=== PATIENT | male | born 1955 | race Caucasian/White ===

== ENCOUNTER → 2017-07-19 13:22 | Outpatient (CLI) | payer OTHER, SELFPAY ==
--- NOTE | 2017-07-19 13:26 | RAD_ITS ---
STUDY: X-RAY - RIGHT SHOULDER REASON FOR EXAM: Male, 61 years old. Right shoulder pain, no known injury. TECHNIQUE: 4 view(s) of the shoulder. COMPARISON: None. FINDINGS: There is mild degenerative arthrosis of the glenohumeral articulation. There is degenerative arthrosis of the acromioclavicular joint without inferior osseous spur formation. Normal acromion. Normal humeral head and visualized proximal humerus. The soft tissue structures are unremarkable. Normal visualized pulmonary apex. RAD/Shoulder min 2 Views IMPRESSION: Mild degenerative changes. Electronically Signed: Eliane Pettit MD at 11:26 EST , Service support ,
== END ==
PROVIDERS: Family Provider Family Medicine; PCP Family Medicine; Visit Provider Anesthesiology Pain Medicine
DX: M25.511 Pain in right shoulder (principal); M79.601 Pain in right arm
CPT/HCPCS: 73030

== ENCOUNTER → 2017-08-08 15:28 | Outpatient (CLI) | payer OTHER, SELFPAY ==
--- NOTE | 2017-08-08 15:30 | RAD_ITS ---
STUDY: X-RAY - LEFT KNEE REASON FOR EXAM: Male, 61 years old. Left knee for several months. Pain while going up and down stairs. TECHNIQUE: 4 view(s) of the knee. COMPARISON: None. FINDINGS: Normal visualized distal femur. Normal visualized proximal tibia and fibula. Normal proximal tibiofibular articulation. There is no acute fracture, dislocation or destructive osseous pathology. Normal medial femorotibial compartment. Normal lateral femorotibial compartment. There is moderate degenerative arthrosis of the patellofemoral articulation. There is no demonstrated joint effusion. The soft tissue structures are unremarkable. RAD/Knee 4 or More Views IMPRESSION: Arthrosis of the patellofemoral joint. Electronically Signed: Delfino De Leon DO at 16:08 EDT Tel [phone], Service support ,
== END ==
PROVIDERS: Family Provider Family Medicine; PCP Family Medicine; Visit Provider Anesthesiology Pain Medicine
DX: M25.562 Pain in left knee (principal)
CPT/HCPCS: 73564

== ENCOUNTER → 2018-01-03 13:58 | Outpatient (CLI) | payer OTHER, SELFPAY ==
--- NOTE | 2018-01-03 14:06 | MRI_ITS ---
STUDY: MRI BRAIN WITH AND WITHOUT CONTRAST REASON FOR EXAM: Male, 62 years old. Blurred vision in the left eye for one week TECHNIQUE: Standardized multiplanar fat and water weighted pulse sequences were obtained. 12 ml of Gadavist contrast material was administered intravenously for the contrast portion of the examination. High resolution imaging of the orbits was performed COMPARISON: None. FINDINGS: No evidence for shift of midline structures, mass effect or compression of ventricles noted. No acute intra-articular extra-axial hemorrhage is seen. Multiple scattered foci T2/FLAIR hyperintensity noted in the periventricular and subcortical white matter which are nonspecific in imaging appearance however differential considerations include chronic small vessel disease, inflammatory or demyelinating process. No associated enhancement or restricted diffusion seen. No discrete mass in the posterior fossa. The ventricular system appears unremarkable. Basal cisterns are patent. Pituitary stalk and optic chiasm are within normal limits. No evidence for cerebellar tonsillar herniation. Subtle cortical-based small hyperintense signal in the left medial occipital lobe noted on diffusion-weighted imaging may relate with a small cortical-based subacute infarct or T2 shine through High resolution imaging of the orbits demonstrates subtle edema in the intraorbital segment of the left optic nerve. Optic neuritis is a diagnostic consideration. No retrobulbar edema is noted. Extraocular muscles appear symmetric. Superior ophthalmic veins are patent. Exam is significantly motion degraded. The globes are intact. Mild mucosal thickening of the ethmoid air cells. IMPRESSION: Subtle abnormal edema in the intraorbital segment of the left optic nerve suggestive of optic neuritis. Other differential considerations include simply include inflammatory processes. Multiple scattered foci T2/FLAIR hyperintensity noted in the periventricular and subcortical white matter which are nonspecific in imaging appearance however differential considerations include chronic small vessel disease, inflammatory or demyelinating process. No associated enhancement or restricted diffusion seen Subtle cortical-based small hyperintense signal in the left medial occipital lobe noted on diffusion-weighted imaging may relate with a small cortical-based subacute infarct or T2 shine through Electronically Signed: Eric Tamayo, at 15:30 EDT Tel , Service support , MRI/Brain W/WO Contrast
== END ==
PROVIDERS: Family Provider Family Medicine; PCP Family Medicine; Visit Provider Ophthalmology
DX: H46.9 Unspecified optic neuritis (principal); Z82.69 Family history of other diseases of the musculoskeletal system and connective tissue
CPT/HCPCS: 70553; A9585

== ENCOUNTER 2018-03-03 11:11 | Emergency (ER) | payer OTHER, SELFPAY ==
[2018-03-03] VITALS (16 sets, daily range): BP systolic 80–114; BP diastolic 26–69; PULSE 105–113; RESP 18–37; TEMP 36.9–37.2; O2SAT 97–100; BMI 40.1
--- NOTE | 2018-03-03 11:21 | EKG12_ITS ---
Test Reason : Blood Pressure : / mmHG Vent. Rate : 110 BPM Atrial Rate : 110 BPM P-R Int : 176 ms QRS Dur : 148 ms QT Int : 388 ms P-R-T Axes : 000 096 -17 degrees QTc Int : 525 ms Sinus tachycardia Rightward axis Non-specific intra-ventricular conduction block Inferior infarct , age undetermined Abnormal ECG Confirmed by MITUL KAMARA, SYLVESTER ([id number]), food editor RAFFY ROGERS ([id number]) on 03/10/2018 3:47:11 PM Referred By: NEWTON Confirmed By:SYLVESTER BAUMAN MD
[2018-03-03 11:25] LABS: Bedside Glucose > 500 mg/dL (70-110)
[2018-03-03] MEDS: 0.9% Normal Saline 1,000 ML IV.SOLN. 3000 ML IV (11:30)
--- NOTE | 2018-03-03 11:46 | ED.RN ---
PT IS MOVING HEAD AND OPENED EYES. PT SAID HI. PT REMAIN LETHARGIC.
[2018-03-03 11:51] LABS: Mucous, Urine 0 SEEN /hpf (<or=2+); Red Blood Cells-Urine 0 SEEN /hpf (0-5); White Blood Cells 0 SEEN /hpf (0-5)
[2018-03-03 11:52] LABS: International Normalized Ratio 1.4
[2018-03-03 11:53] LABS: Partial Thromboplast Time 31.5 Seconds (24.1-36.2)
[2018-03-03 11:53] LABS: Color, Urine Yellow (Yellow); Glucose, Dipstick 1000 mg/dl (Normal); Ketone-Dipstick 50 mg/dl (Negative); Leukocyte Esterase-Dipstick Negative /ul (Negative); Nitrite-Dipstick Negative (Negative); Occult Blood-Urine Negative /ul (Negative); Protein-Dipstick Negative (Negative); Specific Gravity, Urine 1.025 (1.002-1.030); Urine Bilirubin Dipstick Negative (Negative); Urine Clarity Sl. Cloudy (Clear); Urine Urobilinogen Normal (Normal)
[2018-03-03 11:56] LABS: Allen Test POS; Base Excess -25 mmol/L (-2 to +2); Bicarbonate 4.9 mmol/L (22-26); Blood Gas Specimen Type ART; O2 Delivery Device Nasal Can; PO2 144 mmHG (75-100); SITE L Radial; SO2 98 % (95-99); Time Given 1140; Total Carbon Dioxide 5 mmol/L; pCO2 16.9 mmHg (35-45); pH 7.07 (7.35-7.45)
[2018-03-03 12:00] LABS: Squamous Epithelial Cells - UA 0-5 SEEN /hpf (0-5)
[2018-03-03] MEDS: 0.9% Normal Saline 1,000 ML 999 ML IV ×2 (12:00)
[2018-03-03 12:01] LABS: Bacteria 0 SEEN /hpf (None Seen)
--- NOTE | 2018-03-03 12:02 | ED.RN ---
LAB RESULTED POTASSIUM 6.8, CO2 6, GLUCOSE 1224. PHYSICIAN NOTIFIED
[2018-03-03 12:03] LABS: ALB/GLOB Ratio 1.1 RATIO (0.9-2.4); AST(SGOT) 20 U/L (15-37); Absolute Lymphocyte Count 3.81 X10^3/ul (0.83-4.51); Absolute Neutrophil Count 24.8 X10^3/uL (2.0-7.7); Alanine Aminotransfer ALT/SGPT 26 U/L (16-61); Albumin, Serum 3.6 g/dL (3.2-5.0); Alkaline Phosphatase 100 U/L (45-117); Anion Gap 33 (5-15); BUN 69 mg/dL (7-18); BUN/Creat Ratio 16.1 RATIO (10-20); Basophil# 0.03 X10^3/uL; Basophil% 0.1 % (0-1); Calcium,Total 8.7 mg/dL (8.5-10.1); Chloride 87 mmol/L (98-107); Creatinine, Serum 4.28 mg/dL (0.70-1.30); Differential Indicated SCAN CRITERIA MET; EST Glomerular Filtration Rate 15 mL/min (>60); Est Glom Filt Rate - Afr Amer 18 mL/min (>60); Estimated Creatinine Clearance 16.73 ml/min; Globulin 3.4 g/dL (2.2-4.2); Glucose 1224 mg/dL (74-106); Hematocrit 41.3 % (40-54); Hemoglobin 12.1 g/dl (13.0-16.5); Lymphocyte # 3.81 X10^3/ul (4.0); Lymphocyte % 12.7 % (19-41); Mean Corp Hgb Conc 29.3 g/gl (32-36); Mean Corpuscular Hgb 28.1 pg (27.0-32.0); Mean Platelet Vol. 11.7 fl (6.2-12.0); Monocyte# 1.16 X10^3/uL; Monocyte% 3.9 % (0-10); Neutrophil # 24.84 X10^3/uL (2.7-7.7); Neutrophil % 82.8 % (47-70); POSITIVE COUNT NO; POSITIVE DIFFERENTIAL YES; POSITIVE MORPHOLOGY YES; Platelet Count 399 K/mm3 (150-450); Potassium 6.8 mmol/L (3.5-5.1); RBC Distribution Width CV 15.8 % (11.6-14.6); RBC Distribution Width SD 55.3 fl (35.1-43.9); Sodium Level 126 mmol/L (136-145)
--- NOTE | 2018-03-03 12:10 | ED.RN ---
Critical value called from lab of WBC 30, Dr. Mckeon and RN aware.
[2018-03-03] MEDS: Ketamine HCl 500 MG/5 ML Vial 120 MG IV (12:11)
[2018-03-03] MEDS: Rocuronium Bromide 50 MG/5 ML Vial 120 MG IV (12:14)
--- NOTE | 2018-03-03 12:24 | ED.RN ---
400 CC COFFEE GROUND EMESIS RETURN FROM OG.
[2018-03-03] MEDS: 0.9% Normal Saline 1,000 ML 250 ML IV ×2 (12:30→12:34)
--- NOTE | 2018-03-03 12:30 | RAD_ITS ---
STUDY: X-RAY CHEST REASON FOR EXAM: Male, 62 years old. Endotracheal tube placement. Orogastric tube placement. TECHNIQUE: Single AP portable view of the chest. COMPARISON: July 31, 2015. FINDINGS: There is now an endotracheal tube with its tip 3 cm above the alber. There is an OG tube with its tip below the left hemidiaphragm. The lungs are hypoexpanded. There is no focal mass or infiltrate. There is no demonstrated pleural abnormality. Normal size heart. Normal mediastinum and bennett. Normal visualized pulmonary arteries. There is atherosclerotic calcification of the aortic arch with tortuosity. The thoracic spine is obscured by the mediastinum. Normal visualized ribs, clavicles, and shoulders. There is no demonstrated abnormality of the visualized soft tissue structures of the upper abdomen. RAD/Chest 1 View (Portable) IMPRESSION: 1. Endotracheal tube and OG tube as described. 2. No acute cardiopulmonary disease. Electronically Signed: Delfino De Leon DO at 13:55 EDT Tel [phone], Service support ,
[2018-03-03] MEDS: Glucagon 1 MG/ML Syringe IV (13:03)
--- NOTE | 2018-03-03 13:08 | ED.DCSUM_ITS ---
- ER Visit Summary Date of Service: 03/03/18 Chief Complaint: Unresponsiveness History of Present Illness: The patient is a 62 M who arrived via EMS unresponsive. Apparently friend found the patient unresponsive and his insulin pump was detached. Physical Examination: Patient appears acutely ill, his GCS is 9 Very dry mucous membranes, no obvious facial deformity No C-spine tenderness supple neck. Regular rhythm, tachycardic without any obvious murmurs White tachypneic but no obvious wheezing Abdomen soft. Skin does not show any obvious rashes or lesions, no trauma. GCS is 3, 2, 4+ 9. Emergency Department Course and Treatment: Patient was moved to the resuscitation room. 3 concurrent IVs were obtained, a 20-gauge. 3 L of IV fluids were given bolus, 2 more liters were given bolus. Patient appeared ill and he was Quite tachypneic, he decompensated and had decreased mental status, his blood pressure also decreased, bicarbonate IV was given. At this time the decision was made to intubate, I was worried that the patient ran out of ATP. Ketamine and rocuronium were used, 7.5 ET tube was placed. Patient has a pH of 7.07 with a bicarb of 5, this is uncompensated since the CO2 is 16. His white count is 30,000 although I do not see an obvious source of infection. Potassium is 6.8 and sodium is 126. Insulin drip was started. Lactic acid was 6. After intubation and NG tube was placed at this time 500-600 mL's of bright red blood were obtained, after making inquiries I am told that I do not have capabilities for endoscopy, therefore the patient will need to be transferred to a tertiary care center. At this time all the workup as well as intubating and medications were given with implied consent due to the emergent nature of the patient's condition. Empiric antibiotics were given, Protonix and glucagon were given, insulin drip started. Patient remains quite critical but his blood pressure has stabilized. Regardless I discussed with family and friends that patient is quite critical and there is a chance that he may not survive. I do believe the patient has been stabilized to the best of our ability my worry is that he be does not get transferred he will continue to bleed and , I do not have any physician who can do endoscopy at this institution. Disposition: Transfer in critical condition Impression: DKA Hyperkalemia Hyponatremia Lactic acidosis Upper GI bleed Endotracheal intubation by emergency physician Critical care time 45 minutes This note was generated with [employer] dictation software. It may contain incorrect words, spelling, and punctuation that were not noted in review of the chart prior to signing ED Disposition - Plan for ED Patient: Chief Complaint: Hyperglycemia Referrals: Lucas Yap MD [Primary Care Provider] -
--- NOTE | 2018-03-03 13:13 | PCA ---
WAITING FOR [facility] ICU TO CALL BACK FOR TRANSFER
[2018-03-03 13:15] LABS: Allen Test POS; Base Excess -25 mmol/L (-2 to +2); Bicarbonate 7.4 mmol/L (22-26); Blood Gas Specimen Type ART; FI02 50; Mode A-C; O2 Delivery Device Vent; PEEP 5; PO2 146 mmHG (75-100); RR 18; SITE L Radial; SO2 97 % (95-99); Time Given 1305; Total Carbon Dioxide 8 mmol/L; Vt 500; pCO2 34.4 mmHg (35-45); pH 6.94 (7.35-7.45)
[2018-03-03] MEDS: Sodium Bicarbonate 8.4% 50 ML Syringe 50 MEQ IV ×4 (13:23→14:25)
[2018-03-03 14:10] LABS: Allen Test POS; Base Excess -23 mmol/L (-2 to +2); Bicarbonate 8.9 mmol/L (22-26); Blood Gas Specimen Type ART; FI02 50; Mode A-C; O2 Delivery Device Vent; PEEP 5; PO2 139 mmHG (75-100); RR 22; SITE L Radial; SO2 97 % (95-99); Time Given 1358; Total Carbon Dioxide 10 mmol/L; Vt 500; pCO2 37.9 mmHg (35-45); pH 6.98 (7.35-7.45)
--- NOTE | 2018-03-03 14:34 | ED.RN ---
trauma line placed by IN RT LEG.
--- NOTE | 2018-03-03 14:42 | ED.RN ---
MED FLIGHT AT BEDSIDE.
--- NOTE | 2018-03-03 15:00 | ED.RN ---
report called jaxon eng.
--- NOTE | 2018-03-03 15:07 | ED.RN ---
500 cc brown emesis upon transfer
--- NOTE | 2018-03-03 15:18 | ED.RN ---
2ND UNIT OF TRAUMA BLOOD WITH MED FLIGHT
[2018-03-03 15:38] LABS: Reflex Lactate? Y
--- NOTE | 2018-03-03 23:05 | ED.RN ---
unable to finalized account at this time. Nurse has account locked. pt discharged [id number] to [facility]
[2018-03-05 09:11] LABS: Pathologist Review Reviewed
== END 2018-03-03 15:10 | disposition short-term general hospital (02) ==
PROVIDERS: Emergency Provider Emergency Medicine; Family Provider Family Medicine; PCP Family Medicine
DX: E11.10 Type 2 diabetes mellitus with ketoacidosis without coma (principal); E87.5 Hyperkalemia; E87.1 Hypo-osmolality and hyponatremia; E87.2 Acidosis; K92.2 Gastrointestinal hemorrhage, unspecified
CPT/HCPCS: 31500; 36430; 36600; 51702; 71045; 80053; 81001; 82009; 82803; 82962; 83605; 85025; 85610; 85730; 86850; 86900; 86920; 86922; 87040; 87086; 93005; 94002; 96365; 96366; 96367; 96375; 99251; 99285; J7030; J7040; J7050; P9016; A4216; G0463; J1610

== ENCOUNTER → 2019-01-20 13:59 | Outpatient (CLI) | payer OTHER, SELFPAY ==
[2018-12-08 10:41] VITALS: BMI 45.6
--- NOTE | 2019-01-20 14:01 | ECHOCS_ITS ---
Reason For Study: DYSPNEA Procedure This was a 2D Doppler, Color Flow transthoracic echocardiogram. The study was technically difficult. Contrast injection was performed. Exam performed in department. Left Ventricle Normal LV size. Left ventricular systolic function is normal. The estimated ejection fraction is 55 %. No evidence for diastolic dysfunction. No regional wall motion abnormalities noted. Right Ventricle Normal RV size. Normal systolic function. Atria Normal left atrium. Normal right atrium. No doppler evidence for ASD. Mitral Valve There is no mitral annular calcification. Normal mitral valve. Trivial mitral valve insufficiency. Tricuspid Valve Normal tricuspid valve. Mild tricuspid valve insufficiency. Unable to estimate RV systolic pressure/pulmonary artery pressure due to technically difficult study. Aortic Valve Trisinus/trileaflet aortic valve. Normal aortic valve. Pulmonic Valve The pulmonic valve is not well visualized. Great Vessels Normal sized aortic root. Pericardium/Pleural No pericardial effusion. Medication 22 gauge I.V. with prn adaptor inserted into right arm. Diluted definity 3.5ml given slow IV push to enhance endocardial definition. MMode/2D Measurements & Calculations LVIDd: 4.4 cm IVSd: 1.1 cm Ao root diam: 3.5 cm LVIDs: 3.0 cm LVPWd: 1.1 cm RVDd: 5.3 cm FS: 30.8 % LAV(MOD-bp): 47.1 ml LVAd ap4: 46.1 cm2 SV(MOD-sp4): 105.7 ml LAV(MOD-bp) Indexed: 19.5 ml/m2 EDV(MOD-sp4): 178.2 ml LAV(MOD-sp2): 52.5 ml EDV(sp4-el): 187.5 ml LAV(MOD-sp4): 38.1 ml LVAs ap4: 25.7 cm2 ESV(MOD-sp4): 72.5 ml ESV(sp4-el): 75.6 ml EF(MOD-sp4): 59.3 % EF(sp4-el): 59.7 % SV(sp4-el): 111.9 ml LA A4 area: 14.5 cm2 LA dimension(2D): 3.9 cm RA A4 area: 14.0 cm2 Time Measurements MV dec time: 0.18 sec Doppler Measurements & Calculations MV E max shmuel: 86.7 cm/sec Lat Peak E' Shmuel: 11.6 cm/sec Med Peak E' Shmuel: 8.0 cm/sec MV A max shmuel: 96.7 cm/sec E/E' lat: 7.5 E/E' med: 10.8 MV E/A: 0.90 Ao V2 max: 125.4 cm/sec LV V1 max: 112.7 cm/sec Ao max P.3 mmHg LV V1 max P.1 mmHg Interpretation Summary The study was technically difficult. Contrast injection was performed. Left ventricular systolic function is normal. The estimated ejection fraction is 55 %. Trivial mitral valve insufficiency. Mild tricuspid valve insufficiency. Unable to estimate RV systolic pressure/pulmonary artery pressure due to technically difficult study. No evidence for diastolic dysfunction. Ordering Physician: Milton Stoddard Referring Physician: JAIME ROCA Performed By: Dinorah Hartmann, NOE, RVT
== END ==
PROVIDERS: Family Provider Family Medicine; PCP Family Medicine; Referring Provider Internal Medicine Cardiovascular Disease; Visit Provider Internal Medicine Cardiovascular Disease
DX: E78.5 Hyperlipidemia, unspecified (principal); I10 Essential (primary) hypertension; I21.4 Non-ST elevation (NSTEMI) myocardial infarction
CPT/HCPCS: 93306; Q9957; C8929

== ENCOUNTER → 2019-01-30 13:30 | Outpatient (CLI) | payer OTHER, SELFPAY ==
[2018-12-08 10:41] VITALS: BMI 45.6
[2019-01-30 14:21] LABS: Anion Gap 3 (5-15); BUN 29 mg/dL (7-18); BUN/Creat Ratio 24.8 RATIO (10-20); Calcium,Total 8.6 mg/dL (8.5-10.1); Chloride 106 mmol/L (98-107); Creatinine, Serum 1.17 mg/dL (0.70-1.30); EST Glomerular Filtration Rate 67 mL/min (>60); Est Glom Filt Rate - Afr Amer 81 mL/min (>60); Glucose 99 mg/dL (74-106); Potassium 4.6 mmol/L (3.5-5.1); Sodium Level 139 mmol/L (136-145)
== END ==
PROVIDERS: Family Provider Family Medicine; PCP Family Medicine; Referring Provider Internal Medicine Cardiovascular Disease; Visit Provider Internal Medicine Cardiovascular Disease
DX: I10 Essential (primary) hypertension (principal); I21.4 Non-ST elevation (NSTEMI) myocardial infarction
CPT/HCPCS: 36415; 80048

== ENCOUNTER 2019-02-23 20:06 | Observation (INO) | payer OTHER, SELFPAY ==
[2018-12-08 10:41] VITALS: BMI 45.6
[2019-02-23] VITALS (8 sets, daily range): BP systolic 104–145; BP diastolic 57–79; PULSE 89–112; RESP 15–20; TEMP 36.8–37.1; O2SAT 95–97; BMI 45.6; BMI 45.0
--- NOTE | 2019-02-23 20:27 | ED.VISSUMM ---
- ER Visit Summary Date of Service: 02/23/19 Chief Complaint: Nausea, vomiting, and hyperglycemia History of Present Illness: The patient is a 63 M who presents with nausea and vomiting that began today. Patient states his insulin pump became unhooked. Patient states his blood sugar then became elevated. Patient states he had nausea and vomiting with this. Patient denies any diarrhea. Patient denies any chest pain or shortness of breath. Patient admits to subjective fevers but did not take his temperature. Patient denies any chills. Patient denies any shortness of breath. Physical Examination: Vital signs are stable except for mild tachycardia of 112. Patient is afebrile. Patient is in no acute distress. Oral mucosa is pink and moist. Neck is supple. Trachea is midline. There is no JVD noted. Heart was regular rate and rhythm. Lungs are clear and equal bilaterally. Abdomen is soft. Bowel sounds are normal. There is no tenderness. There is no guarding noted. Skin is warm dry. Cranial nerves II through XII are intact. There are no focal motor or sensory deficits noted. Test Results: CBC shows mild leukocytosis of 14.6. Glucose was elevated at 556. There are moderate ketones. Creatinine was slightly elevated at 1.67. Sodium was 133. Urinalysis does not show any evidence of urinary tract infection. Ketones were 150. Glucose was 1000. Emergency Department Course and Treatment: Patient was given IV fluids. Patient's insulin pump was disconnected. Patient was started on insulin IV drip. Patient is feeling better on reevaluation. Case was discussed with the hospitalist. He will admit the patient to his service. Patient and family understood and were agreeable with the plan. All questions were answered. Disposition: Admit to hospital Impression: 1. Diabetic ketoacidosis This note was generated with [employer] dictation software. It may contain incorrect words, spelling, and punctuation that were not noted in review of the chart prior to signing ED Disposition - Plan for ED Patient: Disposition: Acute Care Hospital [facility] Diagnosis: Diabetic ketoacidosis Referrals: Lucas Yap MD [Primary Care Provider] -
[2019-02-23] MEDS: 0.9% Normal Saline 1,000 ML 1000 ML IV (20:50)
[2019-02-23 21:02] LABS: Absolute Lymphocyte Count 0.48 X10^3/uL (0.83-4.51); Absolute Neutrophil Count 12.8 X10^3/uL (2.0-7.7); Basophil# 0.02 X10^3/uL; Basophil% 0.1 % (0-1); Eosinophil# 0.01 X10^3/uL; Eosinophils% 0.1 % (0-5); Hematocrit 40.2 % (40-54); Hemoglobin 13.2 g/dL (13.0-16.5); Lymphocyte # 0.48 X10^3/ul (4.0); Lymphocyte % 3.3 % (19-41); Mean Corp Hgb Conc 32.8 g/dL (32-36); Mean Corpuscular Hgb 28.8 pg (27.0-32.0); Mean Corpuscular Volume 87.8 fL (80-94); Mean Platelet Vol. 9.9 fl (6.2-12.0); Monocyte# 1.19 X10^3/uL; Monocyte% 8.2 % (0-10); NRBC Flagged by Analyzer 0 % (0-5); Neutrophil # 12.79 X10^3/uL (2.7-7.7); Neutrophil % 87.8 % (47-70); POSITIVE DIFFERENTIAL YES; Platelet Count 238 K/mm3 (150-450); RBC Distribution Width CV 13.2 % (11.6-14.6); RBC Distribution Width SD 42.6 fl (35.1-43.9); Red Blood Count 4.58 M/mm3 (4.6-6.2); White Blood Count 14.6 K/mm3 (4.4-11.0)
[2019-02-23 21:06] LABS: Differential Indicated SCAN CRITERIA MET
[2019-02-23 21:12] LABS: Bacteria 0 SEEN /hpf (None Seen); Mucous, Urine 0 SEEN /hpf (<or=2+); Red Blood Cells-Urine 0 SEEN /hpf (0-5); Squamous Epithelial Cells - UA 0 SEEN /hpf (0-5); White Blood Cells 0 SEEN /hpf (0-5)
[2019-02-23 21:19] LABS: Color, Urine Yellow (Yellow); Glucose, Dipstick 1000 mg/dl (Normal); Leukocyte Esterase-Dipstick Negative /ul (Negative); Nitrite-Dipstick Negative (Negative); Occult Blood-Urine Negative /ul (Negative); Protein-Dipstick Negative (Negative); Specific Gravity, Urine 1.015 (1.002-1.030); Urine Bilirubin Dipstick Negative (Negative); Urine Clarity Clear (Clear); Urine Urobilinogen Normal (Normal)
[2019-02-23 21:22] LABS: Ketone-Dipstick 150 mg/dl (Negative)
--- NOTE | 2019-02-23 21:22 | ED.RN ---
lab called with critical lab results. urine ketones 150. dr. petty made aware. no new orders at this time
[2019-02-23 21:31] LABS: Anion Gap 11 (5-15); BUN 31 mg/dL (7-18); BUN/Creat Ratio 18.6 RATIO (10-20); Calcium,Total 8.9 mg/dL (8.5-10.1); Chloride 100 mmol/L (98-107); Creatinine, Serum 1.67 mg/dL (0.70-1.30); Differential Comment SCANNED; EST Glomerular Filtration Rate 44 mL/min (>60); Est Glom Filt Rate - Afr Amer 54 mL/min (>60); Glucose 556 mg/dL (74-106); Sodium Level 133 mmol/L (136-145)
--- NOTE | 2019-02-23 21:34 | ED.RN ---
lab called with critical lab results. glucose 556. Dr. petty made aware. no new orders at this time
--- NOTE | 2019-02-23 21:57 | PCM.HP.STD ---
Problem List (1) Diabetic ketoacidosis Status: Acute (2) Multiple sclerosis Status: Chronic (3) Essential hypertension Status: Chronic (4) Obesity Status: Chronic Qualifiers: Obesity type: due to excess calories Body mass index: BMI 45.0-49.9 Comment: Enc to resume healthier lunch each day and monitor intake. (5) GERD (gastroesophageal reflux disease) Status: Chronic (6) HLD (hyperlipidemia) Status: Chronic Qualifiers: Hyperlipidemia type: unspecified Qualified Code(s): E78.5 - Hyperlipidemia, unspecified History of Present Illness Date of Admission: 02/23/19 Chief Complaint: nausea and vomiting The patient is a 63 year old M with a significant history of hypertension; multiple sclerosis; GERD; morbid obesity; type 1 diabetes with previous history of DKA x2 and who has an insulin pump; and who presented to emergency department with progressively worsening nausea and vomiting. His symptoms started after eating cheeseburgers and fries at [employer]. He ate with two people but these people did not have his symptoms. He is at risk to other people who did not have his symptoms. His previous symptoms is polyuria. He realized that his insulin pump has disconnected. And his blood glucose at that time was 440. He reconnected his insulin pump back back on. At the emergency department his blood glucose was found to be severely elevated and was found to have ketones. Patient was started on insulin drip and IV fluids. Past Medical History Past Medical History (Chronic Problems): Chronic Problems (Last Reviewed 02/23/19 @ 23:11 by Hieu Pierre MD) Multiple sclerosis (Chronic) Essential hypertension (Chronic) Obesity (Chronic) Enc to resume healthier lunch each day and monitor intake. GERD (gastroesophageal reflux disease) (Chronic) HLD (hyperlipidemia) (Chronic) Diabetes type 1, controlled (Chronic) Dx : 1993 Last exacerbation : DKA : 2016 Hypoglycemic episode : 2015 Needs additional basal at 5pm. Was kept low in past due to low Bg although this pattern no longer exiists. He used to pack his lunch but has been eating out t lunch which is creating post meal high Bg. He agrees to begin packing lunch again. Medical History: Medical History (Last Reviewed 02/23/19 @ 23:11 by Hieu Pierre MD) Multiple sclerosis (Chronic) G35 Essential hypertension (Chronic) I10 Obesity (Chronic) E66.9 Enc to resume healthier lunch each day and monitor intake. GERD (gastroesophageal reflux disease) (Chronic) K21.9 DVT (deep venous thrombosis) (Inactive) I82.409 NSTEMI (non-ST elevated myocardial infarction) (Inactive) I21.4 HLD (hyperlipidemia) (Chronic) E78.5 Diabetes type 1, controlled (Chronic) E10.9 Dx : 1993 Last exacerbation : DKA : 2016 Hypoglycemic episode : 2015 Needs additional basal at 5pm. Was kept low in past due to low Bg although this pattern no longer exiists. He used to pack his lunch but has been eating out t lunch which is creating post meal high Bg. He agrees to begin packing lunch again. Arthritis M19.90 Cataracts, bilateral H26.9 History of MRSA infection of lungs Z86.14 Hypoglycemia E16.2 Renal failure N19 Sepsis A41.9 Allergies adhesive tape Adverse Reaction (Verified 02/23/19 20:11) Rash Sulfa (Sulfonamide Antibiotics) Adverse Reaction (Verified 02/23/19 20:11) Other Home Medications: Ambulatory Orders Medication Instructions Recorded Cholecalciferol (VIT D3) [Vitamin 1,000 unit PO DAILY 09/28/15 D] Rosuvastatin Calcium [Crestor] 5 mg PO QHS 09/28/15 aspirin 81 mg chewable tablet 81 mg PO QDAY 07/04/17 metoprolol succinate ER 50 mg 50 mg PO QDAY tab 07/04/17 tablet,extended release 24 hr omeprazole 40 mg capsule,delayed 40 mg PO QDAY cap 07/04/17 release pediatric multivit no.17-ferrous 15 mg PO QDAY tab 07/26/17 fumarate 15 mg iron chewable tablet selenium sulfide 1 % shampoo 1 applic TOPICAL QDAY 07/26/17 insulin lispro (U-100) 100 unit/mL See Rx Instructions SC QDAY #90 ml 12/03/17 subcutaneous solution bupropion HCl XL 150 mg 24 hr 150 mg PO DAILY tab 12/08/18 tablet, extended release gabapentin 100 mg capsule 200 mg PO TID cap 12/08/18 potassium chloride ER 10 mEq 10 meq PO BID tab 12/08/18 tablet,extended release(part/cryst) ramipril 10 mg capsule 10 mg PO DAILY cap 12/08/18 triamcinolone acetonide 0.1 % 1 applic TOPICAL DAILY PRN g 12/08/18 topical cream furosemide 40 mg tablet 60 mg PO DAILY #225 tab 02/13/19 Dimethyl Fumarate [Tecfidera] 240 mg PO BID 02/23/19 Surgical History: Surgical History (Last Reviewed 02/23/19 @ 23:11 by Hieu Pierre MD) Hx of tonsillectomy Z98.890, Z90.89 insulin pump implant and removal Surgical History: tonsillectomy, - - Internal insulin pump implant 2006-removed. Lives: Alone Smoking Status: Former smoker Alcohol: Occasional - *Family History Maternal History Items: Cancer, Dementia - Alzheimer type Paternal History Items: Diabetes, Heart Disease, - - Multiple sclerosis Review of Systems Constitutional: Denies: Chills, Fever, Weight Change HEENT: Denies: Head Aches, Sinus Congestion, Sinus Drainage Cardiovascular: Denies: Chest Pain, Palpitations Respiratory: Denies: Cough, Shortness of breath at rest, Sputum production Gastrointestinal: Reports: Abdominal Pain - Now resolved, Nausea, Vomiting Genitourinary: Denies: Dysuria Musculoskeletal: Denies: Joint Pain, Joint Tenderness Skin: Denies: Rash, Wounds Neurological: Denies: Numbness, Tingling, Focal weakness Psychiatric: Denies: Anxiety, Depression, Homicidal Ideations, Suicidal Ideations Hematologic/ Lymphatic: Denies: Easy Bruising, Easy Bleeding VTE Information - Inpt Only VTE Present on Admission: No VTE Mechan Device Prophylaxis: None VTE Pharm Prophylaxis ordered?: Yes Patient Problems: Active and Suspected Problems (Last Reviewed 02/23/19 @ 23:11 by Hieu Pierre MD) Diabetic ketoacidosis (Acute) - Physical Exam General: Alert, Oriented x3, Cooperative HEENT: Atraumatic, PERRLA, EOMI, Normocephalic Neck: Supple, No JVD, Negative Carotid Bruits Lungs: Clear to auscultation, Normal air movement, No rhonchi, No wheeze, No rales Cardiovascular: Regular rate, No murmurs Abdomen: Bowel Sounds Present, Soft, Non Tender Extremities: No edema, Capillary Refill Less than 3 Seconds Skin: No rashes, No breakdown Musculoskeletal: No Tenderness to Palpation of Joints or Extremities Neurological: Cranial nerves II-XII grossly intact Psych/Mental Status: Normal Affect, Appropriate Vital Signs Temp Pulse Resp BP Pulse Ox 98.7 F 112 H 18 145/77 H 97 09/30/19 20:08 02/23/19 20:08 02/23/19 20:08 02/23/19 20:08 02/23/19 20:08 Oxygen Delivery Method Room Air Weight: 136.078 kg Body Mass Index (BMI) 45.6 Finger Stick Blood Glucose 500 Intake and Output for Last 24 Hours 02/21/19 02/22/19 02/23/19 23:59 23:59 23:59 Intake Total 1000 / 1000 Balance 1000 / 1000 Laboratory Tests Past 24 Hrs 02/23/19 02/23/19 02/23/19 20:45 20:45 20:45 WBC 14.6 H RBC 4.58 L Hgb 13.2 Hct 40.2 MCV 87.8 MCH 28.8 MCHC 32.8 RDW Std Deviation 42.6 RDW Coeff of Neo 13.2 Plt Count 238 MPV 9.9 Immature Gran % (Auto) 0.500 Neut % (Auto) 87.8 H Lymph % (Auto) 3.3 L [place] % (Auto) 8.2 Eos % (Auto) 0.1 Baso % (Auto) 0.1 Absolute Neuts (auto) 12.8 H Absolute Lymphs (auto) 0.48 L Nucleated RBC % 0 Differential Comment SCANNED Sodium 133 L Potassium 5.0 Chloride 100 Carbon Dioxide 22.0 Anion Gap 11 BUN 31 H Creatinine 1.67 H Estim Creat Clear Calc 43.80 Est GFR (MDRD) Af Amer 54 L Est GFR (MDRD) Non-Af 44 L BUN/Creatinine Ratio 18.6 Glucose 556 H* Calcium 8.9 Urine Color Urine Clarity Urine pH Ur Specific [place] Urine Protein Urine Glucose (UA) Urine Ketones Urine Occult Blood Urine Nitrite Urine Bilirubin Urine Urobilinogen Ur Leukocyte Esterase Urine RBC Urine WBC Ur Squamous Epith Cells Urine Bacteria Urine Mucus Acetone Level MODERATE H 02/23/19 21:05 WBC RBC Hgb Hct MCV MCH MCHC RDW Std Deviation RDW Coeff of Neo Plt Count MPV Immature Gran % (Auto) Neut % (Auto) Lymph % (Auto) [place] % (Auto) Eos % (Auto) Baso % (Auto) Absolute Neuts (auto) Absolute Lymphs (auto) Nucleated RBC % Differential Comment Sodium Potassium Chloride Carbon Dioxide Anion Gap BUN Creatinine Estim Creat Clear Calc Est GFR (MDRD) Af Amer Est GFR (MDRD) Non-Af BUN/Creatinine Ratio Glucose Calcium Urine Color Yellow Urine Clarity Clear Urine pH 5.0 Ur Specific [place] 1.015 Urine Protein Negative Urine Glucose (UA) 1000 H Urine Ketones 150 H Urine Occult Blood Negative Urine Nitrite Negative Urine Bilirubin Negative Urine Urobilinogen Normal Ur Leukocyte Esterase Negative Urine RBC 0 SEEN Urine WBC 0 SEEN Ur Squamous Epith Cells 0 SEEN Urine Bacteria 0 SEEN Urine Mucus 0 SEEN Acetone Level Assessment/Plan All Active Problems (Last Reviewed 02/23/19 @ 23:11 by Hieu Pierre MD) Diabetic ketoacidosis (Acute) The patient is a 63 year old M with a significant history of hypertension; multiple sclerosis; GERD; morbid obesity; type 1 diabetes with previous history of DKA x2 and who has an insulin pump; and who presented to emergency department with progressively worsening nausea and vomiting and found to have severely elevated blood glucose and serum ketones consistent with DKA or HHS. DKA Different diagnoses include HHS. Patient with a normal anion gap of 11. Bicarbonate is mildly reduced at 22. Patient with serum glucose of 556 and moderate acetone level on presentation. The patient reports that his insulin pump had disconnected and this could explain his DKA/HHS. We will get a stat serum osmolality to see whether this can help differentiate. Sodium 133; Corrected sodium 140 Insulin drip started from emergency department; continue Completed IV bolus of normal saline and normal saline infusion Because of potassium of 5.0 we will start patient on normal saline with potassium. Hold home Lasix. Because patient is on home Lasix will be careful with IV fluids. Hold home insulin pump BMP every 4 hours to calculate anion gap. N.p.o. for now. Few ice chips if patient request Admitted to ICU A1C ordered Zofran [employer] [place] consult. Hypertension On presentation his blood pressure was not within goal. CHANO inhibitor and metoprolol continued Morbid obesity BMI of 45.6 Counseled. History of MD Aspirin and Crestor continued Depression and anxiety Bupropion continued Multiple sclerosis On Dimethyl Fumarate DVT prophylaxis Subcutaneous Lovenox
[2019-02-23 22:26] LABS: Bedside Glucose > 500 mg/dL (70-110)
[2019-02-23] MEDS: Acetaminophen 500 MG Tablet 1000 MG PO (22:29)
[2019-02-23 23:40] LABS: Anion Gap 6 (5-15); BUN 32 mg/dL (7-18); BUN/Creat Ratio 18.9 RATIO (10-20); Calcium,Total 8.7 mg/dL (8.5-10.1); Chloride 103 mmol/L (98-107); Creatinine, Serum 1.69 mg/dL (0.70-1.30); EST Glomerular Filtration Rate 44 mL/min (>60); Est Glom Filt Rate - Afr Amer 53 mL/min (>60); Estimated Creatinine Clearance 43.28 ml/min; Glucose 476 mg/dL (74-106); Hemoglobin A1c 7.7 % (4.2-6.3); Potassium 4.6 mmol/L (3.5-5.1); Sodium Level 134 mmol/L (136-145)
[2019-02-23 23:46] LABS: Bedside Glucose 475 mg/dL (70-110)
[2019-02-23] MEDS: Potassium Chloride 40 MEQ in 0.9% Normal Saline 1,000 ML 150 MEQ IV (23:56)
[2019-02-23] MEDS: Metoprolol(XL)Succ 50 MG Tablet PO (23:56)
[2019-02-23] MEDS: Gabapentin 100 MG Capsule 200 MG PO (23:57)
[2019-02-24] VITALS (13 sets, daily range): BP systolic 115–135; BP diastolic 57–78; PULSE 65–92; RESP 12–18; TEMP 36.8; O2SAT 93–97
[2019-02-24 00:16] LABS: Bedside Glucose 448 mg/dL (70-110)
[2019-02-24 00:54] LABS: Osmolality, Serum 313 mOsm/KG (280-301)
[2019-02-24] MEDS: Potassium Chloride 40 MEQ in 0.45% Normal Saline 1,000 ML 100 MEQ IV (01:06)
[2019-02-24 01:21] LABS: Bedside Glucose 412 mg/dL (70-110)
[2019-02-24 02:20] LABS: Bedside Glucose 401 mg/dL (70-110)
[2019-02-24 04:31] LABS: Bedside Glucose 311 mg/dL (70-110)
[2019-02-24 04:42] LABS: Absolute Lymphocyte Count 0.86 X10^3/uL (0.83-4.51); Absolute Neutrophil Count 10.6 X10^3/uL (2.0-7.7); Basophil# 0.03 X10^3/uL; Basophil% 0.2 % (0-1); Eosinophil# 0.01 X10^3/uL; Eosinophils% 0.1 % (0-5); Hematocrit 38.1 % (40-54); Hemoglobin 12.7 g/dL (13.0-16.5); Lymphocyte # 0.86 X10^3/ul (4.0); Lymphocyte % 6.7 % (19-41); Mean Corp Hgb Conc 33.3 g/dL (32-36); Mean Corpuscular Hgb 29.1 pg (27.0-32.0); Mean Corpuscular Volume 87.4 fL (80-94); Mean Platelet Vol. 9.7 fl (6.2-12.0); Monocyte# 1.28 X10^3/uL; NRBC Flagged by Analyzer 0 % (0-5); Neutrophil # 10.63 X10^3/uL (2.7-7.7); Neutrophil % 82.6 % (47-70); Platelet Count 248 K/mm3 (150-450); RBC Distribution Width CV 13.3 % (11.6-14.6); RBC Distribution Width SD 42.8 fl (35.1-43.9); Red Blood Count 4.36 M/mm3 (4.6-6.2); White Blood Count 12.9 K/mm3 (4.4-11.0)
[2019-02-24 04:49] LABS: Anion Gap 5 (5-15); BUN 30 mg/dL (7-18); BUN/Creat Ratio 21.6 RATIO (10-20); Calcium,Total 8.8 mg/dL (8.5-10.1); Chloride 107 mmol/L (98-107); Creatinine, Serum 1.39 mg/dL (0.70-1.30); EST Glomerular Filtration Rate 55 mL/min (>60); Est Glom Filt Rate - Afr Amer 66 mL/min (>60); Estimated Creatinine Clearance 52.63 ml/min; Glucose 321 mg/dL (74-106); Potassium 4.5 mmol/L (3.5-5.1); Sodium Level 139 mmol/L (136-145)
[2019-02-24 05:31] LABS: Bedside Glucose 276 mg/dL (70-110)
[2019-02-24 06:16] LABS: Bedside Glucose 240 mg/dL (70-110)
[2019-02-24 07:11] LABS: Bedside Glucose 220 mg/dL (70-110)
[2019-02-24] MEDS: Gabapentin 100 MG Capsule 200 MG PO (07:14)
--- NOTE | 2019-02-24 07:32 | CON.PCM_ITS ---
Problem List (1) ERIC (acute kidney injury) Status: Acute (2) Hyperosmolar non-ketotic state in patient with type 2 diabetes mellitus Status: Acute (3) Multiple sclerosis Status: Chronic (4) Essential hypertension Status: Chronic (5) Obesity Status: Chronic Qualifiers: Obesity type: due to excess calories Body mass index: BMI 45.0-49.9 Comment: Enc to resume healthier lunch each day and monitor intake. (6) GERD (gastroesophageal reflux disease) Status: Chronic (7) HLD (hyperlipidemia) Status: Chronic Qualifiers: Hyperlipidemia type: unspecified Qualified Code(s): E78.5 - Hyperlipidemia, unspecified Reason for Consult Date of Consultation: 02/24/19 Reason for Consultation: Hyperglycemia History of Present Illness: The patient is a 63 year old M, with past medical history listed below, who presented [facility] on 02/23/2019 secondary to nausea and vomiting. Patient does have a history of insulin-dependent diabetes mellitus and had realized that his pump had become unhooked. Patient denied any diarrhea, but did have significant nausea and vomiting. Patient denies any chest pain or shortness of breath. Patient had reported some subjective fevers, but denied chills. On presentation to the ER, patient was tachycardic at 112 bpm. Laboratory work- up showed a glucose of 556 with mild leukocytosis of 14.6 and moderate ketones. Creatinine was elevated, along with ketones. Patient was placed on IV fluids and an insulin drip and transferred to the intensive care unit for further monitoring. Overnight, patient did well. Blood sugars have resolved spontaneously. Patient does not have new tubing for his insulin pump. Patient denies any difficulties with the insulin pump in the past. Patient states he does have Lantus and Humalog at home, but has been using the pump relatively exclusively. Patient feels that he is back to his baseline at this time. Patient is not reporting any nausea or vomiting. Patient is interested in eating. Patient has not required any supplemental oxygen during hospitalization. No aspiration events were reported. Patient is denying any dysuria. Review of systems otherwise negative from a constitutional, HEENT, respiratory, cardiovascular, GI, genitourinary, musculoskeletal, skin, neurologic, psychiatric and hematologic system unless stated above. Past Medical History Past Medical History (Chronic Problems): Chronic Problems (Last Reviewed 02/23/19 @ 23:11 by Hieu Pierre MD) Multiple sclerosis (Chronic) Essential hypertension (Chronic) Obesity (Chronic) Enc to resume healthier lunch each day and monitor intake. GERD (gastroesophageal reflux disease) (Chronic) HLD (hyperlipidemia) (Chronic) Diabetes type 1, controlled (Chronic) Dx : 1993 Last exacerbation : DKA : 2016 Hypoglycemic episode : 2015 Needs additional basal at 5pm. Was kept low in past due to low Bg although this pattern no longer exiists. He used to pack his lunch but has been eating out t lunch which is creating post meal high Bg. He agrees to begin packing lunch again. Medical History: Medical History (Last Reviewed 02/23/19 @ 23:11 by Hieu Pierre MD) Multiple sclerosis (Chronic) G35 Essential hypertension (Chronic) I10 Obesity (Chronic) E66.9 Enc to resume healthier lunch each day and monitor intake. GERD (gastroesophageal reflux disease) (Chronic) K21.9 DVT (deep venous thrombosis) (Inactive) I82.409 NSTEMI (non-ST elevated myocardial infarction) (Inactive) I21.4 HLD (hyperlipidemia) (Chronic) E78.5 Diabetes type 1, controlled (Chronic) E10.9 Dx : 1993 Last exacerbation : DKA : 2016 Hypoglycemic episode : 2015 Needs additional basal at 5pm. Was kept low in past due to low Bg although this pattern no longer exiists. He used to pack his lunch but has been eating out t lunch which is creating post meal high Bg. He agrees to begin packing lunch again. Arthritis M19.90 Cataracts, bilateral H26.9 History of MRSA infection of lungs Z86.14 Hypoglycemia E16.2 Renal failure N19 Sepsis A41.9 Allergies adhesive tape Adverse Reaction (Verified 02/23/19 20:11) Rash Sulfa (Sulfonamide Antibiotics) Adverse Reaction (Verified 02/23/19 20:11) Other Home Medications: Ambulatory Orders Medication Instructions Recorded Cholecalciferol (VIT D3) [Vitamin 1,000 unit PO DAILY 09/28/15 D] Rosuvastatin Calcium [Crestor] 5 mg PO QHS 09/28/15 aspirin 81 mg chewable tablet 81 mg PO QDAY 07/04/17 metoprolol succinate ER 50 mg 50 mg PO QDAY tab 07/04/17 tablet,extended release 24 hr omeprazole 40 mg capsule,delayed 40 mg PO QDAY cap 07/04/17 release pediatric multivit no.17-ferrous 15 mg PO QDAY tab 07/26/17 fumarate 15 mg iron chewable tablet selenium sulfide 1 % shampoo 1 applic TOPICAL QDAY 07/26/17 insulin lispro (U-100) 100 unit/mL See Rx Instructions SC QDAY #90 ml 12/03/17 subcutaneous solution bupropion HCl XL 150 mg 24 hr 150 mg PO DAILY tab 12/08/18 tablet, extended release gabapentin 100 mg capsule 200 mg PO TID cap 12/08/18 potassium chloride ER 10 mEq 10 meq PO BID tab 12/08/18 tablet,extended release(part/cryst) ramipril 10 mg capsule 10 mg PO DAILY cap 12/08/18 triamcinolone acetonide 0.1 % 1 applic TOPICAL DAILY PRN g 12/08/18 topical cream furosemide 40 mg tablet 60 mg PO DAILY #225 tab 02/13/19 Dimethyl Fumarate [Tecfidera] 240 mg PO BID 02/23/19 Surgical History: Surgical History (Last Reviewed 02/23/19 @ 23:11 by Hieu Pierre MD) Hx of tonsillectomy Z98.890, Z90.89 insulin pump implant and removal Surgical History: tonsillectomy, - - Internal insulin pump implant 2005-removed. Lives: Alone Smoking Status: Former smoker Alcohol: Occasional - *Family History Maternal History Items: Cancer, Dementia - Alzheimer type Paternal History Items: Diabetes, Heart Disease, - - Multiple sclerosis Review of Systems Comment: See HPI Patient Problems: Active and Suspected Problems (Last Reviewed 02/23/19 @ 23:11 by Hieu Pierre MD) ERIC (acute kidney injury) (Acute) Hyperosmolar non-ketotic state in patient with type 2 diabetes mellitus (Acute) Hyperosmolality due to uncontrolled type 1 diabetes mellitus (Acute) - Physical Exam General: Alert, Oriented x3, Cooperative, No apparent distress, Well developed, Well nourished, - - Morbidly obese. Speaking in full sentences. HEENT: Atraumatic, PERRLA, EOMI, Normocephalic, - - No scleral icterus or injection noted Oral: Moist Mucosa, No Gingival or Mucosal Lesions/ Ulcerations Neck: Supple, No JVD, No Nodes, Trachea Midline Lungs: Clear to auscultation, Normal air movement, No rhonchi, No wheeze, No rales, - - Symmetric expansion. No dullness to percussion. Cardiovascular: Regular rate, Regular Rhythm, Normal S1, Normal S2, No murmurs, No rub noted, No Gallop Abdomen: Bowel Sounds Present, Soft, Non Tender, Non-Distended, Obese Extremities: No clubbing, No cyanosis, Edema - 1+ lower extremities Skin: No rashes, No breakdown Musculoskeletal: No Tenderness to Palpation of Joints or Extremities Lymphatic: No Cervical, Supraclavicular, or Inguinal Adenopathy Neurological: Cranial nerves II-XII grossly intact, Neuro grossly intact, Motor Exam 5/5 strength throughout Psych/Mental Status: Alert and oriented to time, place, person, mood and affect Vital Signs Temp Pulse Resp BP Pulse Ox 36.8 C 66 14 115/71 94 02/24/19 04:00 02/24/19 06:00 02/24/19 06:00 02/24/19 06:00 02/24/19 06:00 Oxygen Delivery Method Room Air Weight: 135.3 kg Body Mass Index (BMI) 45.0 Finger Stick Blood Glucose 240 Intake and Output for Last 24 Hours 02/22/19 02/23/19 02/24/19 23:59 23:59 23:59 Intake Total 1005.1 / 1011.9 818.27 / 818.27 Output Total 250 / 250 Balance 1005.1 / 1011.9 568.27 / 568.27 Laboratory Tests Past 24 Hrs 02/23/19 02/23/19 02/23/19 20:45 20:45 20:45 WBC 14.6 H RBC 4.58 L Hgb 13.2 Hct 40.2 MCV 87.8 MCH 28.8 MCHC 32.8 RDW Std Deviation 42.6 RDW Coeff of Neo 13.2 Plt Count 238 MPV 9.9 Immature Gran % (Auto) 0.500 Neut % (Auto) 87.8 H Lymph % (Auto) 3.3 L [place] % (Auto) 8.2 Eos % (Auto) 0.1 Baso % (Auto) 0.1 Absolute Neuts (auto) 12.8 H Absolute Lymphs (auto) 0.48 L Nucleated RBC % 0 Differential Comment SCANNED Sodium 133 L Potassium 5.0 Chloride 100 Carbon Dioxide 22.0 Anion Gap 11 BUN 31 H Creatinine 1.67 H Estim Creat Clear Calc 43.80 Est GFR (MDRD) Af Amer 54 L Est GFR (MDRD) Non-Af 44 L BUN/Creatinine Ratio 18.6 Glucose 556 H* Hemoglobin A1c Serum Osmolality Calcium 8.9 Urine Color Urine Clarity Urine pH Ur Specific [place] Urine Protein Urine Glucose (UA) Urine Ketones Urine Occult Blood Urine Nitrite Urine Bilirubin Urine Urobilinogen Ur Leukocyte Esterase Urine RBC Urine WBC Ur Squamous Epith Cells Urine Bacteria Urine Mucus Acetone Level MODERATE H 02/23/19 02/23/19 02/23/19 20:45 21:05 23:19 WBC RBC Hgb Hct MCV MCH MCHC RDW Std Deviation RDW Coeff of Neo Plt Count MPV Immature Gran % (Auto) Neut % (Auto) Lymph % (Auto) [place] % (Auto) Eos % (Auto) Baso % (Auto) Absolute Neuts (auto) Absolute Lymphs (auto) Nucleated RBC % Differential Comment Sodium Potassium Chloride Carbon Dioxide Anion Gap BUN Creatinine Estim Creat Clear Calc Est GFR (MDRD) Af Amer Est GFR (MDRD) Non-Af BUN/Creatinine Ratio Glucose Hemoglobin A1c 7.7 H Serum Osmolality 313 H Calcium Urine Color Yellow Urine Clarity Clear Urine pH 5.0 Ur Specific [place] 1.015 Urine Protein Negative Urine Glucose (UA) 1000 H Urine Ketones 150 H Urine Occult Blood Negative Urine Nitrite Negative Urine Bilirubin Negative Urine Urobilinogen Normal Ur Leukocyte Esterase Negative Urine RBC 0 SEEN Urine WBC 0 SEEN Ur Squamous Epith Cells 0 SEEN Urine Bacteria 0 SEEN Urine Mucus 0 SEEN Acetone Level 02/23/19 02/24/19 02/24/19 23:19 04:25 04:25 WBC 12.9 H RBC 4.36 L Hgb 12.7 L Hct 38.1 L MCV 87.4 MCH 29.1 MCHC 33.3 RDW Std Deviation 42.8 RDW Coeff of Neo 13.3 Plt Count 248 MPV 9.7 Immature Gran % (Auto) 0.400 Neut % (Auto) 82.6 H Lymph % (Auto) 6.7 L [place] % (Auto) 10.0 Eos % (Auto) 0.1 Baso % (Auto) 0.2 Absolute Neuts (auto) 10.6 H Absolute Lymphs (auto) 0.86 Nucleated RBC % 0 Differential Comment Sodium 134 L 139 Potassium 4.6 4.5 Chloride 103 107 Carbon Dioxide 25.0 27.0 Anion Gap 6 5 BUN 32 H 30 H Creatinine 1.69 H 1.39 H Estim Creat Clear Calc 43.28 52.63 Est GFR (MDRD) Af Amer 53 L 66 Est GFR (MDRD) Non-Af 44 L 55 L BUN/Creatinine Ratio 18.9 21.6 H Glucose 476 H* 321 H Hemoglobin A1c Serum Osmolality Calcium 8.7 8.8 Urine Color Urine Clarity Urine pH Ur Specific [place] Urine Protein Urine Glucose (UA) Urine Ketones Urine Occult Blood Urine Nitrite Urine Bilirubin Urine Urobilinogen Ur Leukocyte Esterase Urine RBC Urine WBC Ur Squamous Epith Cells Urine Bacteria Urine Mucus Acetone Level POC Glucose 02/24/19 02/24/19 02/24/19 07:04 06:12 05:27 POC Glucose 220 H 240 H 276 H 02/24/19 02/24/19 02/24/19 04:22 02:15 01:17 POC Glucose 311 H 401 H 412 H 02/24/19 02/23/19 02/23/19 00:07 23:00 22:11 POC Glucose 448 H 475 H* > 500 H* Assessment/Plan Active and Suspected Problems (Last Reviewed 02/23/19 @ 23:11 by Hieu Pierre MD) ERIC (acute kidney injury) (Acute) Hyperosmolar non-ketotic state in patient with type 2 diabetes mellitus (Acute) Hyperosmolality due to uncontrolled type 1 diabetes mellitus (Acute) RECOMMENDATIONS: 1. Okay to discontinue insulin drip 2. Initiate p.o. diet with sliding scale insulin 3. Obtain new pump supplies and reinitiate insulin pump 4. Probable discharge later today if pump functioning appropriate or dosed with Lantus therapy 5. Outpatient endocrine follow-up IMPRESSIONS: 1. HHS secondary to insulin pump dysfunction Patient appears to be responding well to insulin drip. Patient should receive new supplies for insulin pump and reinitiate. If blood sugars continue to rise, patient may need to be bridged with Lantus until pump can be evaluated by endocrine. Patient is on Lasix at home and this has been held leading to improved volume status. If patient is able to tolerate meal with pump in place, can likely be discharged. If pump proves to be nonfunctional, Lantus may be an appropriate alternative in the short-term until this can be evaluated. 2. Acute kidney injury Clinical suspicion for prerenal etiology secondary to #1. Patient has responded well to fluid resuscitation. Okay to reinitiate baseline medications from my perspective including diuretic therapy and CHANO inhibitor. 3. Morbid obesity/history of [place]/depression/anxiety/multiple sclerosis Complicates care, management, recovery and prognosis. Okay to continue baseline medications from my perspective. Did academic counselor patient on the role of weight loss and the overall disease plan of care. Patient voiced understanding. Code Visit Inpatient E&M: 33658 Init Hosp L2
[2019-02-24 08:06] LABS: Bedside Glucose 234 mg/dL (70-110)
[2019-02-24 09:31] LABS: Bedside Glucose 211 mg/dL (70-110)
[2019-02-24] MEDS: Insulin Lispro 100 UNIT/ML INSULN.PEN SC (09:51)
[2019-02-24] MEDS: Aspirin 81 MG TAB.CHEW PO (09:53)
[2019-02-24] MEDS: buPROPion (XL) 150 MG TABLET.XL PO (09:53)
[2019-02-24] MEDS: Pantoprazole Sodium 40 MG Tablet PO (09:53)
--- NOTE | 2019-02-24 09:53 | PCM.DC ---
- Discharge Diagnoses Current Active Problems: Current Active and Chronic Problems (Last Reviewed 02/23/19 @ 23:11 by Hieu Pierre MD) ERIC (acute kidney injury) (Acute) Hyperosmolar non-ketotic state in patient with type 2 diabetes mellitus (Acute) Hyperosmolality due to uncontrolled type 1 diabetes mellitus (Acute) Reason(s) for Visit for Discharge Instructions: Nausea, vomiting, elevated blood glucose You will use the following diet at home:: Calorie/Carbohydrate Controlled (specify 1200, 1400, etc), Cardiac Your food should be the consistency of: Regular Your liquids should be the consistency of: Regular/Thin Discharge Activity: Return to Normal Activity Weight Bearing Status: Weight bearing as tolerated Additional Instructions: Continue to use your insulin pump as prescribed. Your ramipril was held in the hospital. Continuie to take your BP daily. You need repeat blood work to check on your kidney function prior to resuming your ramipril. Follow-up with your primary care doctor within 1-2 weeks. 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 Allergies/Adverse Reactions: Allergies adhesive tape Adverse Reaction (Verified 02/23/19 20:11) Rash Sulfa (Sulfonamide Antibiotics) Adverse Reaction (Verified 02/23/19 20:11) Other Medications to take at Discharge Cholecalciferol (VIT D3) [Vitamin D3] 1,000 unit PO DAILY 09/28/15 Rosuvastatin Calcium [Crestor] 5 mg PO QHS 09/28/15 aspirin 81 mg chewable tablet 81 mg PO QDAY 07/04/17 metoprolol succinate ER 50 mg tablet,extended release 24 hr 50 mg PO QDAY tab 07/04/17 omeprazole 40 mg capsule,delayed release 40 mg PO QDAY cap 07/04/17 pediatric multivit no.17-ferrous fumarate 15 mg iron chewable tablet 15 mg PO QDAY tab 07/26/17 selenium sulfide 1 % shampoo 1 applic TOPICAL QDAY 07/26/17 insulin lispro (U-100) 100 unit/mL subcutaneous solution See Rx Instructions SC QDAY #90 ml 12/03/17 bupropion HCl XL 150 mg 24 hr tablet, extended release 150 mg PO DAILY tab 12/08/18 gabapentin 100 mg capsule 200 mg PO TID cap 12/08/18 potassium chloride ER 10 mEq tablet,extended release(part/cryst) 10 meq PO BID tab 12/08/18 triamcinolone acetonide 0.1 % topical cream 1 applic TOPICAL DAILY PRN g 12/08/18 furosemide 40 mg tablet 60 mg PO DAILY #225 tab 02/13/19 Dimethyl Fumarate [Tecfidera] 240 mg PO BID 02/23/19 Acetaminophen [Tylenol Tablet] 650 mg PO Q6H PRN PRN tab 02/24/19 Primary Care Physician: Lucas Yap MD [Primary Care Provider] - Please follow up with your Primary Care Physician in: within 1-2 weeks Test Results: Test results from this visit will be discussed in further detail at your follow-up appointment, if applicable. Proposed Discharge Date: 02/24/19
[2019-02-24] MEDS: Multivitamins,Ther W-Minerals Tablet 1 TABLET PO (09:54)
[2019-02-24 10:55] LABS: Bedside Glucose 240 mg/dL (70-110)
--- NOTE | 2019-02-24 11:00 | CASEMGMT ---
RN CM Assessment Introduced role of RN CM to patient.? Patient is alert, oriented and able?to participate in RN CM Assessment. ?Care providers, pharmacy, and demographics verified. Presentation: N/V, Insulin Pump became unhooked Admit Dx: Dka, HHS Re-Admit: No Barriers/Issues: None PCP: Yfn Yap Specialists: [place] in [place]- Dr Sierra Preferred Pharmacy: [facility] for Maintenance Meds. Insurance: MMO Rx Benefit: Yes? ?LNOK: Sister Ermelinda Bautista, Sister Codi Ramos LW/HPOA: None, [facility] has the information and declines information/services this admission. Aware can come as an Outpatient if chooses to complete at a later times. Living Arrangements: Lives alone in a SS home, 2 steps to enter? ADL?s: Ambulates with a cane most of the time, Independent with ADLs Transportation: Drives, denies any transportation issues. DME: Insulin Pump- supplies from a [facility] [employer] that he is part of and receives supplies free from [employer] but not sure of name, [facility] Glucometer is automatic with the Pump. CPAP- [facility]- states that he now gets supplies for CPAP at [facility]. Shower Chair. HHC: Past, does not recall agency. SNF: [facility] past at [facility] but denies any other SNF Goal: Home, does not have any needs. [facility] has 3 month insulin pump supplies at home in a box and thinks he just did not hook it back up right after taking a shower. Denies any issues, concerns or questions with DC planning at this time. Plan is for Lantus/Humalog upon DC until his Insulin Pump is fixed, [facility] has those medications at home, Aware to discuss and clarify with nurse upon Discharge with [facility] on how/what medication to take and if needing to stop what meds upon pump working. Aware CM remains available for any emerging needs. DC PLAN: Home with no anticipated needs identified at this time. JAAY Epstein
--- NOTE | 2019-02-24 11:13 | DS.PCM_ITS ---
Discharge Date and Diagnosis - Problem List Patient Problems: Active and Suspected Problems (Last Reviewed 02/23/19 @ 23:11 by Hieu Pierre MD) ERIC (acute kidney injury) (Acute) Hyperosmolar non-ketotic state in patient with type 2 diabetes mellitus (Acute) Hyperosmolality due to uncontrolled type 1 diabetes mellitus (Acute) Date of Admission: 02/23/19 Date of Discharge: 02/24/19 - Primary Discharge Diagnosis Active and Suspected Problems (Last Reviewed 02/23/19 @ 23:11 by Hieu Pierre MD) ERIC (acute kidney injury) (Acute) Hyperosmolality due to uncontrolled type 1 diabetes mellitus (Acute) Leucocytosis - Secondary Discharge Diagnosis Chronic Problems (Last Reviewed 02/23/19 @ 23:11 by Hieu Pierre MD) Multiple sclerosis (Chronic) Essential hypertension (Chronic) Obesity (Chronic) Enc to resume healthier lunch each day and monitor intake. GERD (gastroesophageal reflux disease) (Chronic) HLD (hyperlipidemia) (Chronic) Diabetes type 1, controlled (Chronic) Dx : 1993 Last exacerbation : DKA : 2016 Hypoglycemic episode : 2015 Needs additional basal at 5pm. Was kept low in past due to low Bg although this pattern no longer exiists. He used to pack his lunch but has been eating out t lunch which is creating post meal high Bg. He agrees to begin packing lunch again. Hospital Course and Treatment None Operations: None Procedures: None Summary of Care Provided: The patient is a 63 year old M with past medical history of hypertension, type I DM, multiple sclerosis, GERD, morbid obesity who presented to the emergency department with progressive nausea and vomiting. He had described that his symptoms started after eating cheeseburgers and fries at [facility]. He then realised that his insulin pump was disconnected. He attempted to put it back on and then realized that his wire was malfunctioned. His blood sugar was elevated, more than 475. He had ketones in his urine, anion gap was 6. Patient was admitted to the ICU on insulin drip as HHS. His blood sugars improved in the next morning and he was off the drip. He was started on Lantus until his new wire for his insulin pump will be brought from home. His blood sugars were stable at the time of discharge. He was encouraged to follow-up with his carroting machine offbearer within a week. He also was found to have leukocytosis without evidence of infection. Patient Problems: Active and Suspected Problems (Last Reviewed 02/23/19 @ 23:11 by Hieu Pierre MD) ERIC (acute kidney injury) (Acute) Hyperosmolar non-ketotic state in patient with type 2 diabetes mellitus (Acute) Hyperosmolality due to uncontrolled type 1 diabetes mellitus (Acute) Subjective: The day of discharge, patient was seen and examined. He denied any new complaint. He was able to tolerate his breakfast. - Physical Exam General: Alert, Oriented x3, Cooperative, No apparent distress HEENT: Atraumatic, PERRLA, EOMI, Normocephalic Oral: Moist Mucosa Neck: Supple Lungs: Clear to auscultation, Normal air movement Cardiovascular: Regular rate, Regular Rhythm, Normal S1, Normal S2, No murmurs Abdomen: Bowel Sounds Present, Soft, Non Tender, Non-Distended, No Hepato- splenomegaly Extremities: No edema Skin: No rashes Musculoskeletal: No Tenderness to Palpation of Joints or Extremities Lymphatic: No Cervical, Supraclavicular, or Inguinal Adenopathy Neurological: Cranial nerves II-XII grossly intact, Neuro grossly intact Psych/Mental Status: Normal Affect, Appropriate Vital Signs Temp Pulse Resp BP Pulse Ox 98.3 F 68 17 135/69 H 97 02/24/19 08:00 02/24/19 09:00 02/24/19 09:00 02/24/19 09:00 02/24/19 09:00 Oxygen Delivery Method Room Air Weight: 135.3 kg Body Mass Index (BMI) 45.0 Finger Stick Blood Glucose 211 Intake and Output for Last 24 Hours 02/22/19 02/23/19 02/24/19 23:59 23:59 23:59 Intake Total 1005.1 / 1011.9 830.06 / 830.06 Output Total 250 / 250 Balance 1005.1 / 1011.9 580.06 / 580.06 Laboratory Tests Past 24 Hrs 02/23/19 02/23/19 02/23/19 20:45 20:45 20:45 WBC 14.6 H RBC 4.58 L Hgb 13.2 Hct 40.2 MCV 87.8 MCH 28.8 MCHC 32.8 RDW Std Deviation 42.6 RDW Coeff of Neo 13.2 Plt Count 238 MPV 9.9 Immature Gran % (Auto) 0.500 Neut % (Auto) 87.8 H Lymph % (Auto) 3.3 L [place] % (Auto) 8.2 Eos % (Auto) 0.1 Baso % (Auto) 0.1 Absolute Neuts (auto) 12.8 H Absolute Lymphs (auto) 0.48 L Nucleated RBC % 0 Differential Comment SCANNED Sodium 133 L Potassium 5.0 Chloride 100 Carbon Dioxide 22.0 Anion Gap 11 BUN 31 H Creatinine 1.67 H Estim Creat Clear Calc 43.80 Est GFR (MDRD) Af Amer 54 L Est GFR (MDRD) Non-Af 44 L BUN/Creatinine Ratio 18.6 Glucose 556 H* Hemoglobin A1c Serum Osmolality Calcium 8.9 Urine Color Urine Clarity Urine pH Ur Specific Edison Urine Protein Urine Glucose (UA) Urine Ketones Urine Occult Blood Urine Nitrite Urine Bilirubin Urine Urobilinogen Ur Leukocyte Esterase Urine RBC Urine WBC Ur Squamous Epith Cells Urine Bacteria Urine Mucus Acetone Level MODERATE H 02/23/19 02/23/19 02/23/19 20:45 21:05 23:19 WBC RBC Hgb Hct MCV MCH MCHC RDW Std Deviation RDW Coeff of Neo Plt Count MPV Immature Gran % (Auto) Neut % (Auto) Lymph % (Auto) Paulding % (Auto) Eos % (Auto) Baso % (Auto) Absolute Neuts (auto) Absolute Lymphs (auto) Nucleated RBC % Differential Comment Sodium Potassium Chloride Carbon Dioxide Anion Gap BUN Creatinine Estim Creat Clear Calc Est GFR (MDRD) Af Amer Est GFR (MDRD) Non-Af BUN/Creatinine Ratio Glucose Hemoglobin A1c 7.7 H Serum Osmolality 313 H Calcium Urine Color Yellow Urine Clarity Clear Urine pH 5.0 Ur Specific Edison 1.015 Urine Protein Negative Urine Glucose (UA) 1000 H Urine Ketones 150 H Urine Occult Blood Negative Urine Nitrite Negative Urine Bilirubin Negative Urine Urobilinogen Normal Ur Leukocyte Esterase Negative Urine RBC 0 SEEN Urine WBC 0 SEEN Ur Squamous Epith Cells 0 SEEN Urine Bacteria 0 SEEN Urine Mucus 0 SEEN Acetone Level 02/23/19 02/24/19 02/24/19 23:19 04:25 04:25 WBC 12.9 H RBC 4.36 L Hgb 12.7 L Hct 38.1 L MCV 87.4 MCH 29.1 MCHC 33.3 RDW Std Deviation 42.8 RDW Coeff of Neo 13.3 Plt Count 248 MPV 9.7 Immature Gran % (Auto) 0.400 Neut % (Auto) 82.6 H Lymph % (Auto) 6.7 L Paul[place] % (Auto) 10.0 Eos % (Auto) 0.1 Baso % (Auto) 0.2 Absolute Neuts (auto) 10.6 H Absolute Lymphs (auto) 0.86 Nucleated RBC % 0 Differential Comment Sodium 134 L 139 Potassium 4.6 4.5 Chloride 103 107 Carbon Dioxide 25.0 27.0 Anion Gap 6 5 BUN 32 H 30 H Creatinine 1.69 H 1.39 H Estim Creat Clear Calc 43.28 52.63 Est GFR (MDRD) Af Amer 53 L 66 Est GFR (MDRD) Non-Af 44 L 55 L BUN/Creatinine Ratio 18.9 21.6 H Glucose 476 H* 321 H Hemoglobin A1c Serum Osmolality Calcium 8.7 8.8 Urine Color Urine Clarity Urine pH Ur Specific Edison Urine Protein Urine Glucose (UA) Urine Ketones Urine Occult Blood Urine Nitrite Urine Bilirubin Urine Urobilinogen Ur Leukocyte Esterase Urine RBC Urine WBC Ur Squamous Epith Cells Urine Bacteria Urine Mucus Acetone Level POC Glucose 02/24/19 02/24/19 02/24/19 10:51 09:24 07:59 POC Glucose 240 H 211 H 234 H 02/24/19 02/24/19 02/24/19 07:04 06:12 05:27 POC Glucose 220 H 240 H 276 H 02/24/19 02/24/19 02/24/19 04:22 02:15 01:17 POC Glucose 311 H 401 H 412 H 02/24/19 02/23/19 02/23/19 00:07 23:00 22:11 POC Glucose 448 H 475 H* > 500 H* Discharge Diet: Low fat/ Low Cholesterol, 2000 mg Sodium Diet, Carb Control Diet Discharge Activity: Return to Normal Activity Weight Bearing Status: Weight bearing as tolerated Home Medications: Medications to take at Discharge Cholecalciferol (VIT D3) [Vitamin D3] 1,000 unit PO DAILY 09/28/15 Rosuvastatin Calcium [Crestor] 5 mg PO QHS 09/28/15 aspirin 81 mg chewable tablet 81 mg PO QDAY 07/04/17 metoprolol succinate ER 50 mg tablet,extended release 24 hr 50 mg PO QDAY tab 07/04/17 omeprazole 40 mg capsule,delayed release 40 mg PO QDAY cap 07/04/17 pediatric multivit no.17-ferrous fumarate 15 mg iron chewable tablet 15 mg PO QDAY tab 07/26/17 selenium sulfide 1 % shampoo 1 applic TOPICAL QDAY 07/26/17 insulin lispro (U-100) 100 unit/mL subcutaneous solution See Rx Instructions SC QDAY #90 ml 12/03/17 bupropion HCl XL 150 mg 24 hr tablet, extended release 150 mg PO DAILY tab 12/08/18 gabapentin 100 mg capsule 200 mg PO TID cap 12/08/18 potassium chloride ER 10 mEq tablet,extended release(part/cryst) 10 meq PO BID tab 12/08/18 triamcinolone acetonide 0.1 % topical cream 1 applic TOPICAL DAILY PRN g 12/08/18 furosemide 40 mg tablet 60 mg PO DAILY #225 tab 02/13/19 Dimethyl Fumarate [Tecfidera] 240 mg PO BID 02/23/19 Acetaminophen [Tylenol Tablet] 650 mg PO Q6H PRN PRN tab 02/24/19 Primary Care Physician: Lucas Yap MD [Primary Care Provider] - Please follow up with your Primary Care Physician in: within 1-2 weeks Disposition: Home Minutes spent on discharge:: 40 Patient Condition:: Stable Medical Necessity - Tobacco Use Smoking Status: Former smoker Tobacco Use: Non-smoker Meaningful Use Info Meaningful Use Diagnoses (Choose all that apply): None applicable Code Visit OBSV E&M: 39466 Observation care discharge
== END 2019-02-24 12:04 | disposition home or self-care (01) ==
LOC: ED 22:10 → ICU 23:13
PROVIDERS: Admitting Provider Hospitalist; Emergency Provider Emergency Medicine; Family Provider Family Medicine; PCP Family Medicine; Referring Provider Hospitalist; Visit Provider Internal Medicine
DX: E87.0 Hyperosmolality and hypernatremia (principal); N17.9 Acute kidney failure, unspecified; E10.10 Type 1 diabetes mellitus with ketoacidosis without coma; G35 Multiple sclerosis; I10 Essential (primary) hypertension; K21.9 Gastro-esophageal reflux disease without esophagitis; E78.5 Hyperlipidemia, unspecified; E66.01 Morbid (severe) obesity due to excess calories; T85.614A Breakdown (mechanical) of insulin pump, initial encounter; I25.2 Old myocardial infarction; M19.90 Unspecified osteoarthritis, unspecified site; F41.9 Anxiety disorder, unspecified; F32.9 Major depressive disorder, single episode, unspecified; Z79.899 Other long term (current) drug therapy; Z79.82 Long term (current) use of aspirin; Z79.4 Long term (current) use of insulin; Z68.42 Body mass index [BMI] 45.0-49.9, adult; Z71.3 Dietary counseling and surveillance; Z86.14 Personal history of Methicillin resistant Staphylococcus aureus infection; Z87.891 Personal history of nicotine dependence
CPT/HCPCS: 80048; 81001; 82009; 82962; 83036; 83930; 85025; 96361; 96365; 96366; 97802; 99218; 99285; J7030; A4216; G0378

== ENCOUNTER 2019-07-22 18:16 | Observation (INO) | payer OTHER, SELFPAY ==
[2019-02-23 22:52] VITALS: BMI 45.0
[2019-07-22] VITALS (9 sets, daily range): BP systolic 128–144; BP diastolic 55–65; PULSE 93–107; RESP 12–20; TEMP 35.5–36.9; O2SAT 94–98; BMI 44.6; BMI 44.3
--- NOTE | 2019-07-22 18:51 | EKG12_ITS ---
Test Reason : SOB Blood Pressure : / mmHG Vent. Rate : 103 BPM Atrial Rate : 103 BPM P-R Int : 206 ms QRS Dur : 100 ms QT Int : 364 ms P-R-T Axes : 063 081 045 degrees QTc Int : 476 ms Sinus tachycardia Possible Left atrial enlargement Borderline ECG Confirmed by RICHIE KAMARA, SATHYA ([id number]), web content editor PRATIK CASTLE ([id number]) on 07/27/2019 8:48:15 AM Referred By: FAIZAN Confirmed By:KEATON QUIROZ MD
--- NOTE | 2019-07-22 18:51 | RAD_ITS ---
STUDY: X-RAY CHEST REASON FOR EXAM: Male, 63 years old. COUGH TECHNIQUE: AP portable COMPARISON: March 03, 2018 FINDINGS: Linear subsegmental atelectasis at the left base.. There is no demonstrated pleural abnormality. Normal size heart. Normal mediastinum and bennett. Normal visualized pulmonary arteries. Normal visualized aortic arch and descending thoracic aorta. Normal visualized thoracic spine. Normal visualized ribs, clavicles, and shoulders. There is no demonstrated abnormality of the visualized soft tissue structures of the upper abdomen. RAD/Chest 1 View (Portable) IMPRESSION: Linear subsegmental atelectasis at the left base. No focal infiltration Electronically Signed: Franki Giron MD at 19:23 EST , Service support ,
[2019-07-22] MEDS: 0.9% Normal Saline 1,000 ML 999 ML IV ×2 (20:28→22:40)
[2019-07-22 20:38] LABS: AST(SGOT) 22 U/L (15-37); Alanine Aminotransfer ALT/SGPT 35 U/L (16-61); Albumin, Serum 3.6 g/dL (3.2-5.0); Alkaline Phosphatase 68 U/L (45-117); Anion Gap 19 (5-15); BUN 40 mg/dL (7-18); BUN/Creat Ratio 19.3 RATIO (10-20); Calcium,Total 8.9 mg/dL (8.5-10.1); Chloride 98 mmol/L (98-107); Creatinine, Serum 2.07 mg/dL (0.70-1.30); EST Glomerular Filtration Rate 35 mL/min (>60); Est Glom Filt Rate - Afr Amer 42 mL/min (>60); Estimated Creatinine Clearance 35.34 ml/min; Globulin 3.7 g/dL (2.2-4.2); Glucose 548 mg/dL (74-106); Potassium 4.4 mmol/L (3.5-5.1); Protein, Total 7.3 g/dL (6.4-8.2); Sodium Level 133 mmol/L (136-145)
--- NOTE | 2019-07-22 21:52 | ED.VISSUMM ---
- ER Visit Summary Date of Service: 07/22/19 Chief Complaint: Nausea, vomiting, cough, hyperglycemia History of Present Illness: The patient is a 63 M who presents with the above symptoms. Symptoms started yesterday. He has vomited all night. He is also had diarrhea. He also admits to a slight cough. No chest pain. He also has had a headache. His blood glucose is 522 at home. He is a type I diabetic and has an insulin pump. He did get a flu shot this year. Denies any syncope, dizziness or lightheadedness. Physical Examination: Vital signs reviewed. HEENT exam unremarkable. Heart is tachycardic and regular rhythm without murmurs. Lungs are clear to auscultation. Abdomen is soft and nontender. Extremities reveal no edema. Skin exam normal. Neurologic exam normal. Test Results: White blood cell count 12.5, sodium 133, BUN 40, creatinine 2.07. Glucose 548. Anion gap 19. Moderate ketones and blood. Troponin normal. UA shows moderate atelectasis Emergency Department Course and Treatment: The patient does appear to have moderate DKA with some ketones and elevated creatinine. He was given IV fluids and started on insulin drip. He was admitted to the hospitalist. Treatment Plan: [] Disposition: Admit Impression: DKA, ERIC, vomiting This note was generated with [employer] dictation software. It may contain incorrect words, spelling, and punctuation that were not noted in review of the chart prior to signing ED Disposition - Plan for ED Patient: Referrals: Lucas Yap MD [Primary Care Provider] -
[2019-07-22 21:56] LABS: Bedside Glucose 440 mg/dL (70-110)
[2019-07-22 22:07] LABS: Absolute Lymphocyte Count 0.38 X10^3/uL (0.83-4.51); Absolute Neutrophil Count 10.3 X10^3/uL (2.0-7.7); Basophil# 0.01 X10^3/uL; Basophil% 0.1 % (0-1); Hematocrit 41.4 % (40-54); Hemoglobin 13.4 g/dL (13.0-16.5); Lymphocyte # 0.38 X10^3/ul (4.0); Lymphocyte % 3.4 % (19-41); Mean Corp Hgb Conc 32.4 g/dL (32-36); Mean Corpuscular Hgb 28.1 pg (27.0-32.0); Mean Corpuscular Volume 86.8 fL (80-94); Mean Platelet Vol. 9.8 fl (6.2-12.0); Monocyte# 0.61 X10^3/uL; Monocyte% 5.4 % (0-10); NRBC Flagged by Analyzer 0 % (0-5); Neutrophil # 10.28 X10^3/uL (2.7-7.7); Neutrophil % 90.7 % (47-70); POSITIVE DIFFERENTIAL YES; Platelet Count 231 K/mm3 (150-450); RBC Distribution Width CV 13.2 % (11.6-14.6); RBC Distribution Width SD 41.6 fl (35.1-43.9); Red Blood Count 4.77 M/mm3 (4.6-6.2); White Blood Count 11.3 K/mm3 (4.4-11.0)
[2019-07-22 22:09] LABS: Differential Indicated SCAN CRITERIA MET
--- NOTE | 2019-07-22 22:09 | HP.PCM_ITS ---
History of Present Illness Date of Admission: 07/22/19 Chief Complaint: nausea, vomiting, elevated blood sugar The patient is a 63 year old M with a past medical history as outlined which includes type 1 diabetes mellitus with previous history of DKA requiring intubation at [facility] in 2015 and 2018. He was admitted to the ED on 07/22/2019 with a complaint of nausea, vomiting and elevated blood sugar. Patient states he started having flulike symptoms 1 day prior to admission and had associated nausea and vomiting. He could not keep anything down and was also unable to eat. He has an insulin pump but states he did not use it because he was not eating and drinking. He denied any fever but admitted to chills. He denied any palpitations or dizziness or chest pain or diarrhea. Review of systems otherwise negative. He checked his blood sugar on day of admission and it was elevated in the 500s so he decided to come into the ED. In the ED, vitals were significant for temperature of 96 Fahrenheit with blood pressure of 142/58 and pulse rate of 98. Respiratory rate was 16. Chemistry showed sodium of 133 and creatinine of 2.07. Potassium was 4.4 and glucose was 548. Anion gap was 19 with bicarb of 16. Initial troponin was negative. CBC showed white cell count of 11.3 but was otherwise unremarkable. EKG showed sinus tachycardia but showed no acute ST changes. He has been admitted to be managed for DKA in a known type I diabetic. [] Past Medical History Past Medical History (Chronic Problems): Chronic Problems (Last Reviewed 02/23/19 @ 23:[address] Hieu Pierre MD) Multiple sclerosis (Chronic) Essential hypertension (Chronic) Obesity (Chronic) Enc to resume healthier lunch each day and monitor intake. GERD (gastroesophageal reflux disease) (Chronic) HLD (hyperlipidemia) (Chronic) Diabetes type 1, controlled (Chronic) Dx : 1993 Last exacerbation : DKA : 2016 Hypoglycemic episode : 2015 Needs additional basal at 5pm. Was kept low in past due to low Bg although this pattern no longer exiists. He used to pack his lunch but has been eating out t lunch which is creating post meal high Bg. He agrees to begin packing lunch again. Medical History: Medical History (Last Reviewed 02/23/19 @ 23:[address] Hieu Pierre MD) Multiple sclerosis (Chronic) G35 Essential hypertension (Chronic) I10 Obesity (Chronic) E66.9 Enc to resume healthier lunch each day and monitor intake. GERD (gastroesophageal reflux disease) (Chronic) K21.9 DVT (deep venous thrombosis) (Inactive) I82.409 NSTEMI (non-ST elevated myocardial infarction) (Inactive) I21.4 HLD (hyperlipidemia) (Chronic) E78.5 Diabetes type 1, controlled (Chronic) E10.9 Dx : 1994 Last exacerbation : DKA : 2016 Hypoglycemic episode : 2015 Needs additional basal at 5pm. Was kept low in past due to low Bg although this pattern no longer exiists. He used to pack his lunch but has been eating out t lunch which is creating post meal high Bg. He agrees to begin packing lunch again. Arthritis M19.90 Cataracts, bilateral H26.9 History of MRSA infection of lungs Z86.14 Hypoglycemia E16.2 Renal failure N19 Sepsis A41.9 Allergies adhesive tape Adverse Reaction (Verified 07/22/19 18:22) Rash Sulfa (Sulfonamide Antibiotics) Adverse Reaction (Verified 07/22/19 18:22) Other Home Medications: Ambulatory Orders Medication Instructions Recorded Cholecalciferol (VIT D3) [Vitamin 1,000 unit PO DAILY 09/28/15 D3] Rosuvastatin Calcium [Crestor] 5 mg PO QHS 09/28/15 aspirin 81 mg chewable tablet 81 mg PO QDAY 07/04/17 metoprolol succinate 50 mg 50 mg PO QDAY tab 07/04/17 tablet,extended release 24 hr omeprazole 40 mg capsule,delayed 40 mg PO QDAY cap 07/04/17 release pedi multivit 17-iron fumarate 15 15 mg PO QDAY tab 07/26/17 mg iron chewable tablet selenium sulfide 1 % shampoo 1 applic TOPICAL QDAY 07/26/17 insulin lispro 100 unit/mL See Rx Instructions SC QDAY #90 ml 12/03/17 subcutaneous solution bupropion HCl 150 mg 24 hr tablet, 150 mg PO DAILY tab 12/08/18 extended release gabapentin 100 mg capsule 200 mg PO TID cap 12/08/18 potassium chloride 10 mEq 10 meq PO BID tab 12/08/18 tablet,extended release(part/cryst) triamcinolone acetonide 0.1 % 1 applic TOPICAL DAILY PRN g 12/08/18 topical cream furosemide 40 mg tablet 60 mg PO DAILY #225 tab 02/13/19 Dimethyl Fumarate [Tecfidera] 240 mg PO BID 02/23/19 Acetaminophen [Tylenol Tablet] 650 mg PO Q6H PRN PRN tab 02/24/19 Ramipril 10 mg PO DAILY 07/22/19 Sertraline HCl 50 mg PO DAILY 07/22/19 Tamsulosin HCl 1 tab PO DAILY 07/22/19 Surgical History: Surgical History (Last Reviewed 02/23/19 @ 23:[address] Hieu Pierre MD) Hx of tonsillectomy Z98.890, Z90.89 insulin pump implant and removal Surgical History: tonsillectomy, - - Internal insulin pump implant 2006-removed. Lives: Alone Smoking Status: Never smoker Alcohol: Occasional Drugs: None - *Family History Maternal History Items: Cancer, Dementia - Alzheimer type Paternal History Items: Diabetes, Heart Disease, - - Multiple sclerosis Review of Systems Constitutional: Reports: Anorexia, Chills, Malaise, Weakness, Fatigue. Denies: Fever, Weight Change Eyes: Denies: Blurred vision HEENT: Denies: Head Aches, Sinus Congestion, Sinus Drainage Cardiovascular: Denies: Chest Pain, Chest Tightness, Edema, Heaviness, Light Headedness, Orthopnea, Palpitations, Paroxysmal Noc. Dyspnea Respiratory: Denies: Cough, Shortness of Breath, Shortness of breath at rest, Shortness of breath upon exertion, Sputum production Gastrointestinal: Reports: Nausea, Vomiting. Denies: Abdominal Pain, Diarrhea Genitourinary: Denies: Dysuria Musculoskeletal: Denies: Joint Pain, Joint Tenderness Skin: Denies: Rash, Wounds Neurological: Denies: Numbness, Tingling, Focal weakness Psychiatric: Denies: Anxiety, Depression, Homicidal Ideations, Suicidal Ideations Hematologic/ Lymphatic: Denies: Easy Bruising, Easy Bleeding VTE Information - Inpt Only VTE Present on Admission: No VTE Pharm Prophylaxis ordered?: Yes - Physical Exam Vitals/I&O's: Vital Signs Temp Pulse Resp BP Pulse Ox 96 F L 98 16 142/58 H 96 07/22/19 22:07 07/22/19 22:07 07/22/19 22:07 07/22/19 22:07 07/22/19 21:35 Oxygen Delivery Method Room Air Weight: 293 lb 3.437 oz Body Mass Index (BMI) 44.6 Finger Stick Blood Glucose 440 Intake and Output for Last 24 Hours 07/20/19 07/21/19 07/22/19 23:59 23:59 23:59 Intake Total 1000 / 1000 Balance 1000 / 1000 General: Alert, Oriented x3, Cooperative, No apparent distress HEENT: Atraumatic, PERRLA, EOMI, Normocephalic Oral: Dry Mucosa Neck: Supple, No JVD, Negative Carotid Bruits Lungs: Clear to auscultation, Normal air movement, No rhonchi, No wheeze, No rales Cardiovascular: Regular rate, Regular Rhythm, Normal S1, Normal S2, No murmurs Abdomen: Bowel Sounds Present, Soft, Non Tender, Non-Distended, No Hepato- splenomegaly, Obese Extremities: No clubbing, No cyanosis, No edema, Capillary Refill Less than 3 Seconds Skin: No rashes, No breakdown Musculoskeletal: No Tenderness to Palpation of Joints or Extremities Lymphatic: No Cervical, Supraclavicular, or Inguinal Adenopathy Neurological: Cranial nerves II-XII grossly intact, Neuro grossly intact, Motor Exam 5/5 strength throughout Psych/Mental Status: Normal Affect, Appropriate, Alert and oriented to time, place, person, mood and affect Microbiology Past 72 Hours 07/22/19 20:15 Mucosa - Nasopharyngeal Influenza Types A,B Direct FA (M[facility]ELO) - Final Laboratory Results 07/22/19 19:55: WBC Cancelled, Corrected WBC Cancelled, RBC Cancelled, Hgb Cancelled, Hct Cancelled, MCV Cancelled, MCH Cancelled, MCHC Cancelled, RDW Std Deviation Cancelled, RDW Coeff of Neo Cancelled, Plt Count Cancelled, MPV Cancelled, Immature Gran % (Auto) Cancelled, Neut % (Auto) Cancelled, Lymph % (Auto) Cancelled, [place] % (Auto) Cancelled, Eos % (Auto) Cancelled, Baso % (Auto) Cancelled, Absolute Neuts (auto) Cancelled, Absolute Lymphs (auto) Cancelled, Total Counted Cancelled, Neutrophils % (Manual) Cancelled, Band Neutrophils % Cancelled, Lymphocytes % (Manual) Cancelled, Monocytes % (Manual) Cancelled, Eosinophils % (Manual) Cancelled, Basophils % (Manual) Cancelled, Metamyelocytes % Cancelled, Myelocytes % Cancelled, Promyelocytes % Cancelled, Blast Cells % Cancelled, Plasma Cell % (Manual) Cancelled, Other Cells % Cancelled, Nucleated RBC % Cancelled, Nucleated RBCs/100 WBC Cancelled, Differential Comment Cancelled, Diff Path Review Cancelled, Hypersegmented Neuts Cancelled, Atypical Lymphocytes Cancelled, Reactive Lymphocytes Cancelled, Smudge Cells Cancelled, Toxic Granulation Cancelled, Toxic Vacuolation Cancelled, Dohle Bodies Cancelled, Danita Rods Cancelled, Platelet Estimate Cancelled, Plt Morphology Comment Cancelled, RBC Morphology Cancelled, Polychromasia Cancelled, Hypochromasia Cancelled, Poikilocytosis Cancelled, Basophilic Stippling Cancelled, Anisocytosis Cancelled, Microcytosis Cancelled, Macrocytosis Cancelled, Spherocytes Cancelled, Sickle Cells Cancelled, Target Cells Cancelled, Tear Drop Cells Cancelled, Ovalocytes Cancelled, Stomatocytes Cancelled, Locke-[place] Bodies Cancelled, Brendon Cells Cancelled, Bite Cells Cancelled, Crenated Cell Cancelled, Acanthocytes (Spur) Cancelled, Rouleaux Cancelled, Schistocytes Cancelled 07/22/19 19:55: Sodium 133 L, Potassium 4.4, Chloride 98, Carbon Dioxide 16.0 L, Anion Gap 19 H, BUN 40 H, Creatinine 2.07 H, Estim Creat Clear Calc 35.34, Est GFR (MDRD) Af Amer 42 L, Est GFR (MDRD) Non-Af 35 L, BUN/Creatinine Ratio 19.3, Glucose 548 H*, Calcium 8.9, Total Bilirubin 0.80, AST 22, ALT 35, Alkaline Phosphatase 68, Troponin I < 0.015, Total Protein 7.3, Albumin 3.6, Globulin 3.7, Albumin/Globulin Ratio 1.0 07/22/19 19:55: Acetone Level MODERATE H 07/22/19 21:46: POC Glucose 440 H 07/22/19 21:55: WBC Pending, RBC Pending, Hgb Pending, Hct Pending, MCV Pending, MCH Pending, MCHC Pending, RDW Std Deviation Pending, RDW Coeff of Neo Pending, Plt Count Pending, Neut % (Auto) Pending, Absolute Neuts (auto) Pending Diagnostic Data Chest X-Ray 07/22/19 18:51 IMPRESSION: Linear subsegmental atelectasis at the left base. No focal infiltration Electronically Signed: Franki Giron MD at 19:23 EST , Service support , Current Medications Insulin Human Lispro 100 unit/ (Sodium Chloride) 100 mls @ 13.3 mls/hr IV .Q7 H32M MONICA; Protocol Last Admin: 07/22/19 21:46 Dose: 0.1 units/kg/hr, 13.3 mls/hr Documented by: Dextrose (Dextrose 10%-Water) 250 mls @ 999 mls/hr IV .Q16M PRN; Protocol PRN Reason: HYPOGLYCEMIA Assessment/Plan All Active Problems (Last Reviewed 02/23/19 @ 23:[address] Hieu Pierre MD) ERIC (acute kidney injury) (Acute) Hyperosmolar non-ketotic state in patient with type 2 diabetes mellitus (Acute) Hyperosmolality due to uncontrolled type 1 diabetes mellitus (Acute) Diabetic ketoacidosis (Acute) 63 y/o admitted with a complaint of nausea, vomiting and elevated blood sugars 1. DKA in a known type 1 diabetic * likely precipitated by nausea adn vomiting, and patient not using his insulin, as he was unable to eat * blood glucose on admission was 548, with bicarb of 16, and anion gap of 19 * admit to ICU * cycle troponins * Hydrate with IVF NS with 20meq of KCL at 150cc/hr * insulin drip at 0.1units/kg/hr * titrate insulin drip per sugar, until anion gap closes, and switch to D5 NS when blood sugar drops to <250 * consult critical care * check urinalysis also * keep NPO for now * 2. Eric on CKD * Cr is 2.07, baseline is ~ 1.39 * hydrate with IVF and trend Cr. Likely due to nausea and vomiting * check urine electrolytes * 3. History of DVT: not on anticoagulant 4. Benign essential hypertension: On metoprolol. Will hold ramipril on account of ERIC on CKD. Also on furosemide. 5. GERD: On omeprazole 6. Hyperlipidemia: On rosuvastatin 7. CAD: On aspirin and metoprolol as well as statin. 8. Depression: On bupropion and sertraline DVT prophylaxis: Lovenox renally dose CODE STATUS: Full code * Patient counseled extensively about different types of CODE STATUS including full code, DNR CCA and DNR CCA. Patient elects to be full code. Total [id number] time 16 minutes. 6. Code Visit Inpatient E&M: 64343 Init Hosp L3 Procedures: 46290 Advncd Care Plan 30 Min
[2019-07-22 22:36] LABS: Differential Comment SCANNED; Platelet Estimate ADEQUATE (ADEQ); Red Cell Morphology NORM C+C NORMAL (NORM C&C)
[2019-07-22 23:10] LABS: Bedside Glucose 380 mg/dL (70-110)
[2019-07-22 23:34] LABS: Anion Gap 12 (5-15); BUN 39 mg/dL (7-18); BUN/Creat Ratio 19.1 RATIO (10-20); Calcium,Total 8.5 mg/dL (8.5-10.1); Chloride 104 mmol/L (98-107); Creatinine, Serum 2.04 mg/dL (0.70-1.30); EST Glomerular Filtration Rate 35 mL/min (>60); Est Glom Filt Rate - Afr Amer 43 mL/min (>60); Estimated Creatinine Clearance 35.86 ml/min; Glucose 383 mg/dL (74-106); Sodium Level 137 mmol/L (136-145)
[2019-07-22 23:35] LABS: Bedside Glucose 312 mg/dL (70-110)
[2019-07-22] MEDS: 0.9% Normal Saline 1,000 ML 500 ML IV (23:46)
[2019-07-22 23:49] LABS: Hemoglobin A1c 7.9 % (4.2-6.3)
[2019-07-23] VITALS (21 sets, daily range): BP systolic 108–151; BP diastolic 42–73; PULSE 72–100; RESP 13–22; TEMP 36.6–37.1; O2SAT 90–98
[2019-07-23 00:35] LABS: Bedside Glucose 276 mg/dL (70-110)
[2019-07-23 01:36] LABS: Bedside Glucose 232 mg/dL (70-110)
[2019-07-23] MEDS: Dext 5%-0.45% NS 1,000 ML 150 ML IV (01:48)
[2019-07-23 02:20] LABS: Anion Gap 6 (5-15); BUN 39 mg/dL (7-18); BUN/Creat Ratio 24.1 RATIO (10-20); Calcium,Total 8.1 mg/dL (8.5-10.1); Chloride 109 mmol/L (98-107); Creatinine, Serum 1.62 mg/dL (0.70-1.30); EST Glomerular Filtration Rate 46 mL/min (>60); Est Glom Filt Rate - Afr Amer 56 mL/min (>60); Estimated Creatinine Clearance 45.15 ml/min; Glucose 230 mg/dL (74-106); Potassium 3.9 mmol/L (3.5-5.1); Sodium Level 139 mmol/L (136-145)
[2019-07-23 03:45] LABS: Bedside Glucose 200 mg/dL (70-110)
[2019-07-23 05:41] LABS: Bedside Glucose 171 mg/dL (70-110)
[2019-07-23 05:44] LABS: Absolute Lymphocyte Count 0.75 X10^3/uL (0.83-4.51); Absolute Neutrophil Count 8.6 X10^3/uL (2.0-7.7); Basophil# 0.01 X10^3/uL; Basophil% 0.1 % (0-1); Hematocrit 36.7 % (40-54); Hemoglobin 12.1 g/dL (13.0-16.5); Lymphocyte # 0.75 X10^3/ul (4.0); Mean Corpuscular Hgb 28.2 pg (27.0-32.0); Mean Corpuscular Volume 85.5 fL (80-94); Mean Platelet Vol. 9.6 fl (6.2-12.0); Monocyte% 12.2 % (0-10); NRBC Flagged by Analyzer 0 % (0-5); Neutrophil # 8.57 X10^3/uL (2.7-7.7); Neutrophil % 80.2 % (47-70); Platelet Count 229 K/mm3 (150-450); RBC Distribution Width CV 13.2 % (11.6-14.6); RBC Distribution Width SD 41.1 fl (35.1-43.9); Red Blood Count 4.29 M/mm3 (4.6-6.2); White Blood Count 10.7 K/mm3 (4.4-11.0)
[2019-07-23 05:59] LABS: Anion Gap 6 (5-15); BUN 37 mg/dL (7-18); BUN/Creat Ratio 24.3 RATIO (10-20); Calcium,Total 7.9 mg/dL (8.5-10.1); Chloride 108 mmol/L (98-107); Creatinine, Serum 1.52 mg/dL (0.70-1.30); EST Glomerular Filtration Rate 49 mL/min (>60); Est Glom Filt Rate - Afr Amer 60 mL/min (>60); Estimated Creatinine Clearance 48.13 ml/min; Glucose 186 mg/dL (74-106); Sodium Level 139 mmol/L (136-145)
--- NOTE | 2019-07-23 07:55 | PN_ITS ---
Reason for Visit: Blood pressure is stable. No fever or chills. Patient stated he had flulike symptoms for few days, felt feverish and had cough predominantly dry cough. Patient also had few times vomiting about 2 days ago on Saturday. Vitals/I&O's: Vital Signs Temp Pulse Resp BP Pulse Ox 97.9 F 79 14 122/57 H 94 07/23/19 06:00 07/23/19 07:00 07/23/19 07:00 07/23/19 07:00 07/23/19 07:00 Oxygen Delivery Method Room Air Weight: 294 lb 8.601 oz Body Mass Index (BMI) 44.3 Finger Stick Blood Glucose 171 Intake and Output for Last 24 Hours 07/21/19 07/22/19 07/23/19 23:59 23:59 23:59 Intake Total / 1934.80 / Balance / General: Alert, Oriented x3, Cooperative HEENT: Atraumatic, PERRLA, EOMI, Normocephalic Oral: Moist Mucosa, No Gingival or Mucosal Lesions/ Ulcerations, - - No inflammation or enlarged lymph follicle seen on oropharyngeal exam Neck: Supple, No JVD, Negative Carotid Bruits Lungs: Clear to auscultation, No rhonchi, No wheeze, No rales, Diminished Cardiovascular: Regular rate, Regular Rhythm, Normal S1, Normal S2, No murmurs Abdomen: Bowel Sounds Present, Soft, Non Tender, Non-Distended Extremities: Capillary Refill Less than 3 Seconds, Edema Skin: No rashes, No breakdown Musculoskeletal: No Tenderness to Palpation of Joints or Extremities, Arthritic Changes Neurological: Cranial nerves II-XII grossly intact, Neuro grossly intact Psych/Mental Status: Normal Affect, Appropriate Microbiology Past 72 Hours 07/22/19 20:15 Mucosa - Nasopharyngeal Influenza Types A,B Direct FA (MARCELO) - Final Laboratory Results 07/22/19 19:55: WBC Cancelled, Corrected WBC Cancelled, RBC Cancelled, Hgb Cancelled, Hct Cancelled, MCV Cancelled, MCH Cancelled, MCHC Cancelled, RDW Std Deviation Cancelled, RDW Coeff of Neo Cancelled, Plt Count Cancelled, MPV Cancelled, Immature Gran % (Auto) Cancelled, Neut % (Auto) Cancelled, Lymph % (Auto) Cancelled, [place] % (Auto) Cancelled, Eos % (Auto) Cancelled, Baso % (Auto) Cancelled, Absolute Neuts (auto) Cancelled, Absolute Lymphs (auto) Cancelled, Total Counted Cancelled, Neutrophils % (Manual) Cancelled, Band Neutrophils % Cancelled, Lymphocytes % (Manual) Cancelled, Monocytes % (Manual) Cancelled, Eosinophils % (Manual) Cancelled, Basophils % (Manual) Cancelled, Metamyelocytes % Cancelled, Myelocytes % Cancelled, Promyelocytes % Cancelled, Blast Cells % Cancelled, Plasma Cell % (Manual) Cancelled, Other Cells % Cancelled, Nucleated RBC % Cancelled, Nucleated RBCs/100 WBC Cancelled, Differential Comment Cancelled, Diff Path Review Cancelled, Hypersegmented Neuts Cancelled, Atypical Lymphocytes Cancelled, Reactive Lymphocytes Cancelled, Smudge Cells Cancelled, Toxic Granulation Cancelled, Toxic Vacuolation Cancelled, Dohle Bodies Cancelled, Danita Rods Cancelled, Platelet Estimate Cancelled, Plt Morphology Comment Cancelled, RBC Morphology Cancelled, Polychromasia Cancelled, Hypochromasia Cancelled, Poikilocytosis Cancelled, Basophilic Stippling Cancelled, Anisocytosis Cancelled, Microcytosis Cancelled, Macrocytosis Cancelled, Spherocytes Cancelled, Sickle Cells Cancelled, Target Cells Cancelled, Tear Drop Cells Cancelled, Ovalocytes Cancelled, Stomatocytes Cancelled, Locke-[place] Bodies Cancelled, [place] Cells Cancelled, Bite Cells Cancelled, Crenated Cell Cancelled, Acanthocytes (Spur) Cancelled, Rouleaux Cancelled, Schistocytes Cancelled 07/22/19 19:55: Sodium 133 L, Potassium 4.4, Chloride 98, Carbon Dioxide 16.0 L, Anion Gap 19 H, BUN 40 H, Creatinine 2.07 H, Estim Creat Clear Calc 35.34, Est GFR (MDRD) Af Amer 42 L, Est GFR (MDRD) Non-Af 35 L, BUN/Creatinine Ratio 19.3, Glucose 548 H*, Calcium 8.9, Total Bilirubin 0.80, AST 22, ALT 35, Alkaline Phosphatase 68, Troponin I < 0.015, Total Protein 7.3, Albumin 3.6, Globulin 3.7, Albumin/Globulin Ratio 1.0 02/26/20 19:55: Acetone Level MODERATE H 07/22/19 21:46: POC Glucose 440 H 07/22/19 21:55: WBC 11.3 H, RBC 4.77, Hgb 13.4, Hct 41.4, MCV 86.8, MCH 28.1, MCHC 32.4, RDW Std Deviation 41.6, RDW Coeff of Neo 13.2, Plt Count 231, MPV 9.8, Immature Gran % (Auto) 0.400, Neut % (Auto) 90.7 H, Lymph % (Auto) 3.4 L, [place] % (Auto) 5.4, Eos % (Auto) 0.0, Baso % (Auto) 0.1, Absolute Neuts (auto) 10.3 H, Absolute Lymphs (auto) 0.38 L, Nucleated RBC % 0, Differential Comment SCANNED, Platelet Estimate ADEQUATE, RBC Morphology NORM C+C 07/22/19 22:38: POC Glucose 380 H 07/22/19 23:07: Hemoglobin A1c 7.9 H 07/22/19 23:07: Sodium 137, Potassium 4.0, Chloride 104, Carbon Dioxide 21.0, Anion Gap 12, BUN 39 H, Creatinine 2.04 H, Estim Creat Clear Calc 35.86, Est GFR (MDRD) Af Amer 43 L, Est GFR (MDRD) Non-Af 35 L, BUN/Creatinine Ratio 19.1, Glucose 383 H, Calcium 8.5, Troponin I < 0.015 07/22/19 23:30: POC Glucose 312 H 07/23/19 00:32: POC Glucose 276 H 07/23/19 01:29: POC Glucose 232 H 07/23/19 01:50: Troponin I < 0.015 07/23/19 01:50: Sodium 139, Potassium 3.9, Chloride 109 H, Carbon Dioxide 24.0, Anion Gap 6, BUN 39 H, Creatinine 1.62 H, Estim Creat Clear Calc 45.15, Est GFR (MDRD) Af Amer 56 L, Est GFR (MDRD) Non-Af 46 L, BUN/Creatinine Ratio 24.1 H, Glucose 230 H, Calcium 8.1 L 07/23/19 03:30: POC Glucose 200 H 07/23/19 05:32: WBC 10.7, RBC 4.29 L, Hgb 12.1 L, Hct 36.7 L, MCV 85.5, MCH 28.2, MCHC 33.0, RDW Std Deviation 41.1, RDW Coeff of Neo 13.2, Plt Count 229, MPV 9.6, Immature Gran % (Auto) 0.500, Neut % (Auto) 80.2 H, Lymph % (Auto) 7.0 L, [place] % (Auto) 12.2 H, Eos % (Auto) 0.0, Baso % (Auto) 0.1, Absolute Neuts (auto) 8.6 H, Absolute Lymphs (auto) 0.75 L, Nucleated RBC % 0 07/23/19 05:32: Sodium 139, Potassium 4.0, Chloride 108 H, Carbon Dioxide 25.0, Anion Gap 6, BUN 37 H, Creatinine 1.52 H, Estim Creat Clear Calc 48.13, Est GFR (MDRD) Af Amer 60, Est GFR (MDRD) Non-Af 49 L, BUN/Creatinine Ratio 24.3 H, Glucose 186 H, Calcium 7.9 L 07/23/19 05:34: POC Glucose 171 H Current Medications Acetaminophen (Tylenol) 650 mg PO Q6H PRN PRN PRN Reason: Pain Score 1-10/Temp > 100.7 F Enoxaparin Sodium (Lovenox) 30 mg SC DAILY MONICA Glucagon () 1 mg IM .X1 PRN PRN Reason: Hypoglycemia Sodium Chloride () 250 mls @ 15 mls/hr IV .[id number] PRN PRN Reason: Saline Flush Sodium Chloride () 250 mls @ 15 mls/hr IV .[id number] PRN PRN Reason: Additional IVPB Infusion Dextrose (Dextrose 10%-Water) 250 mls @ 999 mls/hr IV .Q16M PRN; Protocol PRN Reason: HYPOGLYCEMIA Dextrose (Dextrose 10%-Water) 250 mls @ 999 mls/hr IV .Q16M PRN; Protocol PRN Reason: HYPOGLYCEMIA Nitroglycerin (Nitrostat) 0.4 mg SUBLINGUAL Q5M PRN PRN Reason: CARDIAC/CHEST PAIN Sodium Chloride () 10 - 40 ml IV UD PRN PRN Reason: SALINE FLUSH STROKE Vital Signs/Narrative: Vital Signs Temp Pulse Resp BP Pulse Ox 07/23/19 07:00 79 14 122/57 H 94 07/23/19 06:00 97.9 F 72 13 132/55 H 90 07/23/19 05:00 81 17 112/42 L 94 07/23/19 04:00 78 14 117/53 L 97 Medical Necessity - Tobacco Use Smoking Status: Former smoker Tobacco Use: Cigarettes Assessment/Plan All Active Problems (Last Reviewed 02/23/19 @ 23:[address] Hieu Pierre MD) ERIC (acute kidney injury) (Acute) Hyperosmolar non-ketotic state in patient with type 2 diabetes mellitus (Acute) Hyperosmolality due to uncontrolled type 1 diabetes mellitus (Acute) Diabetic ketoacidosis (Acute) 63 y/o admitted with a complaint of nausea, vomiting and elevated blood sugars 1. DKA in a known type 1 diabetic mellitus mostly secondary to nausea, vomiting and flulike symptoms: Patient has insulin pump. Anion gap closed x2. Bicarb 25, anion gap 6. Insulin drip discontinued. Patient has a started his insulin pump. * Serial troponins are negative. Continue IV fluid baseline normal saline with 20 M EQ KCl at 50 mils per hour. 2. Flulike symptoms: Rapid flu test is negative. Will do respiratory panel. 3. ERIC on CKD stage III: Baseline creatinine is around 1.39. Patient admitted with creatinine 2.07. Most recent BUN/creatinine 37/1.52. Continue IV fluid. UA and urine electrolytes are pending. 3. History of DVT: not on anticoagulant 4. Benign essential hypertension: On metoprolol. Will hold ramipril on account of ERIC on CKD. Also on furosemide. 5. GERD: On omeprazole 6. Hyperlipidemia: On rosuvastatin 7. CAD: On aspirin and metoprolol as well as statin. 8. Depression: On bupropion and sertraline DVT prophylaxis: Lovenox renally dose Active Medications Acetaminophen (Tylenol) 650 mg PO Q6H PRN PRN PRN Reason: Pain Score 1-10/Temp > 100.7 F Enoxaparin Sodium (Lovenox) 30 mg SC DAILY MONICA Glucagon () 1 mg IM .X1 PRN PRN Reason: Hypoglycemia Sodium Chloride () 250 mls @ 15 mls/hr IV .[id number] PRN PRN Reason: Saline Flush Sodium Chloride () 250 mls @ 15 mls/hr IV .[id number] PRN PRN Reason: Additional IVPB Infusion Dextrose (Dextrose 10%-Water) 250 mls @ 999 mls/hr IV .Q16M PRN; Protocol PRN Reason: HYPOGLYCEMIA Dextrose (Dextrose 10%-Water) 250 mls @ 999 mls/hr IV .Q16M PRN; Protocol PRN Reason: HYPOGLYCEMIA Nitroglycerin (Nitrostat) 0.4 mg SUBLINGUAL Q5M PRN PRN Reason: CARDIAC/CHEST PAIN Sodium Chloride () 10 - 40 ml IV UD PRN PRN Reason: SALINE FLUSH Microbiology Past 72 Hours 07/22/19 20:15 Mucosa - Nasopharyngeal Influenza Types A,B Direct FA ([facility]) - Final Code Visit Inpatient E&M: 87910 [facility] Hosp L3
--- NOTE | 2019-07-23 08:00 | NURSING ---
Insulin pump basal rate for patient, Rolando Ramos 1955, verified with this RN. [id number] 1.9 units/hr [id number] 1.6 units/hr [id number] 1.7 units/hr
[2019-07-23 08:36] LABS: Bedside Glucose 226 mg/dL (70-110)
[2019-07-23] MEDS: Enoxaparin 30 MG/0.3 ML Syringe SC (09:28)
--- NOTE | 2019-07-23 10:30 | NURSING ---
Pt insulin pump infusing. Accuchecks correlating appropriately with patient's pump. Pt's pump bolused with 12.1 units over 2 hours per patient.
--- NOTE | 2019-07-23 11:34 | CASEMGMT ---
RN CM Assessment Note Presentation: DKA, Type 1 Diabetic with insulin pump, Hx of MS Intro role of CM and purpose of RN CM assessment to patient in room. Pt is awake, alert and able to participate. Demographics, PCP and Pharmacy verified. Pt states he is independent, lives alone but no care needs. Pt states he has cane he uses, no other DME use. Pt states no concerns, needs he can think of for dc planning at this time. PCP: Dr. Yap Specialists: Endocrinology, [place] Dr. [facility] Preferred [facility]acy: [facility] Insurance: MMO Prescription Benefit: yes LNOK : Sister Ermelinda Bautista and Codi Ramos Living Arrangements: Lives in one story home with 2 steps into home. Transportation: drives DME: Insulin Pump- glucose monitoring through pump device. Rollator (does not use), cane which he does use. HHC/SNF: none currently. Patient DC goals: Home DC PLAN: anticipate home on dc. RN CM advised to contact cm for any concerns/needs that may arise. Elly OLIVEIRA RN ACM
[2019-07-23 12:10] LABS: Bedside Glucose 214 mg/dL (70-110)
--- NOTE | 2019-07-23 12:24 | CASEMGMT ---
Social Work SW met with pt to discuss advance directives. Pt states he does not have either a living will or health care power of divorce attorney but has thought about it as he is asked anytime he comes to a health care setting. SW explained both the health care POA and Living Will to pt and why it is beneficial to think about this and complete documents. Pt stating he would like to complete but not at this time as he needs to think about this. SW left pt with Advance Directive Rack Card. Pt appreciative of visit and information. LOUIE Brito
[2019-07-23 17:00] LABS: Bedside Glucose 214 mg/dL (70-110)
[2019-07-23] MEDS: Insulin Bolus Pump SC ×2 (18:11→22:21)
[2019-07-23 18:37] LABS: Bacteria 0 SEEN /hpf (None Seen); Mucous, Urine 0 SEEN /hpf (<or=2+); Red Blood Cells-Urine 0 SEEN /hpf (0-5); Squamous Epithelial Cells - UA 0 SEEN /hpf (0-5); White Blood Cells 0 SEEN /hpf (0-5)
[2019-07-23 18:45] LABS: Protein, Urine (Random) 30.8 mg/dL (<11.9)
[2019-07-23 18:46] LABS: Urine Chloride 22 mmol/L (Not Establ.); Urine Sodium 17 mmol/L (Not Establ.)
[2019-07-23 18:58] LABS: Color, Urine Yellow (Yellow); Glucose, Dipstick 50 mg/dl (Normal); Ketone-Dipstick 50 mg/dl (Negative); Leukocyte Esterase-Dipstick Negative /ul (Negative); Nitrite-Dipstick Negative (Negative); Occult Blood-Urine Negative /ul (Negative); Protein-Dipstick Negative (Negative); Specific Gravity, Urine 1.015 (1.002-1.030); Urine Bilirubin Dipstick Negative (Negative); Urine Clarity Sl. Cloudy (Clear); Urine Urobilinogen Normal (Normal); Urine pH 6.5 (5.0 - 8.0)
[2019-07-23] MEDS: 0.9% Saline Lock 10 ML Syringe IV (22:00)
[2019-07-23 22:41] LABS: Bedside Glucose 209 mg/dL (70-110)
[2019-07-24 01:39] VITALS: PULSE 81; RESP 13; O2SAT 97
[2019-07-24 02:05] VITALS: BP 126/60; PULSE 84; RESP 16; TEMP 36.4; O2SAT 94
[2019-07-24 03:45] VITALS: PULSE 78; RESP 14; O2SAT 96
[2019-07-24 06:31] LABS: Absolute Lymphocyte Count 0.83 X10^3/uL (0.83-4.51); Absolute Neutrophil Count 5.2 X10^3/uL (2.0-7.7); Basophil# 0.02 X10^3/uL; Basophil% 0.3 % (0-1); Eosinophil# 0.16 X10^3/uL; Eosinophils% 2.2 % (0-5); Hematocrit 36.2 % (40-54); Hemoglobin 11.7 g/dL (13.0-16.5); Lymphocyte # 0.83 X10^3/ul (4.0); Lymphocyte % 11.5 % (19-41); Mean Corp Hgb Conc 32.3 g/dL (32-36); Mean Corpuscular Hgb 27.9 pg (27.0-32.0); Mean Corpuscular Volume 86.4 fL (80-94); Mean Platelet Vol. 9.3 fl (6.2-12.0); Monocyte# 0.95 X10^3/uL; Monocyte% 13.2 % (0-10); NRBC Flagged by Analyzer 0 % (0-5); Neutrophil # 5.24 X10^3/uL (2.7-7.7); Neutrophil % 72.5 % (47-70); Platelet Count 221 K/mm3 (150-450); RBC Distribution Width CV 13.8 % (11.6-14.6); RBC Distribution Width SD 42.9 fl (35.1-43.9); Red Blood Count 4.19 M/mm3 (4.6-6.2); White Blood Count 7.2 K/mm3 (4.4-11.0)
[2019-07-24 06:42] VITALS: BP 138/66; PULSE 72; RESP 20; TEMP 36.5; O2SAT 96
[2019-07-24 06:50] LABS: Anion Gap 1 (5-15); BUN 21 mg/dL (7-18); BUN/Creat Ratio 19.6 RATIO (10-20); Calcium,Total 8.3 mg/dL (8.5-10.1); Chloride 113 mmol/L (98-107); Creatinine, Serum 1.07 mg/dL (0.70-1.30); EST Glomerular Filtration Rate 74 mL/min (>60); Est Glom Filt Rate - Afr Amer 90 mL/min (>60); Estimated Creatinine Clearance 68.36 ml/min; Glucose 191 mg/dL (74-106); Magnesium 2.2 mg/dL (1.6-2.6); Potassium 4.1 mmol/L (3.5-5.1); Sodium Level 141 mmol/L (136-145)
[2019-07-24 06:56] LABS: Bedside Glucose 183 mg/dL (70-110)
[2019-07-24 07:36] VITALS: O2SAT 95
--- NOTE | 2019-07-24 10:26 | PCM.DC ---
You will use the following diet at home:: Calorie/Carbohydrate Controlled (specify 1200, 1400, etc), Cardiac Your food should be the consistency of: Regular Discharge Activity: May Not Drive Call your doctor if you observe: Fever of 101 or Higher, Coldness, Increased Pain, Change in Color, Inability to urinate, Inability to have a bowel movement, Shortness of breath, Dizziness, Fainting spells, Swelling in the ankles, Chest pain, Increased palpitations (irregular heartbeat) Additional Instructions: Hold ramipril for 1 day and Lasix for 2 days. 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 editor in 1 to 2 weeks Allergies/Adverse Reactions: Allergies adhesive tape Adverse Reaction (Verified 07/22/19 18:22) Rash Sulfa (Sulfonamide Antibiotics) Adverse Reaction (Verified 07/22/19 18:22) Other Medications to take at Discharge Cholecalciferol (VIT D3) [Vitamin D3] 1,000 unit PO DAILY 09/28/15 Rosuvastatin Calcium [Crestor] 5 mg PO QHS 09/28/15 aspirin 81 mg chewable tablet 81 mg PO QDAY 07/04/17 metoprolol succinate 50 mg tablet,extended release 24 hr 50 mg PO QDAY tab 07/04/17 omeprazole 40 mg capsule,delayed release 40 mg PO QDAY cap 07/04/17 pedi multivit 17-iron fumarate 15 mg iron chewable tablet 15 mg PO QDAY tab 07/26/17 selenium sulfide 1 % shampoo 1 applic TOPICAL QDAY 07/26/17 insulin lispro 100 unit/mL subcutaneous solution See Rx Instructions SC QDAY #90 ml 12/03/17 bupropion HCl 150 mg 24 hr tablet, extended release 150 mg PO DAILY tab 12/08/18 gabapentin 100 mg capsule 200 mg PO TID cap 12/08/18 potassium chloride 10 mEq tablet,extended release(part/cryst) 10 meq PO BID tab 12/08/18 triamcinolone acetonide 0.1 % topical cream 1 applic TOPICAL DAILY PRN g 12/08/18 Dimethyl Fumarate [Tecfidera] 240 mg PO BID 02/23/19 Acetaminophen [Tylenol Tablet] 650 mg PO Q6H PRN PRN tab 02/24/19 Sertraline HCl 50 mg PO DAILY 07/22/19 Tamsulosin HCl 1 tab PO DAILY 07/22/19 Furosemide 40 mg PO DAILY #225 tab 07/24/19 Ramipril 10 mg PO DAILY #0 07/24/19 Primary Care Physician: Lucas Yap MD [Primary Care Provider] - Please follow up with your Primary Care Physician in: in 1-2 week Test Results: Test results from this visit will be discussed in further detail at your follow-up appointment, if applicable.
--- NOTE | 2019-07-24 10:28 | DS.PCM_ITS ---
Discharge Date and Diagnosis Date of Admission: 07/22/19 Date of Discharge: 07/24/19 - Secondary Discharge Diagnosis Chronic Problems (Last Reviewed 02/23/19 @ 23:[address] Hieu Pierre MD) Multiple sclerosis (Chronic) Essential hypertension (Chronic) Obesity (Chronic) Enc to resume healthier lunch each day and monitor intake. GERD (gastroesophageal reflux disease) (Chronic) HLD (hyperlipidemia) (Chronic) Diabetes type 1, controlled (Chronic) Dx : 1993 Last exacerbation : DKA : 2016 Hypoglycemic episode : 2015 Needs additional basal at 5pm. Was kept low in past due to low Bg although this pattern no longer exiists. He used to pack his lunch but has been eating out t lunch which is creating post meal high Bg. He agrees to begin packing lunch again. Hospital Course and Treatment Operations: None Summary of Care Provided: [] 63 y/o admitted history of type 1 diabetes mellitus was admitted with nausea, vomiting elevated blood sugar, and elevated anion gap consistent with DKA. 1. DKA in a known type 1 diabetic mellitus mostly secondary to nausea, vomiting and flulike symptoms: Patient has insulin pump. Anion gap closed x2. Bicarb 25, anion gap 6. Insulin drip discontinued. Patient has a started his insulin pump. * Serial troponins are negative. Was managed with IV fluid baseline normal saline with 20 M EQ KCl at 50 mils per hour. * Patient has insulin pump. Blood glucose are controlled. 2. Flulike symptoms: Rapid flu test is negative. Respiratory panel negative. 3. ERIC on CKD stage III: Baseline creatinine is around 1.39. Patient admitted with creatinine 2.07. Most recent BUN/creatinine 37/1.52. ERIC resolved. Last BUN/creatinine 21/1.07. Random total protein 30.8, sodium 17, creatinine 164. Overall urine lites suggestive of ERIC prerenal etiology. Patient has mild diabetic nephropathy CKD stage III due to proteinuria. 3. History of DVT: not on anticoagulant 4. Benign essential hypertension: On metoprolol. Home medications resumed 5. GERD: On omeprazole 6. Hyperlipidemia: On rosuvastatin 7. CAD: On aspirin and metoprolol as well as statin. 8. Depression: On bupropion and sertraline DVT prophylaxis: Lovenox renally dose Discharge medication reconciliation done. Discharge follow-up instructions completed. Discharge process discussed with the patient and all questions were answered to patient's satisfaction. Total time spent, exact 35 minutes on discharge meds reconciliation, examination, coordination of care with nurses and ancillary staff, review of imaging and blood test and discussion with the patient on follow-up instructions Subjective: Seen and examined. Glucose is controlled. Patient does not have a specific symptoms or signs of dehydration. No abdominal pain/discomfort or nausea or vomiting. Objective: General: Alert, Oriented x3, Cooperative HEENT: Atraumatic, PERRLA, EOMI, Normocephalic Oral: Moist Mucosa, No Gingival or Mucosal Lesions/ Ulcerations, No inflammation or enlarged lymph follicle seen on oropharyngeal exam Neck: Supple, No JVD, Negative Carotid Bruits Lungs: Clear to auscultation, No rhonchi, No wheeze, No rales, air entry bilateral equal. Cardiovascular: Regular rate, Regular Rhythm, Normal S1, Normal S2, No murmurs Abdomen: Bowel Sounds Present, Soft, Non Tender, Non-Distended Extremities: Capillary Refill Less than 3 Seconds, Edema Skin: No rashes, No breakdown Musculoskeletal: No Tenderness to Palpation of Joints or Extremities, Arthritic Changes Neurological: Cranial nerves II-XII grossly intact, Neuro grossly intact Psych/Mental Status: Normal Affect, Appropriate - Physical Exam Vitals/I&O's: Vital Signs Temp Pulse Resp BP Pulse Ox 97.7 F L 72 20 H 138/66 H 95 07/24/19 06:42 07/24/19 06:42 07/24/19 06:42 07/24/19 06:42 07/24/19 07:36 Oxygen Delivery Method Room Air Weight: 299 lb 9.731 oz Body Mass Index (BMI) 44.3 Finger Stick Blood Glucose 171 Intake and Output for Last 24 Hours 07/22/19 07/23/19 07/24/19 23:59 23:59 23:59 Intake Total 3085.80 / 3085.80 1085.83 / 1085.83 Balance 3085.80 / 3085.80 1085.83 / 1085.83 Microbiology Past 72 Hours 07/23/19 09:25 Mucosa - Nasopharyngeal Respiratory Panel (PCR) - Final 07/22/19 20:15 Mucosa - Nasopharyngeal Influenza Types A,B Direct FA (MARCELO) - Final Laboratory Results 07/23/19 12:03: POC Glucose 214 H 07/23/19 16:57: POC Glucose 214 H 07/23/19 18:15: Urine Creatinine 164.00 07/23/19 18:15: U Random Total Protein 30.8 H 07/23/19 18:15: Urine Color Yellow, Urine Clarity Sl. Cloudy, Urine pH 6.5, Ur Specific [place] 1.015, Urine Protein Negative, Urine Glucose (UA) 50 H, Urine Ketones 50 H, Urine Occult Blood Negative, Urine Nitrite Negative, Urine Bilirubin Negative, Urine Urobilinogen Normal, Ur Leukocyte Esterase Negative, Urine RBC 0 SEEN, Urine WBC 0 SEEN, Ur Squamous Epith Cells 0 SEEN, Urine Bacteria 0 SEEN, Urine Mucus 0 SEEN 07/23/19 18:15: Ur Random Sodium 17, Urine Potassium 26.0, Urine Chloride 22 07/23/19 22:19: POC Glucose 209 H 07/24/19 06:15: WBC 7.2, RBC 4.19 L, Hgb 11.7 L, Hct 36.2 L, MCV 86.4, MCH 27.9, MCHC 32.3, RDW Std Deviation 42.9, RDW Coeff of Neo 13.8, Plt Count 221, MPV 9.3, Immature Gran % (Auto) 0.300, Neut % (Auto) 72.5 H, Lymph % (Auto) 11.5 L, [place] % (Auto) 13.2 H, Eos % (Auto) 2.2, Baso % (Auto) 0.3, Absolute Neuts (auto) 5.2, Absolute Lymphs (auto) 0.83, Nucleated RBC % 0 07/24/19 06:15: Sodium 141, Potassium 4.1, Chloride 113 H, Carbon Dioxide 27.0, Anion Gap 1 L, BUN 21 H, Creatinine 1.07, Estim Creat Clear Calc 68.36, Est GFR (MDRD) Af Amer 90, Est GFR (MDRD) Non-Af 74, BUN/Creatinine Ratio 19.6, Glucose 191 H, Calcium 8.3 L, Magnesium 2.2 07/24/19 06:39: POC Glucose 183 H Current Medications Acetaminophen (Tylenol) 650 mg PO Q6H PRN PRN PRN Reason: Pain Score 1-10/Temp > 100.7 F Enoxaparin Sodium (Lovenox) 30 mg SC DAILY [facility] Last Admin: 07/23/19 09:28 Dose: 30 mg Documented by: Glucagon () 1 mg IM .X1 PRN PRN Reason: Hypoglycemia Sodium Chloride () 250 mls @ 15 mls/hr IV .[id number] PRN PRN Reason: Saline Flush Sodium Chloride () 250 mls @ 15 mls/hr IV .[id number] PRN PRN Reason: Additional IVPB Infusion Dextrose (Dextrose 10%-Water) 250 mls @ 999 mls/hr IV .Q16M PRN; Protocol PRN Reason: HYPOGLYCEMIA Dextrose (Dextrose 10%-Water) 250 mls @ 999 mls/hr IV .Q16M PRN; Protocol PRN Reason: HYPOGLYCEMIA Potassium Chloride/Sodium Chloride () 1,000 mls @ 50 mls/hr IV .Q20H [facility] Last Admin: 07/24/19 03:07 Dose: 50 mls/hr Documented by: Insulin Aspart (Pump, Bolus) 0 unit SC 0800,1200,1700,2200 [facility] Last Admin: 07/23/19 22:21 Dose: 1.9 unit Documented by: Insulin Aspart (Pump, Basal) 0 unit SC UD [facility] Last Admin: 07/23/19 19:03 Dose: Not Given Documented by: Nitroglycerin (Nitrostat) 0.4 mg SUBLINGUAL Q5M PRN PRN Reason: CARDIAC/CHEST PAIN Sodium Chloride () 10 - 40 ml IV UD PRN PRN Reason: SALINE FLUSH Last Admin: 07/23/19 22:00 Dose: 10 ml Documented by: Discharge Activity: May Not Drive Call your doctor if you observe: Fever of 101 or Higher, Coldness, Increased Pain, Change in Color, Inability to urinate, Inability to have a bowel movement, Shortness of breath, Dizziness, Fainting spells, Swelling in the ankles, Chest pain, Increased palpitations (irregular heartbeat) Home Medications: Medications to take at Discharge Cholecalciferol (VIT D3) [Vitamin D3] 1,000 unit PO DAILY 09/28/15 Rosuvastatin Calcium [Crestor] 5 mg PO QHS 09/28/15 aspirin 81 mg chewable tablet 81 mg PO QDAY 07/04/17 metoprolol succinate 50 mg tablet,extended release 24 hr 50 mg PO QDAY tab 07/04/17 omeprazole 40 mg capsule,delayed release 40 mg PO QDAY cap 07/04/17 pedi multivit 17-iron fumarate 15 mg iron chewable tablet 15 mg PO QDAY tab 07/26/17 selenium sulfide 1 % shampoo 1 applic TOPICAL QDAY 07/26/17 insulin lispro 100 unit/mL subcutaneous solution See Rx Instructions SC QDAY #90 ml 12/03/17 bupropion HCl 150 mg 24 hr tablet, extended release 150 mg PO DAILY tab 12/08/18 gabapentin 100 mg capsule 200 mg PO TID cap 12/08/18 potassium chloride 10 mEq tablet,extended release(part/cryst) 10 meq PO BID tab 12/08/18 triamcinolone acetonide 0.1 % topical cream 1 applic TOPICAL DAILY PRN g 12/08/18 Dimethyl Fumarate [Tecfidera] 240 mg PO BID 02/23/19 Acetaminophen [Tylenol Tablet] 650 mg PO Q6H PRN PRN tab 02/24/19 Sertraline HCl 50 mg PO DAILY 07/22/19 Tamsulosin HCl 1 tab PO DAILY 07/22/19 Furosemide 40 mg PO DAILY #225 tab 07/24/19 Ramipril 10 mg PO DAILY #0 07/24/19 Primary Care Physician: Lucas Yap MD [Primary Care Provider] - Please follow up with your Primary Care Physician in: in 1-2 week Medical Necessity - Tobacco Use Smoking Status: Former smoker Tobacco Use: Cigarettes Meaningful Use Info Meaningful Use Diagnoses (Choose all that apply): None applicable Code Visit Inpatient E&M: 33074 [facility]
[2019-07-24] MEDS: Insulin Bolus Pump SC (10:46)
[2019-07-24 12:26] VITALS: BP 145/71; PULSE 72; RESP 16; TEMP 36.5; O2SAT 97
--- NOTE | 2019-07-27 16:26 | CASEMGMT ---
Case Management DC F/u Call: DC Date: 07/24/2019 DC Diagnosis: 1. DKA in a known type 1 diabetic mellitus mostly secondary to nausea, vomiting and flulike symptoms: Patient has insulin pump. Anion gap closed x2. Bicarb 25, anion gap 6. Insulin drip discontinued. Patient has a started his insulin pump. Serial troponins are negative. Was managed with IV fluid baseline normal saline with 20 M EQ KCl at 50 mils per hour. Patient has insulin pump. Blood glucose are controlled. 2. Flulike symptoms: Rapid flu test is negative. Respiratory panel negative. 3. ERIC on CKD stage III: Baseline creatinine is around 1.39. Patient admitted with creatinine 2.07. Most recent BUN/creatinine 37/1.52. ERIC resolved. Last BUN/creatinine 21/1.07. Random total protein 30.8, sodium 17, creatinine 164. Overall urine lites suggestive of ERIC prerenal etiology. Patient has mild diabetic nephropathy CKD stage III due to proteinuria. 3. History of DVT: not on anticoagulant 4. Benign essential hypertension: On metoprolol. Home medications resumed 5. GERD: On omeprazole 6. Hyperlipidemia: On rosuvastatin 7. CAD: On aspirin and metoprolol as well as statin. 8. Depression: On bupropion and sertraline DC Disposition: Home Lace/Strata: 02/26 Called patient listed cell phone on demographics, patient answered and this insurance underwriter sales introduced self and role. Patient states still tired and in sloth mode but doing okay and was able to get out and do some grocery shopping today. Denies any questions/concerns with medications, ACI, or f/u. States that he is back to taking all his medications now. No care improvement suggestions for [facility]. Thanked him for choosing care at [facility] and ended conversation. Gina Gay, RNCM
== END 2019-07-24 13:03 | disposition home or self-care (01) | DRG 638 ==
LOC: ED 20:00 → ICU 07-23 02:48 → MS3 12-21 07:02
PROVIDERS: Admitting Provider Student in an Organized Health Care Education/Training Program; Emergency Provider Emergency Medicine; PCP Family Medicine; Visit Provider Internal Medicine
DX: E10.10 Type 1 diabetes mellitus with ketoacidosis without coma (principal); N17.9 Acute kidney failure, unspecified; Z68.41 Body mass index [BMI] 40.0-44.9, adult; G35 Multiple sclerosis; E66.9 Obesity, unspecified; J98.11 Atelectasis; N18.3 Chronic kidney disease, stage 3 (moderate); I12.9 Hypertensive chronic kidney disease with stage 1 through stage 4 chronic kidney disease, or unspecified chronic kidney disease; E10.22 Type 1 diabetes mellitus with diabetic chronic kidney disease; K21.9 Gastro-esophageal reflux disease without esophagitis; E78.5 Hyperlipidemia, unspecified; F32.9 Major depressive disorder, single episode, unspecified; I25.10 Atherosclerotic heart disease of native coronary artery without angina pectoris; Z79.899 Other long term (current) drug therapy; Z86.718 Personal history of other venous thrombosis and embolism; Z66 Do not resuscitate; Z86.14 Personal history of Methicillin resistant Staphylococcus aureus infection; Z96.41 Presence of insulin pump (external) (internal); Z79.4 Long term (current) use of insulin; Z82.0 Family history of epilepsy and other diseases of the nervous system; Z83.3 Family history of diabetes mellitus; Z87.891 Personal history of nicotine dependence
CPT/HCPCS: 36415; 71045; 80048; 80053; 81001; 82009; 82436; 82570; 82962; 83036; 83735; 84133; 84156; 84300; 84484; 85025; 87086; 87633; 87804; 93005; 94660; 94760; 97802; 99218; 99284; J7030; A4216; G0378; J7799

== ENCOUNTER 2020-04-11 14:14 | Emergency (ER) | payer OTHER, SELFPAY ==
[2020-02-17 09:41] VITALS: BMI 47.6
[2020-04-11 14:14] VITALS: BP 165/88; PULSE 71; RESP 18; TEMP 36.3; O2SAT 98; BMI 47.9
--- NOTE | 2020-04-11 14:50 | RAD_ITS ---
STUDY: X-RAY - LEFT WRIST REASON FOR EXAM: Male, 64 years old. Fall yesterday, pain to wrists. TECHNIQUE: 3 view(s) of the wrist were obtained. COMPARISON: None. FINDINGS: Normal visualized distal radius and ulna. Normal radiocarpal articulation. Normal distal radioulnar articulation. Normal carpal bones. Normal carpal articulations. Normal carpometacarpal articulation of the thumb. Normal second through fifth carpometacarpal articulations. Normal visualized metacarpal bones. The soft tissue structures are unremarkable. RAD/Wrist min 3 Views IMPRESSION: Normal x-ray examination of the wrist. Electronically Signed: Yunior Feng MD at 16:11 EST Tel , Service support ,
--- NOTE | 2020-04-11 15:10 | RAD_ITS ---
STUDY: X-RAY - RIGHT HAND REASON FOR EXAM: Male, 64 years old. FALL. RIGHT HAND PAIN. TECHNIQUE: 3 view(s) of the hand. COMPARISON: None. FINDINGS: Normal radiocarpal articulation. Normal distal radioulnar joint. Normal visualized carpal bones. Normal carpal articulations Normal carpometacarpal articulation of the thumb. Normal second through fifth carpometacarpal joints. Normal metacarpi. Normal metacarpophalangeal joint of the thumb. Normal interphalangeal joint of the thumb. Normal proximal and distal phalanges of the thumb. Normal metacarpophalangeal joints of the second through fifth fingers. Normal proximal interphalangeal joints of the second through fifth fingers. Minor degenerative changes of the DIP joints Normal phalanges of the second through fifth fingers. The soft tissue structures are unremarkable. RAD/Hand Min 3 Views IMPRESSION: Mild degenerative change. No acute fracture or subluxation Electronically Signed: Franki Giron MD at 16:20 EST , Service support ,
--- NOTE | 2020-04-11 15:10 | RAD_ITS ---
STUDY: X-RAY - RIGHT WRIST REASON FOR EXAM: Male, 64 years old. Fall yesterday, pain to wrists. TECHNIQUE: 3 view(s) of the wrist were obtained. COMPARISON: None. FINDINGS: Normal visualized distal radius and ulna. Normal radiocarpal articulation. Normal distal radioulnar articulation. Normal carpal bones. Normal carpal articulations. Normal carpometacarpal articulation of the thumb. Normal second through fifth carpometacarpal articulations. Normal visualized metacarpal bones. The soft tissue structures are unremarkable. RAD/Wrist min 3 Views IMPRESSION: Normal x-ray examination of the wrist. Electronically Signed: Yunior Feng MD at 16:10 EST Tel , Service support ,
--- NOTE | 2020-04-11 15:10 | RAD_ITS ---
STUDY: X-RAY - LEFT HAND REASON FOR EXAM: Male, 64 years old. FALL. LEFT HAND PAIN. TECHNIQUE: 3 view(s) of the hand. COMPARISON: None. FINDINGS: Normal radiocarpal articulation. Normal distal radioulnar joint. Normal visualized carpal bones. Normal carpal articulations Mild arthrosis of the carpometacarpal articulation of the thumb. Normal second through fifth carpometacarpal joints. Normal metacarpi. Normal metacarpophalangeal joint of the thumb. Normal interphalangeal joint of the thumb. Normal proximal and distal phalanges of the thumb. Normal metacarpophalangeal joints of the second through fifth fingers. Normal proximal joints of the second through fifth fingers. Mild degenerative changes of the DIP joints of the second and third digit Normal phalanges of the second through fifth fingers. The soft tissue structures are unremarkable. RAD/Hand Min 3 Views IMPRESSION: Mild degenerative change. No acute fracture or dislocation Electronically Signed: Franki Giron MD at 16:20 EST , Service support ,
[2020-04-11] MEDS: Acetaminophen 500 MG Tablet 1000 MG PO (15:56)
--- NOTE | 2020-04-11 16:25 | ED.VISSUMM ---
- ER Visit Summary Date of Service: 04/11/20 Chief Complaint: Fall History of Present Illness: The patient is a [address] Brendon mireles. He reports that yesterday he slipped in the rain and fell landing on his hands. He denies any blow to the head or loss of consciousness. Is not on anticoagulants. He denies any neck, back, shoulder, or hip pain. He reports that he has bilateral hand pain is 7-10 severity. His tetanus is up-to-date. He is right-hand dominant. Physical Examination: Vitals: Stable. Afebrile. Neck: No vertebral tenderness. Full ROM without difficulty. Cleared by NEXUS criteria. Back: No vertebral tenderness. General: A&O x 3. NAD. Cardiovascular exam: Regular rate and rhythm, no murmur, rub or gallop. Respiratory exam: Chest nontender. No crepitus. Clear to auscultation bilaterally. No wheezes or stridor. Abdominal exam: Soft, nontender, nondistended, normal bowel sounds. No pain in RUQ or LUQ specifically. No peritoneal signs. Extremity: No tenderness palpation over his wrist. He has mild tenderness palpation over the palms of his hands bilaterally. There are abrasions present here. There is minimal soft tissue swelling. There is an abrasion over the left patella. He has no pain with range of motion. No pain with axial load. Test Results: Clinical Impression(s) from Imaging Studies Wrist X-Ray 04/11/20 14:50 IMPRESSION: Normal x-ray examination of the wrist. Electronically Signed: Yunior Feng MD at 16:11 EST Tel , Service support , Hand X-Ray 04/11/20 15:10 IMPRESSION: Mild degenerative change. No acute fracture or dislocation Electronically Signed: Franki Giron MD at 16:20 EST , Service support , Hand X-Ray 04/11/20 15:10 IMPRESSION: Mild degenerative change. No acute fracture or subluxation Electronically Signed: Franki Giron MD at 16:20 EST , Service support , Wrist X-Ray 04/11/20 15:10 IMPRESSION: Normal x-ray examination of the wrist. Electronically Signed: Yunior Feng MD at 16:10 EST Tel , Service support , Emergency Department Course and Treatment: Patient was treated with Tylenol. He is resting comfortably. Treatment Plan: Patient be discharged with symptomatic care. Instructed to follow-up his primary care physician 1 week if not improving. Return to the emergency department for any worsening symptoms. Disposition: To home in improved and stable condition. Impression: 1. Fall. 2. Abrasion left knee. 3. Abrasion to palms bilaterally. This note was generated with Get[employer]ar dictation software. It may contain incorrect words, spelling, and punctuation that were not noted in review of the chart prior to signing ED Disposition - Plan for ED Patient: Disposition: Home or Assisted Living Instructions: ED HAND CONTUSION Referrals: Lucas Yap MD [Primary Care Provider] - 1 Week if not improving
== END 2020-04-11 16:51 | disposition home or self-care (01) ==
PROVIDERS: Emergency Provider Emergency Medicine; PCP Family Medicine
DX: S80.212A Abrasion, left knee, initial encounter (principal); W01.0XXA Fall on same level from slipping, tripping and stumbling without subsequent striking against object, initial encounter; M79.641 Pain in right hand; M79.642 Pain in left hand; E11.9 Type 2 diabetes mellitus without complications
CPT/HCPCS: 73110; 73130; 99282

== ENCOUNTER → 2020-08-22 10:02 | Outpatient (CLI) | payer OTHER, SELFPAY ==
--- NOTE | 2020-08-22 13:18 | NEURO ---
NCS and/or EMG Patient Report Ordering Doctor: Mateo Esparza DATE OF SERVICE: 08/22/20 Indication: Bilateral hand numbness that developed after a fall in March 2020. Hand are painful and stiff. Occasional localized neck pain without radiation. History of diabetes (last HgbA1c was 9.0%). Evaluate for entrapment neuropathy. Findings: Nerve conduction studies were performed in the right and left upper extremities. The right median motor study recording the abductor pollicis brevis showed a normal amplitude, borderline distal latency and slowed conduction velocity. The right ulnar motor study recording the abductor digiti minimi showed a normal amplitude, normal distal latency and normal conduction velocity. No conduction block or focal slowing was present across the elbow. The right median sensory response recording digit two showed a slightly reduced amplitude, prolonged latency and slowed conduction velocity. The right ulnar sensory response recording digit five showed a reduced amplitude, prolonged latency and slowed conduction velocity. The right radial sensory response recording over the extensor snuff box showed a borderline amplitude, normal latency and normal conduction velocity. The left median motor study recording the abductor pollicis brevis showed a normal amplitude, prolonged distal latency and slowed conduction velocity. The left ulnar motor study recording the abductor digiti minimi showed a normal amplitude, normal distal latency and normal conduction velocity. No conduction block or focal slowing was present across the elbow. The left median sensory response recording digit two showed a borderline amplitude, prolonged latency and slowed conduction velocity. The left ulnar sensory response recording digit five showed a reduced amplitude, prolonged latency and slowed conduction velocity. The left radial sensory response recording over the extensor snuff box showed a slightly reduced amplitude, normal latency and slowed conduction velocity. Right median-ulnar lumbrical / interosseous motor latencies showed a normal median latency compared to the ulnar. Left median-ulnar lumbrical / interosseous motor latencies showed a normal median latency compared to the ulnar. Needle EMG of the right upper extremity and cervical paraspinal muscles was performed. No denervation was seen in any muscle. Motor units in the abductor pollicis brevis and first dorsal interosseous were large amplitude, long duration and polyphasic with slightly reduced recruitment. The other examined muscles in the right upper extremity were unremarkable. Limited needle EMG of the left upper extremity muscles was performed. No denervation was seen in any muscle. Motor units in the abductor pollicis brevis and first dorsal interosseous were large amplitude, long duration and polyphasic with normal recruitment. Impression: This is an abnormal and complex study. There is electrophysiologic evidence of median neuropathy across the wrist on both sides. There is no active denervation of the thenar muscles. These findings are compatible with the clinical diagnosis of carpal tunnel syndrome. In addition, there is electrophysiologic evidence of non-localizing ulnar neuropathies in both upper extremities. There is no active denervation to suggest ongoing motor axon loss. A neuromuscular ultrasound could be considered to aide in the localization and provide additional information regarding the etiology of this finding. Finally, the diffusely low amplitude sensory responses and generalized slowing is suggestive of an underlying peripheral polyneuropathy. This was not fully investigated as it was not the indication of the study. Clinical correlation is recommended. Yfn Schultz D.O.
== END ==
PROVIDERS: PCP Family Medicine; Referring Provider Physician Assistant; Visit Provider Physician Assistant
DX: R20.2 Paresthesia of skin (principal)
CPT/HCPCS: 95885; 95886; 95913

== ENCOUNTER 2020-10-17 19:19 | Inpatient (IN) | payer MEDICARE, SELFPAY ==
[2020-10-17] VITALS (7 sets, daily range): BP systolic 114–154; BP diastolic 49–70; PULSE 105–115; RESP 17–31; TEMP 36.6–37.3; O2SAT 93–97; BMI 48.2; BMI 48.5
--- NOTE | 2020-10-17 19:26 | EKG12_ITS ---
Test Reason : HYPERGLYCEMIA Blood Pressure : / mmHG Vent. Rate : 111 BPM Atrial Rate : 111 BPM P-R Int : 206 ms QRS Dur : 090 ms QT Int : 316 ms P-R-T Axes : 049 086 018 degrees QTc Int : 429 ms Sinus tachycardia Nonspecific ST abnormality Abnormal ECG Confirmed by DIPTI KAMARA, CARLOS ([id number]), assistant editor PRATIK CASTLE ([id number]) on 10/19/2020 9:47:15 AM Referred By: Confirmed By:CARLOS RESENDEZ MD
--- NOTE | 2020-10-17 19:28 | EX.ED.DYSGE1 ---
HPI History of Present Illness Chief Complaint: Hyperglycemia Informant: patient Onset/Context/Timing Onset: Hours Context: Gradual Onset Timing: Continuous Current Severity: Severe Maximum Severity: Severe Worsened by: None Relieved by: Nothing Associated Symptoms Associated Symptoms: Slow mentation, frequency, polyuria, polydipsia and bilateral blurred visio Narrative Narrative: Patient is a 64-year-old man with type 1 diabetes who presents because his glucometer read high. Patient states a high reading is equivalent to a blood sugar greater than 600. He denies fever, chills night sweats. He denies headache. He does report by ocular blurred vision. Eyes double vision. No drainage ears decreased hearing. He denies rhinorrhea, congestion or sore throat. He denies cough or shortness of breath. He denies chest pain. He does report nausea without vomiting diarrhea. He does report frequency. He denies dysuria or hematuria. He denies paresthesia, anesthesia mothers. Denies problems with balance or walking. Prior similar symptoms: Yes Recent Illness/Hospitalization: No PFSH PFSH Medical History (Updated 10/17/20 @ 20:[address] Rip Randolph MD) Arthritis Cataracts, bilateral CPAP (continuous positive airway pressure) dependence Depression Diabetes type 1, controlled DVT (deep venous thrombosis) Essential hypertension GERD (gastroesophageal reflux disease) History of MRSA infection of lungs HLD (hyperlipidemia) Hypoglycemia Multiple sclerosis Myocardial infarct NSTEMI (non-ST elevated myocardial infarction) Obesity Renal failure Rheumatoid arthritis Sepsis Home Medications cholecalciferol (vitamin D3) 1,000 unit PO DAILY 09/28/15 [History Last Taken Unknown] rosuvastatin 5 mg PO QHS 09/28/15 [History Last Taken Unknown] aspirin 81 mg chewable tablet 81 mg PO QDAY 07/04/17 [History Last Taken Unknown] metoprolol succinate 50 mg tablet,extended release 24 hr 50 mg PO QDAY tab 07/04/17 [History Last Taken Unknown] omeprazole 40 mg capsule,delayed release 40 mg PO QDAY cap 07/04/17 [History Last Taken Unknown] pediatric multivit no.17-ferrous fumarate 15 mg iron chewable tablet 15 mg PO QDAY tab 07/26/17 [History Last Taken Unknown] insulin lispro 100 unit/mL subcutaneous solution See Rx Instructions SC QDAY #90 ml 12/03/17 [Rx Last Taken Unknown] bupropion HCl 150 mg 24 hr tablet, extended release 150 mg PO DAILY tab 12/08/18 [History Last Taken Unknown] gabapentin 100 mg capsule 200 mg PO TID cap 12/08/18 [History Last Taken Unknown] potassium chloride 10 mEq tablet,extended release(part/cryst) 10 meq PO BID tab 12/08/18 [History Last Taken Unknown] dimethyl fumarate 240 mg PO BID 02/23/19 [History Last Taken Unknown] acetaminophen 650 mg PO Q6H PRN PRN tab 02/24/19 [Rx Last Taken Unknown] tamsulosin 1 tab PO DAILY 07/22/19 [History Last Taken Unknown] ramipril 10 mg PO DAILY #0 07/24/19 [Rx Last Taken Unknown] furosemide 40 mg tablet 40 mg PO DAILY #180 tab 02/24/20 [Rx Last Taken Unknown] duloxetine [Cymbalta] 60 mg PO DAILY 10/17/20 [History Last Taken Unknown] Allergy/AdvReac Type Severity Reaction Status Date / Time adhesive tape AdvReac Rash Verified 10/17/20 19:26 Sulfa (Sulfonamide AdvReac Other Verified 10/17/20 19:26 Antibiotics) Surgical History Hx of tonsillectomy insulin pump implant and removal Social History Smoking Status: Former smoker second hand exposure: No alcohol intake: current alcohol intake frequency: a few times a month substance use type: does not use ROS ROS ED Constitutional Constitutional ED: Denies chills, fever(s), subjective or sweats Eyes Eyes: Reports blurry vision; Denies change in vision or diplopia ENT ENT ED: Denies ear pain, rhinorrhea or sore throat Cardiovascular Cardiovascular: Denies chest pain, orthopnea, palpitations, paroxysmal nocturnal dyspnea or racing heartbeat Respiratory/Chest Respiratory/Chest: Reports dyspnea; Denies cough, dyspnea on exertion, orthopnea, paroxysmal nocturnal dyspnea or sputum Gastrointestinal Gastrointestinal: Reports nausea; Denies abdominal pain, diarrhea, melena or vomiting Genitourinary Genitourinary ED: Denies dysuria, hematuria or urinary frequency Musculoskeletal Musculoskeletal: Denies arthralgias, myalgias or neck pain Integumentary Denies rash Neurologic Neurologic: Reports weakness; Denies headache(s) or paresthesias Endocrine Endocrinology: Reports polydipsia and polyuria EXAM Physical Exam Const Vital Signs: 10/17/20 19:19 10/17/20 20:19 Temperature 99.2 F H Temperature Source Oral Pulse Rate 112 H 107 H Respiratory Rate 22 H 20 H Blood Pressure 154/60 H 145/61 H Blood Pressure Mean 91 89 Pulse Ox 95 96 Oxygen Delivery Method Room Air Room Air Positive well nourished, well developed and obese General Appearance ED: well developed Nutritional Appearance: obese HEENT Reports TM's clear and dry mucous membranes HEENT Narrative: There is no asymmetry of the face. Nares patent. Posterior pharynx unremarkable. Tympanic Membrane ED: Yes TM's clear Mouth ED: Yes dry mucous membranes Mouth: dry mucous membranes Eyes PERRL and EOMs intact bilaterally General Eye ED: Negative for pale conjunctiva or scleral icterus Neck no lymphadenopathy, supple and no JVD Chest Wall inspection of chest normal Resp normal respiratory effort and clear to auscultation bilaterally Cardio regular rhythm, S1 normal heart sound, S2 normal heart sound and no murmurs Rate: tachycardic GI normal to inspection, nondistended, normoactive bowel sounds Back/Spine no CVA tenderness Thoracic Spine / Upper Back: Negative for paraspinal muscle tenderness Lumbar Spine / Lower Back: Negative for lumbar spinal tenderness Extremity normal to inspection General Extremety ED: Negative for edema or tenderness General Extremity: Negative for edema Neuro oriented x3, CN's II-XII intact bilaterally and no sensory deficits noted Sensorium / Orientation: Negative for alert Motor Exam: strength 5/5 throughout Psych mental status grossly normal Skin no rashes or lesions noted MDM MDM MDM Narrative Medical decision making narrative: Patient appears tachypneic and blood sugars greater than 600 concern he is in DKA. He has evidence of metabolic encephalopathy. He is awake but not alert. His psychomotor skills are slow. He is oriented. He has no focal findings. DKA order set was initiated. He received 2 L of normal saline. EKG was obtained to assess for ischemia and evidence of hyperkalemia. Troponin was obtained to rule out atypical presentation for GA. Patient does have a remote history of GA, 2016 at outside facility. Lab Data Attestation: I reviewed the patient's lab results. Lab results narrative: White count is elevated. There is no bandemia. Basic follow-up is remarkable for a glucose 647 with a normal CO2 and anion gap. BUN and creatinine are elevated at 47 and 2.27. There are ketones in the serum. With change in mental status and hyperglycemia suspect patient has hyperosmolar nonketotic. Plan is insulin drip at 0.05 units/kg/h. White count is probably due to stress response. Labs: Laboratory Results - last 24 hr 10/17/20 10/17/20 10/17/20 19:24 19:30 19:30 WBC 17.0 H RBC 4.37 L Hgb 12.6 L Hct 38.7 L MCV 88.6 MCH 28.8 MCHC 32.6 RDW Std Deviation 45.4 H RDW Coeff of Neo 14.0 Plt Count 273 MPV 10.1 Immature Gran % (Auto) 0.500 Neut % (Auto) 84.8 H Lymph % (Auto) 3.9 L [place] % (Auto) 10.7 H Eos % (Auto) 0.0 Baso % (Auto) 0.1 Absolute Neuts (auto) 14.4 H Absolute Lymphs (auto) 0.66 L Nucleated RBC % 0 Differential Comment Diff Path Review May foll Platelet Estimate ADEQUATE RBC Morphology NORM C+C Sodium Cancelled Potassium Cancelled Chloride Cancelled Carbon Dioxide Cancelled Anion Gap Cancelled BUN Cancelled Creatinine Cancelled Estim Creat Clear Calc Cancelled Est GFR (MDRD) Af Amer Cancelled Est GFR (MDRD) Non-Af Cancelled BUN/Creatinine Ratio Cancelled Glucose Cancelled Calcium Cancelled Troponin I Cancelled Acetone Level POC Glucose > 500 H* 10/17/20 10/17/20 10/17/20 19:30 20:10 20:19 WBC RBC Hgb Hct MCV MCH MCHC RDW Std Deviation RDW Coeff of Neo Plt Count MPV Immature Gran % (Auto) Neut % (Auto) Lymph % (Auto) [place] % (Auto) Eos % (Auto) Baso % (Auto) Absolute Neuts (auto) Absolute Lymphs (auto) Nucleated RBC % Differential Comment Diff Path Review Platelet Estimate RBC Morphology Sodium 134 L Potassium 4.7 Chloride 100 Carbon Dioxide 23.0 Anion Gap 11 BUN 47 H Creatinine 2.27 H Estim Creat Clear Calc 31.81 Est GFR (MDRD) Af Amer 38 L Est GFR (MDRD) Non-Af 31 L BUN/Creatinine Ratio 20.7 H Glucose 647 H* Calcium 9.0 Troponin I 0.048 H Acetone Level SMALL H POC Glucose > 500 H* ABG Data ABG results: ABG 10/17/20 19:43 Specimen Type SHANNEN VBG pH 7.37 VBG pO2 39 VBG HCO3 21 L VBG Total CO2 22 L VBG O2 Sat (Calc) 72 H VBG Base Excess -5 L POC Mix VBG pCO2 Pt Tmp 36.2 L O2 Delivery Device Room Air EKG Initial EKG: Attestation: I personally reviewed and interpreted this EKG as follows: Interpretation: Sinus Tachycardia (Sinus tachycardia with ventricular rate of 111. VT interval is 206 ms. QRS duration 90 ms. QT duration 316 ms. [place] is normal. 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, Discussing w/Consultants and Arranging Admission or Transfer Discharge Plan Triage Chief Complaint: Hyperglycemia ED Provider: Rip Randolph Dx/Rx/DC Orders Clinical Impression: Hyperosmolality due to uncontrolled type 1 diabetes mellitus Prescriptions: No Action metoprolol succinate 50 mg tablet extended release 24 hr 50 mg PO QDAY RF: 0 aspirin 81 mg tablet,chewable 81 mg PO QDAY RF: 0 pediatric multivit no.17-ferrous fumarate 15 mg iron chewable tablet 15 mg iron tablet,chewable 15 mg PO QDAY RF: 0 gabapentin 100 mg capsule 200 mg PO TID RF: 0 rosuvastatin 5 MG tablet 5 mg PO QHS RF: 0 cholecalciferol (vitamin D3) 1,000 UNIT tablet 1,000 unit PO DAILY RF: 0 omeprazole 40 MG capsule 40 mg PO QDAY RF: 0 bupropion HCl 150 mg tablet extended release 24 hr 150 mg PO DAILY RF: 0 potassium chloride 10 mEq tablet,ER particles/crystals 10 meq PO BID RF: 0 dimethyl fumarate 240 MG capsule,delayed release(DR/EC) 240 mg PO BID RF: 0 acetaminophen 325 MG tablet 650 mg PO Q6H PRN PRN (Reason: Mild Pain (1-3)/Temp > 100.7 F) RF: 0 tamsulosin 0.4 mg capsule 1 tab PO DAILY RF: 0 ramipril 10 MG capsule 10 mg PO DAILY Qty: 0 RF: 0 duloxetine [Cymbalta] 60 mg Capsule,Delayed Release(Dr/Ec) 60 mg PO DAILY RF: 0 insulin lispro [Humalog U-100 Insulin] 100 unit/mL solution See Rx Instructions SC QDAY Qty: 90 RF: 4 furosemide 40 mg tablet 40 mg PO DAILY Qty: 180 RF: 4 Primary Care Provider: Lucas Yap Referrals: Lucas Yap MD [Primary Care Provider] - Disposition Disposition: Acute Care Hospital [facility]
[2020-10-17 19:31] LABS: Bedside Glucose > 500 mg/dL (70-110)
[2020-10-17 19:38] LABS: Absolute Lymphocyte Count 0.66 X10^3/uL (0.83-4.51); Absolute Neutrophil Count 14.4 X10^3/uL (2.0-7.7); Basophil# 0.02 X10^3/uL; Basophil% 0.1 % (0-1); Hematocrit 38.7 % (40-54); Hemoglobin 12.6 g/dL (13.0-16.5); Lymphocyte # 0.66 X10^3/ul (0.83-4.51); Lymphocyte % 3.9 % (19-41); Mean Corp Hgb Conc 32.6 g/dL (32-36); Mean Corpuscular Hgb 28.8 pg (27.0-32.0); Mean Corpuscular Volume 88.6 fL (80-94); Mean Platelet Vol. 10.1 fl (6.2-12.0); Monocyte# 1.81 X10^3/uL; Monocyte% 10.7 % (0-10); NRBC Flagged by Analyzer 0 % (0-5); Neutrophil # 14.39 X10^3/uL (2.7-7.7); Neutrophil % 84.8 % (47-70); POSITIVE DIFFERENTIAL YES; Platelet Count 273 K/mm3 (150-450); RBC Distribution Width SD 45.4 fl (35.1-43.9); Red Blood Count 4.37 M/mm3 (4.6-6.2)
[2020-10-17] MEDS: 0.9% Normal Saline 1,000 ML 999 ML IV ×2 (19:45→20:24)
[2020-10-17 19:51] LABS: Blood Gas Specimen Type VEN; O2 Delivery Device Room Air; VBG BASE EXCESS -5 mmol/L (-1.0-3.5); VBG Bicarbonate 21 mmol/L (22-26); VBG PO2 39 mmHg (25-40); VBG SO2 72 % (50-70); VBG TCO2 22 mmol/L (23-33); VBG pCO2 36.2 mmHg (41-51); VBG pH 7.37 (7.32-7.42)
[2020-10-17 20:01] LABS: Differential Indicated SCAN CRITERIA MET
[2020-10-17 20:24] LABS: Platelet Estimate ADEQUATE (ADEQ); Red Cell Morphology NORM C+C NORMAL (NORM C&C)
[2020-10-17 20:26] LABS: Bedside Glucose > 500 mg/dL (70-110)
[2020-10-17 20:39] LABS: Anion Gap 11 (5-15); BUN 47 mg/dL (7-18); BUN/Creat Ratio 20.7 RATIO (10-20); Chloride 100 mmol/L (98-107); Creatinine, Serum 2.27 mg/dL (0.70-1.30); EST Glomerular Filtration Rate 31 mL/min (>60); Est Glom Filt Rate - Afr Amer 38 mL/min (>60); Estimated Creatinine Clearance 31.81 ml/min; Glucose 647 mg/dL (74-106); Potassium 4.7 mmol/L (3.5-5.1); Sodium Level 134 mmol/L (136-145)
[2020-10-17 21:19] LABS: Bacteria 0 SEEN /hpf (None Seen); Mucous, Urine 0 SEEN /hpf (<or=2+); Red Blood Cells-Urine 0 SEEN /hpf (0-5); Squamous Epithelial Cells - UA 0 SEEN /hpf (0-5); White Blood Cells 0 SEEN /hpf (0-5)
--- NOTE | 2020-10-17 21:20 | HP.PCM_ITS ---
HPI - General HPI Narrative BYRON SHANNON, is a 64 M who presents today with reports of his glucometer reading high which he states means it is over 600. Patient denies he is having any symptoms however patient later states that he has not been feeling well for the past 2 days because his blood sugar has been high and he has not been taking his medications. Patient states he has just been generally lethargic and fatigued. Patient is awake and oriented however appears drowsy. [facility] Medical History (Updated 10/17/20 @ 21:27 by Roxann Singer NP-C) Arthritis Cataracts, bilateral CPAP (continuous positive airway pressure) dependence Depression Diabetes type 1, controlled DVT (deep venous thrombosis) Essential hypertension GERD (gastroesophageal reflux disease) History of MRSA infection of lungs HLD (hyperlipidemia) Hypoglycemia Multiple sclerosis Myocardial infarct NSTEMI (non-ST elevated myocardial infarction) Obesity Renal failure Rheumatoid arthritis Sepsis Home Medications cholecalciferol (vitamin D3) 1,000 unit PO DAILY 09/28/15 [History Last Taken Unknown] rosuvastatin 5 mg PO QHS 09/28/15 [History Last Taken Unknown] aspirin 81 mg chewable tablet 81 mg PO QDAY 07/04/17 [History Last Taken Unknown] metoprolol succinate 50 mg tablet,extended release 24 hr 50 mg PO QDAY tab 07/04/17 [History Last Taken Unknown] omeprazole 40 mg capsule,delayed release 40 mg PO QDAY cap 07/04/17 [History Last Taken Unknown] pediatric multivit no.17-ferrous fumarate 15 mg iron chewable tablet 15 mg PO QDAY tab 07/26/17 [History Last Taken Unknown] insulin lispro 100 unit/mL subcutaneous solution See Rx Instructions SC QDAY #90 ml 12/03/17 [Rx Last Taken Unknown] bupropion HCl 150 mg 24 hr tablet, extended release 150 mg PO DAILY tab 12/08/18 [History Last Taken Unknown] gabapentin 100 mg capsule 200 mg PO TID cap 12/08/18 [History Last Taken Unknown] potassium chloride 10 mEq tablet,extended release(part/cryst) 10 meq PO BID tab 12/08/18 [History Last Taken Unknown] dimethyl fumarate 240 mg PO BID 02/23/19 [History Last Taken Unknown] acetaminophen 650 mg PO Q6H PRN PRN tab 02/24/19 [Rx Last Taken Unknown] tamsulosin 1 tab PO DAILY 07/22/19 [History Last Taken Unknown] ramipril 10 mg PO DAILY #0 07/24/19 [Rx Last Taken Unknown] furosemide 40 mg tablet 40 mg PO DAILY #180 tab 02/24/20 [Rx Last Taken Unknown] duloxetine [Cymbalta] 60 mg PO DAILY 10/17/20 [History Last Taken Unknown] Allergy/AdvReac Type Severity Reaction Status Date / Time adhesive tape AdvReac Rash Verified 10/17/20 19:26 Sulfa (Sulfonamide AdvReac Other Verified 10/17/20 19:26 Antibiotics) Surgical History Hx of tonsillectomy insulin pump implant and removal Social History Smoking Status: Former smoker second hand exposure: No alcohol intake: current alcohol intake frequency: a few times a month substance use type: does not use ROS Constitutional Constitutional: Reports fatigue and lethargy; Denies anorexia or chills Cardiovascular Cardiovascular: Denies chest pain, edema or palpitations Respiratory/Chest Respiratory/Chest: Denies cough, shortness of breath at rest or shortness of breath with exertion Gastrointestinal Gastrointestinal: Denies abdominal pain, constipation, diarrhea, nausea or vomiting Genitourinary Genitourinary: Denies dysuria Musculoskeletal Musculoskeletal: Denies back pain, extremity pain or joint pain Integumentary Integumentary: Denies dry skin Neurologic Neurologic: Denies abnormal gait, abnormal speech, confusion or dizziness Psychiatric Psychiatric: Denies anxiety or depression Endocrine Endocrinology: Denies change in body appearance Hematologic/Lymphatic Hematologic/Lymphatic: Denies easy bleeding or easy bruising Vital Signs Vital Signs Vital Signs: 10/17/20 19:19 10/17/20 20:19 Temperature 99.2 F H Temperature Source Oral Pulse Rate 112 H 107 H Respiratory Rate 22 H 20 H Blood Pressure 154/60 H 145/61 H Blood Pressure Mean 91 89 Pulse Ox 95 96 Oxygen Delivery Method Room Air Room Air Weight Weight: 317 lb 0.395 oz Body Mass Index (BMI) 48.2 Physical Exam Const oriented x3 General Appearance: cooperative Orientation / Consciousness: lethargic HEENT normocephalic and head/scalp atraumatic Eyes PERRL Neck supple, no JVD and thyroid normal General: trachea midline Lymph Lymphatic: no lymphadenopathy noted Resp normal respiratory effort, normal air movement and clear to auscultation bilaterally Cardio regular rate, regular rhythm, S1 normal heart sound and S2 normal heart sound GI normal to inspection, nondistended, normoactive bowel sounds and soft to palpation Extremity normal capillary refill and no clubbing, cyanosis or edema Skin General Skin Exam: no breakdown and turgor normal Lesions: no lesions Rashes: no rashes Neuro CN's II-XII intact bilaterally Psych thought process normal, cooperative and affect normal Appearance: appropriate Lab / Micro Data Result Diagrams: 10/17/20 19:30 10/17/20 20:10 Labs: Laboratory Results - last 24 hr 10/17/20 10/17/20 10/17/20 19:24 19:30 19:30 WBC 17.0 H RBC 4.37 L Hgb 12.6 L Hct 38.7 L MCV 88.6 MCH 28.8 MCHC 32.6 RDW Std Deviation 45.4 H RDW Coeff of Neo 14.0 Plt Count 273 MPV 10.1 Immature Gran % (Auto) 0.500 Neut % (Auto) 84.8 H Lymph % (Auto) 3.9 L [place] % (Auto) 10.7 H Eos % (Auto) 0.0 Baso % (Auto) 0.1 Absolute Neuts (auto) 14.4 H Absolute Lymphs (auto) 0.66 L Nucleated RBC % 0 Differential Comment Diff Path Review May foll Platelet Estimate ADEQUATE RBC Morphology NORM C+C Sodium Cancelled Potassium Cancelled Chloride Cancelled Carbon Dioxide Cancelled Anion Gap Cancelled BUN Cancelled Creatinine Cancelled Estim Creat Clear Calc Cancelled Est GFR (MDRD) Af Amer Cancelled Est GFR (MDRD) Non-Af Cancelled BUN/Creatinine Ratio Cancelled Glucose Cancelled Calcium Cancelled Troponin I Cancelled Acetone Level POC Glucose > 500 H* 10/17/20 10/17/20 10/17/20 19:30 20:10 20:19 WBC RBC Hgb Hct MCV MCH MCHC RDW Std Deviation RDW Coeff of Neo Plt Count MPV Immature Gran % (Auto) Neut % (Auto) Lymph % (Auto) [place] % (Auto) Eos % (Auto) Baso % (Auto) Absolute Neuts (auto) Absolute Lymphs (auto) Nucleated RBC % Differential Comment Diff Path Review Platelet Estimate RBC Morphology Sodium 134 L Potassium 4.7 Chloride 100 Carbon Dioxide 23.0 Anion Gap 11 BUN 47 H Creatinine 2.27 H Estim Creat Clear Calc 31.81 Est GFR (MDRD) Af Amer 38 L Est GFR (MDRD) Non-Af 31 L BUN/Creatinine Ratio 20.7 H Glucose 647 H* Calcium 9.0 Troponin I 0.048 H Acetone Level SMALL H POC Glucose > 500 H* ABG Data ABG results: ABG 10/17/20 19:43 Specimen Type SHANNEN VBG pH 7.37 VBG pO2 39 VBG HCO3 21 L VBG Total CO2 22 L VBG O2 Sat (Calc) 72 H VBG Base Excess -5 L POC Mix VBG pCO2 Pt Tmp 36.2 L O2 Delivery Device Room Air Assessment & Plan Assessment/Plan (1) Diabetic ketoacidosis: QUALIFIERS: Diabetes mellitus type: type 1 Diabetes mellitus complication detail: without coma Qualified Code(s): E10.10 - Type 1 diabetes mellitus with ketoacidosis without coma (2) ERIC (acute kidney injury): PLAN: 1. Diabetic ketoacidosis -Admit to ICU for insulin drip -Hold insulin pump dosing at this time -Every 6 hour insulin totals -Consult dietitian for diabetic teaching -CBC, CMP, hemoglobin A1c in a.m. -Every 4 hours BMPs however due to patient having a normal anion gap and carbon dioxide level will check acetone level at midnight -Electrolyte protocol ordered 2. Acute kidney injury superimposed on chronic kidney disease stage IIIa -Will hold Lasix, ramipril at this time -Patient received 2 L IV fluids in ER will continue IV fluid resuscitation per DKA protocol which should help improve BUN and creatinine -CMP daily to trend kidney function 3. Hypertension -Continue metoprolol -As needed hydralazine ordered while ramipril and Lasix being held -Vital signs per protocol, trend BP 4. Hyperlipidemia -Continue rosuvastatin 5. Multiple sclerosis -We will continue dimethyl fumarate 5. Morbid obesity, BMI 45.0-49.9 -Encourage lifestyle modifications -Dietitian consulted DVT Prophylaxis-not indicated, patient observation status This patient was seen by Roxann Singer NP-C under the supervision of Dr. Ortega.
[2020-10-17 21:26] LABS: Bedside Glucose > 500 mg/dL (70-110)
[2020-10-17 21:37] LABS: Color, Urine Yellow (Yellow); Glucose, Dipstick 1000 mg/dl (Normal); Ketone-Dipstick 50 mg/dl (Negative); Leukocyte Esterase-Dipstick Negative /ul (Negative); Nitrite-Dipstick Negative (Negative); Occult Blood-Urine Negative /ul (Negative); Protein-Dipstick Negative (Negative); Urine Bilirubin Dipstick Negative (Negative); Urine Clarity Clear (Clear); Urine Urobilinogen Normal (Normal)
[2020-10-17 22:16] LABS: Bedside Glucose > 500 mg/dL (70-110)
[2020-10-17 22:27] LABS: Anion Gap 11 (5-15); BUN 44 mg/dL (7-18); BUN/Creat Ratio 21.5 RATIO (10-20); Calcium,Total 8.6 mg/dL (8.5-10.1); Chloride 105 mmol/L (98-107); Creatinine, Serum 2.05 mg/dL (0.70-1.30); EST Glomerular Filtration Rate 35 mL/min (>60); Est Glom Filt Rate - Afr Amer 42 mL/min (>60); Estimated Creatinine Clearance 35.22 ml/min; Glucose 535 mg/dL (74-106); Potassium 4.5 mmol/L (3.5-5.1); Sodium Level 136 mmol/L (136-145)
[2020-10-17 23:11] LABS: Bedside Glucose 426 mg/dL (70-110)
[2020-10-17] MEDS: 0.9% Normal Saline 1,000 ML 250 ML IV (23:57)
[2020-10-18] VITALS (22 sets, daily range): BP systolic 106–138; BP diastolic 49–88; PULSE 85–117; RESP 14–20; TEMP 36.6–37.4; O2SAT 92–100
[2020-10-18 00:26] LABS: Anion Gap 8 (5-15); BUN 43 mg/dL (7-18); BUN/Creat Ratio 21.9 RATIO (10-20); Calcium,Total 8.5 mg/dL (8.5-10.1); Chloride 107 mmol/L (98-107); Creatinine, Serum 1.96 mg/dL (0.70-1.30); EST Glomerular Filtration Rate 37 mL/min (>60); Est Glom Filt Rate - Afr Amer 44 mL/min (>60); Estimated Creatinine Clearance 36.84 ml/min; Glucose 405 mg/dL (74-106); Potassium 4.1 mmol/L (3.5-5.1); Sodium Level 139 mmol/L (136-145)
[2020-10-18] MEDS: Gabapentin 100 MG Capsule 200 MG PO ×3 (00:31→16:17)
[2020-10-18] MEDS: Potassium Chloride Oral Tablet 10 MEQ PO ×2 (00:31→11:44)
[2020-10-18 01:11] LABS: Bedside Glucose 347 mg/dL (70-110)
[2020-10-18 01:11] LABS: Bedside Glucose 363 mg/dL (70-110)
--- NOTE | 2020-10-18 01:50 | CPS ---
Patient's home CPAP of 9 setup at bedside. PAP cleaning machine setup and attached to CPAP. [employer]PAT[employer]ACT[employer] will monitor patient overnight.
[2020-10-18 03:01] LABS: Bedside Glucose 358 mg/dL (70-110)
[2020-10-18 05:16] LABS: Bedside Glucose 328 mg/dL (70-110)
[2020-10-18 05:16] LABS: Bedside Glucose 296 mg/dL (70-110)
[2020-10-18 05:24] LABS: Absolute Lymphocyte Count 1.17 X10^3/uL (0.83-4.51); Absolute Neutrophil Count 11.8 X10^3/uL (2.0-7.7); Basophil# 0.03 X10^3/uL; Basophil% 0.2 % (0-1); Eosinophil# 0.01 X10^3/uL; Eosinophils% 0.1 % (0-5); Hematocrit 34.6 % (40-54); Hemoglobin 11.4 g/dL (13.0-16.5); Lymphocyte # 1.17 X10^3/ul (0.83-4.51); Lymphocyte % 7.9 % (19-41); Mean Corp Hgb Conc 32.9 g/dL (32-36); Mean Corpuscular Hgb 29.3 pg (27.0-32.0); Mean Corpuscular Volume 88.9 fL (80-94); Mean Platelet Vol. 9.6 fl (6.2-12.0); Monocyte# 1.75 X10^3/uL; Monocyte% 11.8 % (0-10); NRBC Flagged by Analyzer 0 % (0-5); Neutrophil # 11.82 X10^3/uL (2.7-7.7); Neutrophil % 79.6 % (47-70); POSITIVE DIFFERENTIAL YES; Platelet Count 233 K/mm3 (150-450); RBC Distribution Width CV 14.3 % (11.6-14.6); RBC Distribution Width SD 46.4 fl (35.1-43.9); Red Blood Count 3.89 M/mm3 (4.6-6.2); White Blood Count 14.8 K/mm3 (4.4-11.0)
[2020-10-18 05:26] LABS: Differential Indicated SCAN CRITERIA MET
[2020-10-18 05:36] LABS: ALB/GLOB Ratio 1.2 RATIO (0.9-2.4); AST(SGOT) 31 U/L (15-37); Alanine Aminotransfer ALT/SGPT 31 U/L (16-61); Albumin, Serum 3.3 g/dL (3.2-5.0); Alkaline Phosphatase 52 U/L (45-117); Anion Gap 4 (5-15); BUN 38 mg/dL (7-18); BUN/Creat Ratio 23.8 RATIO (10-20); Calcium,Total 8.1 mg/dL (8.5-10.1); Chloride 108 mmol/L (98-107); EST Glomerular Filtration Rate 46 mL/min (>60); Est Glom Filt Rate - Afr Amer 56 mL/min (>60); Estimated Creatinine Clearance 45.13 ml/min; Globulin 2.8 g/dL (2.2-4.2); Glucose 279 mg/dL (74-106); Potassium 4.2 mmol/L (3.5-5.1); Protein, Total 6.1 g/dL (6.4-8.2); Sodium Level 140 mmol/L (136-145)
[2020-10-18 06:20] LABS: Differential Comment SCANNED
[2020-10-18 06:46] LABS: Bedside Glucose 249 mg/dL (70-110)
[2020-10-18 06:46] LABS: Bedside Glucose 261 mg/dL (70-110)
[2020-10-18 07:10] LABS: Bedside Glucose 220 mg/dL (70-110)
[2020-10-18 08:15] LABS: Hemoglobin A1c 7.9 % (3.8-5.6)
[2020-10-18 08:46] LABS: Bedside Glucose 212 mg/dL (70-110)
[2020-10-18] MEDS: Tamsulosin HCl 0.4 MG Capsule PO (09:50)
[2020-10-18] MEDS: Multivitamins,Ther W-Minerals Tablet 1 TABLET PO (09:51)
[2020-10-18] MEDS: DULoxetine Hcl 60 MG Capsule PO (09:51)
[2020-10-18] MEDS: Cholecalciferol (VIT D3) 25 MCG TABLET (1,000 UNITS) PO (09:51)
[2020-10-18] MEDS: Metoprolol(XL)Succ 50 MG Tablet PO (09:52)
[2020-10-18] MEDS: Pantoprazole Sodium 40 MG Tablet PO (09:52)
[2020-10-18] MEDS: Aspirin 81 MG TAB.CHEW PO (09:52)
[2020-10-18] MEDS: buPROPion (XL) 150 MG TABLET.XL PO (09:52)
[2020-10-18 10:56] LABS: Bedside Glucose 275 mg/dL (70-110)
--- NOTE | 2020-10-18 11:23 | CASEMGMT ---
FRANCO SEGOVIA Assessment: Face to Face with pt for initial transition planning/care coordination assessment. RN JULIETTE introduced self and role at [facility], pt voices understanding and consents to assessment. Pt is O x4, drowsy and answers all questions appropriately at this time. Care providers, pharmacy, and demographics verified/updated. Admitting Dx: DKA PCP: [place] Specialists: Luna Fuentes from [facility] manages diabetes; [place], cardio; Neuro from [facility], pt could not remember his name. Preferred Pharmacy: [facility] Insurance: [facility] Prescription Benefit: yes LW/HPOA: Pt denies having LW/DPOA. LNOK: Ermelinda Bautista, sister; Codi Ramos, sister Living Arrangements: Pt lives alone in a single story house with 2 steps to enter. Pt reports he is I in ADL's and denies concerns at home. Transportation: Pt drives self and denies concerns with transportation. DME/HHC/SNF: Pt has a cane, rollator, shower chair and CPAP machine at home. Pt uses [employer]. Pt states he had HHC a long time ago and is unsure of who it was. Denies any SNF stays. Pt states his sisters called in and were denied any information on him. He requested CM to notify that he consents for medical information to be given to them. Notified pt nurse Dalila. Pt states he has a glucometer at home and he checks his blood sugar 6x/day, before every meal and throughout the day. Pt states he does not keep a written log but endocrinology can download his readings. Pt states he has supplies for his machine. He states he has insulin supply as well. He states he does not know when the last time he saw endocrinology was or when his next appt is. He did look through his phone to try and figure it out. He is aware of the importance of this follow up. Pt states no concerns with going home at time of dc. Pt states no further concerns/needs. CM to follow. Advised pt to ask CM if any further question/concerns/needs arise, voices understanding. Pt Goal: Home Plan: Home with family support.
[2020-10-18] MEDS: Ondansetron 4 MG/2 ML Vial IV (11:40)
[2020-10-18] MEDS: 0.9% Saline Lock 10 ML Syringe IV (11:41)
[2020-10-18 12:34] LABS: Pathologist Review Reviewed
[2020-10-18 12:44] LABS: Pathologist Review Reviewed
[2020-10-18 13:10] LABS: Bedside Glucose 420 mg/dL (70-110)
[2020-10-18 16:10] LABS: Bedside Glucose 387 mg/dL (70-110)
[2020-10-18] MEDS: Insulin Lispro 100 UNIT/ML INSULN.PEN 12 UNIT SC (16:18)
--- NOTE | 2020-10-18 16:31 | DS.PCM_ITS ---
Providers Date of Admission: 10/17/20 Primary Care Physician: Dr. Lucas Yap MD Reason For Visit: DKA Diagnosis Discharge Diagnosis (1) ERIC (acute kidney injury): Status: Acute Code(s): N17.9 - Acute kidney failure, unspecified (2) Hyperosmolality due to uncontrolled type 1 diabetes mellitus: Status: Acute Code(s): E10.69 - Type 1 diabetes mellitus with other specified complication; E10.65 - Type 1 diabetes mellitus with hyperglycemia Medications at Discharge Home Medications cholecalciferol (vitamin D3) 1,000 unit PO DAILY 09/28/15 rosuvastatin 5 mg PO QHS 09/28/15 aspirin 81 mg chewable tablet 81 mg PO QDAY 07/04/17 metoprolol succinate 50 mg tablet,extended release 24 hr 50 mg PO QDAY tab 07/04/17 omeprazole 40 mg capsule,delayed release 40 mg PO QDAY cap 07/04/17 pediatric multivit no.17-ferrous fumarate 15 mg iron chewable tablet 15 mg PO QDAY tab 07/26/17 insulin lispro 100 unit/mL subcutaneous solution See Rx Instructions SC QDAY #90 ml 12/03/17 bupropion HCl 150 mg 24 hr tablet, extended release 150 mg PO DAILY tab 12/08/18 gabapentin 100 mg capsule 200 mg PO TID cap 12/08/18 potassium chloride 10 mEq tablet,extended release(part/cryst) 10 meq PO BID tab 12/08/18 dimethyl fumarate 240 mg PO BID 02/23/19 acetaminophen 650 mg PO Q6H PRN PRN tab 02/24/19 tamsulosin 1 tab PO DAILY 07/22/19 ramipril 10 mg PO DAILY #0 07/24/19 furosemide 40 mg tablet 40 mg PO DAILY #180 tab 02/24/20 duloxetine [Cymbalta] 60 mg PO DAILY 10/17/20 insulin glargine [Lantus Solostar U-100 Insulin] 40 unit SUBCUT DAILY #15 ml 10/18/20 insulin lispro [Humalog U-100 Insulin] 5 unit SUBCUT TID #3 ml 10/18/20 Hospital Course Operations None Procedures None Summary of Care Provided Minutes Spent on Discharge: 45 Hospital Course: Mr. Ramos is a 64-year-old white male who presented to the emergency department at [facility] on 10/17/2020 with a chief complaint of hyperglycemia. He reported that his blood glucose monitor was reading greater than 600. He is a known type I diabetic and does have history of DKA. On admission he had a white count of 17,000. A VBG was done and showed a pH of 7.37. He had elevated BUN at 43 and a serum creatinine of 1.96. His glucose level on his BMP was 405. There are no serum ketones present. He was admitted with [facility] and placed on an insulin drip and transferred to the ICU. We transitioned him off his insulin drip back to his insulin pump and put him on a regular diet. Upon checking his blood sugar after he had been on his pump for approximately 2 hours his blood sugar was reading in the 400s. The pump was removed at that time and he was given 40 units of Lantus. I suspect his pump is malfunctioning and that is why he is having issues with hyperglycemia although he was contributing to poor diet. He reports his last hemoglobin A1c was around 9. Per discussion with the patient in the morning he does have Lantus at home and previous Lantus dosing was 40 units in the morning and he would carb count for Humalog. He has Humalog available as well. He indicates he has 3 total Lantus pens and 6 vials of Humalog at home at this time. He reports that they all are current and not medications. He has test strips, needles, and syringes. I attempted to call his payroll benefits clerk in [place] but was unable to get in contact with anybody other than the bilingual secretary. Given the patient has subcutaneous insulin available at home and had no further acute inpatient hospital needs we decided to discharge him and continue 40 units of insulin in the morning and he was going to continue carb counting with meals. I will await a phone call from his primary payroll benefits clerk office and discuss this further so they are aware of his current issues and can follow-up with him as an outpatient. He was tolerating a p.o. diet well without any issues. His serum c reatinine had improved significantly and was trending towards normal. He is to follow-up with his primary payroll benefits clerk as soon as possible and his primary care physician in the week. Discharge diagnoses Hyperglycemia secondary to uncontrolled DM-1 -DKA was not present on admission [id number] ERIC hypertension hyperlipidemia WINSTON GERD morbid obesity depression anxiety BPH Physical Exam Const alert, oriented x3 and no apparent distress Constitutional Narrative: Upper middle-aged morbidly obese white male lying in bed with BiPAP on awakens easily and removes BiPAP independently, appears comfortable, nontoxic General Appearance: cooperative and comfortable Orientation / Consciousness: awake HEENT normocephalic, head/scalp atraumatic and moist oral mucous membranes HEENT Narrative: Mallampati 3-4, no thrush Eyes PERRL, EOMs intact bilaterally and conjunctivae normal Neck no lymphadenopathy, supple, no JVD and no carotid bruits Resp normal respiratory effort, no retractions, no use of accessory muscles and clear to auscultation bilaterally Cardio regular rate, regular rhythm, S1 normal heart sound, S2 normal heart sound, no murmurs, no rub, no gallops, no clicks and no JVD GI normal to inspection, nondistended, normoactive bowel sounds, soft to palpation, non-tender and non-distended Extremity normal to inspection and no clubbing, cyanosis or edema Skin no rashes or lesions noted, skin turgor normal and no jaundice Neuro oriented x3, CN's II-XII intact bilaterally and moves all extremities Sensorium / Orientation: awake, alert, oriented to person, oriented to place and oriented to time Speech: speech normal Psych Psych Narrative: Flat affect ABG / Lab / Microbiology Data Result Diagrams: 10/18/20 04:30 10/18/20 04:30 Laboratory: Laboratory Results - last 24 hr 10/17/20 10/17/20 10/17/20 19:24 19:30 19:30 WBC 17.0 H RBC 4.37 L Hgb 12.6 L Hct 38.7 L MCV 88.6 MCH 28.8 MCHC 32.6 RDW Std Deviation 45.4 H RDW Coeff of Neo 14.0 Plt Count 273 MPV 10.1 Immature Gran % (Auto) 0.500 Neut % (Auto) 84.8 H Lymph % (Auto) 3.9 L Mclean % (Auto) 10.7 H Eos % (Auto) 0.0 Baso % (Auto) 0.1 Absolute Neuts (auto) 14.4 H Absolute Lymphs (auto) 0.66 L Nucleated RBC % 0 Differential Comment Diff Path Review Reviewed Platelet Estimate ADEQUATE RBC Morphology NORM C+C Sodium Cancelled Potassium Cancelled Chloride Cancelled Carbon Dioxide Cancelled Anion Gap Cancelled BUN Cancelled Creatinine Cancelled Estim Creat Clear Calc Cancelled Est GFR (MDRD) Af Amer Cancelled Est GFR (MDRD) Non-Af Cancelled BUN/Creatinine Ratio Cancelled Glucose Cancelled Hemoglobin A1c Calcium Cancelled Total Bilirubin AST ALT Alkaline Phosphatase Troponin I Cancelled Total Protein Albumin Globulin Albumin/Globulin Ratio Urine Color Urine Clarity Urine pH Ur Specific [place] Urine Protein Urine Glucose (UA) Urine Ketones Urine Occult Blood Urine Nitrite Urine Bilirubin Urine Urobilinogen Ur Leukocyte Esterase Urine RBC Urine WBC Ur Squamous Epith Cells Urine Bacteria Urine Mucus Acetone Level POC Glucose > 500 H* 10/17/20 10/17/20 10/17/20 19:30 20:10 20:19 WBC RBC Hgb Hct MCV MCH MCHC RDW Std Deviation RDW Coeff of Neo Plt Count MPV Immature Gran % (Auto) Neut % (Auto) Lymph % (Auto) Mclean % (Auto) Eos % (Auto) Baso % (Auto) Absolute Neuts (auto) Absolute Lymphs (auto) Nucleated RBC % Differential Comment Diff Path Review Platelet Estimate RBC Morphology Sodium 134 L Potassium 4.7 Chloride 100 Carbon Dioxide 23.0 Anion Gap 11 BUN 47 H Creatinine 2.27 H Estim Creat Clear Calc 31.81 Est GFR (MDRD) Af Amer 38 L Est GFR (MDRD) Non-Af 31 L BUN/Creatinine Ratio 20.7 H Glucose 647 H* Hemoglobin A1c Calcium 9.0 Total Bilirubin AST ALT Alkaline Phosphatase Troponin I 0.048 H Total Protein Albumin Globulin Albumin/Globulin Ratio Urine Color Urine Clarity Urine pH Ur Specific [place] Urine Protein Urine Glucose (UA) Urine Ketones Urine Occult Blood Urine Nitrite Urine Bilirubin Urine Urobilinogen Ur Leukocyte Esterase Urine RBC Urine WBC Ur Squamous Epith Cells Urine Bacteria Urine Mucus Acetone Level SMALL H POC Glucose > 500 H* 10/17/20 10/17/20 10/17/20 21:15 21:18 21:55 WBC RBC Hgb Hct MCV MCH MCHC RDW Std Deviation RDW Coeff of Neo Plt Count MPV Immature Gran % (Auto) Neut % (Auto) Lymph % (Auto) Mclean % (Auto) Eos % (Auto) Baso % (Auto) Absolute Neuts (auto) Absolute Lymphs (auto) Nucleated RBC % Differential Comment Diff Path Review Platelet Estimate RBC Morphology Sodium 136 Potassium 4.5 Chloride 105 Carbon Dioxide 20.0 L Anion Gap 11 BUN 44 H Creatinine 2.05 H Estim Creat Clear Calc 35.22 Est GFR (MDRD) Af Amer 42 L Est GFR (MDRD) Non-Af 35 L BUN/Creatinine Ratio 21.5 H Glucose 535 H* Hemoglobin A1c Calcium 8.6 Total Bilirubin AST ALT Alkaline Phosphatase Troponin I Total Protein Albumin Globulin Albumin/Globulin Ratio Urine Color Yellow Urine Clarity Clear Urine pH 6.0 Ur Specific [place] 1.010 Urine Protein Negative Urine Glucose (UA) 1000 H Urine Ketones 50 H Urine Occult Blood Negative Urine Nitrite Negative Urine Bilirubin Negative Urine Urobilinogen Normal Ur Leukocyte Esterase Negative Urine RBC 0 SEEN Urine WBC 0 SEEN Ur Squamous Epith Cells 0 SEEN Urine Bacteria 0 SEEN Urine Mucus 0 SEEN Acetone Level POC Glucose > 500 H* 10/17/20 10/17/20 10/17/20 22:12 23:07 23:50 WBC RBC Hgb Hct MCV MCH MCHC RDW Std Deviation RDW Coeff of Neo Plt Count MPV Immature Gran % (Auto) Neut % (Auto) Lymph % (Auto) Mclean % (Auto) Eos % (Auto) Baso % (Auto) Absolute Neuts (auto) Absolute Lymphs (auto) Nucleated RBC % Differential Comment Diff Path Review Platelet Estimate RBC Morphology Sodium 139 Potassium 4.1 Chloride 107 Carbon Dioxide 24.0 Anion Gap 8 BUN 43 H Creatinine 1.96 H Estim Creat Clear Calc 36.84 Est GFR (MDRD) Af Amer 44 L Est GFR (MDRD) Non-Af 37 L BUN/Creatinine Ratio 21.9 H Glucose 405 H Hemoglobin A1c Calcium 8.5 Total Bilirubin AST ALT Alkaline Phosphatase Troponin I Total Protein Albumin Globulin Albumin/Globulin Ratio Urine Color Urine Clarity Urine pH Ur Specific [place] Urine Protein Urine Glucose (UA) Urine Ketones Urine Occult Blood Urine Nitrite Urine Bilirubin Urine Urobilinogen Ur Leukocyte Esterase Urine RBC Urine WBC Ur Squamous Epith Cells Urine Bacteria Urine Mucus Acetone Level POC Glucose > 500 H* 426 H 10/18/20 10/18/20 10/18/20 00:00 00:20 01:02 WBC RBC Hgb Hct MCV MCH MCHC RDW Std Deviation RDW Coeff of Neo Plt Count MPV Immature Gran % (Auto) Neut % (Auto) Lymph % (Auto) Mclean % (Auto) Eos % (Auto) Baso % (Auto) Absolute Neuts (auto) Absolute Lymphs (auto) Nucleated RBC % Differential Comment Diff Path Review Platelet Estimate RBC Morphology Sodium Potassium Chloride Carbon Dioxide Anion Gap BUN Creatinine Estim Creat Clear Calc Est GFR (MDRD) Af Amer Est GFR (MDRD) Non-Af BUN/Creatinine Ratio Glucose Hemoglobin A1c Calcium Total Bilirubin AST ALT Alkaline Phosphatase Troponin I Total Protein Albumin Globulin Albumin/Globulin Ratio Urine Color Urine Clarity Urine pH Ur Specific [place] Urine Protein Urine Glucose (UA) Urine Ketones Urine Occult Blood Urine Nitrite Urine Bilirubin Urine Urobilinogen Ur Leukocyte Esterase Urine RBC Urine WBC Ur Squamous Epith Cells Urine Bacteria Urine Mucus Acetone Level NEGATIVE POC Glucose 363 H 347 H 10/18/20 10/18/20 10/18/20 02:05 03:02 04:02 WBC RBC Hgb Hct MCV MCH MCHC RDW Std Deviation RDW Coeff of Neo Plt Count MPV Immature Gran % (Auto) Neut % (Auto) Lymph % (Auto) Mclean % (Auto) Eos % (Auto) Baso % (Auto) Absolute Neuts (auto) Absolute Lymphs (auto) Nucleated RBC % Differential Comment Diff Path Review Platelet Estimate RBC Morphology Sodium Potassium Chloride Carbon Dioxide Anion Gap BUN Creatinine Estim Creat Clear Calc Est GFR (MDRD) Af Amer Est GFR (MDRD) Non-Af BUN/Creatinine Ratio Glucose Hemoglobin A1c Calcium Total Bilirubin AST ALT Alkaline Phosphatase Troponin I Total Protein Albumin Globulin Albumin/Globulin Ratio Urine Color Urine Clarity Urine pH Ur Specific [place] Urine Protein Urine Glucose (UA) Urine Ketones Urine Occult Blood Urine Nitrite Urine Bilirubin Urine Urobilinogen Ur Leukocyte Esterase Urine RBC Urine WBC Ur Squamous Epith Cells Urine Bacteria Urine Mucus Acetone Level POC Glucose 358 H 328 H 296 H 10/18/20 10/18/20 10/18/20 04:30 04:30 04:30 WBC 14.8 H RBC 3.89 L Hgb 11.4 L Hct 34.6 L MCV 88.9 MCH 29.3 MCHC 32.9 RDW Std Deviation 46.4 H RDW Coeff of Neo 14.3 Plt Count 233 MPV 9.6 Immature Gran % (Auto) 0.400 Neut % (Auto) 79.6 H Lymph % (Auto) 7.9 L Mclean % (Auto) 11.8 H Eos % (Auto) 0.1 Baso % (Auto) 0.2 Absolute Neuts (auto) 11.8 H Absolute Lymphs (auto) 1.17 Nucleated RBC % 0 Differential Comment SCANNED Diff Path Review Reviewed Platelet Estimate RBC Morphology Sodium 140 Potassium 4.2 Chloride 108 H Carbon Dioxide 28.0 Anion Gap 4 L BUN 38 H Creatinine 1.60 H Estim Creat Clear Calc 45.13 Est GFR (MDRD) Af Amer 56 L Est GFR (MDRD) Non-Af 46 L BUN/Creatinine Ratio 23.8 H Glucose 279 H Hemoglobin A1c 7.9 H Calcium 8.1 L Total Bilirubin 0.60 AST 31 ALT 31 Alkaline Phosphatase 52 Troponin I Total Protein 6.1 L Albumin 3.3 Globulin 2.8 Albumin/Globulin Ratio 1.2 Urine Color Urine Clarity Urine pH Ur Specific [place] Urine Protein Urine Glucose (UA) Urine Ketones Urine Occult Blood Urine Nitrite Urine Bilirubin Urine Urobilinogen Ur Leukocyte Esterase Urine RBC Urine WBC Ur Squamous Epith Cells Urine Bacteria Urine Mucus Acetone Level POC Glucose 10/18/20 10/18/20 10/18/20 05:12 06:03 07:06 WBC RBC Hgb Hct MCV MCH MCHC RDW Std Deviation RDW Coeff of Neo Plt Count MPV Immature Gran % (Auto) Neut % (Auto) Lymph % (Auto) Mclean % (Auto) Eos % (Auto) Baso % (Auto) Absolute Neuts (auto) Absolute Lymphs (auto) Nucleated RBC % Differential Comment Diff Path Review Platelet Estimate RBC Morphology Sodium Potassium Chloride Carbon Dioxide Anion Gap BUN Creatinine Estim Creat Clear Calc Est GFR (MDRD) Af Amer Est GFR (MDRD) Non-Af BUN/Creatinine Ratio Glucose Hemoglobin A1c Calcium Total Bilirubin AST ALT Alkaline Phosphatase Troponin I Total Protein Albumin Globulin Albumin/Globulin Ratio Urine Color Urine Clarity Urine pH Ur Specific [place] Urine Protein Urine Glucose (UA) Urine Ketones Urine Occult Blood Urine Nitrite Urine Bilirubin Urine Urobilinogen Ur Leukocyte Esterase Urine RBC Urine WBC Ur Squamous Epith Cells Urine Bacteria Urine Mucus Acetone Level POC Glucose 261 H 249 H 220 H 10/18/20 10/18/20 10/18/20 08:43 10:53 13:07 WBC RBC Hgb Hct MCV MCH MCHC RDW Std Deviation RDW Coeff of Neo Plt Count MPV Immature Gran % (Auto) Neut % (Auto) Lymph % (Auto) Mclean % (Auto) Eos % (Auto) Baso % (Auto) Absolute Neuts (auto) Absolute Lymphs (auto) Nucleated RBC % Differential Comment Diff Path Review Platelet Estimate RBC Morphology Sodium Potassium Chloride Carbon Dioxide Anion Gap BUN Creatinine Estim Creat Clear Calc Est GFR (MDRD) Af Amer Est GFR (MDRD) Non-Af BUN/Creatinine Ratio Glucose Hemoglobin A1c Calcium Total Bilirubin AST ALT Alkaline Phosphatase Troponin I Total Protein Albumin Globulin Albumin/Globulin Ratio Urine Color Urine Clarity Urine pH Ur Specific [place] Urine Protein Urine Glucose (UA) Urine Ketones Urine Occult Blood Urine Nitrite Urine Bilirubin Urine Urobilinogen Ur Leukocyte Esterase Urine RBC Urine WBC Ur Squamous Epith Cells Urine Bacteria Urine Mucus Acetone Level POC Glucose 212 H 275 H 420 H 10/18/20 16:07 WBC RBC Hgb Hct MCV MCH MCHC RDW Std Deviation RDW Coeff of Neo Plt Count MPV Immature Gran % (Auto) Neut % (Auto) Lymph % (Auto) Mclean % (Auto) Eos % (Auto) Baso % (Auto) Absolute Neuts (auto) Absolute Lymphs (auto) Nucleated RBC % Differential Comment Diff Path Review Platelet Estimate RBC Morphology Sodium Potassium Chloride Carbon Dioxide Anion Gap BUN Creatinine Estim Creat Clear Calc Est GFR (MDRD) Af Amer Est GFR (MDRD) Non-Af BUN/Creatinine Ratio Glucose Hemoglobin A1c Calcium Total Bilirubin AST ALT Alkaline Phosphatase Troponin I Total Protein Albumin Globulin Albumin/Globulin Ratio Urine Color Urine Clarity Urine pH Ur Specific [place] Urine Protein Urine Glucose (UA) Urine Ketones Urine Occult Blood Urine Nitrite Urine Bilirubin Urine Urobilinogen Ur Leukocyte Esterase Urine RBC Urine WBC Ur Squamous Epith Cells Urine Bacteria Urine Mucus Acetone Level POC Glucose 387 H ABG: ABG 10/17/20 19:43 Specimen Type SHANNEN VBG pH 7.37 VBG pO2 39 VBG HCO3 21 L VBG Total CO2 22 L VBG O2 Sat (Calc) 72 H VBG Base Excess -5 L POC Mix VBG pCO2 Pt Tmp 36.2 L O2 Delivery Device Room Air D/C Instructions Discharge Diet: Low fat / Low cholesterol and 1800 Calorie Control Diet Discharge Activity: Return to Normal Activity Meaningful Use Info Meaningful Use Diagnoses (Choose all that apply): None applicable Discharge Plan Admission Admit Date/Time: 10/17/20 21:20 Primary Reason for Your Visit: Hyperglycemia Attending Provider: Anamika Membreno Primary Care Provider: Lucas Yap Instructions Additional Instructions / Restrictions: Hold Lasix until 10/22/2020 Discharge Orders/Prescriptions Prescriptions: New Lantus Solostar U-100 Insulin 100 unit/mL (3 mL) insulin pen 40 unit subcut DAILY Qty: 15 RF: 0 Humalog U-100 Insulin 100 unit/mL cartridge 5 unit subcut TID Qty: 3 RF: 0 Continued metoprolol succinate 50 mg tablet extended release 24 hr 50 mg PO QDAY RF: 0 aspirin 81 mg tablet,chewable 81 mg PO QDAY RF: 0 pediatric multivit no.17-ferrous fumarate 15 mg iron chewable tablet 15 mg iron tablet,chewable 15 mg PO QDAY RF: 0 gabapentin 100 mg capsule 200 mg PO TID RF: 0 rosuvastatin 5 MG tablet 5 mg PO QHS RF: 0 cholecalciferol (vitamin D3) 1,000 UNIT tablet 1,000 unit PO DAILY RF: 0 omeprazole 40 MG capsule 40 mg PO QDAY RF: 0 bupropion HCl 150 mg tablet extended release 24 hr 150 mg PO DAILY RF: 0 potassium chloride 10 mEq tablet,ER particles/crystals 10 meq PO BID RF: 0 dimethyl fumarate 240 MG capsule,delayed release(DR/EC) 240 mg PO BID RF: 0 acetaminophen 325 MG tablet 650 mg PO Q6H PRN PRN (Reason: Mild Pain (1-3)/Temp > 100.7 F) RF: 0 tamsulosin 0.4 mg capsule 1 tab PO DAILY RF: 0 ramipril 10 MG capsule 10 mg PO DAILY Qty: 0 RF: 0 duloxetine [Cymbalta] 60 mg Capsule,Delayed Release(Dr/Ec) 60 mg PO DAILY RF: 0 Held insulin lispro [Humalog U-100 Insulin] 100 unit/mL solution See Rx Instructions SC QDAY Qty: 90 RF: 4 Hold Instructions: Resume on 10/18/20. Restart upon direction of endocrinology furosemide 40 mg tablet 40 mg PO DAILY Qty: 180 RF: 4 Hold Instructions: Resume on 10/22/20. Referrals / Follow Up: Lucas Yap MD [Primary Care Provider] - (In 1 week) Kong Dominguez MD [NON-STAFF] - (1 to 2 weeks) Disposition Disposition (needs filled in before D/C Order can be placed): Home, self care Visit Charges Inpatient E&M: 77825 Disch Hosp
--- NOTE | 2020-10-18 18:53 | NURSING ---
discharged with instructions & belongings per wheelchair in care of sister
== END 2020-10-18 18:45 | disposition home or self-care (01) | DRG 638 ==
LOC: ED 20:59 → ICU 22:02
PROVIDERS: Nurse Practitioner Family; Admitting Provider Family Medicine; Emergency Provider Emergency Medicine; PCP Family Medicine; Visit Provider Internal Medicine
DX: E10.10 Type 1 diabetes mellitus with ketoacidosis without coma (principal); N17.9 Acute kidney failure, unspecified; Z68.42 Body mass index [BMI] 45.0-49.9, adult; E78.5 Hyperlipidemia, unspecified; G35 Multiple sclerosis; E66.01 Morbid (severe) obesity due to excess calories; I12.9 Hypertensive chronic kidney disease with stage 1 through stage 4 chronic kidney disease, or unspecified chronic kidney disease; E10.22 Type 1 diabetes mellitus with diabetic chronic kidney disease; N18.31 Chronic kidney disease, stage 3a; M06.9 Rheumatoid arthritis, unspecified; Z79.4 Long term (current) use of insulin; Z87.891 Personal history of nicotine dependence; I25.2 Old myocardial infarction; G47.33 Obstructive sleep apnea (adult) (pediatric); K21.9 Gastro-esophageal reflux disease without esophagitis; F32.9 Major depressive disorder, single episode, unspecified; F41.9 Anxiety disorder, unspecified; N40.0 Benign prostatic hyperplasia without lower urinary tract symptoms
CPT/HCPCS: 80048; 80053; 81001; 82009; 82803; 82962; 83036; 84484; 85025; 93005; 97802; 99285; J7030; A4216; J2405

== ENCOUNTER 2021-02-09 18:14 | Emergency (ER) | payer MEDICARE, BC, SELFPAY ==
[2021-02-09 18:16] VITALS: BP 128/90; PULSE 96; RESP 18; TEMP 39; O2SAT 89; O2SAT 92; BMI 48.2
[2021-02-09 18:35] LABS: Bedside Glucose 146 mg/dL (70-110)
[2021-02-09 18:45] LABS: Absolute Lymphocyte Count 0.29 X10^3/uL (0.83-4.51); Absolute Neutrophil Count 6.5 X10^3/uL (2.0-7.7); Basophil# 0.03 X10^3/uL; Basophil% 0.4 % (0-1); Eosinophil# 0.03 X10^3/uL; Eosinophils% 0.4 % (0-5); Hematocrit 42.5 % (40-54); Hemoglobin 13.8 g/dL (13.0-16.5); Lymphocyte # 0.29 X10^3/ul (0.83-4.51); Lymphocyte % 3.7 % (19-41); Mean Corp Hgb Conc 32.5 g/dL (32-36); Mean Corpuscular Hgb 29.7 pg (27.0-32.0); Mean Corpuscular Volume 91.4 fL (80-94); Mean Platelet Vol. 9.7 fl (6.2-12.0); Monocyte# 1.06 X10^3/uL; Monocyte% 13.4 % (0-10); NRBC Flagged by Analyzer 0 % (0-5); Neutrophil # 6.51 X10^3/uL (2.7-7.7); Neutrophil % 81.8 % (47-70); POSITIVE DIFFERENTIAL YES; Platelet Count 209 K/mm3 (150-450); RBC Distribution Width CV 13.7 % (11.6-14.6); RBC Distribution Width SD 46.3 fl (35.1-43.9); Red Blood Count 4.65 M/mm3 (4.6-6.2); White Blood Count 7.9 K/mm3 (4.4-11.0)
[2021-02-09 18:54] LABS: Differential Indicated SCAN CRITERIA MET
[2021-02-09 18:58] LABS: Anion Gap 5 (5-15); BUN 20 mg/dL (7-18); BUN/Creat Ratio 14.7 RATIO (10-20); Calcium,Total 9.4 mg/dL (8.5-10.1); Chloride 99 mmol/L (98-107); Creatinine, Serum 1.36 mg/dL (0.70-1.30); EST Glomerular Filtration Rate 56 mL/min (>60); Est Glom Filt Rate - Afr Amer 68 mL/min (>60); Estimated Creatinine Clearance 52.39 ml/min; Glucose 161 mg/dL (74-106); Potassium 4.8 mmol/L (3.5-5.1); Sodium Level 135 mmol/L (136-145)
[2021-02-09 21:03] VITALS: PULSE 106; O2SAT 97
[2021-02-09 21:14] VITALS: BP 137/67; PULSE 101; RESP 26; O2SAT 95
--- NOTE | 2021-02-09 21:37 | RAD_ITS ---
HISTORY: weakness EXAMINATION/TECHNIQUE: XR Chest 1 View: COMPARISON: 07/22/2019 FINDINGS: LINES/DEVICES: None. LUNGS: No airspace consolidation. Unremarkable interstitium. No effusion. No pneumothorax. MEDIASTINUM: No cardiomegaly. MUSCULOSKELETAL: No acute osseous finding. RAD/Chest 1 View (Portable) IMPRESSION: No evidence of acute cardiopulmonary process. at 2248 Reported and signed by: Chirag Cardoso MD Electronically Signed: Chirag Cardoso MD at 22:47 EDT Tel , Service support ,
[2021-02-09 22:00] VITALS: BP 145/58; PULSE 105; RESP 26; O2SAT 91
--- NOTE | 2021-02-09 22:20 | CT_ITS ---
We are attempting to reach an attending provider to discuss findings. An addendum with communication details will be sent when the communication is complete. HISTORY: SOB, hypoxia, hx of dvt TECHNIQUE: Helically acquired images were obtained of the chest following 100mL Isovue-370 IV contrast as per pulmonary angiogram protocol with 3D reconstructions. A radiation dose optimization technique was used for this scan. COMPARISON: Chest radiograph on same day FINDINGS: # of images incl. paperwork: [id number] THYROID IMAGED PORTION: Unremarkable. PULMONARY ARTERIES: Suboptimal pulmonary arterial enhancement with noise artifact degrads exam. There is a central filling defect within segmental medial right upper lobe, axial image 133 and subsegmental posterior medial right lower lobe, reference series 601 image 199 and axial image 61. No gross arterial enlargement. AORTA/AORTIC ARCH: Mild atherosclerosis. No ectasia. No dissection. HEART/PERICARDIUM: No cardiomegaly. No significant pericardial fluid. Normal RV and LV ratio. ADENOPATHY: No suspicious mediastinal or hilar adenopathy by size criteria. LUNG PARENCHYMA: No consolidation. Medial right lower lobe 8 mm nodule with eccentric partial calcification. Mild apical scarring. PLEURAL EFFUSION: None. PNEUMOTHORAX: None. UPPER ABDOMEN IMAGED PORTION: Unremarkable. MUSCULOSKELETAL: No acute osseous finding. CT/CTA Chest W/WO Contrast IMPRESSION: 1. Suboptimal exam with findings concerning for acute segmental and subsegmental right upper and lower lobe pulmonary emboli. Overall small clot burden without evidence of right heart strain.. 2. Right lower lobe 8 mm nodule with eccentric calcification. Finding likely represents calcified granuloma however given eccentric nature of the calcifications would recommend 6 month follow-up CT if not stable on prior exams. Individualized dose optimization techniques were used for this CT. at 0151 Reported and signed by: Chirag Cardoso MD Electronically Signed: Chirag Cardoso MD at 1:50 EDT Tel , Service support ,
[2021-02-09 22:43] LABS: Troponin-I HS 8 pg/mL (3.0-78.0)
--- NOTE | 2021-02-09 22:49 | EDS_ITS ---
HPI <Dr. Leila Parra DO - Last Filed: 02/10/21 00:07> History of Present Illness Chief Complaint: Fatigue Informant: patient and EMS Narrative Narrative: Patient is a 65-year-old male presenting with feeling exhausted. Patient states his blood sugar was low today. EMS report shows that his glucose was 52. Patient does have insulin pump and had turned it off. He had a carpal tunnel surgery on his right wrist on Saturday, 2 days ago. This was done at [facility]. Patient notes his last A1c was 7.9. He feels that his brain just been slow today. He denies any chest pain, shortness of breath, abdominal pain or other GI symptoms. He has had some frequency of urination. He states he has had similar episodes like this but cannot recall what happened and what caused him. He does have a history of DVT. [place] any swelling of his legs. He denies any shortness of breath but was placed on oxygen while in the ER. [facility] <Dr. Leila Parra DO - Last Filed: 02/10/21 00:07> [facility] Medical History Anxiety Arthritis Cataracts, bilateral CPAP (continuous positive airway pressure) dependence Depression Diabetes type 1, controlled DVT (deep venous thrombosis) Essential hypertension GERD (gastroesophageal reflux disease) GI bleed History of MRSA infection of lungs HLD (hyperlipidemia) Hypoglycemia Multiple sclerosis Myocardial infarct NSTEMI (non-ST elevated myocardial infarction) Obesity Renal failure Rheumatoid arthritis Sepsis Home Medications cholecalciferol (vitamin D3) 1,000 unit PO DAILY 09/28/15 [History Last Taken Unknown] rosuvastatin 5 mg PO QHS 09/28/15 [History Last Taken Unknown] aspirin 81 mg chewable tablet 81 mg PO QDAY 07/04/17 [History Last Taken Unknown] metoprolol succinate 50 mg tablet,extended release 24 hr 50 mg PO QDAY tab 07/04/17 [History Last Taken Unknown] omeprazole 40 mg capsule,delayed release 40 mg PO QDAY cap 07/04/17 [History Last Taken Unknown] pediatric multivit no.17-ferrous fumarate 15 mg iron chewable tablet 15 mg PO QDAY tab 07/26/17 [History Last Taken Unknown] insulin lispro 100 unit/mL subcutaneous solution See Rx Instructions SC QDAY #90 ml 12/03/17 [Rx Last Taken Unknown] gabapentin 100 mg capsule 200 mg PO TID cap 12/08/18 [History Last Taken Unknown] potassium chloride 10 mEq tablet,extended release(part/cryst) 10 meq PO BID tab 12/08/18 [History Last Taken Unknown] acetaminophen 650 mg PO Q6H PRN PRN tab 02/24/19 [Rx Last Taken Unknown] tamsulosin 1 tab PO DAILY 07/22/19 [History Last Taken Unknown] ramipril 10 mg PO DAILY #0 07/24/19 [Rx Last Taken Unknown] furosemide 40 mg tablet 40 mg PO DAILY #180 tab 02/24/20 [Rx Last Taken Unknown] duloxetine [Cymbalta] 60 mg PO DAILY 10/17/20 [History Last Taken Unknown] insulin glargine [Lantus Solostar U-100 Insulin] 40 unit SUBCUT DAILY #15 ml 10/18/20 [Rx Last Taken Unknown] insulin lispro [Humalog U-100 Insulin] 5 unit SUBCUT TID #3 ml 10/18/20 [Rx Last Taken Unknown] diroximel fumarate 231 mg capsule,delayed release 231 mg PO BID 02/06/21 [History Last Taken Unknown] Allergy/AdvReac Type Severity Reaction Status Date / Time adhesive tape AdvReac Rash Verified 02/09/21 18:16 Sulfa (Sulfonamide AdvReac Other Verified 02/09/21 18:16 Antibiotics) Surgical History Hx of tonsillectomy insulin pump implant and removal Social History Smoking Status: Former smoker second hand exposure: No alcohol intake: current alcohol intake frequency: a few times a month substance use type: does not use ROS <Dr. Leila Parra DO - Last Filed: 02/10/21 00:07> ROS ED Constitutional Constitutional ED: Reports other Details: Fatigue ; Denies chills or fever(s) ENT ENT ED: Denies ear pain or rhinorrhea Cardiovascular Cardiovascular: Denies chest pain Respiratory/Chest Respiratory/Chest: Denies cough, dyspnea or dyspnea on exertion Gastrointestinal Gastrointestinal: Denies abdominal pain, diarrhea, nausea or vomiting Genitourinary Genitourinary ED: Reports urinary frequency; Denies dysuria Musculoskeletal Musculoskeletal: Reports other Details: Splint on right wrist from recent surgery ; Denies arthralgias or myalgias Integumentary Denies rash Neurologic Neurologic: Reports weakness; Denies headache(s) Psychiatric Psychiatric: Denies anxiety or depression Endocrine Endocrinology: Reports polyuria and other Details: Low blood sugar earlier today EXAM <Dr. Leila Parra, DO - Last Filed: 02/10/21 00:07> Physical Exam Const Vital Signs: 02/09/21 18:16 02/09/21 21:03 02/09/21 21:13 Temperature 102.2 F H Temperature Source Oral Pulse Rate 96 106 H Respiratory Rate 18 Respiratory Effort Short of Breath Blood Pressure 128/90 H Blood Pressure Mean 102 Pulse Ox 92 97 Oxygen Delivery Method Nasal Cannula Oxygen Flow Rate (L/min) 3 02/09/21 21:14 02/09/21 22:00 02/09/21 23:53 Temperature Temperature Source Pulse Rate 101 H 105 H 101 H Respiratory Rate 26 H 26 H 24 H Respiratory Effort Blood Pressure 137/67 H 145/58 H 139/73 H Blood Pressure Mean 90 87 95 Pulse Ox 95 91 98 Oxygen Delivery Method Nasal Cannula Room Air Room Air Oxygen Flow Rate (L/min) 2 02/10/21 01:11 Temperature Temperature Source Pulse Rate 99 Respiratory Rate 22 H Respiratory Effort Blood Pressure 152/63 H Blood Pressure Mean 92 Pulse Ox 96 Oxygen Delivery Method Room Air Oxygen Flow Rate (L/min) Positive well nourished, well developed and obese General Appearance ED: well developed Nutritional Appearance: obese HEENT Reports TM's clear and moist mucous membranes Negative for trauma Tympanic Membrane ED: Yes TM's clear Eyes PERRL and EOMs intact bilaterally Neck no lymphadenopathy, supple and no JVD Chest Wall inspection of chest normal Resp normal respiratory effort and clear to auscultation bilaterally Cardio regular rate, regular rhythm and no murmurs GI normal to inspection, nondistended, normoactive bowel sounds and non-tender Palpation: soft Extremity normal to inspection Extremity Narrative: Right upper extremity is in a wrist splint from surgery earlier this week Neuro oriented x3 Neuro Narrative: No focal deficits appreciated Sensorium / Orientation: alert Motor Exam: general weakness Psych mental status grossly normal Psych Narrative: Slightly slow to respond but does respond appropriately Skin no rashes or lesions noted <Dr. Dada Manuel MD - Last Filed: 02/10/21 02:00> Physical Exam Const Vital Signs: 02/09/21 18:16 02/09/21 21:03 02/09/21 21:13 Temperature 102.2 F H Temperature Source Oral Pulse Rate 96 106 H Respiratory Rate 18 Respiratory Effort Short of Breath Blood Pressure 128/90 H Blood Pressure Mean 102 Pulse Ox 92 97 Oxygen Delivery Method Nasal Cannula Oxygen Flow Rate (L/min) 3 02/09/21 21:14 02/09/21 22:00 02/09/21 23:53 Temperature Temperature Source Pulse Rate 101 H 105 H 101 H Respiratory Rate 26 H 26 H 24 H Respiratory Effort Blood Pressure 137/67 H 145/58 H 139/73 H Blood Pressure Mean 90 87 95 Pulse Ox 95 91 98 Oxygen Delivery Method Nasal Cannula Room Air Room Air Oxygen Flow Rate (L/min) 2 02/10/21 01:11 Temperature Temperature Source Pulse Rate 99 Respiratory Rate 22 H Respiratory Effort Blood Pressure 152/63 H Blood Pressure Mean 92 Pulse Ox 96 Oxygen Delivery Method Room Air Oxygen Flow Rate (L/min) MDM <Dr. Leila Parra DO - Last Filed: 02/10/21 00:07> [facility] Narrative Medical decision making narrative: Patient evaluated for an episode of hypoglycemia and generalized weakness today. He did have surgery 2 days ago. He has a very complex medical history including diabetes mellitus on insulin pump. His insulin pump is currently disconnected. His blood sugar is normal in the ER/not hypoglycemic. He has a normal anion gap. No obvious source of infection. Patient's vital signs do show fever however it resolved without any intervention and again there is no obvious source. He does have a history of DVT had a recent surgery so I did order a CTA to make sure he did not develop a PE. Patient's creatinine is mildly elevated 1.36 but this appears to be his baseline. Urinalysis is remarkable for ketonuria. Patient is given a liter of IV fluids. Patient was placed on oxygen however he was not hypoxic in the ER. He does have a history of sleep apnea but he does not go below 91% in the ER. He is ambulated without any further hypoxia. He was taken off of his oxygen and on my repeat evaluation is 96% on room air. He is not complaining of any shortness of breath. Patient signed out to oncoming provider pending result of CTA and recheck of his blood glucose. If all this is normal patient is comfortable discharge home. Lab Data Attestation: I reviewed the patient's lab results. Labs: Laboratory Results - last 24 hr 02/09/21 02/09/21 02/09/21 18:25 18:35 18:35 WBC 7.9 RBC 4.65 Hgb 13.8 Hct 42.5 MCV 91.4 MCH 29.7 MCHC 32.5 RDW Std Deviation 46.3 H RDW Coeff of Neo 13.7 Plt Count 209 MPV 9.7 Immature Gran % (Auto) 0.300 Neut % (Auto) 81.8 H Lymph % (Auto) 3.7 L [place] % (Auto) 13.4 H Eos % (Auto) 0.4 Baso % (Auto) 0.4 Absolute Neuts (auto) 6.5 Absolute Lymphs (auto) 0.29 L Nucleated RBC % 0 Differential Comment SCDANNED Sodium 135 L Potassium 4.8 Chloride 99 Carbon Dioxide 31.0 Anion Gap 5 BUN 20 H Creatinine 1.36 H Estim Creat Clear Calc 52.39 Est GFR (MDRD) Af Amer 68 Est GFR (MDRD) Non-Af 56 L BUN/Creatinine Ratio 14.7 Glucose 161 H Calcium 9.4 Troponin I High Sens Urine Color Urine Clarity Urine pH Ur Specific Riley Urine Protein Urine Glucose (UA) Urine Ketones Urine Occult Blood Urine Nitrite Urine Bilirubin Urine Urobilinogen Ur Leukocyte Esterase Urine RBC Urine WBC Ur Squamous Epith Cells Urine Bacteria Urine Mucus POC Glucose 146 H 02/09/21 02/09/21 02/10/21 18:35 23:02 00:14 WBC RBC Hgb Hct MCV MCH MCHC RDW Std Deviation RDW Coeff of Neo Plt Count MPV Immature Gran % (Auto) Neut % (Auto) Lymph % (Auto) [place] % (Auto) Eos % (Auto) Baso % (Auto) Absolute Neuts (auto) Absolute Lymphs (auto) Nucleated RBC % Differential Comment Sodium Potassium Chloride Carbon Dioxide Anion Gap BUN Creatinine Estim Creat Clear Calc Est GFR (MDRD) Af Amer Est GFR (MDRD) Non-Af BUN/Creatinine Ratio Glucose Calcium Troponin I High Sens 8 Urine Color Yellow Urine Clarity Clear Urine pH 5.0 Ur Specific Riley 1.020 Urine Protein 15 H Urine Glucose (UA) 1000 H Urine Ketones 150 A* Urine Occult Blood 10 H Urine Nitrite Negative Urine Bilirubin Negative Urine Urobilinogen Normal Ur Leukocyte Esterase Negative Urine RBC 0 SEEN Urine WBC 0 SEEN Ur Squamous Epith Cells 0 SEEN Urine Bacteria 0 SEEN Urine Mucus 0 SEEN POC Glucose 316 H Radiography Chest X-Ray - ED: 1 View, Read by ED Physician, Read by Radiologist, Normal and No Acute Disease Diagnostic Testing: Radiology Impression Chest X-Ray 02/09/21 21:37 IMPRESSION: No evidence of acute cardiopulmonary process. at 2248 Reported and signed by: Chirag Cardoos MD Electronically Signed: Chirag Cardoso MD at 22:47 EDT Tel , Service support , Chest CTA 02/09/21 22:20 IMPRESSION: 1. Suboptimal exam with findings concerning for acute segmental and subsegmental right upper and lower lobe pulmonary emboli. Overall small clot burden without evidence of right heart strain.. 2. Right lower lobe 8 mm nodule with eccentric calcification. Finding likely represents calcified granuloma however given eccentric nature of the calcifications would recommend 6 month follow-up CT if not stable on prior exams. Individualized dose optimization techniques were used for this CT. at 0151 Reported and signed by: Chirag Cardoso MD Electronically Signed: Chirag Cardoso MD at 1:50 EDT Tel , Service support , <Dr. Dada Manuel MD - Last Filed: 02/10/21 02:00> [facility] Narrative Medical decision making narrative: Patient turned over to me to check the CTA of the chest results. Radiologist called me said it was a suboptimal study due to the timing of that contrast but he is concerned for both right upper and right lower lobe pulmonary emboli. I discussed all this with the patient at 1:50 AM. He has had DVT in his right arm in the past. At one time he was on a blood thinner he thinks it was Eliquis. He did have recent surgery. He will be restarted on Eliquis and follow-up with his primary care physician. He knows to return if he is feeling worse, hits his head or has any abnormal bleeding. Lab Data Labs: Laboratory Results - last 24 hr 02/09/21 02/09/21 02/09/21 18:25 18:35 18:35 WBC 7.9 RBC 4.65 Hgb 13.8 Hct 42.5 MCV 91.4 MCH 29.7 MCHC 32.5 RDW Std Deviation 46.3 H RDW Coeff of Neo 13.7 Plt Count 209 MPV 9.7 Immature Gran % (Auto) 0.300 Neut % (Auto) 81.8 H Lymph % (Auto) 3.7 L [place] % (Auto) 13.4 H Eos % (Auto) 0.4 Baso % (Auto) 0.4 Absolute Neuts (auto) 6.5 Absolute Lymphs (auto) 0.29 L Nucleated RBC % 0 Differential Comment SCDANNED Sodium 135 L Potassium 4.8 Chloride 99 Carbon Dioxide 31.0 Anion Gap 5 BUN 20 H Creatinine 1.36 H Estim Creat Clear Calc 52.39 Est GFR (MDRD) Af Amer 68 Est GFR (MDRD) Non-Af 56 L BUN/Creatinine Ratio 14.7 Glucose 161 H Calcium 9.4 Troponin I High Sens Urine Color Urine Clarity Urine pH Ur Specific Riley Urine Protein Urine Glucose (UA) Urine Ketones Urine Occult Blood Urine Nitrite Urine Bilirubin Urine Urobilinogen Ur Leukocyte Esterase Urine RBC Urine WBC Ur Squamous Epith Cells Urine Bacteria Urine Mucus POC Glucose 146 H 02/09/21 02/09/21 02/10/21 18:35 23:02 00:14 WBC RBC Hgb Hct MCV MCH MCHC RDW Std Deviation RDW Coeff of Neo Plt Count MPV Immature Gran % (Auto) Neut % (Auto) Lymph % (Auto) [place] % (Auto) Eos % (Auto) Baso % (Auto) Absolute Neuts (auto) Absolute Lymphs (auto) Nucleated RBC % Differential Comment Sodium Potassium Chloride Carbon Dioxide Anion Gap BUN Creatinine Estim Creat Clear Calc Est GFR (MDRD) Af Amer Est GFR (MDRD) Non-Af BUN/Creatinine Ratio Glucose Calcium Troponin I High Sens 8 Urine Color Yellow Urine Clarity Clear Urine pH 5.0 Ur Specific Riley 1.020 Urine Protein 15 H Urine Glucose (UA) 1000 H Urine Ketones 150 A* Urine Occult Blood 10 H Urine Nitrite Negative Urine Bilirubin Negative Urine Urobilinogen Normal Ur Leukocyte Esterase Negative Urine RBC 0 SEEN Urine WBC 0 SEEN Ur Squamous Epith Cells 0 SEEN Urine Bacteria 0 SEEN Urine Mucus 0 SEEN POC Glucose 316 H Radiography Diagnostic Testing: Radiology Impression Chest X-Ray 02/09/21 21:37 IMPRESSION: No evidence of acute cardiopulmonary process. at 2248 Reported and signed by: Chirag Cardoso MD Electronically Signed: Chirag Cardoso MD at 22:47 EDT Tel , Service support , Chest CTA 02/09/21 22:20 IMPRESSION: 1. Suboptimal exam with findings concerning for acute segmental and subsegmental right upper and lower lobe pulmonary emboli. Overall small clot burden without evidence of right heart strain.. 2. Right lower lobe 8 mm nodule with eccentric calcification. Finding likely represents calcified granuloma however given eccentric nature of the calcifications would recommend 6 month follow-up CT if not stable on prior exams. Individualized dose optimization techniques were used for this CT. at 0151 Reported and signed by: Chirag Cardoso MD Electronically Signed: Chirag Cardoso MD at 1:50 EDT Tel , Service support , Discharge Plan Triage Chief Complaint: Fatigue ED Provider: Leila Parra Dx/Rx/DC Orders Clinical Impression: Generalized weakness, Hypoglycemia associated with diabetes, Ketonuria, Pulmonary emboli Instructions: Hypoglycemia (Low Blood Sugar), ED Weakness (Uncertain Cause) Prescriptions: No Action metoprolol succinate 50 mg tablet extended release 24 hr 50 mg PO QDAY RF: 0 aspirin 81 mg tablet,chewable 81 mg PO QDAY RF: 0 pediatric multivit no.17-ferrous fumarate 15 mg iron chewable tablet 15 mg iron tablet,chewable 15 mg PO QDAY RF: 0 gabapentin 100 mg capsule 200 mg PO TID RF: 0 Vumerity 231 mg capsule,delayed release(DR/EC) 231 mg PO BID RF: 0 rosuvastatin 5 MG tablet 5 mg PO QHS RF: 0 cholecalciferol (vitamin D3) 1,000 UNIT tablet 1,000 unit PO DAILY RF: 0 omeprazole 40 MG capsule 40 mg PO QDAY RF: 0 potassium chloride 10 mEq tablet,ER particles/crystals 10 meq PO BID RF: 0 acetaminophen 325 MG tablet 650 mg PO Q6H PRN PRN (Reason: Mild Pain (1-3)/Temp > 100.7 F) RF: 0 tamsulosin 0.4 mg capsule 1 tab PO DAILY RF: 0 ramipril 10 MG capsule 10 mg PO DAILY Qty: 0 RF: 0 duloxetine [Cymbalta] 60 mg Capsule,Delayed Release(Dr/Ec) 60 mg PO DAILY RF: 0 Lantus Solostar U-100 Insulin 100 unit/mL (3 mL) insulin pen 40 unit subcut DAILY Qty: 15 RF: 0 Humalog U-100 Insulin 100 unit/mL cartridge 5 unit subcut TID Qty: 3 RF: 0 insulin lispro [Humalog U-100 Insulin] 100 unit/mL solution See Rx Instructions SC QDAY Qty: 90 RF: 4 Hold Instructions: Resume on 10/18/20. Restart upon direction of endocrinology furosemide 40 mg tablet 40 mg PO DAILY Qty: 180 RF: 4 Hold Instructions: Resume on 10/22/20. Primary Care Provider: Lucas Yap Referrals: Lucas Yap MD [Primary Care Provider] - 1 Week Activity Restrictions/Additional Instructions: Follow-up with your primary care physician in 1 week. You will be started on the blood thinner Eliquis. You will take that twice a day. But the initial dose is larger and then you go back down to a smaller dose. If you would fall and hit your head or noticed abnormal bleeding you would need to be reevaluated. Disposition Disposition: Home, Self Care
[2021-02-09 23:05] LABS: Bacteria 0 SEEN /hpf (None Seen); Mucous, Urine 0 SEEN /hpf (<or=2+); Red Blood Cells-Urine 0 SEEN /hpf (0-5); Squamous Epithelial Cells - UA 0 SEEN /hpf (0-5); White Blood Cells 0 SEEN /hpf (0-5)
[2021-02-09 23:17] LABS: Color, Urine Yellow (Yellow); Glucose, Dipstick 1000 mg/dl (Normal); Leukocyte Esterase-Dipstick Negative /ul (Negative); Nitrite-Dipstick Negative (Negative); Occult Blood-Urine 10 /ul (Negative); Protein-Dipstick 15 mg/dl (Negative); Urine Bilirubin Dipstick Negative (Negative); Urine Clarity Clear (Clear); Urine Urobilinogen Normal (Normal)
[2021-02-09 23:29] LABS: Ketone-Dipstick 150 mg/dl (Negative)
[2021-02-09 23:53] VITALS: BP 139/73; PULSE 101; RESP 24; O2SAT 98
[2021-02-10] MEDS: 0.9% Normal Saline 1,000 ML 999 ML IV (00:15)
[2021-02-10 00:20] LABS: Bedside Glucose 316 mg/dL (70-110)
[2021-02-10 01:11] VITALS: BP 152/63; PULSE 99; RESP 22; O2SAT 96
[2021-02-10 02:21] VITALS: BP 160/117; PULSE 105; RESP 18; O2SAT 94
[2021-02-10] MEDS: APIXABAN 5 MG TABLET 10 MG PO (02:38)
== END 2021-02-10 03:04 | disposition home or self-care (01) ==
PROVIDERS: Emergency Medicine; Emergency Provider Emergency Medicine; PCP Family Medicine
DX: R53.1 Weakness (principal); E10.649 Type 1 diabetes mellitus with hypoglycemia without coma; I26.99 Other pulmonary embolism without acute cor pulmonale; E10.36 Type 1 diabetes mellitus with diabetic cataract; E66.9 Obesity, unspecified; E78.5 Hyperlipidemia, unspecified; F32.9 Major depressive disorder, single episode, unspecified; F41.9 Anxiety disorder, unspecified; G35 Multiple sclerosis; I10 Essential (primary) hypertension; K21.9 Gastro-esophageal reflux disease without esophagitis; M06.9 Rheumatoid arthritis, unspecified; Z79.4 Long term (current) use of insulin; Z79.82 Long term (current) use of aspirin; Z86.14 Personal history of Methicillin resistant Staphylococcus aureus infection; Z86.718 Personal history of other venous thrombosis and embolism; Z87.891 Personal history of nicotine dependence; R82.4 Acetonuria; I25.2 Old myocardial infarction
CPT/HCPCS: 71045; 71275; 80048; 81001; 82962; 84484; 85025; 87426; 96360; 99285; J7030; Q9967; A4216

== ENCOUNTER 2021-02-12 09:42 | Emergency (ER) | payer MEDICARE, BC, SELFPAY ==
[2021-02-12] VITALS (8 sets, daily range): BP systolic 130–133; BP diastolic 49–60; PULSE 71–74; RESP 17–21; TEMP 37.7–37.9; O2SAT 88–95; BMI 46.4
--- NOTE | 2021-02-12 10:30 | EKG12_ITS ---
Test Reason : WEAKNESS Blood Pressure : / mmHG Vent. Rate : 071 BPM Atrial Rate : 071 BPM P-R Int : 204 ms QRS Dur : 114 ms QT Int : 396 ms P-R-T Axes : 058 070 031 degrees QTc Int : 430 ms Normal sinus rhythm Normal ECG Confirmed by MITUL KAMARA, SYLVESTER ([id number]), book or script editor SARA HOWELL ([id number]) on 02/14/2021 1:41:07 PM Referred By: JAHAIRA Confirmed By:SYLVESTER BAUMAN MD
--- NOTE | 2021-02-12 10:30 | RAD_ITS ---
STUDY: X-RAY CHEST REASON FOR EXAM: Male, 65 years old. covid TECHNIQUE: Single AP portable view of the chest. COMPARISON: 02/09/2021 FINDINGS: The lungs are clear and expanded. There is no demonstrated pleural abnormality. Normal size heart. Normal mediastinum and bennett. Normal visualized pulmonary arteries. Normal visualized aortic arch and descending thoracic aorta. Normal visualized thoracic spine. Normal visualized ribs, clavicles, and shoulders. There is no demonstrated abnormality of the visualized soft tissue structures of the upper abdomen. RAD/Chest 1 View (Portable) IMPRESSION: Normal x-ray examination of the chest. Electronically Signed: Yunior Feng MD at 12:10 EDT Tel , Service support ,
--- NOTE | 2021-02-12 10:31 | EDS_ITS ---
HPI History of Present Illness Chief Complaint: Weakness Informant: patient Onset/Context/Timing Onset: Days Context: Gradual Onset Timing: Continuous Current Severity: Mild Maximum Severity: Mild Narrative Narrative: 65-year-old male history of insulin-dependent diabetes, AK and recent diagnosis of right upper and lower lobe pulmonary emboli and Covid positive on 02/09/2021. Currently on Eliquis. States he just feels exhausted. He denies vomiting or diarrhea. He denies melena. He states that he is eating and d rinking well he denies any dysuria. Prior similar symptoms: No Recent Illness/Hospitalization: No [facility] Medical History Anxiety Arthritis Cataracts, bilateral CPAP (continuous positive airway pressure) dependence Depression Diabetes type 1, controlled DVT (deep venous thrombosis) Essential hypertension GERD (gastroesophageal reflux disease) GI bleed History of MRSA infection of lungs HLD (hyperlipidemia) Hypoglycemia Multiple sclerosis Myocardial infarct NSTEMI (non-ST elevated myocardial infarction) Obesity Renal failure Rheumatoid arthritis Sepsis Home Medications cholecalciferol (vitamin D3) 1,000 unit PO DAILY 09/28/15 [History Last Taken Unknown] rosuvastatin 5 mg PO QHS 09/28/15 [History Last Taken Unknown] aspirin 81 mg chewable tablet 81 mg PO QDAY 07/04/17 [History Last Taken Unknown] metoprolol succinate 50 mg tablet,extended release 24 hr 50 mg PO QDAY tab 07/04/17 [History Last Taken Unknown] omeprazole 40 mg capsule,delayed release 40 mg PO QDAY cap 07/04/17 [History Last Taken Unknown] pediatric multivit no.17-ferrous fumarate 15 mg iron chewable tablet 15 mg PO QDAY tab 07/26/17 [History Last Taken Unknown] insulin lispro 100 unit/mL subcutaneous solution See Rx Instructions SC QDAY #90 ml 12/03/17 [Rx Last Taken Unknown] gabapentin 100 mg capsule 200 mg PO TID cap 12/08/18 [History Last Taken Unknown] potassium chloride 10 mEq tablet,extended release(part/cryst) 10 meq PO BID tab 12/08/18 [History Last Taken Unknown] acetaminophen 650 mg PO Q6H PRN PRN tab 02/24/19 [Rx Last Taken Unknown] tamsulosin 1 tab PO DAILY 07/22/19 [History Last Taken Unknown] ramipril 10 mg PO DAILY #0 07/24/19 [Rx Last Taken Unknown] furosemide 40 mg tablet 40 mg PO DAILY #180 tab 02/24/20 [Rx Last Taken Unknown] duloxetine [Cymbalta] 60 mg PO DAILY 10/17/20 [History Last Taken Unknown] insulin glargine [Lantus Solostar U-100 Insulin] 40 unit SUBCUT DAILY #15 ml 10/18/20 [Rx Last Taken Unknown] insulin lispro [Humalog U-100 Insulin] 5 unit SUBCUT TID #3 ml 10/18/20 [Rx Last Taken Unknown] diroximel fumarate 231 mg capsule,delayed release 231 mg PO BID 02/06/21 [History Last Taken Unknown] apixaban [Eliquis] 5 mg PO BID #74 tab 02/10/21 [Rx Last Taken Unknown] Allergy/AdvReac Type Severity Reaction Status Date / Time adhesive tape AdvReac Rash Verified 02/12/21 09:49 Sulfa (Sulfonamide AdvReac Other Verified 02/12/21 09:49 Antibiotics) Surgical History Hx of tonsillectomy insulin pump implant and removal Social History Smoking Status: Former smoker second hand exposure: No alcohol intake: current alcohol intake frequency: a few times a month substance use type: does not use ROS ROS ED Review of Systems ROS Unobtainable: Denies due to encephalopathy Constitutional Constitutional ED: Denies chills or fever(s) Eyes Eyes: Denies blurry vision or change in vision ENT ENT ED: Denies ear pain or sore throat Cardiovascular Cardiovascular: Denies chest pain or palpitations Respiratory/Chest Respiratory/Chest: Reports cough and dyspnea Gastrointestinal Gastrointestinal: Denies abdominal pain, diarrhea, nausea or vomiting Genitourinary Genitourinary ED: Denies dysuria or hematuria Musculoskeletal Musculoskeletal: Denies arthralgias or myalgias Integumentary Denies abscess or rash Neurologic Neurologic: Denies headache(s) Psychiatric Psychiatric: Denies depression Endocrine Endocrinology: Denies polyuria Allergic/Immunologic Allergic/Immunologic ED: Denies urticaria EXAM Physical Exam Narrative Exam Narrative: Older male no acute distress. Vital signs stable. Temperature 100. Look septic or toxic. His pulse ox 94% on room air he does not look dehydrated. HEENT exam unremarkable. Moist weeks membranes. Neck nontender no lymphadenopathy. Lungs clear to auscultation bilaterally. Heart regular rhythm rate about 75 no murmur. Abdomen soft nontender. Moving all 4 extremities. No edema. No cords. Neurologically is awake alert moving all 4 extremities. Const Vital Signs: 02/12/21 09:47 02/12/21 10:42 02/12/21 10:49 Temperature 100 F H 100 F H Temperature Source Oral Oral Pulse Rate 74 73 Respiratory Rate 21 H 20 H Respiratory Effort Short of Breath Accessory Muscle Use Respiratory Pattern Tachypnea Blood Pressure 130/49 H 132/50 H Blood Pressure Mean 76 77 Pulse Ox 94 88 Oxygen Delivery Method Room Air Room Air Oxygen Flow Rate (L/min) 02/12/21 10:50 02/12/21 12:18 Temperature 100.2 F H Temperature Source Temporal Pulse Rate 71 Respiratory Rate 21 H 17 Respiratory Effort Respiratory Pattern Blood Pressure 133/60 H Blood Pressure Mean 84 Pulse Ox 95 95 Oxygen Delivery Method Nasal Cannula Nasal Cannula Oxygen Flow Rate (L/min) 2 2 Positive well nourished, well developed and obese; Negative for cachectic, contractures or unkempt General Appearance ED: well developed and NAD; Negative for unkempt, cachectic, contractures, cyanotic or diaphoretic Nutritional Appearance: obese; Negative for cachectic HEENT Reports moist mucous membranes Negative for trauma or tenderness Eyes PERRL and EOMs intact bilaterally Neck no lymphadenopathy, supple and no JVD General: Negative for tenderness Chest Wall inspection of chest normal and palpation of chest normal Resp normal respiratory effort and clear to auscultation bilaterally Auscultation: Negative for rales, rhonchi or diminished lung sounds Cardio regular rate, regular rhythm, S1 normal heart sound, S2 normal heart sound and no murmurs GI normal to inspection, nondistended, normoactive bowel sounds, non-tender, non- distended and no masses Inspection: Negative for abdominal distention Auscultation: normoactive bowel sounds Palpation: soft; Negative for tender, guarding or rebound tenderness present Back/Spine no CVA tenderness General Back: Negative for CVA tenderness Cervical Spine: Negative for cervical spine tenderness Thoracic Spine / Upper Back: Negative for thoracic spinal tenderness Extremity normal to inspection General Extremety ED: Negative for edema or tenderness General Extremity: Negative for edema Neuro oriented x3 and CN's II-XII intact bilaterally Sensorium / Orientation: alert; Negative for orientation impaired, lethargic or stuporous Motor Exam: strength 5/5 throughout Psych mental status grossly normal Appearance: Negative for unkempt Mood & Affect: Negative for depressed or tearful Skin no rashes or lesions noted and no wounds MDM MDM MDM Narrative Medical decision making narrative: Older male Covid positive also has right- sided pulmonary emboli. Complaining of exhaustion. Screening labs are being obtained. Will be treated with IV fluids. Patient has a relatively benign exam. Repeat exam patient has become hypoxic in the emergency department his oxygenation saturation drops into the mid to high 80s. He is current on oxygen and doing well. He will be started on Decadron. I spoke to the hospitalist he will like to try the patient on home O2 and discharge him home. Charge nurse was try to get that set up. Lab Data Attestation: I reviewed the patient's lab results. Lab results narrative: CBC shows a white count of 4.8 hemoglobin of 12.5. Electrolytes show a sodium 132 gap of 8 creatinine of 1.1. Liver enzymes are unremarkable. Labs: Laboratory Results - last 24 hr 02/12/21 02/12/21 10:40 10:40 WBC 4.8 RBC 4.29 L Hgb 12.5 L Hct 37.9 L MCV 88.3 MCH 29.1 MCHC 33.0 RDW Std Deviation 41.9 RDW Coeff of Neo 12.9 Plt Count 175 MPV 9.4 Immature Gran % (Auto) 0.200 Neut % (Auto) 71.5 H Lymph % (Auto) 11.1 L Miller % (Auto) 17.0 H Eos % (Auto) 0.0 Baso % (Auto) 0.2 Absolute Neuts (auto) 3.4 Absolute Lymphs (auto) 0.53 L Nucleated RBC % 0 Sodium 132 L Potassium 3.9 Chloride 98 Carbon Dioxide 26.0 Anion Gap 8 BUN 18 Creatinine 1.13 Estim Creat Clear Calc 63.05 Est GFR (MDRD) Af Amer 84 Est GFR (MDRD) Non-Af 69 BUN/Creatinine Ratio 15.9 Glucose 326 H Calcium 8.4 L Total Bilirubin 0.40 AST 25 ALT 21 Alkaline Phosphatase 44 L Total Protein 6.4 Albumin 2.8 L Globulin 3.6 Albumin/Globulin Ratio 0.8 L Radiography Chest X-Ray - ED: 1 View, Read by ED Physician, Unchanged, Heart, Lungs, Mediastinum, Bony Structures, No Acute Disease and Chronic Changes Diagnostic Testing: Radiology Impression Chest X-Ray 02/12/21 10:30 IMPRESSION: Normal x-ray examination of the chest. Electronically Signed: Yunior Feng MD at 12:10 EDT Tel , Service support , Rhythm Strip Rhythm Strip: Sinus Rhythm Rate: 71 Ectopy: None EKG Initial EKG: Attestation: I personally reviewed and interpreted this EKG as follows: Interpretation: Sinus Rhythm and No Acute Injury Pattern Comments: Normal sinus rhythm rate of 71 no acute signs of AK or ischemia. No significant change from prior EKG from today of 2020. Discharge Plan Dx/Rx/DC Orders Clinical Impression: COVID-19, Pulmonary emboli, Hypoxia, Diabetes Disposition Disposition: Acute Care [facility]
[2021-02-12 10:47] LABS: Absolute Lymphocyte Count 0.53 X10^3/uL (0.83-4.51); Absolute Neutrophil Count 3.4 X10^3/uL (2.0-7.7); Basophil# 0.01 X10^3/uL; Basophil% 0.2 % (0-1); Hematocrit 37.9 % (40-54); Hemoglobin 12.5 g/dL (13.0-16.5); Lymphocyte # 0.53 X10^3/ul (0.83-4.51); Lymphocyte % 11.1 % (19-41); Mean Corpuscular Hgb 29.1 pg (27.0-32.0); Mean Corpuscular Volume 88.3 fL (80-94); Mean Platelet Vol. 9.4 fl (6.2-12.0); Monocyte# 0.81 X10^3/uL; NRBC Flagged by Analyzer 0 % (0-5); Neutrophil # 3.41 X10^3/uL (2.7-7.7); Neutrophil % 71.5 % (47-70); POSITIVE DIFFERENTIAL YES; Platelet Count 175 K/mm3 (150-450); RBC Distribution Width CV 12.9 % (11.6-14.6); RBC Distribution Width SD 41.9 fl (35.1-43.9); Red Blood Count 4.29 M/mm3 (4.6-6.2); White Blood Count 4.8 K/mm3 (4.4-11.0)
[2021-02-12 10:48] LABS: Differential Indicated SCAN CRITERIA MET
[2021-02-12] MEDS: 0.9% Normal Saline 1,000 ML 1000 ML IV (10:51)
[2021-02-12 11:01] LABS: ALB/GLOB Ratio 0.8 RATIO (0.9-2.4); AST(SGOT) 25 U/L (15-37); Alanine Aminotransfer ALT/SGPT 21 U/L (16-61); Albumin, Serum 2.8 g/dL (3.2-5.0); Alkaline Phosphatase 44 U/L (45-117); Anion Gap 8 (5-15); BUN 18 mg/dL (7-18); BUN/Creat Ratio 15.9 RATIO (10-20); Calcium,Total 8.4 mg/dL (8.5-10.1); Chloride 98 mmol/L (98-107); Creatinine, Serum 1.13 mg/dL (0.70-1.30); EST Glomerular Filtration Rate 69 mL/min (>60); Est Glom Filt Rate - Afr Amer 84 mL/min (>60); Estimated Creatinine Clearance 63.05 ml/min; Globulin 3.6 g/dL (2.2-4.2); Glucose 326 mg/dL (74-106); Potassium 3.9 mmol/L (3.5-5.1); Protein, Total 6.4 g/dL (6.4-8.2); Sodium Level 132 mmol/L (136-145)
--- NOTE | 2021-02-12 12:01 | NURSING ---
DR MERLE CAMPO
[2021-02-12] MEDS: dexAMETHasone 10 MG/ML Vial IV (12:19)
--- NOTE | 2021-02-12 14:13 | ED.RN ---
Respiratory at bedside doing home O2 education, pt being sent home with home O2 tank and pulse ox. Patients sister Ermelinda updated over the phone with same information. Denies further questions.
--- NOTE | 2021-02-13 09:18 | CASEMGMT ---
[facility] ED COVID Home O2 follow-up: This FRANCO SEGOVIA contacted pt via phone regarding follow-up from ED with home O2. Pt states he is tired but denies any shortness of breath. Pt had not been using his pulse oximeter. Pt was able to get it out while on the phone and reports his PO to be 95% on his O2 at 2l/min. Encouraged pt to check his PO intermittently or with any episodes of increased SOB and to return if he finds the level to be persistently below 90%. Pt denies feeling increased SOB with activity. Pt reports his appetite to be improving and to be eating and drinking well. Pt states he is remaining isolated and will be moving to stay with his step-daughter as she also was diagnosed with COVID last week. She will be able to assist him if needed. Pt states his sister or someone else will be going to belt picker his Decadron prescription this AM. Pt denies any questions or concerns at this time. Woody Garcia RN CM
--- NOTE | 2021-02-16 12:28 | CASEMGMT ---
[facility] ED COVID Home o2 Follow-up: This RN JULIETTE contacted pt via phone for follow-up. Pt states he is doing a little better. States he remains weak, wants to sleep often, and doesn't eat much but that he is eating. Pt states he did get moved in with his step-daughter's home and states she is feeding me and keeping a good eye on him. Pt states he continues to wear the home O2 at 2l/min, but states he has not been able to check his PO as he lost his pulse oximeter. States he is continuing to look for it and states he has someone who would be able to get him a new one at the store if he doesn't find it. Encouraged pt to do so. Pt states he has a virtual follow-up appointment with Dr. Yap tomorrow. Pt denies any further questions or concerns at this time. Woody Garcia RN CM
--- NOTE | 2021-02-17 10:49 | CASEMGMT ---
[facility] ED Covid Home O2 follow-up: FRANCO SEGOVIA called patient. Patient states that he is doing much better today. Has been eating. Wearing oxygen and SPO2 about 92-94%. Patient has virtual visit with PCP today at 420pm. Patient denied furhter needs at this time.
== END 2021-02-12 15:30 | disposition home or self-care (01) ==
PROVIDERS: Emergency Provider Emergency Medicine; PCP Family Medicine
DX: U07.1 COVID-19 (principal); R09.02 Hypoxemia; I26.99 Other pulmonary embolism without acute cor pulmonale; E10.649 Type 1 diabetes mellitus with hypoglycemia without coma; E10.36 Type 1 diabetes mellitus with diabetic cataract; E78.5 Hyperlipidemia, unspecified; F32.9 Major depressive disorder, single episode, unspecified; F41.9 Anxiety disorder, unspecified; G35 Multiple sclerosis; I10 Essential (primary) hypertension; I25.2 Old myocardial infarction; K21.9 Gastro-esophageal reflux disease without esophagitis; M06.9 Rheumatoid arthritis, unspecified; Z79.01 Long term (current) use of anticoagulants; Z79.4 Long term (current) use of insulin; Z79.82 Long term (current) use of aspirin; Z86.14 Personal history of Methicillin resistant Staphylococcus aureus infection; Z86.711 Personal history of pulmonary embolism; Z87.891 Personal history of nicotine dependence
CPT/HCPCS: 71045; 80053; 85025; 93005; 96361; 96374; 99284; J7030; A4216

== ENCOUNTER 2022-05-09 10:59 | Inpatient (IN) | payer MEDICARE, BC, SELFPAY ==
[2022-05-09] VITALS (36 sets, daily range): BP systolic 58–128; BP diastolic 39–99; PULSE 85–112; RESP 12–26; TEMP 35.5–37.2; O2SAT 93–100; BMI 49.6; BMI 54.6
[2022-05-09 11:31] LABS: Bedside Glucose > 500 mg/dL (74-106)
[2022-05-09] MEDS: Etomidate 20 MG/10 ML Vial IV (11:40)
[2022-05-09] MEDS: Succinylcholine Chloride 200 MG/10 ML SYRINGE 120 MG IV (11:47)
--- NOTE | 2022-05-09 11:49 | RAD_ITS ---
STUDY: X-RAY CHEST REASON FOR EXAM: Male, 66 years old. et tube placement placement TECHNIQUE: Single AP portable view of the chest. COMPARISON: Comparison is made with prior study dated 02/12/2021. FINDINGS: An endotracheal tube is in situ. The tip is at the level of the alber. It should be pulled back approximately 3 cm. An orogastric tube is seen with the tip in the distal stomach. EKG electrodes are seen. Elevation of the right hemidiaphragm. Mild degree of vascular congestion. There is no demonstrated pleural abnormality. Normal size heart. Normal mediastinum and bennett. Normal visualized pulmonary arteries. Normal visualized aortic arch and descending thoracic aorta. Normal visualized thoracic spine. Normal visualized ribs, clavicles, and shoulders. There is no demonstrated abnormality of the visualized soft tissue structures of the upper abdomen. RAD/Chest 1 View (Portable) IMPRESSION: The endotracheal tube is at the level of the alber. It should be pulled back approximately 3 cm. The distal tip of the orogastric tube is in the distal portion of the stomach. Mild degree of vascular congestion. Electronically Signed: Jamie Aguilera MD at 13:06 EST ,
--- NOTE | 2022-05-09 11:49 | CT_ITS ---
STUDY: CT BRAIN WITHOUT CONTRAST REASON FOR EXAM: Male, 66 years old. Unresponsive RADIATION DOSAGE (If Supplied By Facility): CTDIvol = ( 44.99 ) mGy, DLP = ( 1828.44 ) mGycm TECHNIQUE: Transaxial CT imaging of the brain was performed without administration of intravenous contrast material. Individualized dose optimization techniques were used for this CT. COMPARISON: No relevant priors. FINDINGS: Limited study due to patient motion artifact. An endotracheal tube is in situ. Normal soft tissue structures. Normal calvarium. There is mild cerebral atrophy with widening of the extra-axial spaces and ventricular dilatation. Normal white matter tracts of the cerebral hemispheres. Normal basal ganglia and thalami. Normal brainstem. Normal cerebellum. There is no intracranial hemorrhage. There are no findings of an acute ischemic infarction. Normal visualized paranasal sinuses. CT/Brain/Head without Contrast IMPRESSION: Chronic involutional changes of the brain. Limited study. Electronically Signed: Jamie Aguilera MD at 13:10 EST ,
--- NOTE | 2022-05-09 11:49 | EKG12_ITS ---
Test Reason : UNRESP Blood Pressure : / mmHG Vent. Rate : 106 BPM Atrial Rate : 106 BPM P-R Int : 194 ms QRS Dur : 126 ms QT Int : 356 ms P-R-T Axes : 063 094 -38 degrees QTc Int : 472 ms Sinus tachycardia Rightward axis Non-specific intra-ventricular conduction block Inferior infarct , age undetermined T wave abnormality, consider lateral ischemia Abnormal ECG Confirmed by RICHIE KAMARA, SATHYA ([id number]), tape editor PRATIK CASTLE ([id number]) on 05/11/2022 10:39:42 AM Referred By: Confirmed By:KEATON QUIROZ MD
[2022-05-09] MEDS: 0.9% Normal Saline 1,000 ML 999 ML IV ×4 (11:54→14:13)
[2022-05-09 12:01] LABS: Bacteria 0 SEEN /hpf (None Seen); Mucous, Urine 0 SEEN /hpf (<or=2+); Red Blood Cells-Urine 0 SEEN /hpf (0-5); Squamous Epithelial Cells - UA 0 SEEN /hpf (0-5); White Blood Cells 0 SEEN /hpf (0-5)
[2022-05-09 12:08] LABS: Absolute Lymphocyte Count 0.77 X10^3/uL (0.83-4.51); Absolute Neutrophil Count 17.1 X10^3/uL (2.0-7.7); Basophil# 0.06 X10^3/uL; Basophil% 0.3 % (0-1); Hematocrit 41.1 % (40-54); Hemoglobin 12.2 g/dL (13.0-16.5); Lymphocyte # 0.77 X10^3/ul (0.83-4.51); Lymphocyte % 3.7 % (19-41); Mean Corp Hgb Conc 29.7 g/dL (32-36); Mean Platelet Vol. 11.1 fl (6.2-12.0); Monocyte# 1.93 X10^3/uL; Monocyte% 9.4 % (0-10); NRBC Flagged by Analyzer 0 % (0-5); Neutrophil # 17.14 X10^3/uL (2.7-7.7); Neutrophil % 83.5 % (47-70); POSITIVE DIFFERENTIAL YES; Platelet Count 283 K/mm3 (150-450); RBC Distribution Width CV 14.6 % (11.6-14.6); Red Blood Count 4.07 M/mm3 (4.6-6.2); White Blood Count 20.5 K/mm3 (4.4-11.0)
[2022-05-09 12:14] LABS: Color, Urine Yellow (Yellow); Glucose, Dipstick 1000 mg/dl (Normal); Ketone-Dipstick 15 mg/dl (Negative); Leukocyte Esterase-Dipstick Negative /ul (Negative); Nitrite-Dipstick Negative (Negative); Occult Blood-Urine Negative /ul (Negative); Protein-Dipstick 15 mg/dl (Negative); Urine Bilirubin Dipstick Negative (Negative); Urine Clarity Clear (Clear); Urine Urobilinogen Normal (Normal)
[2022-05-09 12:15] LABS: Differential Indicated SCAN CRITERIA MET
[2022-05-09 12:41] LABS: ALB/GLOB Ratio 1.1 RATIO (0.9-2.4); AST(SGOT) 36 U/L (15-37); Alanine Aminotransfer ALT/SGPT 29 U/L (16-61); Albumin, Serum 3.5 g/dL (3.2-5.0); Alkaline Phosphatase 71 U/L (45-117); Anion Gap 30 (5-15); BUN 50 mg/dL (7-18); BUN/Creat Ratio 12.3 RATIO (10-20); Calcium,Total 8.8 mg/dL (8.5-10.1); Chloride 81 mmol/L (98-107); Creatinine, Serum 4.05 mg/dL (0.70-1.30); EST Glomerular Filtration Rate 16 mL/min (>60); Est Glom Filt Rate - Afr Amer 19 mL/min (>60); Estimated Creatinine Clearance 17.36 ml/min; Globulin 3.1 g/dL (2.2-4.2); Glucose 1334 mg/dL (74-106); Potassium 5.7 mmol/L (3.5-5.1); Protein, Total 6.6 g/dL (6.4-8.2); Sodium Level 127 mmol/L (136-145)
[2022-05-09 12:45] LABS: Allen Test Positive; Base Excess -17 mmol/L (-2 to +2); Blood Gas Specimen Type ART; FI02 60; Mode PRVC; O2 Delivery Device Adult Vent; PEEP 5; PO2 61 mmHG (75-100); RR 14; SITE L Radial; SO2 81 % (95-99); Total Carbon Dioxide 14 mmol/L; Vt 450
[2022-05-09 12:47] LABS: CPK Total, Creatine Kinase 839 U/L (39-308)
[2022-05-09 12:48] LABS: Differential Comment SCANNED
[2022-05-09 12:49] LABS: Vacuolated Cells 2+
[2022-05-09] MEDS: Midazolam 2 MG/2 ML Syringe IV (13:17)
--- NOTE | 2022-05-09 13:36 | EX.ED.DYSGE1 ---
HPI History of Present Illness Chief Complaint: Hyperglycemia Narrative Narrative: History and physical is limited secondary to patient condition. Per patient's relatives, he was supposed to take someone to a doctor's appointment today but he never showed up. They went to his home and he was found on the ground with surrounding emesis, with altered mental status. Sister states that his insulin pump was out. He has been in diabetic ketoacidosis multiple times, and in the past has also had to be intubated. They state that whenever he gets an upper respiratory infection he goes into diabetic ketoacidosis fast. [facility] Medical History Anxiety Arthritis Cataracts, bilateral CPAP (continuous positive airway pressure) dependence Depression Diabetes type 1, controlled DVT (deep venous thrombosis) Essential hypertension GERD (gastroesophageal reflux disease) GI bleed History of MRSA infection of lungs HLD (hyperlipidemia) Hypoglycemia Multiple sclerosis Myocardial infarct NSTEMI (non-ST elevated myocardial infarction) Obesity Renal failure Rheumatoid arthritis Sepsis Home Medications cholecalciferol (vitamin D3) 25 mcg (1,000 unit) tablet 1,000 unit PO DAILY 09/28/15 [History Last Taken Unknown] aspirin 81 mg chewable tablet 81 mg PO QDAY 07/04/17 [History Last Taken Unknown] metoprolol succinate 50 mg tablet,extended release 24 hr 50 mg PO QDAY Check with primary doctor 07/04/17 [History Last Taken Unknown] omeprazole 40 mg capsule,delayed release 40 mg PO QDAY 07/04/17 [History Last Taken Unknown] pediatric multivit no.17-ferrous fumarate 15 mg iron chewable tablet 15 mg PO QDAY 07/26/17 [History Last Taken Unknown] insulin lispro 100 unit/mL subcutaneous solution (Humalog U-100 Insulin) See Rx Instructions subcut QDAY e10.9 #90 mL 12/03/17 [Rx Last Taken Unknown] gabapentin 100 mg capsule 200 mg PO TID 12/08/18 [History Last Taken Unknown] potassium chloride 10 mEq tablet,extended release(part/cryst) 10 meq PO BID 12/08/18 [History Last Taken Unknown] acetaminophen 325 mg tablet 650 mg PO Q6H PRN PRN Mild Pain (1-3)/Temp > 100.7 F 02/24/19 [Rx Last Taken Unknown] tamsulosin 0.4 mg capsule 1 tab PO DAILY 07/22/19 [History Last Taken Unknown] ramipril 10 mg capsule 10 mg PO DAILY ##0 07/24/19 [Rx Last Taken Unknown] furosemide 40 mg tablet 40 mg PO DAILY #180 tabs 02/24/20 [Rx Last Taken Unknown] duloxetine 60 mg capsule,delayed release (Cymbalta) 60 mg PO DAILY 10/17/20 [History Last Taken Unknown] diroximel fumarate 231 mg capsule,delayed release (Vumerity) 462 mg PO BID 02/19/22 [History Last Taken Unknown] insulin glargine 100 unit/mL (3 mL) subcutaneous pen (Lantus Solostar U-100 Insulin) 40 unit subcut DAILY PRN 02/19/22 [History Last Taken Unknown] insulin lispro 100 unit/mL subcutaneous cartridge (Humalog U-100 Insulin) 5 unit subcut TID PRN 02/19/22 [History Last Taken Unknown] rosuvastatin 5 mg tablet 10 mg PO QHS 02/19/22 [History Last Taken Unknown] Allergy/AdvReac Type Severity Reaction Status Date / Time adhesive tape AdvReac Rash Verified 02/19/22 10:37 Sulfa (Sulfonamide AdvReac Other Verified 02/19/22 10:37 Antibiotics) Surgical History History of carpal tunnel surgery Hx of tonsillectomy insulin pump implant and removal Social History Smoking Status: Former smoker second hand exposure: No alcohol intake: current alcohol intake frequency: a few times a month substance use type: does not use ROS ROS ED ROS Narrative Unable to obtain review of systems secondary to patient condition/unresponsive Review of Systems ROS Unobtainable: due to mental status EXAM Physical Exam Narrative Exam Narrative: Afebrile. Vital signs noted. HEENT: Normocephalic. Atraumatic. There is dried blood in the patient's mouth. Neck soft and supple. No point tenderness or step off. Cardiovascular: Tachycardic no murmurs, rubs, or gallops appreciated. Respiratory: Kussmaul breathing. Lungs clear to auscultation bilaterally. Gastrointestinal: Abdomen soft, nontender, obese with normoactive bowel sounds. No rebound or guarding. Neurological: Unresponsive, will open eyes to painful stimulus. GCS 8. Will not follow commands. Skin: No rash. Normal color. No pallor. Musculoskeletal: No pedal edema. Const Vital Signs: 05/09/22 11:04 05/09/22 11:16 05/09/22 11:28 Temperature 97.3 F L Temperature Source Temporal Pulse Rate 112 H 108 H Respiratory Rate 23 H 25 H Respiratory Effort Short of Breath Labored Respiratory Pattern Tachypnea Blood Pressure 128/99 H 88/48 L Blood Pressure Mean 108 61 Pulse Ox 93 93 Oxygen Delivery Method Nasal Cannula Nasal Cannula Oxygen Flow Rate (L/min) 5 3 05/09/22 11:38 05/09/22 11:50 05/09/22 12:01 Temperature 95.9 F L Temperature Source Core Pulse Rate 112 H 104 H 104 H Respiratory Rate 25 H 20 H 23 H Respiratory Effort Respiratory Pattern Blood Pressure 97/56 L 87/51 L 78/45 L Blood Pressure Mean 69 63 56 Pulse Ox 94 100 99 Oxygen Delivery Method Nasal Cannula Mechanical Ventilator Mechanical Ventilator Oxygen Flow Rate (L/min) 2 05/09/22 12:14 05/09/22 12:15 05/09/22 12:40 Temperature 95.9 F L 96 F L Temperature Source Core Core Pulse Rate 107 H 106 H Respiratory Rate 22 H 23 H Respiratory Effort Respiratory Pattern Blood Pressure 91/46 L 92/50 L 86/46 L Blood Pressure Mean 61 64 59 Pulse Ox 100 100 Oxygen Delivery Method Mechanical Ventilator Mechanical Ventilator Oxygen Flow Rate (L/min) 05/09/22 12:48 05/09/22 13:08 05/09/22 11:40 Temperature 96 F L 96.1 F L Temperature Source Core Core Pulse Rate 104 H 108 H Respiratory Rate 22 H 26 H 17 Respiratory Effort Respiratory Pattern Irregular Blood Pressure 94/48 L 91/66 Blood Pressure Mean 63 74 Pulse Ox 100 100 100 Oxygen Delivery Method Mechanical Ventilator Mechanical Ventilator Oxygen Flow Rate (L/min) MDM MDM MDM Narrative Medical decision making narrative: Given the patient's GCS, I do not feel he is protecting his airway. Rapid sequence intubation was performed. He was administered 20 mg of etomidate. Initially I did not want to use a paralytic because of his short neck and surrounding soft tissue. Mac 3 glide scope was used to insert 8.0 ET tube. Patient had initial desaturation into the 70s. He was bagged using the Ambu bag to 100% then second attempt was made and was successful. ET tube was initially inserted to 28 at the lips. His CBC shows a leukocytosis of 20.5, hemoglobin stable at 12.2, hematocrit 41.1. Platelet count normal at 283. Initial ABG was obtained and he has a pH of 7.0, PCO2 of 42. PO2 is 60, but this may have been a venous sample. Of significance and looking for diabetic ketoacidosis he has a sodium of 127, potassium 5.7, chloride of 81, carbon dioxide of 16. Anion gap elevated at 30 with moderate acetone. BUN of 50 with a creatinine of 4.05. Glucose is elevated at 1334. LFTs are unremarkable. Initially he was bolused 14 units of lispro insulin then started on a drip. He was started on fentanyl for sedation. He did require 2 mg of Versed. He has tenuous blood pressure in the 90s systolic and was bolused 3 L of normal saline. His blood pressure is now 101 systolic. As he was found on the floor and he was down for an unknown period of time I obtained a CK which is elevated above 800, but I do not feel that he is in full-blown rhabdomyolysis. Urinalysis negative for infection. CT of the brain was obtained because of his mental status change and possible trauma to the head which shows no evidence of acute hemorrhage. My interpretation of his chest x-ray shows that the ET tube is in place but needs to be drawn back approximately 2 to 3 cm. My interpretation also shows mild vascular congestion. At this point in time, given his respiratory failure and diabetic ketoacidosis, patient was discussed with the hospitalist, Dr. Lowe for admission to the intensive care unit. Critical care time 33 minutes. Disposition is admitted in guarded condition. Lab Data Attestation: I reviewed the patient's lab results. Labs: Laboratory Results - last 24 hr 05/09/22 05/09/22 05/09/22 11:08 11:55 11:55 WBC 20.5 H RBC 4.07 L Hgb 12.2 L Hct 41.1 MCV 101.0 H MCH 30.0 MCHC 29.7 L RDW Std Deviation 54.0 H RDW Coeff of Neo 14.6 Plt Count 283 MPV 11.1 Immature Gran % (Auto) 3.100 H Neut % (Auto) 83.5 H Lymph % (Auto) 3.7 L [place] % (Auto) 9.4 Eos % (Auto) 0.0 Baso % (Auto) 0.3 Absolute Neuts (auto) 17.1 H Absolute Lymphs (auto) 0.77 L Nucleated RBC % 0 Differential Comment SCANNED Diff Path Review May foll Toxic Vacuolation 2+ Sodium 127 L Potassium 5.7 H Chloride 81 L Carbon Dioxide 16.0 L Anion Gap 30 H BUN 50 H Creatinine 4.05 H Estim Creat Clear Calc 17.36 Est GFR (MDRD) Af Amer 19 L Est GFR (MDRD) Non-Af 16 L BUN/Creatinine Ratio 12.3 Glucose 1334 H* Calcium 8.8 Total Bilirubin 0.60 AST 36 ALT 29 Alkaline Phosphatase 71 Total Creatine Kinase Total Protein 6.6 Albumin 3.5 Globulin 3.1 Albumin/Globulin Ratio 1.1 Urine Color Urine Clarity Urine pH Ur Specific [place] Urine Protein Urine Glucose (UA) Urine Ketones Urine Occult Blood Urine Nitrite Urine Bilirubin Urine Urobilinogen Ur Leukocyte Esterase Urine RBC Urine WBC Ur Squamous Epith Cells Urine Bacteria Urine Mucus Acetone Level POC Glucose > 500 H* 05/09/22 05/09/22 05/09/22 11:55 11:55 11:55 WBC RBC Hgb Hct MCV MCH MCHC RDW Std Deviation RDW Coeff of Neo Plt Count MPV Immature Gran % (Auto) Neut % (Auto) Lymph % (Auto) [place] % (Auto) Eos % (Auto) Baso % (Auto) Absolute Neuts (auto) Absolute Lymphs (auto) Nucleated RBC % Differential Comment Diff Path Review Toxic Vacuolation Sodium Potassium Chloride Carbon Dioxide Anion Gap BUN Creatinine Estim Creat Clear Calc Est GFR (MDRD) Af Amer Est GFR (MDRD) Non-Af BUN/Creatinine Ratio Glucose Calcium Total Bilirubin AST ALT Alkaline Phosphatase Total Creatine Kinase 839 H Total Protein Albumin Globulin Albumin/Globulin Ratio Urine Color Yellow Urine Clarity Clear Urine pH 5.0 Ur Specific [place] 1.020 Urine Protein 15 H Urine Glucose (UA) 1000 H Urine Ketones 15 H Urine Occult Blood Negative Urine Nitrite Negative Urine Bilirubin Negative Urine Urobilinogen Normal Ur Leukocyte Esterase Negative Urine RBC 0 SEEN Urine WBC 0 SEEN Ur Squamous Epith Cells 0 SEEN Urine Bacteria 0 SEEN Urine Mucus 0 SEEN Acetone Level MODERATE H POC Glucose 05/09/22 13:23 WBC RBC Hgb Hct MCV MCH MCHC RDW Std Deviation RDW Coeff of Neo Plt Count MPV Immature Gran % (Auto) Neut % (Auto) Lymph % (Auto) [place] % (Auto) Eos % (Auto) Baso % (Auto) Absolute Neuts (auto) Absolute Lymphs (auto) Nucleated RBC % Differential Comment Diff Path Review Toxic Vacuolation Sodium Potassium Chloride Carbon Dioxide Anion Gap BUN Creatinine Estim Creat Clear Calc Est GFR (MDRD) Af Amer Est GFR (MDRD) Non-Af BUN/Creatinine Ratio Glucose Calcium Total Bilirubin AST ALT Alkaline Phosphatase Total Creatine Kinase Total Protein Albumin Globulin Albumin/Globulin Ratio Urine Color Urine Clarity Urine pH Ur Specific [place] Urine Protein Urine Glucose (UA) Urine Ketones Urine Occult Blood Urine Nitrite Urine Bilirubin Urine Urobilinogen Ur Leukocyte Esterase Urine RBC Urine WBC Ur Squamous Epith Cells Urine Bacteria Urine Mucus Acetone Level POC Glucose > 500 H* ABG Data ABG results: ABG 05/09/22 12:37 Specimen Type ART Sample Site L Radial pH 7.10 L* Bicarbonate Actual 13.0 L Total CO2 14 Base Excess -17 L O2 Saturation 81 L O2 % 60 ABG pCO2 42.0 ABG pO2 61 L Wong Test Positive Respiration Rate 14 O2 Delivery Device Adult Vent Vent Mode PRVC Tidal Volume 450 POC PEEP 5 Crit Call To/Read Back Yes Blood Gas Notified Whom AR Radiography Diagnostic Testing: Clinical Impression(s) from Imaging Studies Brain CT 05/09/22 11:49 IMPRESSION: Chronic involutional changes of the brain. Limited study. Electronically Signed: Jamie Aguilera MD at 13:10 EST , Chest X-Ray 05/09/22 11:49 IMPRESSION: The endotracheal tube is at the level of the alber. It should be pulled back approximately 3 cm. The distal tip of the orogastric tube is in the distal portion of the stomach. Mild degree of vascular congestion. Electronically Signed: Jamie Aguilera MD at 13:06 EST , Critical Care Time Critical Care Time: Yes Critical care time (excluding procedures): 30-74 minutes (33), Including time spent:, Discussing w/Patient &/or Family/Director Trade, Discussing w/Consultants, Arranging Admission or Transfer and Performing Direct Patient Care at Bedside Discharge Plan Dx/Rx/DC Orders Clinical Impression: Diabetic ketoacidosis, Altered mental status, Respiratory failure Disposition Disposition: Acute Care [facility]
--- NOTE | 2022-05-09 13:37 | CPS ---
pulled back ET tube 2cm. ET tube now at 26 at lip
[2022-05-09 13:46] LABS: Bedside Glucose > 500 mg/dL (74-106)
[2022-05-09 13:52] LABS: Glucose 1110 mg/dL (74-106)
--- NOTE | 2022-05-09 13:56 | PCM.HP.STD ---
HPI - General General Date of Admission: 05/09/22 Date of Service: 05/09/22 Chief Complaint: Altered mental status HPI Narrative BYRON SHANNON, is a 66 M who who was brought to the emergency department after he was found unresponsive at home. Per patient's twin sister who provided the history patient was supposed to take another relative to the hospital however he never showed up they went to his house and found him on the floor surrounded by vomitus. Was subsequently brought to the emergency department. Assessment of diabetic ketoacidosis was made. Patient had to be intubated to protect his airway subsequently admitted to the intensive care unit for further management [facility] Medical History Anxiety Arthritis Cataracts, bilateral CPAP (continuous positive airway pressure) dependence Depression Diabetes type 1, controlled DVT (deep venous thrombosis) Essential hypertension GERD (gastroesophageal reflux disease) GI bleed History of MRSA infection of lungs HLD (hyperlipidemia) Hypoglycemia Multiple sclerosis Myocardial infarct NSTEMI (non-ST elevated myocardial infarction) Obesity Renal failure Rheumatoid arthritis Sepsis Home Medications cholecalciferol (vitamin D3) 25 mcg (1,000 unit) tablet 1,000 unit PO DAILY 09/28/15 [History Last Taken 05/08/22] metoprolol succinate 50 mg tablet,extended release 24 hr 50 mg PO QDAY Check with primary doctor 07/04/17 [History Last Taken 05/08/22] omeprazole 40 mg capsule,delayed release 40 mg PO QDAY 07/04/17 [History Last Taken 05/08/22] pediatric multivit no.17-ferrous fumarate 15 mg iron chewable tablet 15 mg PO QDAY 07/26/17 [History Last Taken 05/08/22] insulin lispro 100 unit/mL subcutaneous solution (Humalog U-100 Insulin) See Rx Instructions subcut QDAY e10.9 #90 mL 12/03/17 [Rx Last Taken 05/08/22] gabapentin 100 mg capsule 200 mg PO TID 12/08/18 [History Last Taken 05/08/22] potassium chloride 10 mEq tablet,extended release(part/cryst) 10 meq PO BID 12/08/18 [History Last Taken 05/08/22] tamsulosin 0.4 mg capsule 1 tab PO DAILY 07/22/19 [History Last Taken 05/08/22] ramipril 10 mg capsule 10 mg PO DAILY ##0 02/28/20 [Rx Last Taken 05/08/22] furosemide 40 mg tablet 40 mg PO DAILY #180 tabs 02/24/20 [Rx Last Taken 05/08/22] duloxetine 60 mg capsule,delayed release (Cymbalta) 60 mg PO DAILY 10/17/20 [History Last Taken 05/08/22] diroximel fumarate 231 mg capsule,delayed release (Vumerity) 462 mg PO BID 02/19/22 [History Last Taken 05/08/22] insulin glargine 100 unit/mL (3 mL) subcutaneous pen (Lantus Solostar U-100 Insulin) 40 unit subcut DAILY PRN DM 02/19/22 [History Last Taken Unknown] rosuvastatin 10 mg tablet 10 mg PO DAILY CHOLESTEROL 05/09/22 [History Last Taken 05/08/22] Allergy/AdvReac Type Severity Reaction Status Date / Time adhesive tape AdvReac Rash Verified 02/19/22 10:37 Sulfa (Sulfonamide AdvReac Other Verified 02/19/22 10:37 Antibiotics) Family History (Updated 05/09/22 @ 13:[address] Dano Lowe MD) Sister Diabetes Surgical History History of carpal tunnel surgery Hx of tonsillectomy insulin pump implant and removal Social History Smoking Status: Former smoker second hand exposure: No alcohol intake: current alcohol intake frequency: a few times a month substance use type: does not use ROS Review of Systems ROS Unobtainable: due to endotracheal tube Vital Signs Vital Signs Vital Signs: 05/09/22 11:04 05/09/22 11:16 05/09/22 11:28 Temperature 97.3 F L Temperature Source Temporal Pulse Rate 112 H 108 H Respiratory Rate 23 H 25 H Respiratory Effort Short of Breath Labored Respiratory Pattern Tachypnea Blood Pressure 128/99 H 88/48 L Blood Pressure Mean 108 61 Pulse Ox 93 93 Oxygen Delivery Method Nasal Cannula Nasal Cannula Oxygen Flow Rate (L/min) 5 3 05/09/22 11:38 05/09/22 11:50 05/09/22 12:01 Temperature 95.9 F L Temperature Source Core Pulse Rate 112 H 104 H 104 H Respiratory Rate 25 H 20 H 23 H Respiratory Effort Respiratory Pattern Blood Pressure 97/56 L 87/51 L 78/45 L Blood Pressure Mean 69 63 56 Pulse Ox 94 100 99 Oxygen Delivery Method Nasal Cannula Mechanical Ventilator Mechanical Ventilator Oxygen Flow Rate (L/min) 2 05/09/22 12:14 05/09/22 12:15 05/09/22 12:40 Temperature 95.9 F L 96 F L Temperature Source Core Core Pulse Rate 107 H 106 H Respiratory Rate 22 H 23 H Respiratory Effort Respiratory Pattern Blood Pressure 91/46 L 92/50 L 86/46 L Blood Pressure Mean 61 64 59 Pulse Ox 100 100 Oxygen Delivery Method Mechanical Ventilator Mechanical Ventilator Oxygen Flow Rate (L/min) 05/09/22 12:48 05/09/22 13:08 05/09/22 11:40 Temperature 96 F L 96.1 F L Temperature Source Core Core Pulse Rate 104 H 108 H Respiratory Rate 22 H 26 H 17 Respiratory Effort Respiratory Pattern Irregular Blood Pressure 94/48 L 91/66 Blood Pressure Mean 63 74 Pulse Ox 100 100 100 Oxygen Delivery Method Mechanical Ventilator Mechanical Ventilator Oxygen Flow Rate (L/min) Weight Weight: 147.9 kg Body Mass Index (BMI) 49.6 Results Lab / Micro Data Result Diagrams: 05/09/22 11:55 05/09/22 13:30 Labs: Laboratory Results - last 24 hr 05/09/22 11:08: POC Glucose > 500 H* 05/09/22 11:55: WBC 20.5 H, RBC 4.07 L, Hgb 12.2 L, Hct 41.1, MCV 101.0 H, MCH 30.0, MCHC 29.7 L, RDW Std Deviation 54.0 H, RDW Coeff of Neo 14.6, Plt Count 283, MPV 11.1, Immature Gran % (Auto) 3.100 H, Neut % (Auto) 83.5 H, Lymph % (Auto) 3.7 L, [place] % (Auto) 9.4, Eos % (Auto) 0.0, Baso % (Auto) 0.3, Absolute Neuts (auto) 17.1 H, Absolute Lymphs (auto) 0.77 L, Nucleated RBC % 0, Differential Comment SCANNED, Diff Path Review May foll, Toxic Vacuolation 2+ 05/09/22 11:55: Sodium 127 L, Potassium 5.7 H, Chloride 81 L, Carbon Dioxide 16.0 L, Anion Gap 30 H, BUN 50 H, Creatinine 4.05 H, Estim Creat Clear Calc 17.36, Est GFR (MDRD) Af Amer 19 L, Est GFR (MDRD) Non-Af 16 L, BUN/Creatinine Ratio 12.3, Glucose 1334 H*, Calcium 8.8, Total Bilirubin 0.60, AST 36, ALT 29, Alkaline Phosphatase 71, Total Protein 6.6, Albumin 3.5, Globulin 3.1, Albumin/Globulin Ratio 1.1 05/09/22 11:55: Acetone Level MODERATE H 05/09/22 11:55: Urine Color Yellow, Urine Clarity Clear, Urine pH 5.0, Ur Specific [place] 1.020, Urine Protein 15 H, Urine Glucose (UA) 1000 H, Urine Ketones 15 H, Urine Occult Blood Negative, Urine Nitrite Negative, Urine Bilirubin Negative, Urine Urobilinogen Normal, Ur Leukocyte Esterase Negative, Urine RBC 0 SEEN, Urine WBC 0 SEEN, Ur Squamous Epith Cells 0 SEEN, Urine Bacteria 0 SEEN, Urine Mucus 0 SEEN 05/09/22 11:55: Total Creatine Kinase 839 H 05/09/22 13:23: POC Glucose > 500 H* 05/09/22 13:30: Glucose 1110 H* ABG Data ABG results: ABG 05/09/22 12:37 Specimen Type ART Sample Site L Radial pH 7.10 L* Bicarbonate Actual 13.0 L Total CO2 14 Base Excess -17 L O2 Saturation 81 L O2 % 60 ABG pCO2 42.0 ABG pO2 61 L Wong Test Positive Respiration Rate 14 O2 Delivery Device Adult Vent Vent Mode PRVC Tidal Volume 450 POC PEEP 5 Crit Call To/Read Back Yes Blood Gas Notified Whom AR Radiology Impression Brain CT 05/09/22 11:49 IMPRESSION: Chronic involutional changes of the brain. Limited study. Electronically Signed: Jamie Aguilera MD at 13:10 EST , Chest X-Ray 05/09/22 11:49 IMPRESSION: The endotracheal tube is at the level of the alber. It should be pulled back approximately 3 cm. The distal tip of the orogastric tube is in the distal portion of the stomach. Mild degree of vascular congestion. Electronically Signed: Jamie Aguilera MD at 13:06 EST , Assessment & Plan Assessment/Plan (1) Altered mental status: (2) Respiratory failure: PLAN: Plan Patient is a 66-year-old male admitted with altered mental status 1. Diabetic ketoacidosis ? Patient has been admitted to intensive care unit currently being managed with aggressive IV fluid resuscitation IV insulin, serial monitoring with every 4 BMP and subsequent correction of electrolyte abnormalities 2. Acute hypoxic respiratory failure ? Patient was intubated in the ED subsequently placed on the vent consult placed to pulmonary medicine/intensive care for vent management 3. Essential hypertension ? Patient antihypertensives placed on hold in view of relatively low blood pressure 4. Multiple sclerosis ? Per history 5. Dyslipidemia ? Patient is on rosuvastatin plan is to restart once patient is weaned off the vent 6. GERD ? Patient is on PPI 7. GI prophylaxis ? Patient placed on Protonix 8. Class III obesity with BMI of 49.6 ? Plan is to vp & general counsel patient on weight reduction once he is weaned on the vent 9. DVT prophylaxis Bilateral SCDs plus SC Lovenox Total critical care time spent evaluating patient, review of diagnostic data, management orders, subsequent response to initial therapy as well as discussion with other providers involved in patient's care; 75 minutes Did discuss CODE STATUS with patient twin sister who was in the room at the time of my admission plan is for patient to remain full code time spent regarding CODE STATUS discussion; 16 minutes Charges/Coding Multi Select Codes Hospitalists' Procedures Procedures: 56086 Critial Care 1st Hr, 90016 Critial Care Addl 30 Min and 89897 Advncd Care Plan 30 Min
[2022-05-09 14:25] LABS: AST(SGOT) 43 U/L (15-37); Alanine Aminotransfer ALT/SGPT 31 U/L (16-61); Albumin, Serum 3.2 g/dL (3.2-5.0); Alkaline Phosphatase 69 U/L (45-117); Bilirubin, Direct 0.14 mg/dL (0.00-0.30); Globulin 2.9 g/dL (2.2-4.2); Protein, Total 6.1 g/dL (6.4-8.2)
[2022-05-09 14:26] LABS: Anion Gap 29 (5-15); BUN 50 mg/dL (7-18); BUN/Creat Ratio 12.3 RATIO (10-20); Calcium,Total 8.2 mg/dL (8.5-10.1); Chloride 91 mmol/L (98-107); Creatinine, Serum 4.08 mg/dL (0.70-1.30); EST Glomerular Filtration Rate 16 mL/min (>60); Est Glom Filt Rate - Afr Amer 19 mL/min (>60); Estimated Creatinine Clearance 17.23 ml/min; Sodium Level 130 mmol/L (136-145)
[2022-05-09 14:27] LABS: Potassium 5.3 mmol/L (3.5-5.1)
[2022-05-09 15:01] LABS: Hemoglobin A1c 7.6 % (3.8-5.6)
[2022-05-09 16:20] LABS: Base Excess -11 mmol/L (-2 to +2); Bicarbonate 15.8 mmol/L (22-26); Blood Gas Specimen Type ART; FI02 40; PEEP 5; PO2 125 mmHG (75-100); RR 14; SO2 98 % (95-99); Total Carbon Dioxide 17 mmol/L; Vt 450; pCO2 33.3 mmHg (35-45); pH 7.29 (7.35-7.45)
[2022-05-09 16:43] LABS: Glucose 866 mg/dL (74-106)
[2022-05-09] MEDS: 0.9% Normal Saline 1,000 ML 325 ML IV (17:45)
[2022-05-09 18:01] LABS: Bedside Glucose > 500 mg/dL (74-106)
[2022-05-09 19:54] LABS: Troponin-I HS 974 pg/mL (3.0-78.0)
--- NOTE | 2022-05-09 20:27 | PCM.RX.CS ---
Consult Pharmacy has been consulted to manage selected antiobiotic: Vancomycin Type of Consult: New start Suspected Infection: Pneumonia Labs: Sodium 130 mmol/L (136-145) L 05/09/22 13:30 Sodium Cancelled 05/09/22 13:30 Potassium 5.3 mmol/L (3.5-5.1) H 05/09/22 13:30 Potassium Cancelled 05/09/22 13:30 Chloride 91 mmol/L (98-107) L 05/09/22 13:30 Chloride Cancelled 05/09/22 13:30 Carbon Dioxide 10.0 mmol/L (21.0-32.0) L 05/09/22 13:30 Carbon Dioxide Cancelled 05/09/22 13:30 Anion Gap 29 (5-15) H 05/09/22 13:30 Anion Gap Cancelled 05/09/22 13:30 BUN 50 mg/dL (7-18) H 05/09/22 13:30 BUN Cancelled 05/09/22 13:30 Creatinine 4.08 mg/dL (0.70-1.30) H 05/09/22 13:30 Creatinine Cancelled 05/09/22 13:30 Est GFR (MDRD) Af Amer 19 mL/min (>60) L 05/09/22 13:30 Est GFR (MDRD) Af Amer Cancelled 05/09/22 13:30 Est GFR (MDRD) Non-Af 16 mL/min (>60) L 05/09/22 13:30 Est GFR (MDRD) Non-Af Cancelled 05/09/22 13:30 BUN/Creatinine Ratio 12.3 RATIO (10-20) 05/09/22 13:30 BUN/Creatinine Ratio Cancelled 05/09/22 13:30 Glucose 866 mg/dL (74-106) H* 05/09/22 15:31 Microbiology: Microbiology 05/09/22 11:55 Urine Catheter - Catheter Legionella Antigen - Final 05/09/22 11:55 Urine Catheter - Catheter Streptococcus pneumoniae Antigen (M - Final Goal Trough: 15-20 mcg/mL Pharmacy Plan for Drug Dosing: NEW START IV VANCOMYCIN Consulting Physician: Dr. Lowe Indication: Pneumonia Goal Trough: 15-20 SrCr: 4.08 CrCl: 23 mL/min (using AdjBW) Comments: Initial dose of 2g ordered and administered 05/09/22 @1858 Vancomycin Dose: 1250mg IV Q24hr to start 05/10/22 @1900 Pending Level: 05/11/22 @1830, prior to 3rd total dose per protocol Pharmacy Service will continue to monitor and adjust dosing as required.
[2022-05-09] MEDS: 0.9% Saline Lock 10 ML Syringe IV ×3 (21:06→21:32)
[2022-05-09] MEDS: levoFLOXacin IV 750 MG/150 ML BAG 100 MG IV (21:13)
[2022-05-09 21:31] LABS: Bedside Glucose > 500 mg/dL (74-106)
[2022-05-09 21:31] LABS: Bedside Glucose 431 mg/dL (74-106)
[2022-05-09 21:31] LABS: Bedside Glucose 484 mg/dL (74-106)
[2022-05-09 21:32] LABS: Troponin-I HS 1698 pg/mL (3.0-78.0)
[2022-05-09 21:34] LABS: Lactic Acid 1.4 mmol/L (0.4-1.9)
[2022-05-09] MEDS: Chlorhexidine 15 ML PO (21:34)
[2022-05-09 21:35] LABS: Anion Gap 12 (5-15); BUN 49 mg/dL (7-18); BUN/Creat Ratio 13.2 RATIO (10-20); Calcium,Total 7.1 mg/dL (8.5-10.1); Chloride 105 mmol/L (98-107); Creatinine, Serum 3.72 mg/dL (0.70-1.30); EST Glomerular Filtration Rate 17 mL/min (>60); Est Glom Filt Rate - Afr Amer 21 mL/min (>60); Estimated Creatinine Clearance 16.36 ml/min; Glucose 476 mg/dL (74-106); Potassium 4.1 mmol/L (3.5-5.1); Sodium Level 139 mmol/L (136-145)
[2022-05-09] MEDS: KCL 20MEQ in 0.45%NS 20 MEQ/1,000 ML IV.SOLN. 175 MEQ IV (21:38)
[2022-05-09 23:00] LABS: M R Staph aureus DNA By PCR Negative (Negative); Probe Check PASS; Specimen Processing Control PASS
[2022-05-10] VITALS (51 sets, daily range): BP systolic 99–140; BP diastolic 47–96; PULSE 69–108; RESP 11–22; TEMP 37.4–37.9; O2SAT 25–99
[2022-05-10 00:59] LABS: Anion Gap 10 (5-15); BUN 55 mg/dL (7-18); BUN/Creat Ratio 14.4 RATIO (10-20); Calcium,Total 7.8 mg/dL (8.5-10.1); Chloride 102 mmol/L (98-107); Creatinine, Serum 3.81 mg/dL (0.70-1.30); EST Glomerular Filtration Rate 17 mL/min (>60); Est Glom Filt Rate - Afr Amer 21 mL/min (>60); Estimated Creatinine Clearance 15.97 ml/min; Glucose 473 mg/dL (74-106); Potassium 4.9 mmol/L (3.5-5.1); Sodium Level 137 mmol/L (136-145)
[2022-05-10 01:07] LABS: Troponin-I HS 3029 pg/mL (3.0-78.0)
--- NOTE | 2022-05-10 01:09 | EKG12_ITS ---
Test Reason : ELEVATED TROPONINS Blood Pressure : / mmHG Vent. Rate : 096 BPM Atrial Rate : 096 BPM P-R Int : 190 ms QRS Dur : 106 ms QT Int : 340 ms P-R-T Axes : 066 082 075 degrees QTc Int : 429 ms Normal sinus rhythm Nonspecific ST abnormality Abnormal ECG When compared with ECG of 09-MAY-2022 12:20, MANUAL COMPARISON REQUIRED, DATA IS UNCONFIRMED Confirmed by MITUL KAMARA, SYLVESTER ([id number]), index editor PRATIK CASTLE ([id number]) on 05/11/2022 1:08:22 PM Referred By: GREER DELONG Confirmed By:SYLVESTER BAUMAN MD
--- NOTE | 2022-05-10 01:09 | ECHOD_ITS ---
Reason For Study: Elevated troponins Procedure This was a 2D Doppler, Color Flow transthoracic echocardiogram. The study was technically difficult. Patient scanned supine. Extubated this am. Exam performed portable in ICU/CCU. Left Ventricle Normal LV size. Left ventricular systolic function is normal. The estimated ejection fraction is 65 %. No evidence for diastolic dysfunction. No regional wall motion abnormalities noted. Right Ventricle Normal RV size. Normal systolic function. Atria The left atrium is mildly enlarged. Normal right atrium. No doppler evidence for ASD. Mitral Valve There is no mitral annular calcification. Normal mitral valve. Trivial mitral valve insufficiency. Tricuspid Valve Normal tricuspid valve. Trivial tricuspid valve insufficiency. Unable to estimate RV systolic pressure/pulmonary artery pressure due to technically difficult study. Aortic Valve Trisinus/trileaflet aortic valve. Normal aortic valve. Pulmonic Valve The pulmonic valve is not well visualized. Great Vessels Normal sized aortic root. Pericardium/Pleural Trivial pericardial effusion. There are no echocardiographic indications of cardiac tamponade. MMode/2D Measurements & Calculations LVIDd: 4.8 cm IVSd: 1.1 cm Ao root diam: 3.4 cm LVIDs: 2.2 cm LVPWd: 1.1 cm RVDd: 3.7 cm FS: 53.4 % LAV(MOD-sp4): 61.5 ml LVAd ap4: 28.2 cm2 SV(MOD-sp4): 48.9 ml LVLd ap4: 8.2 cm EDV(MOD-sp4): 81.0 ml EDV(sp4-el): 82.5 ml LVAs ap4: 15.1 cm2 LVLs ap4: 6.2 cm ESV(MOD-sp4): 32.1 ml ESV(sp4-el): 31.1 ml EF(MOD-sp4): 60.3 % EF(sp4-el): 62.3 % SV(sp4-el): 51.4 ml LA A4 area: 21.2 cm2 LA dimension(2D): 4.8 cm RA A4 area: 13.8 cm2 Doppler Measurements & Calculations MV E max shmuel: 86.5 cm/sec Lat Peak E' Shmuel: 13.2 cm/sec Med Peak E' Shmuel: 11.1 cm/sec MV A max shmuel: 95.3 cm/sec E/E' lat: 6.5 E/E' med: 7.8 MV E/A: 0.91 Ao V2 max: 140.3 cm/sec LV V1 max: 95.5 cm/sec PA V2 max: 129.8 cm/sec Ao max P.9 mmHg LV V1 max P.6 mmHg ECHO/Echo Complete Interpretation Summary The study was technically difficult. Left ventricular systolic function is normal. The estimated ejection fraction is 65 %. The left atrium is mildly enlarged. Trivial mitral valve insufficiency. Trivial tricuspid valve insufficiency. Trivial pericardial effusion. There are no echocardiographic indications of cardiac tamponade. Unable to estimate RV systolic pressure/pulmonary artery pressure due to techni lina difficult study. No evidence for diastolic dysfunction. Ordering Physician: Desirae Yousif Performed By: Jacqueline Nelson RDCS
[2022-05-10 01:16] LABS: Bedside Glucose 386 mg/dL (74-106)
[2022-05-10 01:16] LABS: Bedside Glucose 428 mg/dL (74-106)
[2022-05-10 01:16] LABS: Bedside Glucose 432 mg/dL (74-106)
[2022-05-10 03:16] LABS: Bedside Glucose 399 mg/dL (74-106)
[2022-05-10 03:16] LABS: Bedside Glucose 390 mg/dL (74-106)
[2022-05-10] MEDS: KCL 20MEQ in 0.45%NS 20 MEQ/1,000 ML IV.SOLN. 175 MEQ IV (03:41)
[2022-05-10] MEDS: CHLORHEXIDINE GLUC 2% CLOTH 1 EACH TOWELETTE TOPICAL (03:42)
[2022-05-10 03:48] LABS: Troponin-I HS 4049 pg/mL (3.0-78.0)
[2022-05-10 03:51] LABS: Bedside Glucose 345 mg/dL (74-106)
[2022-05-10 05:04] LABS: Absolute Lymphocyte Count 0.57 X10^3/uL (0.83-4.51); Absolute Neutrophil Count 14.7 X10^3/uL (2.0-7.7); Basophil# 0.02 X10^3/uL; Basophil% 0.1 % (0-1); Hematocrit 34.7 % (40-54); Hemoglobin 11.8 g/dL (13.0-16.5); Lymphocyte # 0.57 X10^3/ul (0.83-4.51); Lymphocyte % 3.2 % (19-41); Mean Corpuscular Hgb 29.9 pg (27.0-32.0); Mean Corpuscular Volume 88.1 fL (80-94); Mean Platelet Vol. 9.7 fl (6.2-12.0); Monocyte# 2.48 X10^3/uL; Monocyte% 13.8 % (0-10); NRBC Flagged by Analyzer 0 % (0-5); Neutrophil # 14.67 X10^3/uL (2.7-7.7); POSITIVE DIFFERENTIAL YES; Platelet Count 243 K/mm3 (150-450); RBC Distribution Width CV 14.2 % (11.6-14.6); RBC Distribution Width SD 45.7 fl (35.1-43.9); Red Blood Count 3.94 M/mm3 (4.6-6.2); White Blood Count 17.9 K/mm3 (4.4-11.0)
[2022-05-10 05:15] LABS: Differential Indicated SCAN CRITERIA MET
[2022-05-10 05:21] LABS: Anion Gap 7 (5-15); BUN 53 mg/dL (7-18); BUN/Creat Ratio 14.8 RATIO (10-20); Calcium,Total 7.7 mg/dL (8.5-10.1); Chloride 106 mmol/L (98-107); Creatinine, Serum 3.58 mg/dL (0.70-1.30); EST Glomerular Filtration Rate 18 mL/min (>60); Est Glom Filt Rate - Afr Amer 22 mL/min (>60); Glucose 313 mg/dL (74-106); Phosphorus 3.1 mg/dL (2.5-4.9); Potassium 4.9 mmol/L (3.5-5.1); Sodium Level 138 mmol/L (136-145)
[2022-05-10 05:39] LABS: Troponin-I HS 5050 pg/mL (3.0-78.0)
[2022-05-10 05:55] LABS: Bedside Glucose 270 mg/dL (74-106)
[2022-05-10 05:55] LABS: Bedside Glucose 307 mg/dL (74-106)
[2022-05-10 06:51] LABS: Differential Comment SCANNED
--- NOTE | 2022-05-10 07:03 | CON.PCM.CC_ITS ---
Assessment & Plan Assessment/Plan (1) Respiratory failure: (2) Altered mental status: PLAN: Plan RECOMMENDATIONS: 1. Proceed with a trial of extubation. 2. Once extubated, wean supplemental oxygen to maintain saturations at or above 90%. 3. Bedside swallow evaluation and advance diet accordingly. 4. Transition from continuous insulin infusion to basal and sliding scale coverage. 5. Continue to wean Levophed to maintain a mean arterial pressure at or above 65 mmHg. 6. Continue empiric antimicrobials, pending finalized culture results. 7. Continue appropriate ICU prophylaxis. 8. Encourage incentive spirometer use and mobilize patient as tolerated. IMPRESSIONS: 1. Acute hypoxemic respiratory failure/rhinovirus upper respiratory infection The patient was initially intubated in the emergency department over concerns for airway protection in the setting of significant metabolic derangements. In addition, his family did report that he was found on the floor surrounded by emesis, raising the possibility for aspiration. The patient's mentation has improved, following management of his diabetic ketoacidosis. He remains on appropriate broad-spectrum antimicrobials, pending finalized culture results. Given that he is alert and following commands appropriately and has passed a spontaneous breathing trial, we will proceed with a trial of extubation this morning. Once extubated, supplemental oxygen will be weaned to maintain saturations at or above 90%. Bedside swallow evaluation can be completed and his diet advanced accordingly. 2. Multifactorial shock The patients hypotension is likely multifactorial in etiology with intravascular volume depletion, hemodynamic effects of sedative medications and possible sepsis contributing. In addition, the patient did have an elevated troponin, raising the possibility of a cardiac etiology. Echocardiogram is currently pending. The patient has been initiated on appropriate broad-spectrum antimicrobials, while awaiting infectious work-up. His hemodynamic status has actually improved following extubation and cessation of sedative medications. Plan to continue to wean Levophed to maintain a mean arterial pressure at or above 65 mmHg. 3. Diabetic ketoacidosis The patient was initially managed with supplemental IV fluids and a continuous insulin infusion. Given that his anion gap remains closed, will transition him from continuous insulin to basal and sliding scale coverage. 4. Acute kidney injury Most likely prerenal in etiology in the setting of DKA and shock. The patient has been volume resuscitated and remains on vasopressors to maintain hemodynamic stability. Nephrology is following to assist with medical management. I do ant icipate further improvement in his renal function with stabilization of his hemodynamic status. Continue to monitor urine output for now. No current indication for renal replacement therapy. 5. Encephalopathy Most likely metabolic in etiology. CT head was unremarkable. 6. NSTEMI The patient does have a history of some coronary artery disease and follows with cardiology on an outpatient basis. In light of his elevated troponin level, whi ch could be related to demand ischemia, will obtain echocardiogram. Cardiology has been consulted to evaluate the patient. 7. Super morbid obesity/hypertension/MS/GERD Complicates care, management, recovery and prognosis. Continue home medications as indicated. TIME: 38 minutes of critical care time, independent of procedures, was spent addr essing the patient's acute hypoxemic respiratory failure, multifactorial shock, diabetic ketoacidosis, acute kidney injury, encephalopathy, NSTEMI, review of all data and collaboration with the care team. HPI Consult Data Date of Consult: 05/10/22 HPI Narrative Reason for Consultation: Acute respiratory failure, diabetic ketoacidosis HPI Narrative: The patient is a 66-year-old male, with a history as outlined below, who pr esented to the emergency department via EMS on May 09 after being found unresponsive by family members. The patient has a known history of hypertension, hyperlipidemia, questionable sleep apnea and insulin-dependent diabetes mellitus. According to documentation, the patient was found on the g round surrounded by emesis. His sister reported that his insulin pump was out. On presentation to the emergency department, the patient had a documented temperature of 97.3 ?F. He was tachycardic and tachypneic with borderline hemodynamic status. Initial laboratory evaluation revealed an elevated white blood cell count to 20,000. Chemistry profile was notable for a sodium of 127, potassium of 5.7, chloride of 81, bicarbonate of 16 and creatinine of 4.05. Glucose was elevated to 1334. Hemoglobin A1c was noted to be 7.6. Lactate was within normal limits. Troponin was elevated at 974. Urinalysis was unremarkable. Moderate serum acetone level was noted. Head CT revealed chronic involutional changes of the brain. Respiratory viral panel was positive for rhinovirus. On arrival to the emergency department, there was initial concern that the patient was not protecting his airway. Therefore, he was emergently intubated. The patient did ultimately receive supplemental IV fluid hydration and was started on empiric antimicrobials and a continuous insulin infusion. He was subsequently admitted to the medical intensive care unit for further management. After the patient received sedation to maintain his status on the ventilator, he became hemodynamically unstable and required the initiation of vasopressor support. This morning, the patient was alert and able to follow simple commands. He passed his spontaneous breathing trial and was therefore able to be extubated. [facility] Medical History Anxiety Arthritis Cataracts, bilateral CPAP (continuous positive airway pressure) dependence Depression Diabetes type 1, controlled DVT (deep venous thrombosis) Essential hypertension GERD (gastroesophageal reflux disease) GI bleed History of MRSA infection of lungs HLD (hyperlipidemia) Hypoglycemia Multiple sclerosis Myocardial infarct NSTEMI (non-ST elevated myocardial infarction) Obesity Renal failure Rheumatoid arthritis Sepsis Home Medications cholecalciferol (vitamin D3) 25 mcg (1,000 unit) tablet 1,000 unit PO DAILY 09/28/15 [History Last Taken 05/08/22] metoprolol succinate 50 mg tablet,extended release 24 hr 50 mg PO QDAY Check with primary doctor 07/04/17 [History Last Taken 05/08/22] omeprazole 40 mg capsule,delayed release 40 mg PO QDAY 07/04/17 [History Last Taken 05/08/22] pediatric multivit no.17-ferrous fumarate 15 mg iron chewable tablet 15 mg PO QDAY 07/26/17 [History Last Taken 05/08/22] insulin lispro 100 unit/mL subcutaneous solution (Humalog U-100 Insulin) See Rx Instructions subcut QDAY e10.9 #90 mL 12/03/17 [Rx Last Taken 05/08/22] gabapentin 100 mg capsule 200 mg PO TID 12/08/18 [History Last Taken 05/08/22] potassium chloride 10 mEq tablet,extended release(part/cryst) 10 meq PO BID 12/08/18 [History Last Taken 05/08/22] tamsulosin 0.4 mg capsule 1 tab PO DAILY 07/22/19 [History Last Taken 05/08/22] ramipril 10 mg capsule 10 mg PO DAILY ##0 07/24/19 [Rx Last Taken 05/08/22] furosemide 40 mg tablet 40 mg PO DAILY #180 tabs 02/24/20 [Rx Last Taken 05/08/22] duloxetine 60 mg capsule,delayed release (Cymbalta) 60 mg PO DAILY 10/17/20 [History Last Taken 05/08/22] diroximel fumarate 231 mg capsule,delayed release (Vumerity) 462 mg PO BID 02/19/22 [History Last Taken 05/08/22] insulin glargine 100 unit/mL (3 mL) subcutaneous pen (Lantus Solostar U-100 Insulin) 40 unit subcut DAILY PRN DM 02/19/22 [History Last Taken Unknown] rosuvastatin 10 mg tablet 10 mg PO DAILY CHOLESTEROL 05/09/22 [History Last Taken 05/08/22] Allergy/AdvReac Type Severity Reaction Status Date / Time adhesive tape AdvReac Rash Verified 02/19/22 10:37 Sulfa (Sulfonamide AdvReac Other Verified 02/19/22 10:37 Antibiotics) Family History (Updated 05/09/22 @ 13:[address] Dano Lowe MD) Sister Diabetes Surgical History History of carpal tunnel surgery Hx of tonsillectomy insulin pump implant and removal Social History Smoking Status: Former smoker second hand exposure: No alcohol intake: current alcohol intake frequency: a few times a month substance use type: does not use ROS Review of Systems ROS Unobtainable: due to endotracheal tube and due to mental status Physical Exam Const alert and no apparent distress Constitutional Narrative: Currently on a spontaneous breathing trial. Able to follow simple commands. Nutritional Appearance: morbidly obese HEENT normocephalic and head/scalp atraumatic Mouth: endotracheal tube in place and OG tube in place Eyes PERRL, EOMs intact bilaterally and conjunctivae normal Neck supple General: trachea midline Chest inspection of chest normal Resp Auscultation: diminished lung sounds; Negative for rales, rhonchi or wheezes Cardio regular rate and regular rhythm GI normal to inspection, nondistended, normoactive bowel sounds Extremity no clubbing, cyanosis or edema Skin no rashes or lesions noted Neuro Neuro Narrative: Alert and able to follow simple commands. Lab / Micro Data Result Diagrams: 05/10/22 04:55 05/10/22 04:55 Labs: Laboratory Results - last 24 hr 05/09/22 11:08: POC Glucose > 500 H* 05/09/22 11:55: WBC 20.5 H, RBC 4.07 L, Hgb 12.2 L, Hct 41.1, MCV 101.0 H, MCH 30.0, MCHC 29.7 L, RDW Std Deviation 54.0 H, RDW Coeff of Neo 14.6, Plt Count 283, MPV 11.1, Immature Gran % (Auto) 3.100 H, Neut % (Auto) 83.5 H, Lymph % (Auto) 3.7 L, [place] % (Auto) 9.4, Eos % (Auto) 0.0, Baso % (Auto) 0.3, Absolute Neuts (auto) 17.1 H, Absolute Lymphs (auto) 0.77 L, Nucleated RBC % 0, Differential Comment SCANNED, Diff Path Review September, Toxic Vacuolation 2+ 05/09/22 11:55: Sodium 127 L, Potassium 5.7 H, Chloride 81 L, Carbon Dioxide 16.0 L, Anion Gap 30 H, BUN 50 H, Creatinine 4.05 H, Estim Creat Clear Calc 17.36, Est GFR (MDRD) Af Amer 19 L, Est GFR (MDRD) Non-Af 16 L, BUN/Creatinine Ratio 12.3, Glucose 1334 H*, Calcium 8.8, Total Bilirubin 0.60, AST 36, ALT 29, Alkaline Phosphatase 71, Total Protein 6.6, Albumin 3.5, Globulin 3.1, Albumin/Globulin Ratio 1.1 05/09/22 11:55: Acetone Level MODERATE H 05/09/22 11:55: Urine Color Yellow, Urine Clarity Clear, Urine pH 5.0, Ur Specific Brady 1.020, Urine Protein 15 H, Urine Glucose (UA) 1000 H, Urine Ketones 15 H, Urine Occult Blood Negative, Urine Nitrite Negative, Urine Bilirubin Negative, Urine Urobilinogen Normal, Ur Leukocyte Esterase Negative, Urine RBC 0 SEEN, Urine WBC 0 SEEN, Ur Squamous Epith Cells 0 SEEN, Urine Bacteria 0 SEEN, Urine Mucus 0 SEEN 05/09/22 11:55: Total Creatine Kinase 839 H 05/09/22 11:55: Hemoglobin A1c 7.6 H 05/09/22 13:23: POC Glucose > 500 H* 05/09/22 13:30: Sodium 130 L, Potassium 5.3 H, Chloride 91 L, Carbon Dioxide 10.0 L, Anion Gap 29 H, BUN 50 H, Creatinine 4.08 H, Estim Creat Clear Calc 17.23, Est GFR (MDRD) Af Amer 19 L, Est GFR (MDRD) Non-Af 16 L, BUN/Creatinine Ratio 12.3, Glucose 1110 H*, Calcium 8.2 L 05/09/22 13:30: Sodium Cancelled, Potassium Cancelled, Chloride Cancelled, Carbon Dioxide Cancelled, Anion Gap Cancelled, BUN Cancelled, Creatinine Cancelled, Est GFR (MDRD) Af Amer Cancelled, Est GFR (MDRD) Non-Af Cancelled, BUN/Creatinine Ratio Cancelled, Glucose Cancelled, Calcium Cancelled, Total Bilirubin 0.60, Direct Bilirubin 0.14, AST 43 H, ALT 31, Alkaline Phosphatase 69, Total Protein 6.1 L, Albumin 3.2, Globulin 2.9 05/09/22 15:06: Glucose Cancelled 05/09/22 15:31: Glucose 866 H* 05/09/22 17:26: POC Glucose > 500 H* 05/09/22 18:30: Troponin I High Sens 974 H* 05/09/22 19:04: POC Glucose > 500 H* 05/09/22 20:07: POC Glucose 484 H* 05/09/22 21:00: Lactic Acid 1.4 05/09/22 21:00: Troponin I High Sens 1698 H* 05/09/22 21:00: Sodium 139, Potassium 4.1, Chloride 105, Carbon Dioxide 22.0, Anion Gap 12, BUN 49 H, Creatinine 3.72 H, Estim Creat Clear Calc 16.36, Est GFR (MDRD) Af Amer 21 L, Est GFR (MDRD) Non-Af 17 L, BUN/Creatinine Ratio 13.2, Glucose 476 H*, Calcium 7.1 L 05/09/22 21:00: POC Glucose 431 H 05/09/22 21:45: MRSA (PCR) Negative 05/09/22 22:09: POC Glucose 428 H 05/09/22 23:05: POC Glucose 432 H 05/10/22 00:02: POC Glucose 386 H 05/10/22 00:30: Sodium 137, Potassium 4.9, Chloride 102, Carbon Dioxide 25.0, Anion Gap 10, BUN 55 H, Creatinine 3.81 H, Estim Creat Clear Calc 15.97, Est GFR (MDRD) Af Amer 21 L, Est GFR (MDRD) Non-Af 17 L, BUN/Creatinine Ratio 14.4, Glucose 473 H*, Calcium 7.8 L 05/10/22 00:30: Troponin I High Sens 3029 H* 05/10/22 00:59: POC Glucose 399 H 05/10/22 01:55: POC Glucose 390 H 05/10/22 02:57: Troponin I High Sens 4049 H* 05/10/22 03:00: POC Glucose 345 H 05/10/22 03:59: POC Glucose 307 H 05/10/22 04:55: WBC 17.9 H, RBC 3.94 L, Hgb 11.8 L, Hct 34.7 L, MCV 88.1 D, MCH 29.9, MCHC 34.0 D, RDW Std Deviation 45.7 H, RDW Coeff of Neo 14.2, Plt Count 243, MPV 9.7, Immature Gran % (Auto) 0.900, Neut % (Auto) 82.0 H, Lymph % (Auto) 3.2 L, [place] % (Auto) 13.8 H, Eos % (Auto) 0.0, Baso % (Auto) 0.1, Absolute Neuts (auto) 14.7 H, Absolute Lymphs (auto) 0.57 L, Nucleated RBC % 0, Differential Comment SCANNED, Diff Path Review September foll 05/10/22 04:55: Sodium 138, Potassium 4.9, Chloride 106, Carbon Dioxide 25.0, Anion Gap 7, BUN 53 H, Creatinine 3.58 H, Estim Creat Clear Calc 17.00, Est GFR (MDRD) Af Amer 22 L, Est GFR (MDRD) Non-Af 18 L, BUN/Creatinine Ratio 14.8, Glucose 313 H, Calcium 7.7 L, Phosphorus 3.1 05/10/22 04:55: Troponin I High Sens 5050 H* 05/10/22 04:58: POC Glucose 270 H Micro: Microbiology 05/09/22 15:28 Mucosa - Nasopharyngeal Respiratory Panel (PCR) - Final Rhinovirus 05/09/22 11:55 Urine Catheter - Catheter Legionella Antigen - Final 05/09/22 11:55 Urine Catheter - Catheter Streptococcus pneumoniae Antigen (M - Final ABG Data ABG results: ABG 05/09/22 05/09/22 12:37 16:14 Specimen Type ART ART Sample Site L Radial pH 7.10 L* 7.29 L Bicarbonate Actual 13.0 L 15.8 L Total CO2 14 17 Base Excess -17 L -11 L O2 Saturation 81 L 98 O2 % 60 40 ABG pCO2 42.0 33.3 L ABG pO2 61 L 125 H Wong Test Positive Respiration Rate 14 14 O2 Delivery Device Adult Vent Vent Mode PRVC Tidal Volume 450 450 POC PEEP 5 5 Crit Call To/Read Back Yes Blood Gas Notified Whom [facility] Radiology Impression Brain CT 05/09/22 11:49 IMPRESSION: Chronic involutional changes of the brain. Limited study. Electronically Signed: Jamie Aguilera MD at 13:10 EST , Chest X-Ray 05/09/22 11:49 IMPRESSION: The endotracheal tube is at the level of the alber. It should be pulled back approximately 3 cm. The distal tip of the orogastric tube is in the distal portion of the stomach. Mild degree of vascular congestion. Electronically Signed: Jamie Aguilera MD at 13:06 EST , Charges/Coding Procedures Hospitalists Procedures: 83824 Critial Care 1st Hr
[2022-05-10] MEDS: Dext 5%-0.45% NS 1,000 ML 150 ML IV (07:06)
--- NOTE | 2022-05-10 07:08 | PN.HOSP_ITS ---
Subjective Subjective Patient successfully weaned off the vent this AM. Patient had to be managed as a case of Septic shock of unknown origin given his persistent hypotension. Patient was started on broad-spectrum antibiotic therapy as well as Levophed for pressor support. Objective Data Objective Data Vital Signs: Vital Signs Temp Pulse Resp BP Pulse Ox O2 Del Method O2 Flow Rate 100.1 F H 95 14 129/59 H 94 Nasal Cannula 2 05/10/22 07:00 05/10/22 07:00 05/10/22 07:00 05/10/22 07:00 05/10/22 07:00 05/10/22 07:00 05/10/22 07:00 FiO2 25 05/10/22 06:00 Oxygen Flow Rate (L/min) 2 Oxygen Delivery Method Nasal Cannula Weight: 147.7 kg Body Mass Index (BMI) 54.6 Intake & Output: Intake and Output for Last 24 Hours 05/08/22 05/09/22 05/10/22 23:59 23:59 23:59 Intake Total 6018.66 / 6107.66 2234.32 / 2234.32 Output Total 600 / 925 570 / 570 Balance 5418.66 / 5182.66 1664.32 / 1664.32 Lab / Micro Data Result Diagrams: 05/10/22 04:55 05/10/22 04:55 Labs: Laboratory Results - last 24 hr 05/09/22 11:08: POC Glucose > 500 H* 05/09/22 11:55: WBC 20.5 H, RBC 4.07 L, Hgb 12.2 L, Hct 41.1, MCV 101.0 H, MCH 30.0, MCHC 29.7 L, RDW Std Deviation 54.0 H, RDW Coeff of Neo 14.6, Plt Count 283, MPV 11.1, Immature Gran % (Auto) 3.100 H, Neut % (Auto) 83.5 H, Lymph % (Auto) 3.7 L, Polk % (Auto) 9.4, Eos % (Auto) 0.0, Baso % (Auto) 0.3, Absolute Neuts (auto) 17.1 H, Absolute Lymphs (auto) 0.77 L, Nucleated RBC % 0, Differential Comment SCANNED, Diff Path Review May foll, Toxic Vacuolation 2+ 05/09/22 11:55: Sodium 127 L, Potassium 5.7 H, Chloride 81 L, Carbon Dioxide 16.0 L, Anion Gap 30 H, BUN 50 H, Creatinine 4.05 H, Estim Creat Clear Calc 17.36, Est GFR (MDRD) Af Amer 19 L, Est GFR (MDRD) Non-Af 16 L, BUN/Creatinine Ratio 12.3, Glucose 1334 H*, Calcium 8.8, Total Bilirubin 0.60, AST 36, ALT 29, Alkaline Phosphatase 71, Total Protein 6.6, Albumin 3.5, Globulin 3.1, Albumin/Globulin Ratio 1.1 05/09/22 11:55: Acetone Level MODERATE H 05/09/22 11:55: Urine Color Yellow, Urine Clarity Clear, Urine pH 5.0, Ur Specific [place] 1.020, Urine Protein 15 H, Urine Glucose (UA) 1000 H, Urine Ketones 15 H, Urine Occult Blood Negative, Urine Nitrite Negative, Urine Bilirubin Negative, Urine Urobilinogen Normal, Ur Leukocyte Esterase Negative, Urine RBC 0 SEEN, Urine WBC 0 SEEN, Ur Squamous Epith Cells 0 SEEN, Urine Bacteria 0 SEEN, Urine Mucus 0 SEEN 05/09/22 11:55: Total Creatine Kinase 839 H 05/09/22 11:55: Hemoglobin A1c 7.6 H 05/09/22 13:23: POC Glucose > 500 H* 05/09/22 13:30: Sodium 130 L, Potassium 5.3 H, Chloride 91 L, Carbon Dioxide 10.0 L, Anion Gap 29 H, BUN 50 H, Creatinine 4.08 H, Estim Creat Clear Calc 17.23, Est GFR (MDRD) Af Amer 19 L, Est GFR (MDRD) Non-Af 16 L, BUN/Creatinine Ratio 12.3, Glucose 1110 H*, Calcium 8.2 L 05/09/22 13:30: Sodium Cancelled, Potassium Cancelled, Chloride Cancelled, Carbon Dioxide Cancelled, Anion Gap Cancelled, BUN Cancelled, Creatinine Cancelled, Est GFR (MDRD) Af Amer Cancelled, Est GFR (MDRD) Non-Af Cancelled, BUN/Creatinine Ratio Cancelled, Glucose Cancelled, Calcium Cancelled, Total Bili colbert 0.60, Direct Bilirubin 0.14, AST 43 H, ALT 31, Alkaline Phosphatase 69, Total Protein 6.1 L, Albumin 3.2, Globulin 2.9 05/09/22 15:06: Glucose Cancelled 05/09/22 15:31: Glucose 866 H* 05/09/22 17:26: POC Glucose > 500 H* 05/09/22 18:30: Troponin I High Sens 974 H* 05/09/22 19:04: POC Glucose > 500 H* 05/09/22 20:07: POC Glucose 484 H* 05/09/22 21:00: Lactic Acid 1.4 05/09/22 21:00: Troponin I High Sens 1698 H* 05/09/22 21:00: Sodium 139, Potassium 4.1, Chloride 105, Carbon Dioxide 22.0, Anion Gap 12, BUN 49 H, Creatinine 3.72 H, Estim Creat Clear Calc 16.36, Est GFR (MDRD) Af Amer 21 L, Est GFR (MDRD) Non-Af 17 L, BUN/Creatinine Ratio 13.2, Glucose 476 H*, Calcium 7.1 L 05/09/22 21:00: POC Glucose 431 H 05/09/22 21:45: MRSA (PCR) Negative 05/09/22 22:09: POC Glucose 428 H 05/09/22 23:05: POC Glucose 432 H 05/10/22 00:02: POC Glucose 386 H 05/10/22 00:30: Sodium 137, Potassium 4.9, Chloride 102, Carbon Dioxide 25.0, Anion Gap 10, BUN 55 H, Creatinine 3.81 H, Estim Creat Clear Calc 15.97, Est GFR (MDRD) Af Amer 21 L, Est GFR (MDRD) Non-Af 17 L, BUN/Creatinine Ratio 14.4, Glucose 473 H*, Calcium 7.8 L 05/10/22 00:30: Troponin I High Sens 3029 H* 05/10/22 00:59: POC Glucose 399 H 05/10/22 01:55: POC Glucose 390 H 05/10/22 02:57: Troponin I High Sens 4049 H* 05/10/22 03:00: POC Glucose 345 H 05/10/22 03:59: POC Glucose 307 H 05/10/22 04:55: WBC 17.9 H, RBC 3.94 L, Hgb 11.8 L, Hct 34.7 L, MCV 88.1 D, MCH 29.9, MCHC 34.0 D, RDW Std Deviation 45.7 H, RDW Coeff of Neo 14.2, Plt Count 243, MPV 9.7, Immature Gran % (Auto) 0.900, Neut % (Auto) 82.0 H, Lymph % (Auto) 3.2 L, Polk % (Auto) 13.8 H, Eos % (Auto) 0.0, Baso % (Auto) 0.1, Absolute Neuts (auto) 14.7 H, Absolute Lymphs (auto) 0.57 L, Nucleated RBC % 0, Differential Comment SCANNED, Diff Path Review September foll 05/10/22 04:55: Sodium 138, Potassium 4.9, Chloride 106, Carbon Dioxide 25.0, Anion Gap 7, BUN 53 H, Creatinine 3.58 H, Estim Creat Clear Calc 17.00, Est GFR (MDRD) Af Amer 22 L, Est GFR (MDRD) Non-Af 18 L, BUN/Creatinine Ratio 14.8, Glucose 313 H, Calcium 7.7 L, Phosphorus 3.1 05/10/22 04:55: Troponin I High Sens 5050 H* 05/10/22 04:58: POC Glucose 270 H Micro: Microbiology 05/09/22 15:28 Mucosa - Nasopharyngeal Respiratory Panel (PCR) - Final Rhinovirus 05/09/22 11:55 Urine Catheter - Catheter Legionella Antigen - Final 05/09/22 11:55 Urine Catheter - Catheter Streptococcus pneumoniae Antigen (M - Final ABG Data ABG results: ABG 05/09/22 05/09/22 12:37 16:14 Specimen Type ART ART Sample Site L Radial pH 7.10 L* 7.29 L Bicarbonate Actual 13.0 L 15.8 L Total CO2 14 17 Base Excess -17 L -11 L O2 Saturation 81 L 98 O2 % 60 40 ABG pCO2 42.0 33.3 L ABG pO2 61 L 125 H Wong Test Positive Respiration Rate 14 14 O2 Delivery Device Adult Vent Vent Mode PRVC Tidal Volume 450 450 POC PEEP 5 5 Crit Call To/Read Back Yes Blood Gas Notified Whom AR Radiography Diagnostic Testing: Radiology Impression Brain CT 05/09/22 11:49 IMPRESSION: Chronic involutional changes of the brain. Limited study. Electronically Signed: Jamie Aguilera MD at 13:10 EST , Chest X-Ray 05/09/22 11:49 IMPRESSION: The endotracheal tube is at the level of the alber. It should be pulled back approximately 3 cm. The distal tip of the orogastric tube is in the distal portion of the stomach. Mild degree of vascular congestion. Electronically Signed: Jamie Aguilera MD at 13:06 EST , Physical Exam Narrative GENERAL: Lethargic (patient has been weaned off the vent) HEENT: Atraumatic; normocephalic EYES; Anicteric, Normal Conjunctiva NECK; supple, normal thyroid, RESPIRATORY: Diminished to auscultation CARDIOVASCULAR: Regular S1 S2, GI: soft, normoactive bowel sounds, : No Renal angle tenderness; EXTREMITIES: No edema, no clubbing, MUSCULOSKELETAL: no muscle wasting NEURO: no lateralizing signs. SKIN: No Rash PSYCH; Flat affect Assessment & Plan Assessment/Plan (1) Altered mental status: (2) Respiratory failure: PLAN: Plan Patient is a 66-year-old male admitted with altered mental status 1. Diabetic ketoacidosis ? Patient has been admitted to intensive care unit currently being managed with aggressive IV fluid resuscitation IV insulin, serial monitoring with every 4 BMP and subsequent correction of electrolyte abnormalities ? 05/10/2022; patient DKA resolved plan is to switch patient from insulin drip to scheduled long-acting as well as Premeal Insulin 2. Acute hypoxic respiratory failure ? Patient was intubated in the ED subsequently placed on the vent consult placed to pulmonary medicine/intensive care for vent management -05/10/2022 patient has been weaned off the vent 3. Septic shock (not evident on admission) ?This was evident by persistent hypotension, evidence of endorgan damage(Respiratory failure and acute kidney injury) as well as leukocytosis and tachycardia with suspected evidence of infection Patient had to be started on broad-spectrum antibiotic therapyVancomycin, Levaquin and Zosyn. Cultures sent. Patient started on Levophed titrated to keep MAP greater than 60 following patient failure to respond to aggressive IV fluid resuscitation 4. Acute kidney injury ? Possibly ATN from patient DKA and sepsis on IV fluids consult placed to nephrology 5. Elevated troponin ?? NSTEMI Versus demand ischemia. Ordered 2D echo as well as serial cardiac enzymes and cardiology consultation 6. Essential hypertension ? Patient antihypertensives placed on hold in view of relatively low blood pressure 7. Multiple sclerosis ? Per history 8. Dyslipidemia ? Patient is on rosuvastatin plan is to restart once patient is weaned off the vent 9. GERD ? Patient is on PPI 10. GI prophylaxis ? Patient placed on Protonix 11. Class III obesity with BMI of 49.6 ? 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 DVT prophylaxis Bilateral SCDs plus SC Lovenox Total critical care time spent evaluating patient, review of diagnostic data, management orders, subsequent response to initial therapy as well as discussion with other providers involved in patient's care; 55 minutes Charges/Coding Procedures Hospitalists Procedures: [address] [facility]
[2022-05-10 08:35] LABS: Bedside Glucose 258 mg/dL (74-106)
[2022-05-10 08:35] LABS: Bedside Glucose 251 mg/dL (74-106)
[2022-05-10 08:35] LABS: Bedside Glucose 235 mg/dL (74-106)
[2022-05-10 08:46] LABS: Magnesium 1.9 mg/dL (1.6-2.6)
[2022-05-10] MEDS: Enoxaparin 30 MG/0.3 ML Syringe SC (09:18)
[2022-05-10 09:40] LABS: Bedside Glucose 227 mg/dL (74-106)
--- NOTE | 2022-05-10 09:50 | PCM.CONS.C ---
Assessment & Plan Assessment/Plan (1) NSTEMI (non-ST elevated myocardial infarction): PLAN: The patient has abnormal cardiac enzymes/high-sensitivity troponin I levels. At the moment is unclear as to whether or not the patient truly experienced an acute coronary syndrome/type I event versus this may very well be a type II event brought out by his DKA, hypotension, hypoxia, subsequent supply demand mismatch/poor perfusion. At the present time he remains in the ICU. He is currently extubated. His cardiac enzymes will be followed. His ECG initially demonstrated ST and T wave changes, which again could be secondary to his hypotension and hypoxia and poor perfusion, appear to be returning to baseline. An echocardiogram has been requested to further evaluate his left ventricular wall motion and systolic function. He continues with IV vasopressor support and thus other medications that may benefit him from a cardiovascular status that would lower his blood pressure such as beta-blockers, afterload reducing agents, etc., are on hold. Eventually depending upon his clinical course and other objective findings, including his renal insufficiency, he may need to be considered for reevaluation of his underlying CAD status either noninvasively or invasively. (2) CAD (coronary artery disease): PLAN: The patient's history of CAD has been minor luminal regularities in the past as noted. Again at the present time its unclear as to whether he truly has had a type I event versus his clinical scenario may very well be related to a type II event for the reasons mentioned above. At the moment he should continue risk factor evaluation and care as deemed appropriate. He should continue medical support as deemed appropriate when he is able to with respect to his vital signs and other objective changes. (3) HLD (hyperlipidemia): QUALIFIERS: Hyperlipidemia type: unspecified Qualified Code(s): E78.5 - Hyperlipidemia, unspecified PLAN: He should continue risk factor modification medical therapy as best as possible. (4) Essential hypertension: PLAN: He has a history of hypertension. At the moment he is hypotensive. He continues to require IV vasopressor support. His IV vasopressor support requirements are being weaned down. He has an echocardiogram pending to reassess his left ventricular wall motion and systolic function. (5) Diabetic ketoacidosis: QUALIFIERS: Diabetes mellitus type: type 1 Diabetes mellitus complication detail: without coma Qualified Code(s): E10.10 - Type 1 diabetes mellitus with ketoacidosis without coma PLAN: He is being evaluated and cared for by internal medicine and pulmonology/critical care medicine. Again this may be the etiology for his hypotension, hypoxia, acute renal insufficiency, and poor perfusion to his myocardium leading to his abnormal cardiac enzymes, etc. (6) Respiratory failure: PLAN: He did require temporary mechanical intubation/ventilation. He is now extubated. He will continue evaluation care per pulmonology/critical care medicine. (7) ERIC (acute kidney injury): PLAN: He does appear to have a history of chronic renal insufficiency. The moment he has acute on chronic renal insufficiency which may be secondary to his hypotension and poor perfusion. He may also have a component of decreased intravascular volume secondary to his DKA. He will continue to be monitored and continue supportive measures as best as possible. His renal function will have to be followed as this can impact future medications in future cardiovascular or noncardiovascular studies especially those requiring IV contrast. Addt'l Comments The patient's case was discussed and reviewed with Dr. Meadows of the pulmonology/critical care staff. This note was generated using a voice recognition system and there may be incorrect words, spelling or punctuation that were not noted when reviewing the office note prior to saving. HPI Consult Data Date of Consult: 05/10/22 HPI Narrative HPI Narrative: BYRON SHANNON, is a 66 year old white male who presents cadriovascular consult patient for concerns of abnormal troponin I levels, abnormal ECG, superimposed upon a history of CAD-nonobstructive, hyperlipidemia, hypertension, diabetes mellitus, with ongoing concerns of DKA, hypotension, hypoxia, acute on chronic renal insufficiency, requiring transient mechanical intubation/ventilation. He has been previously followed as an outpatient for his aforementioned cardiovascular conditions. It appears, based upon a conversation with Dr. Meadows from the [facility] pulmonology/critical care staff and the [facility] medical records that the patient did not show up at her previously scheduled appointment. He was subsequently found at home, on the floor, surrounded by vomitus. He was brought to the [facility] emergency department for further evaluation and care. He was diagnosed with DKA, hypotension, hypoxia, and acute on chronic renal insufficiency. He was subsequently mechanically intubated and ventilated and placed in the ICU for continued evaluation and care. He required IV fluids and IV vasopressor support. Earlier this day he was successfully extubated. At the present time he does not appear to recall having any acute cardiovascular symptoms such as chest discomfort or acute shortness of breath or dyspnea. He does have an element of chronic lower extremity peripheral pitting edema. He does not recall loss of consciousness. He remains in the ICU at this time. His cardiac enzymes have been followed. Initially they were reported at 974 and gradually increased to 5050. He had an ECG that demonstrated sinus rhythm with ST and T wave changes concerning for myocardial ischemia. A follow-up ECG this morning demonstrates sinus rhythm with his ST and T wave changes returning to baseline. He did have a chest x-ray performed yesterday. There was a question per radiology if he had a mild degree of vascular congestion. He has continued to require IV vasopressor support. He is also been on IV antibiotics. [facility]LY [facility] Medical History Anxiety Arthritis Cataracts, bilateral CPAP (continuous positive airway pressure) dependence Depression Diabetes type 1, controlled DVT (deep venous thrombosis) Essential hypertension GERD (gastroesophageal reflux disease) GI bleed History of MRSA infection of lungs HLD (hyperlipidemia) Hypoglycemia Multiple sclerosis Myocardial infarct NSTEMI (non-ST elevated myocardial infarction) Obesity Renal failure Rheumatoid arthritis Sepsis Home Medications cholecalciferol (vitamin D3) 25 mcg (1,000 unit) tablet 1,000 unit PO DAILY 09/28/15 [History Last Taken 05/08/22] metoprolol succinate 50 mg tablet,extended release 24 hr 50 mg PO QDAY Check with primary doctor 07/04/17 [History Last Taken 05/08/22] omeprazole 40 mg capsule,delayed release 40 mg PO QDAY 07/04/17 [History Last Taken 05/08/22] pediatric multivit no.17-ferrous fumarate 15 mg iron chewable tablet 15 mg PO QDAY 07/26/17 [History Last Taken 05/08/22] insulin lispro 100 unit/mL subcutaneous solution (Humalog U-100 Insulin) See Rx Instructions subcut QDAY e10.9 #90 mL 12/03/17 [Rx Last Taken 05/08/22] gabapentin 100 mg capsule 200 mg PO TID 12/08/18 [History Last Taken 05/08/22] potassium chloride 10 mEq tablet,extended release(part/cryst) 10 meq PO BID 12/08/18 [History Last Taken 05/08/22] tamsulosin 0.4 mg capsule 1 tab PO DAILY 07/22/19 [History Last Taken 05/08/22] ramipril 10 mg capsule 10 mg PO DAILY ##0 07/24/19 [Rx Last Taken 05/08/22] furosemide 40 mg tablet 40 mg PO DAILY #180 tabs 02/24/20 [Rx Last Taken 05/08/22] duloxetine 60 mg capsule,delayed release (Cymbalta) 60 mg PO DAILY 10/17/20 [History Last Taken 05/08/22] diroximel fumarate 231 mg capsule,delayed release (Vumerity) 462 mg PO BID 02/19/22 [History Last Taken 05/08/22] insulin glargine 100 unit/mL (3 mL) subcutaneous pen (Lantus Solostar U-100 Insulin) 40 unit subcut DAILY PRN DM 02/19/22 [History Last Taken Unknown] rosuvastatin 10 mg tablet 10 mg PO DAILY CHOLESTEROL 05/09/22 [History Last Taken 05/08/22] Allergy/AdvReac Type Severity Reaction Status Date / Time adhesive tape AdvReac Rash Verified 02/19/22 10:37 Sulfa (Sulfonamide AdvReac Other Verified 02/19/22 10:37 Antibiotics) Family History (Updated 05/09/22 @ 13:[address] Dano Lowe MD) Sister Diabetes Surgical History History of carpal tunnel surgery Hx of tonsillectomy insulin pump implant and removal Social History Smoking Status: Former smoker second hand exposure: No alcohol intake: current alcohol intake frequency: a few times a month substance use type: does not use ROS Constitutional Constitutional: Reports as per HPI Eyes Eyes: Reports as per HPI ENT HEENT: Reports as per HPI Cardiovascular Cardiovascular: Reports as per HPI Respiratory/Chest Respiratory/Chest: Reports as per HPI Gastrointestinal Gastrointestinal: Reports vomiting Genitourinary Genitourinary: Reports as per HPI Musculoskeletal Musculoskeletal: Reports as per HPI Integumentary Integumentary: Reports as per HPI Neurologic Neurologic: Reports as per HPI Physical Exam Const General Appearance: other Somnolent, however, does open his eyes and respond to verbal stimuli/questions HEENT normocephalic, head/scalp atraumatic and hearing grossly normal bilaterally Eyes PERRL, EOMs intact bilaterally, conjunctivae normal and no scleral icterus Neck full ROM, supple and no JVD Carotids: normal carotid upstroke Resp Auscultation: rhonchi throughout Cardio regular rate, regular rhythm, S1 normal heart sound and S2 normal heart sound Cardio Narrative: Distant heart tones GI normal to inspection, nondistended, normoactive bowel sounds Extremity General Extremity: edema bilateral lower extremity Details: moderate Skin no rashes or lesions noted Risk Stratification Risk Stratification Applicable: Yes Age >/= 65: Yes >/= 3 CAD Risk Factors (HTN, HLD, DM, family hx of CAD, or current smoker): Yes Aspirin Use in the Past 7 Days: Yes Severe Angina (>/= episodes in 24 hours): No EKG ST Changes >/= 0.5mm: Yes Positive Cardiac Marker: Yes ELIZABETH Risk Stratification Score: 5 ELIZABETH % Risk: 25% Risk Procedure Criteria Type of Procedure Procedure Type: Elective Elective Risks - COVID COVID Risk Discussion: The surgeon/proceduralist and patient have discussed in detail the risk of exposure to and/or potential harm posed by the COVID-19 virus with having a surgery/procedure at this time versus the risk of delaying the surgery/procedure. It is not possible to know either the risk of delaying the surgery or procedure or chance of getting an infection with perfect accuracy, but a joint decision was made between the patient and the surgeon/proceduralist to proceed at this time with the scheduled surgery/procedure as indicated on the consent form. Objective Data Vital Signs: Vital Signs Temp Pulse Resp BP Pulse Ox O2 Del Method O2 Flow Rate 100 F H 90 16 107/57 L 94 Nasal Cannula 2 05/10/22 08:00 05/10/22 09:00 05/10/22 09:00 05/10/22 09:15 05/10/22 09:00 05/10/22 09:00 05/10/22 08:00 FiO2 2 05/10/22 09:00 Oxygen Flow Rate (L/min) 2 Oxygen Delivery Method Nasal Cannula Weight: 325 lb 9.964 oz Body Mass Index (BMI) 54.6 Intake & Output: Intake and Output for Last 24 Hours 05/08/22 05/09/22 05/10/22 23:59 23:59 23:59 Intake Total 6018.66 / 6107.66 2469.03 / 2469.03 Output Total 600 / 925 570 / 570 Balance 5418.66 / 5182.66 1899.03 / 1899.03 Lab / Micro Data Result Diagrams: 05/10/22 04:55 05/10/22 04:55 Labs: Laboratory Results - last 24 hr 05/09/22 11:08: POC Glucose > 500 H* 05/09/22 11:55: WBC 20.5 H, RBC 4.07 L, Hgb 12.2 L, Hct 41.1, MCV 101.0 H, MCH 30.0, MCHC 29.7 L, RDW Std Deviation 54.0 H, RDW Coeff of Neo 14.6, Plt Count 283, MPV 11.1, Immature Gran % (Auto) 3.100 H, Neut % (Auto) 83.5 H, Lymph % (Auto) 3.7 L, [place] % (Auto) 9.4, Eos % (Auto) 0.0, Baso % (Auto) 0.3, Absolute Neuts (auto) 17.1 H, Absolute Lymphs (auto) 0.77 L, Nucleated RBC % 0, Differential Comment SCANNED, Diff Path Review September foll, Toxic Vacuolation 2+ 05/09/22 11:55: Sodium 127 L, Potassium 5.7 H, Chloride 81 L, Carbon Dioxide 16.0 L, Anion Gap 30 H, BUN 50 H, Creatinine 4.05 H, Estim Creat Clear Calc 17.36, Est GFR (MDRD) Af Amer 19 L, Est GFR (MDRD) Non-Af 16 L, BUN/Creatinine Ratio 12.3, Glucose 1334 H*, Calcium 8.8, Total Bilirubin 0.60, AST 36, ALT 29, Alkaline Phosphatase 71, Total Protein 6.6, Albumin 3.5, Globulin 3.1, Albumin/Globulin Ratio 1.1 05/09/22 11:55: Acetone Level MODERATE H 05/09/22 11:55: Urine Color Yellow, Urine Clarity Clear, Urine pH 5.0, Ur Specific [place] 1.020, Urine Protein 15 H, Urine Glucose (UA) 1000 H, Urine Ketones 15 H, Urine Occult Blood Negative, Urine Nitrite Negative, Urine Bilirubin Negative, Urine Urobilinogen Normal, Ur Leukocyte Esterase Negative, Urine RBC 0 SEEN, Urine WBC 0 SEEN, Ur Squamous Epith Cells 0 SEEN, Urine Bacteria 0 SEEN, Urine Mucus 0 SEEN 05/09/22 11:55: Total Creatine Kinase 839 H 05/09/22 11:55: Hemoglobin A1c 7.6 H 05/09/22 13:23: POC Glucose > 500 H* 05/09/22 13:30: Sodium 130 L, Potassium 5.3 H, Chloride 91 L, Carbon Dioxide 10.0 L, Anion Gap 29 H, BUN 50 H, Creatinine 4.08 H, Estim Creat Clear Calc 17.23, Est GFR (MDRD) Af Amer 19 L, Est GFR (MDRD) Non-Af 16 L, BUN/Creatinine Ratio 12.3, Glucose 1110 H*, Calcium 8.2 L 05/09/22 13:30: Sodium Cancelled, Potassium Cancelled, Chloride Cancelled, Carbon Dioxide Cancelled, Anion Gap Cancelled, BUN Cancelled, Creatinine Cancelled, Est GFR (MDRD) Af Amer Cancelled, Est GFR (MDRD) Non-Af Cancelled, BUN/Creatinine Ratio Cancelled, Glucose Cancelled, Calcium Cancelled, Total Bilirubin 0.60, Direct Bilirubin 0.14, AST 43 H, ALT 31, Alkaline Phosphatase 69, Total Protein 6.1 L, Albumin 3.2, Globulin 2.9 05/09/22 15:06: Glucose Cancelled 05/09/22 15:31: Glucose 866 H* 05/09/22 17:26: POC Glucose > 500 H* 05/09/22 18:30: Troponin I High Sens 974 H* 05/09/22 19:04: POC Glucose > 500 H* 05/09/22 20:07: POC Glucose 484 H* 05/09/22 21:00: Lactic Acid 1.4 05/09/22 21:00: Troponin I High Sens 1698 H* 05/09/22 21:00: Sodium 139, Potassium 4.1, Chloride 105, Carbon Dioxide 22.0, Anion Gap 12, BUN 49 H, Creatinine 3.72 H, Estim Creat Clear Calc 16.36, Est GFR (MDRD) Af Amer 21 L, Est GFR (MDRD) Non-Af 17 L, BUN/Creatinine Ratio 13.2, Glucose 476 H*, Calcium 7.1 L 05/09/22 21:00: POC Glucose 431 H 05/09/22 21:45: MRSA (PCR) Negative 05/09/22 22:09: POC Glucose 428 H 05/09/22 23:05: POC Glucose 432 H 05/10/22 00:02: POC Glucose 386 H 05/10/22 00:30: Sodium 137, Potassium 4.9, Chloride 102, Carbon Dioxide 25.0, Anion Gap 10, BUN 55 H, Creatinine 3.81 H, Estim Creat Clear Calc 15.97, Est GFR (MDRD) Af Amer 21 L, Est GFR (MDRD) Non-Af 17 L, BUN/Creatinine Ratio 14.4, Glucose 473 H*, Calcium 7.8 L 05/10/22 00:30: Troponin I High Sens 3029 H* 05/10/22 00:59: POC Glucose 399 H 05/10/22 01:55: POC Glucose 390 H 05/10/22 02:57: Troponin I High Sens 4049 H* 05/10/22 03:00: POC Glucose 345 H 05/10/22 03:59: POC Glucose 307 H 05/10/22 04:55: Sodium Cancelled, Potassium Cancelled, Chloride Cancelled, Carbon Dioxide Cancelled, Anion Gap Cancelled, BUN Cancelled, Creatinine Cancelled, Estim Creat Clear Calc Cancelled, Est GFR (MDRD) Af Amer Cancelled, Est GFR (MDRD) Non-Af Cancelled, BUN/Creatinine Ratio Cancelled, Glucose Cancelled, Calcium Cancelled, Magnesium Cancelled 05/10/22 04:55: WBC 17.9 H, RBC 3.94 L, Hgb 11.8 L, Hct 34.7 L, MCV 88.1 D, MCH 29.9, MCHC 34.0 D, RDW Std Deviation 45.7 H, RDW Coeff of Neo 14.2, Plt Count 243, MPV 9.7, Immature Gran % (Auto) 0.900, Neut % (Auto) 82.0 H, Lymph % (Auto) 3.2 L, [place] % (Auto) 13.8 H, Eos % (Auto) 0.0, Baso % (Auto) 0.1, Absolute Neuts (auto) 14.7 H, Absolute Lymphs (auto) 0.57 L, Nucleated RBC % 0, Differential Comment SCANNED, Diff Path Review September05/10/22 04:55: Sodium 138, Potassium 4.9, Chloride 106, Carbon Dioxide 25.0, Anion Gap 7, BUN 53 H, Creatinine 3.58 H, Estim Creat Clear Calc 17.00, Est GFR (MDRD) Af Amer 22 L, Est GFR (MDRD) Non-Af 18 L, BUN/Creatinine Ratio 14.8, Glucose 313 H, Calcium 7.7 L, Phosphorus 3.1, Magnesium 1.9 05/10/22 04:55: Troponin I High Sens 5050 H* 05/10/22 04:58: POC Glucose 270 H 05/10/22 05:58: POC Glucose 251 H 05/10/22 07:00: POC Glucose 235 H 05/10/22 08:09: POC Glucose 258 H 05/10/22 09:14: POC Glucose 227 H Micro: Microbiology 05/09/22 15:28 Mucosa - Nasopharyngeal Respiratory Panel (PCR) - Final Rhinovirus 05/09/22 11:55 Urine Catheter - Catheter Legionella Antigen - Final 05/09/22 11:55 Urine Catheter - Catheter Streptococcus pneumoniae Antigen (M - Final ABG Data ABG results: ABG 05/09/22 05/09/22 12:37 16:14 Specimen Type ART ART Sample Site L Radial pH 7.10 L* 7.29 L Bicarbonate Actual 13.0 L 15.8 L Total CO2 14 17 Base Excess -17 L -11 L O2 Saturation 81 L 98 O2 % 60 40 ABG pCO2 42.0 33.3 L ABG pO2 61 L 125 H Wong Test Positive Respiration Rate 14 14 O2 Delivery Device Adult Vent Vent Mode PRVC Tidal Volume 450 450 POC PEEP 5 5 Crit Call To/Read Back Yes Blood Gas Notified [facility] Labs/Tests 05/09/22 11:55: WBC 20.5 H, RBC 4.07 L, Hgb 12.2 L, Hct 41.1, MCV 101.0 H, MCH 30.0, MCHC 29.7 L, Plt Count 283, MPV 11.1, Immature Gran % (Auto) 3.100 H, Neut % (Auto) 83.5 H, Lymph % (Auto) 3.7 L, [place] % (Auto) 9.4, Eos % (Auto) 0.0, Baso % (Auto) 0.3, Absolute Neuts (auto) 17.1 H, Nucleated RBC % 0 05/09/22 11:55: Sodium 127 L, Potassium 5.7 H, Chloride 81 L, Carbon Dioxide 16.0 L, Anion Gap 30 H, BUN 50 H, Creatinine 4.05 H, Est GFR (MDRD) Af Amer 19 L, Est GFR (MDRD) Non-Af 16 L, BUN/Creatinine Ratio 12.3, Glucose 1334 H*, Calcium 8.8, Total Bilirubin 0.60 05/09/22 11:55: Urine Color Yellow, Urine Clarity Clear, Urine pH 5.0, Ur Specific [place] 1.020, Urine Protein 15 H, Urine Glucose (UA) 1000 H, Urine Ketones 15 H, Urine Occult Blood Negative, Urine Nitrite Negative, Urine Bilirubin Negative, Urine Urobilinogen Normal, Ur Leukocyte Esterase Negative, Urine RBC 0 SEEN, Urine WBC 0 SEEN 05/09/22 11:55: Hemoglobin A1c 7.6 H 05/09/22 12:37: pH 7.10 L*, Bicarbonate Actual 13.0 L, Base Excess -17 L, O2 Saturation 81 L, ABG pCO2 42.0, ABG pO2 61 L, Wong Test Positive 05/09/22 13:30: Sodium 130 L, Potassium 5.3 H, Chloride 91 L, Carbon Dioxide 10.0 L, Anion Gap 29 H, BUN 50 H, Creatinine 4.08 H, Est GFR (MDRD) Af Amer 19 L, Est GFR (MDRD) Non-Af 16 L, BUN/Creatinine Ratio 12.3, Glucose 1110 H*, Calcium 8.2 L 05/09/22 13:30: Sodium Cancelled, Potassium Cancelled, Chloride Cancelled, Carbon Dioxide Cancelled, Anion Gap Cancelled, BUN Cancelled, Creatinine Cancelled, Est GFR (MDRD) Af Amer Cancelled, Est GFR (MDRD) Non-Af Cancelled, BUN/Creatinine Ratio Cancelled, Glucose Cancelled, Calcium Cancelled, Total Bilirubin 0.60, Direct Bilirubin 0.14 05/09/22 15:06: Glucose Cancelled 05/09/22 15:31: Glucose 866 H* 05/09/22 16:14: pH 7.29 L, Bicarbonate Actual 15.8 L, Base Excess -11 L, O2 Saturation 98, ABG pCO2 33.3 L, ABG pO2 125 H 05/09/22 21:00: Lactic Acid 1.4 05/09/22 21:00: Sodium 139, Potassium 4.1, Chloride 105, Carbon Dioxide 22.0, Anion Gap 12, BUN 49 H, Creatinine 3.72 H, Est GFR (MDRD) Af Amer 21 L, Est GFR (MDRD) Non-Af 17 L, BUN/Creatinine Ratio 13.2, Glucose 476 H*, Calcium 7.1 L 05/10/22 00:30: Sodium 137, Potassium 4.9, Chloride 102, Carbon Dioxide 25.0, Anion Gap 10, BUN 55 H, Creatinine 3.81 H, Est GFR (MDRD) Af Amer 21 L, Est GFR (MDRD) Non-Af 17 L, BUN/Creatinine Ratio 14.4, Glucose 473 H*, Calcium 7.8 L 05/10/22 04:55: Sodium Cancelled, Potassium Cancelled, Chloride Cancelled, Carbon Dioxide Cancelled, Anion Gap Cancelled, BUN Cancelled, Creatinine Cancelled, Est GFR (MDRD) Af Amer Cancelled, Est GFR (MDRD) Non-Af Cancelled, BUN/Creatinine Ratio Cancelled, Glucose Cancelled, Calcium Cancelled, Magnesium Cancelled 05/10/22 04:55: WBC 17.9 H, RBC 3.94 L, Hgb 11.8 L, Hct 34.7 L, MCV 88.1 D, MCH 29.9, MCHC 34.0 D, Plt Count 243, MPV 9.7, Immature Gran % (Auto) 0.900, Neut % (Auto) 82.0 H, Lymph % (Auto) 3.2 L, [place] % (Auto) 13.8 H, Eos % (Auto) 0.0, Baso % (Auto) 0.1, Absolute Neuts (auto) 14.7 H, Nucleated RBC % 0 05/10/22 04:55: Sodium 138, Potassium 4.9, Chloride 106, Carbon Dioxide 25.0, Anion Gap 7, BUN 53 H, Creatinine 3.58 H, Est GFR (MDRD) Af Amer 22 L, Est GFR (MDRD) Non-Af 18 L, BUN/Creatinine Ratio 14.8, Glucose 313 H, Calcium 7.7 L, Phosphorus 3.1, Magnesium 1.9 Rhythm: Sinus rhythm EKG: As noted above Echo: 01-20-2019 Interpretation Summary The study was technically difficult. Contrast injection was performed. Left ventricular systolic function is normal. The estimated ejection fraction is 55 %. Trivial mitral valve insufficiency. Mild tricuspid valve insufficiency. Unable to estimate RV systolic pressure/pulmonary artery pressure due to technically difficult study. No evidence for diastolic dysfunction. Stress test: 09/27/2015 DATE OF SERVICE:? EXERCISE TOLERANCE TEST: The patient exercised on a Willy protocol for 4 minutes completing stage 1 and 1 minute of stage 2, achieving a peak heart rate of 117 beats per minute (72% predicted maximum heart rate) and a peak blood pressure of 164/78 mmHg and a peak MET capacity of approximately 5 METs. The baseline ECG demonstrated normal sinus rhythm.? The peak exercise ECG demonstrated no obvious ECG changes at the heart rate achieved. There were no cardiac dysrhythmias pretest, during exercise or recovery. There was no report of chest discomfort during exercise or recovery. The examination was discontinued secondary to leg discomfort and dyspnea. IMPRESSION: 1.? Technically inadequate (percent predicted maximum heart rate less than 85%) exercise tolerance test. 2.? Peak exercise ECG with no obvious ECG changes at the heart rate achieved. 3.? Decreased functional capacity. Cardiac catheterization: 08-05-2015: [facility]: Left main: Minor luminal regularities LAD: Minor luminal regularities LCx: Minor luminal regularities RCA: Minor luminal regularities Left ventricle: LVEF 50 to 55% Aortic valve: No stenosis Mitral valve: No regurgitation Radiography Diagnostic Testing: Radiology Impression Brain CT 05/09/22 11:49 IMPRESSION: Chronic involutional changes of the brain. Limited study. Electronically Signed: Jamie Aguilera MD at 13:10 EST , Chest X-Ray 05/09/22 11:49 IMPRESSION: The endotracheal tube is at the level of the alber. It should be pulled back approximately 3 cm. The distal tip of the orogastric tube is in the distal portion of the stomach. Mild degree of vascular congestion. Electronically Signed: Jamie Aguilera MD at 13:06 EST ,
--- NOTE | 2022-05-10 09:54 | PCM.CONS.R ---
Documented by User: DAVE Justice 05/10/22 10:19 Assessment & Plan Assessment/Plan (1) ERIC (acute kidney injury): (2) Diabetic ketoacidosis: QUALIFIERS: Diabetes mellitus complication detail: without coma Diabetes mellitus type: type 1 Qualified Code(s): E10.10 - Type 1 diabetes mellitus with ketoacidosis without coma (3) Altered mental status: (4) Diabetes type 1, controlled: QUALIFIERS: Diabetes mellitus complication status: with unspecified complications Qualified Code(s): E10.8 - Type 1 diabetes mellitus with unspecified complications PLAN: Plan We were consulted for acute kidney injury. Patient was admitted to ICU last evening for DKA and acute respiratory failure, initially intubated but was successfully extubated this morning. Patient was also started on insulin drip. Blood sugars have improved, now off insulin drip. We were consulted for acute kidney injury. In reviewing past serum creatinine trends, last labs to review were about a year ago and possible baseline creatinine then around 1.1 to 1.3 mg/dL. It appears patient has had a few ERIC episodes since 2016. It does not appear he has ever required any CHECK INSPECTOR. I do not know if patient follows with nephrology outpatient at this time. Serum creatinine was 4.05 mg/dL last night in the ER and today his creatinine is 3.58 mg/dL. His CK was elevated at 839 yesterday. Patient is nonoliguric. At this time there is no acute indication for CHECK INSPECTOR, volume status acceptable, no hyperkalemia or acidosis. We will continue to monitor renal function daily along with you. Labs ordered for the morning, we will also include a CK level. UA negative for blood, protein 15. Possibly ERIC prerenal from DKA, volume depletion and hypotension (SBp in ER 70-90s). We will obtain renal ultrasound. Continue holding furosemide and ramipril. Patient is on IV fluids for volume expansion. CT brain no intracranial hemorrhage, no acute findings. Blood pressure acceptable on Levophed drip. Chest x-ray shows some vascular congestion. Patient is on IV antibiotics, Zosyn and vancomycin blood cultures/urine culture pending. Patient noted to have elevated troponin levels, cardiology consulted. Further orders forthcoming as hospitalization evolves. Thank you for allowing us to participate in the care of Mr. Shannon. HPI Consult Data Date of Consult: 05/10/22 HPI Narrative HPI Narrative: BYRON SHANNON, is a 66 M who was brought to the emergency room by family as he was found unresponsive at home. He was admitted for DKA (serum glucose 1334), altered mental status intubated in the ER and admitted to ICU for further evaluation and treatment. Patient was successfully extubated this morning. Patient has past medical history significant for diabetes mellitus type 1, hypertension, depression. We were consulted for ERIC. Patient awakens to voice but quickly falls back to sleep, therefore information gathered from the chart. In the emergency room serum creatinine was 4.05 mg/dL. This morning his creatinine is 3.58 mg/dL. [facility] Medical History Anxiety Arthritis Cataracts, bilateral CPAP (continuous positive airway pressure) dependence Depression Diabetes type 1, controlled DVT (deep venous thrombosis) Essential hypertension GERD (gastroesophageal reflux disease) GI bleed History of MRSA infection of lungs HLD (hyperlipidemia) Hypoglycemia Multiple sclerosis Myocardial infarct NSTEMI (non-ST elevated myocardial infarction) Obesity Renal failure Rheumatoid arthritis Sepsis Home Medications cholecalciferol (vitamin D3) 25 mcg (1,000 unit) tablet 1,000 unit PO DAILY 09/28/15 [History Last Taken 05/08/22] metoprolol succinate 50 mg tablet,extended release 24 hr 50 mg PO QDAY Check with primary doctor 07/04/17 [History Last Taken 05/08/22] omeprazole 40 mg capsule,delayed release 40 mg PO QDAY 07/04/17 [History Last Taken 05/08/22] pediatric multivit no.17-ferrous fumarate 15 mg iron chewable tablet 15 mg PO QDAY 07/26/17 [History Last Taken 05/08/22] insulin lispro 100 unit/mL subcutaneous solution (Humalog U-100 Insulin) See Rx Instructions subcut QDAY e10.9 #90 mL 12/03/17 [Rx Last Taken 05/08/22] gabapentin 100 mg capsule 200 mg PO TID 12/08/18 [History Last Taken 05/08/22] potassium chloride 10 mEq tablet,extended release(part/cryst) 10 meq PO BID 12/08/18 [History Last Taken 05/08/22] tamsulosin 0.4 mg capsule 1 tab PO DAILY 07/22/19 [History Last Taken 05/08/22] ramipril 10 mg capsule 10 mg PO DAILY ##0 07/24/19 [Rx Last Taken 05/08/22] furosemide 40 mg tablet 40 mg PO DAILY #180 tabs 02/24/20 [Rx Last Taken 05/08/22] duloxetine 60 mg capsule,delayed release (Cymbalta) 60 mg PO DAILY 10/17/20 [History Last Taken 05/08/22] diroximel fumarate 231 mg capsule,delayed release (Vumerity) 462 mg PO BID 02/19/22 [History Last Taken 05/08/22] insulin glargine 100 unit/mL (3 mL) subcutaneous pen (Lantus Solostar U-100 Insulin) 40 unit subcut DAILY PRN DM 02/19/22 [History Last Taken Unknown] rosuvastatin 10 mg tablet 10 mg PO DAILY CHOLESTEROL 05/09/22 [History Last Taken 05/08/22] Allergy/AdvReac Type Severity Reaction Status Date / Time adhesive tape AdvReac Rash Verified 02/19/22 10:37 Sulfa (Sulfonamide AdvReac Other Verified 02/19/22 10:37 Antibiotics) Family History (Updated 05/09/22 @ 13:[address] Dano Lowe MD) Sister Diabetes Surgical History History of carpal tunnel surgery Hx of tonsillectomy insulin pump implant and removal Social History Smoking Status: Former smoker second hand exposure: No alcohol intake: current alcohol intake frequency: a few times a month substance use type: does not use ROS ROS Narrative Unable obtain, see HPI and past medical history Physical Exam Narrative Resting quietly, no apparent distress. Opens eyes to voice and touch but quickly falls back to sleep S1, S2, RRR Lung sounds diminished. On nasal cannula Abdomen soft, rounded, positive bowel sounds Trace nonpitting edema noted bilateral lower leg Indwelling Chan with clear yellow in bag Lab / Micro Data Result Diagrams: 05/10/22 04:55 05/10/22 04:55 Labs: Laboratory Results - last 24 hr 05/09/22 11:08: POC Glucose > 500 H* 05/09/22 11:55: WBC 20.5 H, RBC 4.07 L, Hgb 12.2 L, Hct 41.1, MCV 101.0 H, MCH 30.0, MCHC 29.7 L, RDW Std Deviation 54.0 H, RDW Coeff of Neo 14.6, Plt Count 283, MPV 11.1, Immature Gran % (Auto) 3.100 H, Neut % (Auto) 83.5 H, Lymph % (Auto) 3.7 L, [place] % (Auto) 9.4, Eos % (Auto) 0.0, Baso % (Auto) 0.3, Absolute Neuts (auto) 17.1 H, Absolute Lymphs (auto) 0.77 L, Nucleated RBC % 0, Differential Comment SCANNED, Diff Path Review September marcel, Toxic Vacuolation 2+ 05/09/22 11:55: Sodium 127 L, Potassium 5.7 H, Chloride 81 L, Carbon Dioxide 16.0 L, Anion Gap 30 H, BUN 50 H, Creatinine 4.05 H, Estim Creat Clear Calc 17.36, Est GFR (MDRD) Af Amer 19 L, Est GFR (MDRD) Non-Af 16 L, BUN/Creatinine Ratio 12.3, Glucose 1334 H*, Calcium 8.8, Total Bilirubin 0.60, AST 36, ALT 29, Alkaline Phosphatase 71, Total Protein 6.6, Albumin 3.5, Globulin 3.1, Albumin/Globulin Ratio 1.1 05/09/22 11:55: Acetone Level MODERATE H 05/09/22 11:55: Urine Color Yellow, Urine Clarity Clear, Urine pH 5.0, Ur Specific [place] 1.020, Urine Protein 15 H, Urine Glucose (UA) 1000 H, Urine Ketones 15 H, Urine Occult Blood Negative, Urine Nitrite Negative, Urine Bilirubin Negative, Urine Urobilinogen Normal, Ur Leukocyte Esterase Negative, Urine RBC 0 SEEN, Urine WBC 0 SEEN, Ur Squamous Epith Cells 0 SEEN, Urine Bacteria 0 SEEN, Urine Mucus 0 SEEN 05/09/22 11:55: Total Creatine Kinase 839 H 05/09/22 11:55: Hemoglobin A1c 7.6 H 05/09/22 13:23: POC Glucose > 500 H* 05/09/22 13:30: Sodium 130 L, Potassium 5.3 H, Chloride 91 L, Carbon Dioxide 10.0 L, Anion Gap 29 H, BUN 50 H, Creatinine 4.08 H, Estim Creat Clear Calc 17.23, Est GFR (MDRD) Af Amer 19 L, Est GFR (MDRD) Non-Af 16 L, BUN/Creatinine Ratio 12.3, Glucose 1110 H*, Calcium 8.2 L 05/09/22 13:30: Sodium Cancelled, Potassium Cancelled, Chloride Cancelled, Carbon Dioxide Cancelled, Anion Gap Cancelled, BUN Cancelled, Creatinine Cancelled, Est GFR (MDRD) Af Amer Cancelled, Est GFR (MDRD) Non-Af Cancelled, BUN/Creatinine Ratio Cancelled, Glucose Cancelled, Calcium Cancelled, Total Bilirubin 0.60, Direct Bilirubin 0.14, AST 43 H, ALT 31, Alkaline Phosphatase 69, Total Protein 6.1 L, Albumin 3.2, Globulin 2.9 05/09/22 15:06: Glucose Cancelled 05/09/22 15:31: Glucose 866 H* 05/09/22 17:26: POC Glucose > 500 H* 05/09/22 18:30: Troponin I High Sens 974 H* 05/09/22 19:04: POC Glucose > 500 H* 05/09/22 20:07: POC Glucose 484 H* 05/09/22 21:00: Lactic Acid 1.4 05/09/22 21:00: Troponin I High Sens 1698 H* 05/09/22 21:00: Sodium 139, Potassium 4.1, Chloride 105, Carbon Dioxide 22.0, Anion Gap 12, BUN 49 H, Creatinine 3.72 H, Estim Creat Clear Calc 16.36, Est GFR (MDRD) Af Amer 21 L, Est GFR (MDRD) Non-Af 17 L, BUN/Creatinine Ratio 13.2, Glucose 476 H*, Calcium 7.1 L 05/09/22 21:00: POC Glucose 431 H 05/09/22 21:45: MRSA (PCR) Negative 05/09/22 22:09: POC Glucose 428 H 05/09/22 23:05: POC Glucose 432 H 05/10/22 00:02: POC Glucose 386 H 05/10/22 00:30: Sodium 137, Potassium 4.9, Chloride 102, Carbon Dioxide 25.0, Anion Gap 10, BUN 55 H, Creatinine 3.81 H, Estim Creat Clear Calc 15.97, Est GFR (MDRD) Af Amer 21 L, Est GFR (MDRD) Non-Af 17 L, BUN/Creatinine Ratio 14.4, Glucose 473 H*, Calcium 7.8 L 05/10/22 00:30: Troponin I High Sens 3029 H* 05/10/22 00:59: POC Glucose 399 H 05/10/22 01:55: POC Glucose 390 H 05/10/22 02:57: Troponin I High Sens 4049 H* 05/10/22 03:00: POC Glucose 345 H 05/10/22 03:59: POC Glucose 307 H 05/10/22 04:55: Sodium Cancelled, Potassium Cancelled, Chloride Cancelled, Carbon Dioxide Cancelled, Anion Gap Cancelled, BUN Cancelled, Creatinine Cancelled, Estim Creat Clear Calc Cancelled, Est GFR (MDRD) Af Amer Cancelled, Est GFR (MDRD) Non-Af Cancelled, BUN/Creatinine Ratio Cancelled, Glucose Cancelled, Calcium Cancelled, Magnesium Cancelled 05/10/22 04:55: WBC 17.9 H, RBC 3.94 L, Hgb 11.8 L, Hct 34.7 L, MCV 88.1 D, MCH 29.9, MCHC 34.0 D, RDW Std Deviation 45.7 H, RDW Coeff of Neo 14.2, Plt Count 243, MPV 9.7, Immature Gran % (Auto) 0.900, Neut % (Auto) 82.0 H, Lymph % (Auto) 3.2 L, [place] % (Auto) 13.8 H, Eos % (Auto) 0.0, Baso % (Auto) 0.1, Absolute Neuts (auto) 14.7 H, Absolute Lymphs (auto) 0.57 L, Nucleated RBC % 0, Differential Comment SCANNED, Diff Path Review September05/10/22 04:55: Sodium 138, Potassium 4.9, Chloride 106, Carbon Dioxide 25.0, Anion Gap 7, BUN 53 H, Creatinine 3.58 H, Estim Creat Clear Calc 17.00, Est GFR (MDRD) Af Amer 22 L, Est GFR (MDRD) Non-Af 18 L, BUN/Creatinine Ratio 14.8, Glucose 313 H, Calcium 7.7 L, Phosphorus 3.1, Magnesium 1.9 05/10/22 04:55: Troponin I High Sens 5050 H* 05/10/22 04:58: POC Glucose 270 H 05/10/22 05:58: POC Glucose 251 H 05/10/22 07:00: POC Glucose 235 H 05/10/22 08:09: POC Glucose 258 H 05/10/22 09:14: POC Glucose 227 H Micro: Microbiology 05/09/22 15:28 Mucosa - Nasopharyngeal Respiratory Panel (PCR) - Final Rhinovirus 05/09/22 11:55 Urine Catheter - Catheter Legionella Antigen - Final 05/09/22 11:55 Urine Catheter - Catheter Streptococcus pneumoniae Antigen (M - Final ABG Data ABG results: ABG 05/09/22 05/09/22 12:37 16:14 Specimen Type ART ART Sample Site L Radial pH 7.10 L* 7.29 L Bicarbonate Actual 13.0 L 15.8 L Total CO2 14 17 Base Excess -17 L -11 L O2 Saturation 81 L 98 O2 % 60 40 ABG pCO2 42.0 33.3 L ABG pO2 61 L 125 H Wong Test Positive Respiration Rate 14 14 O2 Delivery Device Adult Vent Vent Mode PRVC Tidal Volume 450 450 POC PEEP 5 5 Crit Call To/Read Back Yes Blood Gas Notified [facility]iology Impression Brain CT 05/09/22 11:49 IMPRESSION: Chronic involutional changes of the brain. Limited study. Electronically Signed: Jamie Aguilera MD at 13:10 EST , Chest X-Ray 05/09/22 11:49 IMPRESSION: The endotracheal tube is at the level of the alber. It should be pulled back approximately 3 cm. The distal tip of the orogastric tube is in the distal portion of the stomach. Mild degree of vascular congestion. Electronically Signed: Jamie Aguilera MD at 13:06 EST , Documented by User: Dr. Minesh Culver MD 05/10/22 12:04 Assessment & Plan Assessment/Plan (1) ERIC (acute kidney injury): (2) Diabetic ketoacidosis: QUALIFIERS: Diabetes mellitus complication detail: without coma Diabetes mellitus type: type 1 Qualified Code(s): E10.10 - Type 1 diabetes mellitus with ketoacidosis without coma (3) Altered mental status: (4) Diabetes type 1, controlled: QUALIFIERS: Diabetes mellitus complication status: with unspecified complications Qualified Code(s): E10.8 - Type 1 diabetes mellitus with unspecified complications PLAN: Plan We were consulted for acute kidney injury. Patient was admitted to ICU last evening for DKA and acute respiratory failure, initially intubated but was successfully extubated this morning. Patient was also started on insulin drip. Blood sugars have improved, now off insulin drip. We were consulted for acute kidney injury. In reviewing past serum creatinine trends, last labs to review were about a year ago and possible baseline creatinine then around 1.1 to 1.3 mg/dL. It appears patient has had a few ERIC episodes since 2016. It does not appear he has ever required any CHECK INSPECTOR. I do not know if patient follows with nephrology outpatient at this time. Serum creatinine was 4.05 mg/dL last night in the ER and today his creatinine is 3.58 mg/dL. His CK was elevated at 839 yesterday. Patient is nonoliguric. At this time there is no acute indication for CHECK INSPECTOR, volume status acceptable, no hyperkalemia or acidosis. We will continue to monitor renal function daily along with you. Labs ordered for the morning, we will also include a CK level. UA negative for blood, protein 15. Possibly ERIC prerenal from DKA, volume depletion and hypotension (SBp in ER 70-90s). We will obtain renal ultrasound. Continue holding furosemide and ramipril. Patient is on IV fluids for volume expansion. CT brain no intracranial hemorrhage, no acute findings. Blood pressure acceptable on Levophed drip. Chest x-ray shows some vascular congestion. Patient is on IV antibiotics, Zosyn and vancomycin blood cultures/urine culture pending. Patient noted to have elevated troponin levels, cardiology consulted. Further orders forthcoming as hospitalization evolves. Thank you for allowing us to participate in the care of Mr. Shannon. Nephrology attending addendum: The patient was seen and examined personally. Nurse practitioner's note reflects my independent medical decision making with plantation below. Consulted for ERIC. The patient is a 66-year-old man with past history of type 1 diabetes mellitus, multiple sclerosis, CAD, hypertension, depression, WINSTON on CPAP, VTE, depression/anxiety disorder, and GERD. The patient was admitted to the hospital on 05/09/2022 with unresponsiveness then DKA. Nephrology is asked to see the patient because of ERIC. The patient presented to the hospital with serum creatinine of 4.08 mg/dL on 05/09/2022. The most recent available serum creatinine prior to this admission was from 02/12/2021. At that time, serum creatinine was 1.13 mg/dL. BP has been labile since presentation with periods of hypotension. The patient has also required vasopressor for BP support although he currently off of it. The patient was extubated the morning of 05/10/2022. He is currently on NIV and is sleepy, so ROS cannot be accurately obtained. Urinalysis showed glucosuria. Specific gravity was 1.020. There was only 1+ protein on dipstick, and there was no significant urine sediments or RBCs. Prior to admission, the patient had been on ramipril and furosemide. On exam, the patient has normal heart tone. Lungs are coarse on auscultation anteriorly. There is trace edema of the lower extremities. Impression/Plan: The patient is a 66-year-old man with past history of type 1 diabetes mellitus, multiple sclerosis, CAD, hypertension, depression, WINSTON on CPAP, VTE, depression/anxiety disorder, and GERD. The patient is admitted on 05/09/2022 with altered mental status and was found to have DKA. He has been treated in the ICU for DKA, acute hypoxic respiratory failure, circulatory shock, and NSTEMI. Nephrology is following for ERIC. Acute kidney injury. Baseline renal function is unclear. Last available creatinine level before this admission was from 02/12/2021 at 1.13 mg/dL. The patient does have risk factors for CKD with longstanding type 1 diabetes mellitus. I will check renal ultrasound. Although I have low suspicion for obstruction, kidney size may help us determine chronicity of renal dysfunction. I suspect ERIC is secondary to prerenal azotemia due to shock and volume depletion from polyuria secondary to severe hyperglycemia. Prerenal ERIC may have progressed to ischemic ATN as well. Urinalysis did not suggest other causes of ERIC such as interstitial nephritis, vasculitis or acute glomerulonephritis. I will check urine indices. I have low suspicion for obstruction as a primary cause of REIC. However, we will check renal ultrasound to be complete. Renal function is improving, and the patient is not oliguric. He is not hyperkalemic, and metabolic acidosis from DKA has resolved. Therefore, there is no need for kidney replacement therapy. Continue to keep MAP above 65 mmHg. Bolus with IV crystalloid if MAP is consistently below goal. We will continue to monitor renal function, volume status, electrolytes and acid-base status. Current medications are reviewed and are appropriate dose for his renal function. Metabolic acidosis with high anion gap. Serum bicarbonate was as low as 10 mmol/L on 05/09/2022. Serum bicarbonate level is now 25 mmol/L this morning. I suspect that there is coexisting metabolic alkalosis from volume depletion in this case as well. Metabolic acidosis has resolved with treatment of DKA with insulin infusion. Continue to monitor serum bicarbonate. DKA. Management as per hospital medicine and ICU services. Improving. NSTEMI. The patient is being evaluated by cardiology service. In the process of determining whether this is type I or type II NSTEMI. Nephrology plan will be discussed with Dr. Lowe and Dr. Meadows. HPI Consult Data Date of Consult: 05/10/22 [facility] Medical History Anxiety Arthritis Cataracts, bilateral CPAP (continuous positive airway pressure) dependence Depression Diabetes type 1, controlled DVT (deep venous thrombosis) Essential hypertension GERD (gastroesophageal reflux disease) GI bleed History of MRSA infection of lungs HLD (hyperlipidemia) Hypoglycemia Multiple sclerosis Myocardial infarct NSTEMI (non-ST elevated myocardial infarction) Obesity Renal failure Rheumatoid arthritis Sepsis Home Medications cholecalciferol (vitamin D3) 25 mcg (1,000 unit) tablet 1,000 unit PO DAILY 09/28/15 [History Last Taken 05/08/22] metoprolol succinate 50 mg tablet,extended release 24 hr 50 mg PO QDAY Check with primary doctor 07/04/17 [History Last Taken 05/08/22] omeprazole 40 mg capsule,delayed release 40 mg PO QDAY 07/04/17 [History Last Taken 05/08/22] pediatric multivit no.17-ferrous fumarate 15 mg iron chewable tablet 15 mg PO QDAY 07/26/17 [History Last Taken 05/08/22] insulin lispro 100 unit/mL subcutaneous solution (Humalog U-100 Insulin) See Rx Instructions subcut QDAY e10.9 #90 mL 12/03/17 [Rx Last Taken 05/08/22] gabapentin 100 mg capsule 200 mg PO TID 12/08/18 [History Last Taken 05/08/22] potassium chloride 10 mEq tablet,extended release(part/cryst) 10 meq PO BID 12/08/18 [History Last Taken 05/08/22] tamsulosin 0.4 mg capsule 1 tab PO DAILY 07/22/19 [History Last Taken 05/08/22] ramipril 10 mg capsule 10 mg PO DAILY ##0 07/24/19 [Rx Last Taken 05/08/22] furosemide 40 mg tablet 40 mg PO DAILY #180 tabs 02/24/20 [Rx Last Taken 05/08/22] duloxetine 60 mg capsule,delayed release (Cymbalta) 60 mg PO DAILY 10/17/20 [History Last Taken 05/08/22] diroximel fumarate 231 mg capsule,delayed release (Vumerity) 462 mg PO BID 02/19/22 [History Last Taken 05/08/22] insulin glargine 100 unit/mL (3 mL) subcutaneous pen (Lantus Solostar U-100 Insulin) 40 unit subcut DAILY PRN DM 02/19/22 [History Last Taken Unknown] rosuvastatin 10 mg tablet 10 mg PO DAILY CHOLESTEROL 05/09/22 [History Last Taken 05/08/22] Allergy/AdvReac Type Severity Reaction Status Date / Time adhesive tape AdvReac Rash Verified 02/19/22 10:37 Sulfa (Sulfonamide AdvReac Other Verified 02/19/22 10:37 Antibiotics) Family History (Updated 05/09/22 @ 13:[address] Dano Lowe MD) Sister Diabetes Surgical History History of carpal tunnel surgery Hx of tonsillectomy insulin pump implant and removal Social History Smoking Status: Former smoker second hand exposure: No alcohol intake: current alcohol intake frequency: a few times a month substance use type: does not use Lab / Micro Data Result Diagrams: 05/10/22 04:55 05/10/22 04:55
[2022-05-10] MEDS: Insulin Lispro 100 UNIT/ML INSULN.PEN SC ×3 (10:11→23:04)
[2022-05-10] MEDS: Lactated Ringers 1,000 ML 999 ML IV (10:17)
[2022-05-10 10:20] LABS: Allen Test Positive; Base Excess -2 mmol/L (-2 to +2); Bicarbonate 23.5 mmol/L (22-26); Blood Gas Specimen Type ART; O2 Delivery Device Cannula; PO2 69 mmHG (75-100); SITE R Radial; SO2 93 % (95-99); Total Carbon Dioxide 25 mmol/L; pCO2 39.6 mmHg (35-45); pH 7.38 (7.35-7.45)
[2022-05-10] MEDS: Insulin Glargine-YFGN 100 UNIT/ML Pen 45 UNIT SC ×2 (10:20→17:23)
--- NOTE | 2022-05-10 10:20 | US_ITS ---
INDICATION: ERIC EXAMINATION: Ultrasound US Kidney(s) complete (eg, kidneys and bladder) TECHNIQUE: Olmedo scale and color doppler images were obtained of the kidneys. COMPARISON: None. FINDINGS: RIGHT KIDNEY: Measures 11.8 cm in length.. There is no hydronephrosis. No shadowing calculus, focal lesion or perinephric collection is demonstrated. LEFT KIDNEY: Measures 11.3 cm in length.. There is no hydronephrosis. No shadowing calculus, focal lesion or perinephric collection is demonstrated. URINARY BLADDER: Chan catheter in place. US/Kidney and Bladder IMPRESSION: Normal renal ultrasound. Electronically Signed: Yfn Morris MD at 23:51 EST ,
[2022-05-10 10:40] LABS: Bedside Glucose 230 mg/dL (74-106)
[2022-05-10] MEDS: 0.9% Saline Lock 10 ML Syringe IV ×2 (12:34→21:05)
[2022-05-10 12:52] LABS: Urine Sodium 28 mmol/L (Not Establ.)
[2022-05-10 13:11] LABS: Troponin-I HS 6131 pg/mL (3.0-78.0)
--- NOTE | 2022-05-10 14:10 | CASEMGMT ---
RN CM CHIEF CATALYST OPERATOR CM to room to meet with patient for initial transition planning/care coordination assessment. Pt resting in bed w/BIPAP in place w/eyes closed. Sleepy/groggy. Does open eyes briefly but did not answer questions for RN CM. Pt's sister, Codi, @ bedside, and step-dtr, Gertrude Rizzo, @ bedside. RN CM introduced self and role at [facility]. Codi states pt's other sister, Ermelinda, would be able to answer more questions for RN CM than herself, and she placed call to Ermelinda while RN CM in room and placed her on speaker phone. The following information obtained from Ermelinda. Care providers, pharmacy, and demographics verified/updated at this time. PCP: [facility] Specialists: Dr Amina Scott @ [facility] manages diabetes; Neuro from [facility]--Ermelinda could not remember his name. Pt was seeing Jayden cardio, but Ermelinda is not sure if he is still seeing him. Preferred Pharmacy: [facility] Retail Insurance: Simon MARTEL Prescription Benefit: yes LW/HPOA: Ermelinda states pt does not have a LW/DPOA, but would like SW to talk w/him about AD once he is awake/alert. LNOK: Ermelinda Bautista, sister; Codi Ramos, sister. Pt has 6 step-children. He does not have any biological children and his parents are not living. Living Arrangements: Pt lives alone in a single story house with 2 steps to enter. Ermelinda states pt is I in ADL's and IADL's. She states he manages his own medications and appts well. She states she feels pt's main issue is when he starts to not feel well, then he doesn't eat/drink well, gets dehydrated, and then runs into medical problems w/his diabetes. Ermelinda states she does keep on eye on his medications at times, by making sure he gets his refills, but otherwise, pt does them on his own. Transportation: Pt drives DME: Pt has a cane, rollator (has available, but does not use), shower chair and CPAP machine at home w/O2 bleed-in thru [employer]. Ermelinda is not sure on liter flow. E-mail sent to Archie @ [employer] [facility] and he states pt's current orders are 2 l/m continuous. Ermelinda crowell pt has a continuous glucose monitor and pump and that he is due for a new pump this month. She states pt also has a glucometer that he will use every so often to verify accuracy of contin gluc monitor results. HHC/SNF: Ermelinda crowell does not think pt has had HHC in the past. Noted during pt's last [facility] hospitalization in 2020, bonnie states has had HHC a long time ago. Ermelinda crowell pt did go to a SNF in [place] several years ago as well, but does not remember name of facility. Ermelinda and other family in room state they do not have any further questions at this time. They were instructed to ask for FRANCO SEGOVIA if any questions/concerns arise. Plan: TBD by course of treatment and progress w/therapy. PT/OT evals pending. Follow for any increase in oxygen needs @ d/c. Ferdinand OCAMPON FRANCO SEGOVIA
[2022-05-10 14:31] LABS: Bedside Glucose 382 mg/dL (74-106)
[2022-05-10] MEDS: Insulin Lispro 100 UNIT/ML INSULN.PEN 15 UNIT SC (17:24)
[2022-05-10 17:25] LABS: Bedside Glucose 481 mg/dL (74-106)
[2022-05-10 23:25] LABS: Bedside Glucose 375 mg/dL (74-106)
[2022-05-11] VITALS (35 sets, daily range): BP systolic 104–151; BP diastolic 45–85; PULSE 70–99; RESP 11–19; TEMP 36.8–37.6; O2SAT 92–100
[2022-05-11 03:51] LABS: Absolute Neutrophil Count 9.2 X10^3/uL (2.0-7.7); Basophil# 0.01 X10^3/uL; Basophil% 0.1 % (0-1); Hematocrit 33.6 % (40-54); Hemoglobin 10.9 g/dL (13.0-16.5); Lymphocyte % 4.6 % (19-41); Mean Corp Hgb Conc 32.4 g/dL (32-36); Mean Corpuscular Hgb 29.3 pg (27.0-32.0); Mean Corpuscular Volume 90.3 fL (80-94); Mean Platelet Vol. 9.6 fl (6.2-12.0); Monocyte# 1.14 X10^3/uL; Monocyte% 10.4 % (0-10); NRBC Flagged by Analyzer 0 % (0-5); Neutrophil % 83.9 % (47-70); POSITIVE DIFFERENTIAL YES; Platelet Count 187 K/mm3 (150-450); RBC Distribution Width CV 14.9 % (11.6-14.6); RBC Distribution Width SD 48.9 fl (35.1-43.9); Red Blood Count 3.72 M/mm3 (4.6-6.2)
[2022-05-11 03:52] LABS: Differential Indicated SCAN CRITERIA MET
[2022-05-11 04:05] LABS: Anion Gap 6 (5-15); Anisocytosis RARE; BUN 46 mg/dL (7-18); BUN/Creat Ratio 18.2 RATIO (10-20); Calcium,Total 8.3 mg/dL (8.5-10.1); Chloride 112 mmol/L (98-107); Creatinine, Serum 2.53 mg/dL (0.70-1.30); EST Glomerular Filtration Rate 27 mL/min (>60); Est Glom Filt Rate - Afr Amer 33 mL/min (>60); Estimated Creatinine Clearance 24.05 ml/min; Glucose 402 mg/dL (74-106); Potassium 4.4 mmol/L (3.5-5.1); Sodium Level 144 mmol/L (136-145)
[2022-05-11 04:28] LABS: CPK Total, Creatine Kinase 2295 U/L (39-308); Troponin-I HS 3656 pg/mL (3.0-78.0)
[2022-05-11] MEDS: 0.9% Saline Lock 10 ML Syringe IV (05:48)
--- NOTE | 2022-05-11 05:55 | EKG12_ITS ---
Test Reason : AM EKG Blood Pressure : / mmHG Vent. Rate : 082 BPM Atrial Rate : 082 BPM P-R Int : 210 ms QRS Dur : 108 ms QT Int : 384 ms P-R-T Axes : 059 076 051 degrees QTc Int : 448 ms Sinus rhythm with 1st degree A-V block Otherwise normal ECG When compared with ECG of 10-MAY-2022 01:15, MANUAL COMPARISON REQUIRED, DATA IS UNCONFIRMED Confirmed by MITUL KAMARA, SYLVESTER ([id number]), avid editor PRATIK CASTLE ([id number]) on 05/11/2022 1:08:31 PM Referred By: YANDEL Confirmed By:SYLVESTER BAUMAN MD
[2022-05-11] MEDS: Insulin Glargine-YFGN 100 UNIT/ML Pen 45 UNIT SC (06:04)
[2022-05-11] MEDS: Insulin Lispro 100 UNIT/ML INSULN.PEN 15 UNIT SC (06:04)
[2022-05-11] MEDS: Insulin Lispro 100 UNIT/ML INSULN.PEN SC ×2 (06:04→11:08)
[2022-05-11 06:55] LABS: Bedside Glucose 385 mg/dL (74-106)
--- NOTE | 2022-05-11 07:16 | PCM.PN.HOSP ---
Subjective Subjective Blood glucose control still not optimal, subsequent adjustment to patient insulin regimen made. Patient also remains confused blood pressure not well controlled Objective Data Objective Data Vital Signs: Vital Signs Temp Pulse Resp BP Pulse Ox O2 Del Method O2 Flow Rate 98.6 F 84 11 L 151/85 H 97 Bi-pap 2 05/11/22 07:00 05/11/22 07:00 05/11/22 07:00 05/11/22 07:00 05/11/22 07:00 05/11/22 07:00 05/10/22 18:00 FiO2 25 05/11/22 07:00 Oxygen Flow Rate (L/min) 2 Oxygen Delivery Method Bi-pap Weight: 148 kg Body Mass Index (BMI) 54.6 Intake & Output: Intake and Output for Last 24 Hours 05/09/22 05/10/22 05/11/22 23:59 23:59 23:59 Intake Total 6018.66 / 6107.66 4386.95 / 4386.95 50 / 50 Output Total 600 / 925 3220 / 3220 800 / 800 Balance 5418.66 / 5182.66 1166.95 / 1166.95 -750 / -750 Lab / Micro Data Result Diagrams: 05/11/22 03:44 05/11/22 03:44 Labs: Laboratory Results - last 24 hr 05/10/22 04:55: Sodium Cancelled, Potassium Cancelled, Chloride Cancelled, Carbon Dioxide Cancelled, Anion Gap Cancelled, BUN Cancelled, Creatinine Cancelled, Estim Creat Clear Calc Cancelled, Est GFR (MDRD) Af Amer Cancelled, Est GFR (MDRD) Non-Af Cancelled, BUN/Creatinine Ratio Cancelled, Glucose Cancelled, Calcium Cancelled, Magnesium Cancelled 05/10/22 04:55: Magnesium 1.9 05/10/22 05:58: POC Glucose 251 H 05/10/22 07:00: POC Glucose 235 H 05/10/22 08:09: POC Glucose 258 H 05/10/22 09:14: POC Glucose 227 H 05/10/22 10:10: POC Glucose 230 H 05/10/22 12:30: Troponin I High Sens 6131 H* 05/10/22 12:30: Ur Random Sodium 28 05/10/22 12:30: Urine Creatinine 126.00 05/10/22 14:13: POC Glucose 382 H 05/10/22 17:04: POC Glucose 481 H* 05/10/22 23:03: POC Glucose 375 H 05/11/22 03:44: WBC 11.0, RBC 3.72 L, Hgb 10.9 L, Hct 33.6 L, MCV 90.3, MCH 29.3, MCHC 32.4, RDW Std Deviation 48.9 H, RDW Coeff of Neo 14.9 H, Plt Count 187, MPV 9.6, Immature Gran % (Auto) 1.000 H, Neut % (Auto) 83.9 H, Lymph % (Auto) 4.6 L, [place] % (Auto) 10.4 H, Eos % (Auto) 0.0, Baso % (Auto) 0.1, Absolute Neuts (auto) 9.2 H, Absolute Lymphs (auto) 0.50 L, Nucleated RBC % 0, Anisocytosis RARE 05/11/22 03:44: Sodium 144, Potassium 4.4, Chloride 112 H, Carbon Dioxide 26.0, Anion Gap 6, BUN 46 H, Creatinine 2.53 H, Estim Creat Clear Calc 24.05, Est GFR (MDRD) Af Amer 33 L, Est GFR (MDRD) Non-Af 27 L, BUN/Creatinine Ratio 18.2, Glucose 402 H, Calcium 8.3 L 05/11/22 03:44: Total Creatine Kinase 2295 H, Troponin I High Sens 3656 H* 05/11/22 06:03: POC Glucose 385 H Micro: Microbiology 05/09/22 16:20 Sputum, Tracheal Aspirate Gram Stain - Final 05/09/22 16:20 Sputum, Tracheal Aspirate Respiratory Culture - Preliminary Staphylococcus aureus 05/09/22 15:28 Mucosa - Nasopharyngeal Respiratory Panel (PCR) - Final Rhinovirus 05/09/22 11:55 Urine Catheter - Catheter Legionella Antigen - Final 05/09/22 11:55 Urine Catheter - Catheter Streptococcus pneumoniae Antigen (M - Final ABG Data ABG results: ABG 05/10/22 10:14 Specimen Type ART Sample Site R Radial pH 7.38 Bicarbonate Actual 23.5 Total CO2 25 Base Excess -2 O2 Saturation 93 L ABG pCO2 39.6 ABG pO2 69 L Wong Test Positive O2 Delivery Device Cannula Liter Flow 3.0 Radiography Diagnostic Testing: Radiology Impression Echocardiogram 05/10/22 01:09 Interpretation Summary The study was technically difficult. Left ventricular systolic function is normal. The estimated ejection fraction is 65 %. The left atrium is mildly enlarged. Trivial mitral valve insufficiency. Trivial tricuspid valve insufficiency. Trivial pericardial effusion. There are no echocardiographic indications of cardiac tamponade. Unable to estimate RV systolic pressure/pulmonary artery pressure due to technically difficult study. No evidence for diastolic dysfunction. Ordering Physician: Desirae Yousif Performed By: Jacqueline Nelson RDCS Renal Ultrasound 05/10/22 10:20 IMPRESSION: Normal renal ultrasound. Electronically Signed: Yfn Morris MD at 23:51 EST , Physical Exam Narrative GENERAL: Awake but appears delirious HEENT: Atraumatic; normocephalic EYES; Anicteric, Normal Conjunctiva NECK; supple, normal thyroid, RESPIRATORY: Diminished to auscultation CARDIOVASCULAR: Regular S1 S2, GI: soft, normoactive bowel sounds, : No Renal angle tenderness; EXTREMITIES: No edema, no clubbing, MUSCULOSKELETAL: no muscle wasting NEURO: no lateralizing signs. SKIN: No Rash PSYCH; Flat affect Assessment & Plan Assessment/Plan (1) Altered mental status: (2) Respiratory failure: PLAN: Plan Patient is a 66-year-old male admitted with altered mental status 1. Diabetic ketoacidosis ? Patient has been admitted to intensive care unit currently being managed with aggressive IV fluid resuscitation IV insulin, serial monitoring with every 4 BMP and subsequent correction of electrolyte abnormalities ? 05/10/2022; patient DKA resolved plan is to switch patient from insulin drip to scheduled long-acting as well as Premeal Insulin -05/11/2022 Blood glucose control still not optimal, subsequent adjustment to patient insulin regimen made 2. Acute hypoxic respiratory failure ? Patient was intubated in the ED subsequently placed on the vent consult placed to pulmonary medicine/intensive care for vent management -05/10/2022 patient has been weaned off the vent ? 05/11/2022; patient remains on supplemental oxygen 3. Septic shock (not evident on admission) ?This was evident by persistent hypotension, evidence of endorgan damage(Respiratory failure and acute kidney injury) as well as leukocytosis and tachycardia with suspected evidence of infection Patient had to be started on broad-spectrum antibiotic therapyVancomycin, Levaquin and Zosyn. Cultures sent. Patient started on Levophed titrated to keep MAP greater than 60 following patient failure to respond to aggressive IV fluid resuscitation ? 05/11/2022; patient blood pressure stabilized 4. Acute metabolic encephalopathy ? 05/11/2022 due to combination of patient acute hypoxic respiratory failure as well as ERIC plan is to treat underlying condition. Also ordered CT of the head for further evaluation 5. Acute kidney injury ? Possibly ATN from patient DKA and sepsis on IV fluids consult placed to nephrology ? 05/11/2022 patient was seen in consultation by Dr. Roblero Case discussed with him. Plan is to continue with IV fluid with daily monitoring of electrolyte 6. Elevated troponin ?? NSTEMI Versus demand ischemia. Ordered 2D echo as well as serial cardiac enzymes and cardiology consultation ? 05/11/2022; patient was seen in consultation by cardiology with plans for further evaluation of his coronary arteries invasively versus noninvasively, to be determined by cardiology 7. Essential hypertension ? Patient antihypertensives placed on hold in view of relatively low blood pressure ? 05/11/2022; patient hypotension resolved patient blood pressure markedly elevated restarted patient antihypertensives 8. Dyslipidemia ? Patient is on rosuvastatin plan is to restart once patient is weaned off the vent 9. GERD ? Patient is on PPI 10. GI prophylaxis ? Patient placed on Protonix 11. Class III obesity with BMI of 49.6 ? Plan is to extension course counselor patient on weight reduction once he is weaned on the vent 12. Multiple sclerosis ? Per history 13. DVT prophylaxis Bilateral SCDs plus SC Lovenox Total critical care time spent evaluating patient, review of diagnostic data, management orders, subsequent response to initial therapy as well as discussion with other providers involved in patient's care; 45 minutes Charges/Coding Procedures Hospitalists Procedures: 96990 Critial Care 1st Hr
[2022-05-11] MEDS: Insulin Lispro 100 UNIT/ML INSULN.PEN 20 UNIT SC ×3 (07:57→16:26)
[2022-05-11] MEDS: Insulin Glargine-YFGN 100 UNIT/ML Pen 60 UNIT SC ×2 (07:57→16:27)
--- NOTE | 2022-05-11 08:55 | CT_ITS ---
STUDY: CT HEAD STROKE PROTOCOL W/O CONTRAST INJECTION REASON FOR EXAM: Male, 66 years old. Acute encephalopathy RADIATION DOSAGE (If Supplied By Facility): CTDIvol = ( 44.99 ) mGy, DLP = ( 897.35 ) mGycm TECHNIQUE: Transaxial CT imaging of the brain was performed without administration of intravenous contrast material. Individualized dose optimization techniques were used for this CT. COMPARISON: Comparison is made with prior study dated 05/09/2022. FINDINGS: Normal soft tissue structures. Normal calvarium. There is mild cerebral atrophy with widening of the extra-axial spaces and ventricular dilatation. There are areas of decreased attenuation within the white matter tracts of the supratentorial brain, consistent with microvascular disease changes. Normal basal ganglia and thalami. Normal brainstem. Normal cerebellum. There is no intracranial hemorrhage. There are no findings of an acute ischemic infarction. Normal visualized paranasal sinuses. ASPECT score: 10 CT/STROKE Brain/Head without Cont IMPRESSION: Chronic involutional changes of the brain. N.B. : The above Results were Read Back by Jamie Aguilera MD to MD Dc, and understanding confirmed on 05/11/2022 09:49:39 (ET). Electronically Signed: Jamie Aguilera MD at 9:50 EST ,
--- NOTE | 2022-05-11 09:03 | PCM.PN.CARD ---
Subjective Subjective The patient remains in the ICU. He remains somewhat somnolent. He does respond to verbal stimuli but then quickly returns to sleep. Objective Data Vital Signs: Vital Signs Temp Pulse Resp BP Pulse Ox O2 Del Method O2 Flow Rate 98.9 F 90 15 132/56 H 98 Nasal Cannula 2 05/11/22 08:00 05/11/22 08:00 05/11/22 08:00 05/11/22 08:00 05/11/22 08:00 05/11/22 08:00 05/11/22 08:00 FiO2 25 05/11/22 07:18 Oxygen Flow Rate (L/min) 2 Oxygen Delivery Method Nasal Cannula Weight: 326 lb 4.546 oz Body Mass Index (BMI) 54.6 Intake & Output: Intake and Output for Last 24 Hours 05/09/22 05/10/22 05/11/22 23:59 23:59 23:59 Intake Total 6018.66 / 6107.66 4386.95 / 4386.95 50 / 50 Output Total 600 / 925 3220 / 3220 800 / 800 Balance 5418.66 / 5182.66 1166.95 / 1166.95 -750 / -750 Lab / Micro Data Result Diagrams: 05/11/22 03:44 05/11/22 03:44 Labs: Laboratory Results - last 24 hr 05/10/22 09:14: POC Glucose 227 H 05/10/22 10:10: POC Glucose 230 H 05/10/22 12:30: Troponin I High Sens 6131 H* 05/10/22 12:30: Ur Random Sodium 28 05/10/22 12:30: Urine Creatinine 126.00 05/10/22 14:13: POC Glucose 382 H 05/10/22 17:04: POC Glucose 481 H* 05/10/22 23:03: POC Glucose 375 H 05/11/22 03:44: WBC 11.0, RBC 3.72 L, Hgb 10.9 L, Hct 33.6 L, MCV 90.3, MCH 29.3, MCHC 32.4, RDW Std Deviation 48.9 H, RDW Coeff of Neo 14.9 H, Plt Count 187, MPV 9.6, Immature Gran % (Auto) 1.000 H, Neut % (Auto) 83.9 H, Lymph % (Auto) 4.6 L, [place] % (Auto) 10.4 H, Eos % (Auto) 0.0, Baso % (Auto) 0.1, Absolute Neuts (auto) 9.2 H, Absolute Lymphs (auto) 0.50 L, Nucleated RBC % 0, Anisocytosis RARE 05/11/22 03:44: Sodium 144, Potassium 4.4, Chloride 112 H, Carbon Dioxide 26.0, Anion Gap 6, BUN 46 H, Creatinine 2.53 H, Estim Creat Clear Calc 24.05, Est GFR (MDRD) Af Amer 33 L, Est GFR (MDRD) Non-Af 27 L, BUN/Creatinine Ratio 18.2, Glucose 402 H, Calcium 8.3 L 05/11/22 03:44: Total Creatine Kinase 2295 H, Troponin I High Sens 3656 H* 05/11/22 06:03: POC Glucose 385 H Micro: Microbiology 05/09/22 16:20 Sputum, Tracheal Aspirate Gram Stain - Final 05/09/22 16:20 Sputum, Tracheal Aspirate Respiratory Culture - Final Meth. resistant Staph. aureus 05/09/22 15:28 Mucosa - Nasopharyngeal Respiratory Panel (PCR) - Final Rhinovirus ABG Data ABG results: ABG 05/10/22 10:14 Specimen Type ART Sample Site R Radial pH 7.38 Bicarbonate Actual 23.5 Total CO2 25 Base Excess -2 O2 Saturation 93 L ABG pCO2 39.6 ABG pO2 69 L Wong Test Positive O2 Delivery Device Cannula Liter Flow 3.0 Cardiology Labs/Tests 05/10/22 10:14: pH 7.38, Bicarbonate Actual 23.5, Base Excess -2, O2 Saturation 93 L, ABG pCO2 39.6, ABG pO2 69 L, Wong Test Positive 05/11/22 03:44: WBC 11.0, RBC 3.72 L, Hgb 10.9 L, Hct 33.6 L, MCV 90.3, MCH 29.3, MCHC 32.4, Plt Count 187, MPV 9.6, Immature Gran % (Auto) 1.000 H, Neut % (Auto) 83.9 H, Lymph % (Auto) 4.6 L, [place] % (Auto) 10.4 H, Eos % (Auto) 0.0, Baso % (Auto) 0.1, Absolute Neuts (auto) 9.2 H, Nucleated RBC % 0 05/11/22 03:44: Sodium 144, Potassium 4.4, Chloride 112 H, Carbon Dioxide 26.0, Anion Gap 6, BUN 46 H, Creatinine 2.53 H, Est GFR (MDRD) Af Amer 33 L, Est GFR (MDRD) Non-Af 27 L, BUN/Creatinine Ratio 18.2, Glucose 402 H, Calcium 8.3 L Rhythm: Sinus rhythm EKG: Sinus rhythm; no acute ECG changes ECHO: As noted below Radiography Diagnostic Testing: Radiology Impression Echocardiogram 05/10/22 01:09 Interpretation Summary The study was technically difficult. Left ventricular systolic function is normal. The estimated ejection fraction is 65 %. The left atrium is mildly enlarged. Trivial mitral valve insufficiency. Trivial tricuspid valve insufficiency. Trivial pericardial effusion. There are no echocardiographic indications of cardiac tamponade. Unable to estimate RV systolic pressure/pulmonary artery pressure due to technically difficult study. No evidence for diastolic dysfunction. Ordering Physician: Desirae Yousif Performed By: Jacqueline Nelson LAZARO Renal Ultrasound 05/10/22 10:20 IMPRESSION: Normal renal ultrasound. Electronically Signed: Yfn Morris MD at 23:51 EST , Physical Exam Const General Appearance: other Somnolent, however, does open his eyes and respond to verbal stimuli/questions HEENT normocephalic, head/scalp atraumatic and hearing grossly normal bilaterally Eyes PERRL, EOMs intact bilaterally, conjunctivae normal and no scleral icterus Neck full ROM, supple and no JVD Carotids: normal carotid upstroke Resp Auscultation: rhonchi throughout Cardio regular rate, regular rhythm, S1 normal heart sound and S2 normal heart sound Cardio Narrative: Distant heart tones GI normal to inspection, nondistended, normoactive bowel sounds Extremity General Extremity: edema bilateral lower extremity Details: moderate Skin no rashes or lesions noted Assessment & Plan Assessment/Plan (1) NSTEMI (non-ST elevated myocardial infarction): PLAN: The patient has abnormal cardiac enzymes/high-sensitivity troponin I levels. At the moment is unclear as to whether or not the patient truly experienced an acute coronary syndrome/type I event versus this may very well be a type II event brought out by his DKA, hypotension, hypoxia, subsequent supply demand mismatch/poor perfusion. At the present time he remains in the ICU. He is currently extubated. His cardiac enzymes are decreasing. His ECG initially demonstrated ST and T wave changes, which again could be secondary to his hypotension and hypoxia and poor perfusion, appear to be returning to baseline. His echocardiogram is as noted. He has been successfully weaned off his IV vasopressor agents. His cardiovascular medicines will be adjusted as deemed appropriate based upon his clinical course and his objective findings. Eventually depending upon his clinical course and other objective findings, including his renal insufficiency, he may need to be considered for reevaluation of his underlying CAD status either noninvasively or invasively. (2) CAD (coronary artery disease): PLAN: The patient's history of CAD has been minor luminal regularities in the past as noted. Again at the present time its unclear as to whether he truly has had a type I event versus his clinical scenario may very well be related to a type II event for the reasons mentioned above. At the moment he should continue risk factor evaluation and care as deemed appropriate. He should continue medical support as deemed appropriate when he is able to with respect to his vital signs and other objective changes. (3) HLD (hyperlipidemia): QUALIFIERS: Hyperlipidemia type: unspecified Qualified Code(s): E78.5 - Hyperlipidemia, unspecified PLAN: He should continue risk factor modification medical therapy as best as possible. (4) Essential hypertension: PLAN: He has a history of hypertension. He has been successfully weaned off the IV vasopressor agent. His blood pressures are being followed. (5) Diabetic ketoacidosis: QUALIFIERS: Diabetes mellitus type: type 1 Diabetes mellitus complication detail: without coma Qualified Code(s): E10.10 - Type 1 diabetes mellitus with ketoacidosis without coma PLAN: He is being evaluated and cared for by internal medicine and pulmonology/critical care medicine. Again this may be the etiology for his hypotension, hypoxia, acute renal insufficiency, and poor perfusion to his myocardium leading to his abnormal cardiac enzymes, etc. (6) Respiratory failure: PLAN: He did require temporary mechanical intubation/ventilation. He is now extubated. He will continue evaluation care per pulmonology/critical care medicine. (7) ERIC (acute kidney injury): PLAN: He does appear to have a history of chronic renal insufficiency. The moment he has acute on chronic renal insufficiency which may be secondary to his hypotension and poor perfusion. He may also have a component of decreased intravascular volume secondary to his DKA. His creatinine level has improved somewhat. He will need to be followed as his creatinine level will impact medical therapy and/or future diagnostic studies. Addt'l Comments This note was generated using a voice recognition system and there may be incorrect words, spelling or punctuation that were not noted when reviewing the office note prior to saving. Procedure Criteria Type of Procedure Procedure Type: Elective Elective Risks - COVID COVID Risk Discussion: The surgeon/proceduralist and patient have discussed in detail the risk of exposure to and/or potential harm posed by the COVID-19 virus with having a surgery/procedure at this time versus the risk of delaying the surgery/procedure. It is not possible to know either the risk of delaying the surgery or procedure or chance of getting an infection with perfect accuracy, but a joint decision was made between the patient and the surgeon/proceduralist to proceed at this time with the scheduled surgery/procedure as indicated on the consent form.
--- NOTE | 2022-05-11 10:56 | PN.RENAL_ITS ---
Documented by User: DAVE Justice 05/11/22 11:13 Subjective Subjective Following for ERIC and CKD Patient appears to be more alert this morning but still drowsy and confused. No overnight events. Objective Data Objective Data Vital Signs: Vital Signs Temp Pulse Resp BP Pulse Ox O2 Del Method O2 Flow Rate 98.7 F 78 12 120/52 L 96 Nasal Cannula 2 05/11/22 10:00 05/11/22 10:00 05/11/22 10:00 05/11/22 10:00 05/11/22 10:47 05/11/22 10:47 05/11/22 10:47 FiO2 25 05/11/22 07:18 Oxygen Flow Rate (L/min) 2 Oxygen Delivery Method Nasal Cannula Weight: 148 kg Body Mass Index (BMI) 54.6 Intake & Output: Intake and Output for Last 24 Hours 05/09/22 05/10/22 05/11/22 23:59 23:59 23:59 Intake Total 6018.66 / 6107.66 4386.95 / 4386.95 100 / 100 Output Total 600 / 925 3220 / 3220 800 / 800 Balance 5418.66 / 5182.66 1166.95 / 1166.95 -700 / -700 Lab / Micro Data Result Diagrams: 05/11/22 03:44 05/11/22 03:44 Labs: Laboratory Results - last 24 hr 05/10/22 12:30: Troponin I High Sens 6131 H* 05/10/22 12:30: Ur Random Sodium 28 05/10/22 12:30: Urine Creatinine 126.00 05/10/22 14:13: POC Glucose 382 H 05/10/22 17:04: POC Glucose 481 H* 05/10/22 23:03: POC Glucose 375 H 05/11/22 03:44: WBC 11.0, RBC 3.72 L, Hgb 10.9 L, Hct 33.6 L, MCV 90.3, MCH 2 9.3, MCHC 32.4, RDW Std Deviation 48.9 H, RDW Coeff of Neo 14.9 H, Plt Count 187, MPV 9.6, Immature Gran % (Auto) 1.000 H, Neut % (Auto) 83.9 H, Lymph % (Auto) 4.6 L, [place] % (Auto) 10.4 H, Eos % (Auto) 0.0, Baso % (Auto) 0.1, Absolute Neuts (auto) 9.2 H, Absolute Lymphs (auto) 0.50 L, Nucleated RBC % 0, Anisocytosis RARE 05/11/22 03:44: Sodium 144, Potassium 4.4, Chloride 112 H, Carbon Dioxide 26.0, Anion Gap 6, BUN 46 H, Creatinine 2.53 H, Estim Creat Clear Calc 24.05, Est GFR (MDRD) Af Amer 33 L, Est GFR (MDRD) Non-Af 27 L, BUN/Creatinine Ratio 18.2, Glucose 402 H, Calcium 8.3 L 05/11/22 03:44: Total Creatine Kinase 2295 H, Troponin I High Sens 3656 H* 05/11/22 06:03: POC Glucose 385 H Micro: Microbiology 05/09/22 16:20 Sputum, Tracheal Aspirate Gram Stain - Final 05/09/22 16:20 Sputum, Tracheal Aspirate Respiratory Culture - Final Meth. resistant Staph. aureus 05/09/22 15:28 Mucosa - Nasopharyngeal Respiratory Panel (PCR) - Final Rhinovirus 05/09/22 11:55 Urine Catheter - Catheter Legionella Antigen - Final 05/09/22 11:55 Urine Catheter - Catheter Streptococcus pneumoniae Antigen (M - Final Radiography Diagnostic Testing: Radiology Impression Echocardiogram 05/10/22 01:09 Interpretation Summary The study was technically difficult. Left ventricular systolic function is normal. The estimated ejection fraction is 65 %. The left atrium is mildly enlarged. Trivial mitral valve insufficiency. Trivial tricuspid valve insufficiency. Trivial pericardial effusion. There are no echocardiographic indications of cardiac tamponade. Unable to estimate RV systolic pressure/pulmonary artery pressure due to technically difficult study. No evidence for diastolic dysfunction. Ordering Physician: Desirae Yousif Performed By: Jacqueline Nelson RDCS Renal Ultrasound 05/10/22 10:20 IMPRESSION: Normal renal ultrasound. Electronically Signed: Yfn Morris MD at 23:51 EST , Brain CT 05/11/22 08:55 IMPRESSION: Chronic involutional changes of the brain. N.B. : The above Results were Read Back by Jamie Aguilera MD to MD Dc, and understanding confirmed on 05/11/2022 09:49:39 (ET). Electronically Signed: Jamie Aguilera MD at 9:50 EST , ADDENDUM: 05/11/22 0957 IMPRESSION: Chronic involutional changes of the brain. N.B. : The above Results were Read Back by Jamie Aguilera MD to MD Dc, and understanding confirmed on 05/11/2022 09:49:39 (ET). Electronically Signed: Jamie Aguilera MD at 9:50 EST , Physical Exam Narrative Resting quietly, no apparent distress. Opens eyes to voice and touch but quickly falls back to sleep S1, S2, RRR Lung sounds diminished. No rales or rhonchi. On nasal cannula Abdomen soft, rounded, positive bowel sounds Trace nonpitting edema noted bilateral lower legs Indwelling Chan with clear yellow in bag Assessment & Plan Assessment/Plan (1) ERIC (acute kidney injury): (2) Diabetic ketoacidosis: QUALIFIERS: Diabetes mellitus complication detail: without coma Diabetes mellitus type: type 1 Qualified Code(s): E10.10 - Type 1 diabetes mellitus with ketoacidosis without coma (3) Altered mental status: (4) Diabetes type 1, controlled: QUALIFIERS: Diabetes mellitus complication status: with unsp ecified complications Qualified Code(s): E10.8 - Type 1 diabetes mellitus with unspecified complications PLAN: Plan -nonoliguric Acute kidney injury secondary to prerenal azotemia due to shock and volume depletion from polyuria secondary to severe hyperglycemia. Prerenal ERIC may have progressed to ischemic ATN as well. Serum creatinine peaked 4.08 mg/dL and today has improved to 2.53 mg/dL. Urine output about 3 L yesterday. UA n egative for blood, protein 15. There is no acute indication for [employer], volume status acceptable, no hyperkalemia and acid-base acceptable. Furosemide and ramipril on hold. CPK 839 on admission, today 2295. Renal ultrasound no hydronephrosis, normal renal ultrasound. He is off IV fluids now. - CKD stage 3; In reviewing past serum creatinine trends, last labs to review were about a year ago and possible baseline creatinine then ~1.1 to 1.3 mg/dL. It appears patient has had a few ERIC episodes since 2016. It does not appear he has ever required any [employer]. I do not know if patient follows with nephrology outpatient at this time. - CT brain no intracranial hemorrhage, no acute findings. - Blood pressures improved/accepted, off Levophed drip. - IV antibiotics, Zosyn and vancomycin blood cultures/urine culture pending. -elevated troponin levels, cardiology following. - serum bicarbonate was as low as 10 mmol/L on 05/09/2022. Serum bicarbonate level is now 26 mmol/L this morning, metabolic alkalosis from volume depletion. Metabolic acidosis has resolved with treatment of DKA. - Discussed with Dr. Lowe Documented by User: Dr. Minesh Culver MD 05/11/22 15:20 Objective Data Lab / Micro Data Result Diagrams: 05/11/22 03:44 05/11/22 03:44 Assessment & Plan Assessment/Plan (1) ERIC (acute kidney injury): (2) Diabetic ketoacidosis: QUALIFIERS: Diabetes mellitus complication detail: without coma Diabetes mellitus type: type 1 Qualified Code(s): E10.10 - Type 1 diabetes mellitus with ketoacidosis without coma (3) Altered mental status: (4) Diabetes type 1, controlled: QUALIFIERS: Diabetes mellitus complication status: with unspecified complications Qualified Code(s): E10.8 - Type 1 diabetes mellitus with unspecified complications PLAN: Plan Patient was-nonoliguric Acute kidney injury secondary to prerenal azotemia due to shock and volume depletion from polyuria secondary to severe hyperglycemia. Prerenal ERIC may have progressed to ischemic ATN as well. Serum creatinine peaked 4.08 mg/dL and today has improved to 2.53 mg/dL. Urine output about 3 L yesterday. UA negative for blood, protein 15. There is no acute indication for [employer], volume status acceptable, no hyperkalemia and acid-base acceptable. Furosemide and ramipril on hold. CPK 839 on admission, today 2295. Renal ultrasound no hydronephrosis, normal renal ultrasound. He is off IV fluids now. - CKD stage 3; In reviewing past serum creatinine trends, last labs to review were about a year ago and possible baseline creatinine then ~1.1 to 1.3 mg/dL. It appears patient has had a few ERIC episodes since 2016. It does not appear he has ever required any [employer]. I do not know if patient follows with nephrology outpatient at this time. - CT brain no intracranial hemorrhage, no acute findings. - Blood pressures improved/accepted, off Levophed drip. - IV antibiotics, Zosyn and vancomycin blood cultures/urine culture pending. -elevated troponin levels, cardiology following. - serum bicarbonate was as low as 10 mmol/L on 05/09/2022. Serum bicarbonate level is now 26 mmol/L this morning, metabolic alkalosis from volume depletion. Metabolic acidosis has resolved with treatment of DKA. - Discussed with Dr. Lowe Nephrology attending addendum: The patient was seen and examined personally. Nurse practitioner's note re flects my independent medical decision making with my annotation below. Following for ERIC. The patient is extubated on 05/10/2022. He is still confused although is on room air. Cannot do ROS. He has been cleared for carbohydrate controlled diet, but oral intake remains low per RN. Vital signs and examination as above. Lungs are clear on auscultation anteriorly. Heart tone is normal. There is 1+ edema of the lower extremities. Impression/Plan: The patient is a 66-year-old man with past history of? type 1 diabetes mellitus, multiple sclerosis, CAD, hypertension, depression, WINSTON on CPAP, VTE, depression/anxiety disorder, and GERD.? The patient is admitted on 05/09/2022 with altered mental status and was found to have DKA.? He has been treated in the ICU for DKA, acute hypoxic respiratory failure, circulatory shock, and NSTEMI.? Nephrology is following for ERIC. Acute kidney injury. Baseline renal function is unclear.? Last available creatinine level before this admission was from 02/12/2021 at 1.13 mg/dL. The patient does have risk factors for CKD with longstanding type 1 diabetes mellitus. I suspect ERIC is secondary to prerenal azotemia due to shock and volume depletion from polyuria secondary to severe hyperglycemia on presentation.? Prerenal ERIC may have progressed to ischemic ATN as well. Urinalysis did not suggest other causes of ERIC such as interstitial nephritis, vasculitis or acute glomerulonephritis. Renal ultrasound was negative for obstruction. Low suspicion for other causes of ERIC at this point. Renal function is improving, and the patient is not oliguric.? He is not hyperkalemic, and metabolic acidosis from DKA has resolved. Serum creatinine peaked at 4.08 mg/dL on 05/09/2022. Serum creatinine is down to 2.53 mg/dL today with good urine output. Therefore, there is no need for kidney replacement therapy. Continue to keep MAP above 65 mmHg. Bolus with IV crystalloid if MAP is consistently below goal. We will continue to monitor renal function, volume status, electrolytes and acid-base status. Current medications are reviewed and are appropriate dose for his renal function . Metabolic acidosis with high anion gap. Serum bicarbonate was as low as 10 mmol/L on 05/09/2022.? Serum bicarbonate level is now 26 mmol/L this morning. I suspect that there is coexisting metabolic alkalosis from volume depletion in this case as well. Metabolic acidosis has resolved with treatment of DKA with insulin infusion. Continue to monitor serum bicarbonate. DKA. Management as per hospital medicine and ICU services. Improving. NSTEMI. The patient is being evaluated by cardiology service. In the process of determining whether this is type I or type II NSTEMI. Nephrology plan will be discussed with Dr. Lowe.
[2022-05-11] MEDS: Enoxaparin 30 MG/0.3 ML Syringe SC (11:04)
[2022-05-11 11:40] LABS: Bedside Glucose 163 mg/dL (74-106)
--- NOTE | 2022-05-11 12:58 | PCM.PN.INT ---
Assessment & Plan Assessment/Plan (1) Diabetic ketoacidosis: QUALIFIERS: Diabetes mellitus type: type 1 Diabetes mellitus complication detail: without coma Qualified Code(s): E10.10 - Type 1 diabetes mellitus with ketoacidosis without coma PLAN: Primary care is adjusting his insulin regimen with goal glucose of 1 80-2 20 in the critical care unit (2) Rhinovirus infection: PLAN: May have precipitated the patient's initial deterioration, we need it for now. (3) Acute respiratory failure with hypoxemia: PLAN: The patient has been extubated May 10, maintaining good saturations, is using BiPAP 14/6 with 2 to 3 L of oxygen and a rate of 12. At night and with sleep. We will continue current support He will need treatment for sleep apnea most likely as an outpatient. He is on 2 L of home O2, which is now his baseline. Ready to move out of bed to chair physical therapy and progress as he awakens (4) Altered mental status: PLAN: Likely a metabolic encephalopathy. He is gradually clearing although slowly. Head CT scan was negative today. Anion gap is resolved, glucoses are improving although was 385 today. (5) NSTEMI (non-ST elevated myocardial infarction): PLAN: This patient is likely had a stress related NSTEMI, his troponins are not trending downward from a peak of over 6000, today 2295. Echocardiogram showed ejection fraction of 65% with no focal wall motion abnormalities although it was a technically difficult study. Unable to see right-sided pressures Medications reviewed, he is on enoxaparin, he is off norepinephrine drip Cardiology has been consulted. (6) Obesity: QUALIFIERS: Obesity type: due to excess calories Body mass index: BMI 45.0-49.9 PLAN: Extreme obesity with BMI 56. Some of the patient's abnormal mental status may be chronic hypoxic encephalopathy in addition to his diabetic metabolic encephalopathy He may need skilled unit placement at discharge He will continue empiric BiPAP at night and as needed, titrate O2 to keep saturation greater than 92% Bronchopulmonary hygiene Mobilize Calorie restriction diabetic diet once he is able to start eating. Transition to basal and sliding scale done today. (7) CAD (coronary artery disease): PLAN: Supportive care with adequate oxygenation and stable vital signs Cardiology has been consulted for further management. He remains on enoxaparin. PLAN: Plan Other problems including hypertension GERD Recommend getting a TSH if not obtained within the past few months. Subjective Subjective Patient opens eyes to voice in bed, states a few words but is only oriented to self. Follows some commands partially, no complaints Objective Data Objective Data 66-year-old with NSTEMI on 05/09, DKA and glucose of greater than 2000 after his insulin pump was found to be empty.? He was intubated for encephalopathy, extubated May 10.? He is on BiPAP 14/6 with 2 L O2, Levophed is off, acetones resolved anion gap closed.? PMH includes anxiety, WINSTON on CPAP, arthritis, bilateral DVT, depression, type 1 diabetes, hypertension, GERD, history of GI bleeding and MRSA infection, HLD, MS, myocardial infarction, renal failure, sepsis, rheumatoid arthritis. Vital signs stable on 3 L/min O2 3 and BiPAP 14/6 with 2 to 3 L saturation 98%, afebrile since T-max 99.7 at midnight.? Max pulse 101 regular rhythm before midnight he is now weaned to 2 L of nasal O2. Vital Signs: Vital Signs Temp Pulse Resp BP Pulse Ox O2 Del Method O2 Flow Rate 98.7 F 83 15 116/51 L 99 Nasal Cannula 2 05/11/22 12:00 05/11/22 12:00 05/11/22 12:00 05/11/22 12:00 05/11/22 12:00 05/11/22 12:00 05/11/22 12:00 FiO2 25 05/11/22 07:18 Oxygen Flow Rate (L/min) 2 Oxygen Delivery Method Nasal Cannula Weight: 326 lb 4.546 oz Body Mass Index (BMI) 54.6 Intake & Output: Intake and Output for Last 24 Hours 05/09/22 05/10/22 05/11/22 23:59 23:59 23:59 Intake Total 6018.66 / 6107.66 4386.95 / 4386.95 100 / 100 Output Total 600 / 925 3220 / 3220 1400 / 1400 Balance 5418.66 / 5182.66 1166.95 / 1166.95 -1300 / -1300 I/O balance -1247 yesterday, weight 326 pounds. Meds reviewed on nor epi at 5, insulin off Protonix drip every 12 Zosyn, Vanco pantoprazole, albuterol, chlorhexidine, enoxaparin 30, insulin levofloxacin Lab / Micro Data Attestation: I reviewed the patient's lab results. Lab results narrative: Echo May 10 showed technically difficult study with normal left ventricular systolic function, ejection fraction 65%, mild LVH, no tamponade, unable to see right-sided pressures.? No diastolic dysfunction. Result Diagrams: 05/11/22 03:44 05/11/22 03:44 Labs: Laboratory Results - last 24 hr 05/10/22 12:30: Troponin I High Sens 6131 H* 05/10/22 12:30: Urine Creatinine 126.00 05/10/22 14:13: POC Glucose 382 H 05/10/22 17:04: POC Glucose 481 H* 05/10/22 23:03: POC Glucose 375 H 05/11/22 03:44: WBC 11.0, RBC 3.72 L, Hgb 10.9 L, Hct 33.6 L, MCV 90.3, MCH 29.3, MCHC 32.4, RDW Std Deviation 48.9 H, RDW Coeff of Neo 14.9 H, Plt Count 187, MPV 9.6, Immature Gran % (Auto) 1.000 H, Neut % (Auto) 83.9 H, Lymph % (Auto) 4.6 L, [place] % (Auto) 10.4 H, Eos % (Auto) 0.0, Baso % (Auto) 0.1, Absolute Neuts (auto) 9.2 H, Absolute Lymphs (auto) 0.50 L, Nucleated RBC % 0, Anisocytosis RARE 05/11/22 03:44: Sodium 144, Potassium 4.4, Chloride 112 H, Carbon Dioxide 26.0, Anion Gap 6, BUN 46 H, Creatinine 2.53 H, Estim Creat Clear Calc 24.05, Est GFR (MDRD) Af Amer 33 L, Est GFR (MDRD) Non-Af 27 L, BUN/Creatinine Ratio 18.2, Glucose 402 H, Calcium 8.3 L 05/11/22 03:44: Total Creatine Kinase 2295 H, Troponin I High Sens 3656 H* 05/11/22 06:03: POC Glucose 385 H 05/11/22 11:08: POC Glucose 163 H Micro: Microbiology 05/09/22 16:20 Sputum, Tracheal Aspirate Gram Stain - Final 05/09/22 16:20 Sputum, Tracheal Aspirate Respiratory Culture - Final Meth. resistant Staph. aureus 05/09/22 15:28 Mucosa - Nasopharyngeal Respiratory Panel (PCR) - Final Rhinovirus 05/09/22 11:55 Urine Catheter - Catheter Legionella Antigen - Final 05/09/22 11:55 Urine Catheter - Catheter Streptococcus pneumoniae Antigen (M - Final ABG Data ABG results: ABG yesterday was 7.38 PCO2 39.6 PO2 69 on 3 L/min. Consistent with normal acid-base status and adequate oxygenation on supplemental O2. [id number] glucose was 385, troponin today was 3656 trending down to 2295. Radiography Diagnostic Testing: Radiology Impression Renal Ultrasound 05/10/22 10:20 IMPRESSION: Normal renal ultrasound. Electronically Signed: Yfn Mroris MD at 23:51 EST , Brain CT 05/11/22 08:55 IMPRESSION: Chronic involutional changes of the brain. N.B. : The above Results were Read Back by Jamie Aguilera MD to MD Dc, and understanding confirmed on 05/11/2022 09:49:39 (ET). Electronically Signed: Jamie Aguilera MD at 9:50 EST , ADDENDUM: 05/11/22 0957 IMPRESSION: Chronic involutional changes of the brain. N.B. : The above Results were Read Back by Jamie Aguilera MD to MD Dc, and understanding confirmed on 05/11/2022 09:49:39 (ET). Electronically Signed: Jamie Aguilera MD at 9:50 EST , Rhythm Strip Rhythm Strip: Sinus Rhythm Physical Exam Narrative Well-developed obese man who is quite lethargic but opens eyes moves his head tracks partially and denies acute distress. HEENT: Normocephalic atraumatic eyes extraocular's are intact pupils are equal sclera anicteric Chest has rhonchi bilaterally with no consolidation wheezes rales or crackles. Fair cough, no secretions expectorated. Not able to comprehend doing incentive spirometry at this time Heart normal S1-S2 with no murmurs rubs or gallops Abdomen is obese nontender no rebound good bowel sounds. Last bowel movement was today. Chan catheter is yellow and clear Extremities have no clubbing cyanosis or edema Skin is warm and dry Charges/Coding Procedures Hospitalists Procedures: 85459 Critial Care 1st Hr (Critical care time spent with patient at bedside, review of documentation, lab results, radiology and other test results, discussion with colleagues and ancillary staff, clinical management of patient, and updating family if applicable, was 45 minutes. This time does not include any procedures, )
[2022-05-11] MEDS: Multivitamins,Therapeutic Tablet 1 TABLET PO (13:08)
[2022-05-11] MEDS: DULoxetine Hcl 60 MG Capsule PO (13:08)
[2022-05-11] MEDS: Metoprolol(XL)Succ 50 MG Tablet PO (13:08)
[2022-05-11] MEDS: Aspirin 81 MG TAB.CHEW PO (13:08)
[2022-05-11] MEDS: Atorvastatin Calcium 20 MG Tablet PO (13:08)
[2022-05-11] MEDS: Tamsulosin HCl 0.4 MG Capsule PO (13:08)
[2022-05-11] MEDS: Pantoprazole Sodium 40 MG Tablet PO (13:08)
[2022-05-11] MEDS: Ramipril 10 MG Capsule PO (13:08)
[2022-05-11] MEDS: Cholecalciferol (VIT D3) 25 MCG TABLET (1,000 UNITS) PO (13:09)
[2022-05-11 14:05] LABS: Thyroid Stim Hormone (TSH) 1.87 uIU/mL (0.358-3.74)
[2022-05-11 14:23] LABS: Pathologist Review Reviewed
[2022-05-11 14:32] LABS: Pathologist Review Reviewed
--- NOTE | 2022-05-11 15:32 | CASEMGMT ---
Social Work SW received referral for Advance Directives. SW met with pt. Pt very sleepy at this time and not able to discuss documents. SW will follow up at a later time when pt is alert. LOUIE Brito
[2022-05-11 16:52] LABS: Bedside Glucose 95 mg/dL (74-106)
[2022-05-11 20:02] LABS: Vancomycin, Trough Level 9.2 ug/mL (5.0-15.0)
--- NOTE | 2022-05-11 20:20 | PCM.RX.CS ---
Consult Pharmacy has been consulted to manage selected antiobiotic: Vancomycin Type of Consult: Follow-up Suspected Infection: Pneumonia Labs: Sodium 144 mmol/L (136-145) 05/11/22 03:44 Potassium 4.4 mmol/L (3.5-5.1) 05/11/22 03:44 Chloride 112 mmol/L (98-107) H 05/11/22 03:44 Carbon Dioxide 26.0 mmol/L (21.0-32.0) 05/11/22 03:44 Anion Gap 6 (5-15) 05/11/22 03:44 BUN 46 mg/dL (7-18) H 05/11/22 03:44 Creatinine 2.53 mg/dL (0.70-1.30) H 05/11/22 03:44 Est GFR (MDRD) Af Amer 33 mL/min (>60) L 05/11/22 03:44 Est GFR (MDRD) Non-Af 27 mL/min (>60) L 05/11/22 03:44 BUN/Creatinine Ratio 18.2 RATIO (10-20) 05/11/22 03:44 Glucose 402 mg/dL (74-106) H 05/11/22 03:44 Vancomycin Trough 9.2 ug/mL (5.0-15.0) 05/11/22 18:25 Microbiology: Microbiology 05/09/22 16:20 Sputum, Tracheal Aspirate Gram Stain - Final 05/09/22 16:20 Sputum, Tracheal Aspirate Respiratory Culture - Final Meth. resistant Staph. aureus 05/09/22 15:28 Mucosa - Nasopharyngeal Respiratory Panel (PCR) - Final Rhinovirus 05/09/22 11:55 Urine Catheter - Catheter Legionella Antigen - Final 05/09/22 11:55 Urine Catheter - Catheter Streptococcus pneumoniae Antigen (M - Final Pharmacy Plan for Drug Dosing: VANCOMYCIN LEVEL RECEIVED Current Vancomycin Dose: 1250MG Q24 Number of Doses Received: 2 Vancomycin Level: 9.2 MG/DL Hours Since Last Dose: 24 Renal Function: SCR 2.53 MG/DL, CRCL 38.5 ML/MIN USING ADJ BW Renal Function Trend: IMPROVING Lab/Micro: MRSA IN SCX Vancomycin Plan/Comments: 24 HOUR TROUGH IS SUBTHERAPEUTIC, WILL CHANGE REGIMEN TO 1000MG Q12 (DOSING FOR WEIGHT >110KG AND CRCL 40-49 WHICH IS CLOSE TO CURRENT RENAL FUNCTION). WILL CHANGE FREQUENCY AND DOSE RATHER THAN ONLY INCREASING DOSE BECAUSE CRCL HAS ALSO BEEN IMPROVING AND PREDICTED TROUGH FOR 2000MG Q24 IS 14.5 MG/DL AT CURRENT RENAL FUNCTION. EVENING DOSE OF 1250MG HAS ALREADY BEEN HUNG SO WILL START 1000MG @ 0630 (05/12) AND GET A TROUGH PRIOR TO 4TH DOSE OF NEW REGIMEN. Pending Level: 05/13/22 @ 1800 Pharmacy Service will continue to monitor and adjust dosing as required.
[2022-05-11] MEDS: Gabapentin 100 MG Capsule 200 MG PO (21:00)
[2022-05-11 21:40] LABS: Bedside Glucose 137 mg/dL (74-106)
[2022-05-12] VITALS (21 sets, daily range): BP systolic 117–147; BP diastolic 50–81; PULSE 58–78; RESP 10–20; TEMP 36.7–37; O2SAT 94–100
[2022-05-12 03:17] LABS: Absolute Lymphocyte Count 0.76 X10^3/uL (0.83-4.51); Basophil# 0.01 X10^3/uL; Basophil% 0.2 % (0-1); Eosinophil# 0.05 X10^3/uL; Eosinophils% 0.8 % (0-5); Hematocrit 33.6 % (40-54); Hemoglobin 10.8 g/dL (13.0-16.5); Lymphocyte # 0.76 X10^3/ul (0.83-4.51); Lymphocyte % 11.6 % (19-41); Mean Corp Hgb Conc 32.1 g/dL (32-36); Mean Corpuscular Hgb 29.6 pg (27.0-32.0); Mean Corpuscular Volume 92.1 fL (80-94); Mean Platelet Vol. 9.4 fl (6.2-12.0); Monocyte# 0.77 X10^3/uL; Monocyte% 11.7 % (0-10); NRBC Flagged by Analyzer 0 % (0-5); Neutrophil # 4.95 X10^3/uL (2.7-7.7); Neutrophil % 75.4 % (47-70); Platelet Count 158 K/mm3 (150-450); RBC Distribution Width CV 14.9 % (11.6-14.6); RBC Distribution Width SD 50.1 fl (35.1-43.9); Red Blood Count 3.65 M/mm3 (4.6-6.2); White Blood Count 6.6 K/mm3 (4.4-11.0)
[2022-05-12 03:38] LABS: Anion Gap 2 (5-15); BUN 36 mg/dL (7-18); Calcium,Total 8.7 mg/dL (8.5-10.1); Chloride 116 mmol/L (98-107); Creatinine, Serum 1.44 mg/dL (0.70-1.30); EST Glomerular Filtration Rate 52 mL/min (>60); Est Glom Filt Rate - Afr Amer 63 mL/min (>60); Estimated Creatinine Clearance 42.25 ml/min; Glucose 216 mg/dL (74-106); Potassium 4.1 mmol/L (3.5-5.1); Sodium Level 149 mmol/L (136-145)
[2022-05-12] MEDS: Gabapentin 100 MG Capsule 200 MG PO ×3 (05:08→21:40)
[2022-05-12] MEDS: Vancomycin IV 1,000 MG/200 ML BAG 200 MG IV ×2 (06:09→18:02)
--- NOTE | 2022-05-12 07:34 | PN.HOSP_ITS ---
Subjective Subjective Sputum cultures came back positive for MRSA respiratory panel positive for rhinovirus. Patient blood glucose improved Objective Data Objective Data Vital Signs: Vital Signs Temp Pulse Resp BP Pulse Ox O2 Del Method O2 Flow Rate 98.2 F 67 11 L 140/62 H 99 Nasal Cannula 2 05/12/22 07:00 05/12/22 07:00 05/12/22 07:00 05/12/22 07:00 05/12/22 07:00 05/12/22 07:00 05/12/22 07:00 FiO2 25 05/12/22 02:00 Oxygen Flow Rate (L/min) 2 Oxygen Delivery Method Nasal Cannula Weight: 147 kg Body Mass Index (BMI) 54.6 Intake & Output: Intake and Output for Last 24 Hours 05/10/22 05/11/22 05/12/22 23:59 23:59 23:59 Intake Total 4386.95 / 4386.95 945 / 945 530 / 530 Output Total 3220 / 3220 2100 / 2100 250 / 250 Balance 1166.95 / 1166.95 -1155 / -1155 280 / 280 Lab / Micro Data Result Diagrams: 05/12/22 03:10 05/12/22 03:10 Labs: Laboratory Results - last 24 hr 05/09/22 11:55: Diff Path Review Reviewed 05/10/22 04:55: Diff Path Review Reviewed 05/11/22 03:44: TSH 1.87 05/11/22 11:08: POC Glucose 163 H 05/11/22 16:25: POC Glucose 95 05/11/22 18:25: Vancomycin Trough 9.2 05/11/22 21:12: POC Glucose 137 H 05/12/22 03:10: WBC 6.6, RBC 3.65 L, Hgb 10.8 L, Hct 33.6 L, MCV 92.1, MCH 29.6, MCHC 32.1, RDW Std Deviation 50.1 H, RDW Coeff of Neo 14.9 H, Plt Count 158, MPV 9.4, Immature Gran % (Auto) 0.300, Neut % (Auto) 75.4 H, Lymph % (Auto) 11.6 L, [place] % (Auto) 11.7 H, Eos % (Auto) 0.8, Baso % (Auto) 0.2, Absolute Neuts (auto) 5.0, Absolute Lymphs (auto) 0.76 L, Nucleated RBC % 0 05/12/22 03:10: Sodium 149 H, Potassium 4.1, Chloride 116 H, Carbon Dioxide 31.0, Anion Gap 2 L, BUN 36 H, Creatinine 1.44 H, Estim Creat Clear Calc 42.25, Est GFR (MDRD) Af Amer 63, Est GFR (MDRD) Non-Af 52 L, BUN/Creatinine Ratio 25.0 H, Glucose 216 H, Calcium 8.7 Micro: Microbiology 05/09/22 16:20 Sputum, Tracheal Aspirate Gram Stain - Final 05/09/22 16:20 Sputum, Tracheal Aspirate Respiratory Culture - Final Meth. resistant Staph. aureus 05/09/22 15:28 Mucosa - Nasopharyngeal Respiratory Panel (PCR) - Final Rhinovirus 05/09/22 11:55 Urine Catheter - Catheter Legionella Antigen - Final 05/09/22 11:55 Urine Catheter - Catheter Streptococcus pneumoniae Antigen (M - Final Radiography Diagnostic Testing: Radiology Impression Brain CT 05/11/22 08:55 IMPRESSION: Chronic involutional changes of the brain. N.B. : The above Results were Read Back by Jamie Aguilera MD to MD Dc, and understanding confirmed on 05/11/2022 09:49:39 (ET). Electronically Signed: Jamie Aguilera MD at 9:50 EST , ADDENDUM: 05/11/22 0957 IMPRESSION: Chronic involutional changes of the brain. N.B. : The above Results were Read Back by Jamie Aguilera MD to MD Dc, and understanding confirmed on 05/11/2022 09:49:39 (ET). Electronically Signed: Jamie Aguilera MD at 9:50 EST , Rhythm Strip Rhythm Strip: Sinus Rhythm Physical Exam Narrative GENERAL: Awake but appears delirious HEENT: Atraumatic; normocephalic EYES; Anicteric, Normal Conjunctiva NECK; supple, normal thyroid, RESPIRATORY: Diminished to auscultation CARDIOVASCULAR: Regular S1 S2, GI: soft, normoactive bowel sounds, : No Renal angle tenderness; EXTREMITIES: No edema, no clubbing, MUSCULOSKELETAL: no muscle wasting NEURO: no lateralizing signs. SKIN: No Rash PSYCH; Flat affect Assessment & Plan Assessment/Plan (1) Altered mental status: (2) Respiratory failure: PLAN: Plan Patient is a 66-year-old male admitted with altered mental status 1. Diabetic ketoacidosis ? Patient has been admitted to intensive care unit currently being managed with aggressive IV fluid resuscitation IV insulin, serial monitoring with every 4 BMP and subsequent correction of electrolyte abnormalities ? 05/10/2022; patient DKA resolved plan is to switch patient from insulin drip to scheduled long-acting as well as Premeal Insulin -05/11/2022 Blood glucose control still not optimal, subsequent adjustment to patient insulin regimen made ? 05/12/2022 patient hypoglycemia improved with adjustment of his insulin regimen 2. Acute hypoxic respiratory failure ? Patient was intubated in the ED subsequently placed on the vent consult placed to pulmonary medicine/intensive care for vent management -05/10/2022 patient has been weaned off the vent ? 05/11/2022; patient remains on supplemental oxygen 3. Septic shock (not evident on admission) ?This was evident by persistent hypotension, evidence of endorgan damage(Respiratory failure and acute kidney injury) as well as leukocytosis and tachycardia with suspected evidence of infection Patient had to be started on broad-spectrum antibiotic therapyVancomycin, Levaquin and Zosyn. Cultures sent. Patient started on Levophed titrated to keep MAP greater than 60 following patient failure to respond to aggressive IV fluid resuscitation ? 05/11/2022; patient blood pressure stabilized ? 05/12/2022 patient sputum cultures came back positive for MRSA patient is on vancomycin. Respiratory panel was also positive for rhinovirus 4. Acute metabolic encephalopathy ? 05/11/2022 due to combination of patient acute hypoxic respiratory failure as well as ERIC plan is to treat underlying condition. Also ordered CT of the head for further evaluation ? 05/12/[address] was unremarkable 5. Acute kidney injury ? Possibly ATN from patient DKA and sepsis on IV fluids consult placed to neph rology ? 05/11/2022 patient was seen in consultation by Dr. Roblero Case discussed with him. Plan is to continue with IV fluid with daily monitoring of electrolyte 6. Elevated troponin ?? NSTEMI Versus demand ischemia. Ordered 2D echo as well as serial cardiac enzymes and cardiology consultation ? 05/11/2022; patient was seen in consultation by cardiology with plans for further evaluation of his coronary arteries invasively versus noninvasively, to be determined by cardiology ? 05/12/2022; 2D echo; Left ventricular systolic function is normal. The estimated ejection fraction is 65 %. The left atrium is mildly enlarged. Trivial mitral valve insufficiency. Trivial tricuspid valve insufficiency. Trivial pericardial effusion. 7. Essential hypertension ? Patient antihypertensives placed on hold in view of relatively low blood pressure ? 05/11/2022; patient hypotension resolved patient blood pressure markedly elevated restarted patient antihypertensives 8. Dyslipidemia ? Patient is on rosuvastatin plan is to restart once patient is weaned off the vent 9. GERD ? Patient is on PPI 10. GI prophylaxis ? Patient placed on Protonix 11. Class III obesity with BMI of 49.6 ? Plan is to personal financial counselor patient on weight reduction once he is weaned on the vent 12. Multiple sclerosis ? Per history 13. DVT prophylaxis Bilateral SCDs plus SC Lovenox Charges/Coding Visit Charges Inpatient E&M: 68532 Subs Hosp L2
[2022-05-12] MEDS: Insulin Glargine-YFGN 100 UNIT/ML Pen 60 UNIT SC (08:14)
[2022-05-12] MEDS: Multivitamins,Therapeutic Tablet 1 TABLET PO (08:15)
[2022-05-12] MEDS: Aspirin 81 MG TAB.CHEW PO (08:15)
[2022-05-12] MEDS: Insulin Lispro 100 UNIT/ML INSULN.PEN 20 UNIT SC ×3 (08:15→18:02)
[2022-05-12] MEDS: Insulin Lispro 100 UNIT/ML INSULN.PEN SC ×2 (08:15→12:01)
[2022-05-12 08:26] LABS: Bedside Glucose 241 mg/dL (74-106)
[2022-05-12] MEDS: CHLORHEXIDINE GLUC 2% CLOTH 1 EACH TOWELETTE TOPICAL (09:56)
[2022-05-12] MEDS: Pantoprazole Sodium 40 MG Tablet PO (09:57)
[2022-05-12] MEDS: Metoprolol(XL)Succ 50 MG Tablet PO (09:57)
[2022-05-12] MEDS: Cholecalciferol (VIT D3) 25 MCG TABLET (1,000 UNITS) PO (09:57)
[2022-05-12] MEDS: Atorvastatin Calcium 20 MG Tablet PO (09:57)
[2022-05-12] MEDS: Ramipril 10 MG Capsule PO (09:57)
[2022-05-12] MEDS: DULoxetine Hcl 60 MG Capsule PO (09:57)
[2022-05-12] MEDS: Tamsulosin HCl 0.4 MG Capsule PO (09:57)
[2022-05-12] MEDS: Enoxaparin 30 MG/0.3 ML Syringe SC (09:57)
--- NOTE | 2022-05-12 10:54 | PCM.PN.INT ---
Assessment & Plan Assessment/Plan (1) Diabetic ketoacidosis: QUALIFIERS: Diabetes mellitus type: type 1 Diabetes mellitus complication detail: without coma Qualified Code(s): E10.10 - Type 1 diabetes mellitus with ketoacidosis without coma PLAN: Primary care is adjusting his insulin regimen with goal glucose of 1 80-2 20 in the critical care unit Now sugars are resaonably well controlled (2) Rhinovirus infection: PLAN: May have precipitated the patient's initial deterioration, we need it for now. (3) Acute respiratory failure with hypoxemia: PLAN: The patient has been extubated May 10, maintaining good saturations, is using BiPAP 07/11 with 2 to 3 L of oxygen and a rate of 12. At night and with sleep. We will continue current support He will need treatment for sleep apnea most likely as an outpatient. He is on 2 L of home O2, which is now his baseline. Ready to move out of bed to chair physical therapy and progress as he awakens Can consider transfer to RNF when bed is available (4) Altered mental status: PLAN: Likely a metabolic encephalopathy. He is gradually clearing although slowly. Head CT scan was negative 05/11. Anion gap is resolved, glucose is improving. (5) NSTEMI (non-ST elevated myocardial infarction): PLAN: This patient is likely had a stress related NSTEMI, his troponins are not trending downward from a peak of over 6000, today 2295. Echocardiogram showed ejection fraction of 65% with no focal wall motion abnormalities although it was a technically difficult study. Unable to see right-sided pressures Medications reviewed, he is on enoxaparin, he is off norepinephrine drip Cardiology has been consulted and appreciate their input in his care (6) Obesity: QUALIFIERS: Obesity type: due to excess calories Body mass index: BMI 45.0-49.9 PLAN: Extreme obesity with BMI 56. Some of the patient's abnormal mental status may be chronic hypoxic encephalopathy in addition to his diabetic metabolic encephalopathy He may need skilled unit placement at discharge He will continue empiric BiPAP at night and as needed, titrate O2 to keep saturation greater than 92% Bronchopulmonary hygiene Mobilize Calorie restriction diabetic diet once he is able to start eating. Transition to basal and sliding scale done 05/11. (7) CAD (coronary artery disease): PLAN: Supportive care with adequate oxygenation and stable vital signs Cardiology has been consulted for further management. He remains on enoxaparin. PLAN: Plan Other problems including hypertension GERD Recommend getting a TSH if not obtained within the past few months. Subjective Subjective Patient follows simple commands - however was not completely oriented to place and time. Per RN he has been waxing and waning. CT Head WO contrast was negative and this mainly seems metabolic. Objective Data Objective Data Vital Signs: Vital Signs Temp Pulse Resp BP Pulse Ox O2 Del Method O2 Flow Rate 36.9 C 75 15 144/65 H 99 Nasal Cannula 2 05/12/22 10:00 05/12/22 10:00 05/12/22 10:00 05/12/22 10:00 05/12/22 10:00 05/12/22 10:00 05/12/22 10:00 FiO2 25 05/12/22 02:00 Oxygen Flow Rate (L/min) 2 Oxygen Delivery Method Nasal Cannula Weight: 147 kg Body Mass Index (BMI) 54.6 Intake & Output: Intake and Output for Last 24 Hours 05/10/22 05/11/22 05/12/22 23:59 23:59 23:59 Intake Total 4386.95 / 4386.95 945 / 945 1260 / 1260 Output Total 3220 / 3220 2100 / 2100 250 / 250 Balance 1166.95 / 1166.95 -1155 / -1155 1010 / 1010 Lab / Micro Data Result Diagrams: 05/12/22 03:10 05/12/22 03:10 Labs: Laboratory Results - last 24 hr 05/09/22 11:55: Diff Path Review Reviewed 05/10/22 04:55: Diff Path Review Reviewed 05/11/22 03:44: TSH 1.87 05/11/22 11:08: POC Glucose 163 H 05/11/22 16:25: POC Glucose 95 05/11/22 18:25: Vancomycin Trough 9.2 05/11/22 21:12: POC Glucose 137 H 05/12/22 03:10: WBC 6.6, RBC 3.65 L, Hgb 10.8 L, Hct 33.6 L, MCV 92.1, MCH 29.6, MCHC 32.1, RDW Std Deviation 50.1 H, RDW Coeff of Neo 14.9 H, Plt Count 158, MPV 9.4, Immature Gran % (Auto) 0.300, Neut % (Auto) 75.4 H, Lymph % (Auto) 11.6 L, [place] % (Auto) 11.7 H, Eos % (Auto) 0.8, Baso % (Auto) 0.2, Absolute Neuts (auto) 5.0, Absolute Lymphs (auto) 0.76 L, Nucleated RBC % 0 05/12/22 03:10: Sodium 149 H, Potassium 4.1, Chloride 116 H, Carbon Dioxide 31.0, Anion Gap 2 L, BUN 36 H, Creatinine 1.44 H, Estim Creat Clear Calc 42.25, Est GFR (MDRD) Af Amer 63, Est GFR (MDRD) Non-Af 52 L, BUN/Creatinine Ratio 25.0 H, Glucose 216 H, Calcium 8.7 05/12/22 08:04: POC Glucose 241 H Micro: Microbiology 05/09/22 18:30 Blood Culture (Wb) - Pic Blood Culture - Preliminary No growth in 48 hours. 05/09/22 18:30 Blood Culture (Wb) - Pic Blood Culture - Preliminary No growth in 48 hours. 05/09/22 16:20 Sputum, Tracheal Aspirate Gram Stain - Final 05/09/22 16:20 Sputum, Tracheal Aspirate Respiratory Culture - Final Meth. resistant Staph. aureus 05/09/22 15:28 Mucosa - Nasopharyngeal Respiratory Panel (PCR) - Final Rhinovirus 05/09/22 11:55 Urine Catheter - Catheter Legionella Antigen - Final 05/09/22 11:55 Urine Catheter - Catheter Streptococcus pneumoniae Antigen (M - Final Rhythm Strip Rhythm Strip: Sinus Rhythm Physical Exam Narrative Well-developed obese man who is quite lethargic but opens eyes moves his head tracks partially and denies acute distress. HEENT: Normocephalic atraumatic eyes extraocular's are intact pupils are equal sclera anicteric Chest has rhonchi bilaterally with no consolidation wheezes rales or crackles. Fair cough, no secretions expectorated. Not able to comprehend doing incentive spirometry at this time Heart normal S1-S2 with no murmurs rubs or gallops Abdomen is obese nontender no rebound good bowel sounds. Last bowel movement was today. Chan catheter is yellow and clear Extremities have no clubbing cyanosis or edema Skin is warm and dry Charges/Coding Visit Charges Inpatient E&M: 09275 Subs Hosp L3
[2022-05-12 12:20] LABS: Bedside Glucose 288 mg/dL (74-106)
--- NOTE | 2022-05-12 15:41 | PN.RENAL_ITS ---
Subjective Subjective no new events Objective Data Objective Data Vital Signs: Vital Signs Temp Pulse Resp BP Pulse Ox O2 Del Method O2 Flow Rate 98.3 F 70 17 123/61 H 97 Room Air 2 05/12/22 12:00 05/12/22 15:39 05/12/22 12:00 05/12/22 12:00 05/12/22 12:00 05/12/22 14:40 05/12/22 12:00 FiO2 25 05/12/22 07:00 Oxygen Flow Rate (L/min) 2 Oxygen Delivery Method Room Air Weight: 147 kg Body Mass Index (BMI) 54.6 Intake & Output: Intake and Output for Last 24 Hours 05/10/22 05/11/22 05/12/22 23:59 23:59 23:59 Intake Total 4386.95 / 4386.95 945 / 945 1260 / 1260 Output Total 3220 / 3220 2100 / 2100 700 / 700 Balance 1166.95 / 1166.95 -1155 / -1155 560 / 560 Lab / Micro Data Result Diagrams: 05/12/22 03:10 05/12/22 03:10 Labs: Laboratory Results - last 24 hr 05/11/22 16:25: POC Glucose 95 05/11/22 18:25: Vancomycin Trough 9.2 05/11/22 21:12: POC Glucose 137 H 05/12/22 03:10: WBC 6.6, RBC 3.65 L, Hgb 10.8 L, Hct 33.6 L, MCV 92.1, MCH 29.6, MCHC 32.1, RDW Std Deviation 50.1 H, RDW Coeff of Neo 14.9 H, Plt Count 158, MPV 9.4, Immature Gran % (Auto) 0.300, Neut % (Auto) 75.4 H, Lymph % (Auto) 11.6 L, [place] % (Auto) 11.7 H, Eos % (Auto) 0.8, Baso % (Auto) 0.2, Absolute Neuts (auto) 5.0, Absolute Lymphs (auto) 0.76 L, Nucleated RBC % 0 05/12/22 03:10: Sodium 149 H, Potassium 4.1, Chloride 116 H, Carbon Dioxide 31.0, Anion Gap 2 L, BUN 36 H, Creatinine 1.44 H, Estim Creat Clear Calc 42.25, Est GFR (MDRD) Af Amer 63, Est GFR (MDRD) Non-Af 52 L, BUN/Creatinine Ratio 25.0 H, Glucose 216 H, Calcium 8.7 05/12/22 08:04: POC Glucose 241 H 05/12/22 12:00: POC Glucose 288 H Micro: Microbiology 05/09/22 18:30 Blood Culture (Wb) - Pic Blood Culture - Preliminary No growth in 48 hours. 05/09/22 18:30 Blood Culture (Wb) - Pic Blood Culture - Preliminary No growth in 48 hours. 05/09/22 16:20 Sputum, Tracheal Aspirate Gram Stain - Final 05/09/22 16:20 Sputum, Tracheal Aspirate Respiratory Culture - Final Meth. resistant Staph. aureus 05/09/22 15:28 Mucosa - Nasopharyngeal Respiratory Panel (PCR) - Final Rhinovirus 05/09/22 11:55 Urine Catheter - Catheter Legionella Antigen - Final 05/09/22 11:55 Urine Catheter - Catheter Streptococcus pneumoniae Antigen (M - Final Rhythm Strip Rhythm Strip: Sinus Rhythm Physical Exam Narrative Resting quietly, no apparent distress. Opens eyes to voice and touch but quickly falls back to sleep S1, S2, RRR Lung sounds diminished. No rales or rhonchi. On nasal cannula Abdomen soft, rounded, positive bowel sounds Trace nonpitting edema noted bilateral lower legs Indwelling Chan with clear yellow in bag Assessment & Plan Assessment/Plan (1) ERIC (acute kidney injury): (2) Diabetic ketoacidosis: QUALIFIERS: Diabetes mellitus type: type 1 Diabetes mellitus complication detail: without coma Qualified Code(s): E10.10 - Type 1 diabetes mellitus with ketoacidosis without coma (3) Altered mental status: (4) Diabetes type 1, controlled: QUALIFIERS: Diabetes mellitus complication status: with unspecified complications Qualified Code(s): E10.8 - Type 1 diabetes mellitus with unspecified complications PLAN: Plan Acute kidney injury. Baseline renal function is unclear.? Last available creatinine level before this admission was from 02/12/2021 at 1.13 mg/dL. The patient does have risk factors for CKD with longstanding type 1 diabetes mellitus. I suspect ERIC is secondary to prerenal azotemia due to shock and volume depletion from polyuria secondary to severe hyperglycemia on presentation.? Prerenal ERIC may have progressed to ischemic ATN as well. Urinalysis did not suggest other causes of ERIC such as interstitial nephritis, vasculitis or acute glomerulonephritis. Renal ultrasound was negative for obstruction. cr is better Metabolic acidosis with high anion gap. Serum bicarbonate was as low as 10 mmol/L on 05/09/2022.? Serum bicarbonate level is now 26 mmol/L this morning. I suspect that there is coexisting metabolic alkalosis from volume depletion in this case as well. Metabolic acidosis has resolved with treatment of DKA with insulin infusion.
--- NOTE | 2022-05-12 16:13 | PCM.PN.CARD ---
Subjective Subjective No symptoms reported. Patient respiratory panel is positive for rhinovirus And sputum culture revealed MRSA Seen in intensive care discussed with the nursing staff Objective Data Vital Signs: Vital Signs Temp Pulse Resp BP Pulse Ox O2 Del Method O2 Flow Rate 98.3 F 70 17 123/61 H 97 Room Air 2 05/12/22 12:00 05/12/22 15:39 05/12/22 12:00 05/12/22 12:00 05/12/22 12:00 05/12/22 14:40 05/12/22 12:00 FiO2 25 05/12/22 07:00 Oxygen Flow Rate (L/min) 2 Oxygen Delivery Method Room Air Weight: 324 lb 1.272 oz Body Mass Index (BMI) 54.6 Intake & Output: Intake and Output for Last 24 Hours 05/10/22 05/11/22 05/12/22 23:59 23:59 23:59 Intake Total 4386.95 / 4386.95 945 / 945 1260 / 1260 Output Total 3220 / 3220 2100 / 2100 700 / 700 Balance 1166.95 / 1166.95 -1155 / -1155 560 / 560 Lab / Micro Data Result Diagrams: 05/12/22 03:10 05/12/22 03:10 Labs: Laboratory Results - last 24 hr 05/11/22 16:25: POC Glucose 95 05/11/22 18:25: Vancomycin Trough 9.2 05/11/22 21:12: POC Glucose 137 H 05/12/22 03:10: WBC 6.6, RBC 3.65 L, Hgb 10.8 L, Hct 33.6 L, MCV 92.1, MCH 29.6, MCHC 32.1, RDW Std Deviation 50.1 H, RDW Coeff of Neo 14.9 H, Plt Count 158, MPV 9.4, Immature Gran % (Auto) 0.300, Neut % (Auto) 75.4 H, Lymph % (Auto) 11.6 L, [place] % (Auto) 11.7 H, Eos % (Auto) 0.8, Baso % (Auto) 0.2, Absolute Neuts (auto) 5.0, Absolute Lymphs (auto) 0.76 L, Nucleated RBC % 0 05/12/22 03:10: Sodium 149 H, Potassium 4.1, Chloride 116 H, Carbon Dioxide 31.0, Anion Gap 2 L, BUN 36 H, Creatinine 1.44 H, Estim Creat Clear Calc 42.25, Est GFR (MDRD) Af Amer 63, Est GFR (MDRD) Non-Af 52 L, BUN/Creatinine Ratio 25.0 H, Glucose 216 H, Calcium 8.7 05/12/22 08:04: POC Glucose 241 H 05/12/22 12:00: POC Glucose 288 H Micro: Microbiology 05/09/22 18:30 Blood Culture (Wb) - Pic Blood Culture - Preliminary No growth in 48 hours. 05/09/22 18:30 Blood Culture (Wb) - Pic Blood Culture - Preliminary No growth in 48 hours. Rhythm Strip Rhythm Strip: Sinus Rhythm Cardiology Labs/Tests 05/12/22 03:10: WBC 6.6, RBC 3.65 L, Hgb 10.8 L, Hct 33.6 L, MCV 92.1, MCH 29.6, MCHC 32.1, Plt Count 158, MPV 9.4, Immature Gran % (Auto) 0.300, Neut % (Auto) 75.4 H, Lymph % (Auto) 11.6 L, [place] % (Auto) 11.7 H, Eos % (Auto) 0.8, Baso % (Auto) 0.2, Absolute Neuts (auto) 5.0, Nucleated RBC % 0 05/12/22 03:10: Sodium 149 H, Potassium 4.1, Chloride 116 H, Carbon Dioxide 31.0, Anion Gap 2 L, BUN 36 H, Creatinine 1.44 H, Est GFR (MDRD) Af Amer 63, Est GFR (MDRD) Non-Af 52 L, BUN/Creatinine Ratio 25.0 H, Glucose 216 H, Calcium 8.7 Rhythm: EKG: ECHO: Stress Test: Cardiac Cath: PCI: CT Surgery: Holter monitor: EPS: PPM: CXR: Chest CT Scan: Physical Exam Cardio Cardio Narrative: Patient off inotropic support Cardiac exam S1-S2 regular Chest exam clear to auscultation bilateral Assessment & Plan Assessment/Plan (1) Acute respiratory failure with hypoxemia: (2) Rhinovirus infection: (3) CAD (coronary artery disease): (4) NSTEMI (non-ST elevated myocardial infarction): PLAN: This 66-year-old patient With multiple medical comorbidities Has diabetic ketoacidosis with diabetic ketoacidosis which is improving Acute hypoxic respiratory failure, septic shock and acute metabolic encephalopathy which is improving Acute renal insufficiency This is cardiac follow-up for the elevated high sensitive troponin I. Echocardiographic evaluation showed LV function is preserved Patient has nonobstructive CAD with hypertension and hyperlipidemia. With a history of multiple sclerosis and class III obesity and GERD Cardiac care plan recommendations; 1. From cardiac standpoint the elevated cardiac biomarker is secondary to the current medical problems with hypoxia With demand myocardial ischemia and type II MS From cardiac standpoint recommendation would be to consider evaluation with myocardial fusion study once patient condition is stable.
[2022-05-12] MEDS: 0.9% Saline Lock 10 ML Syringe IV (16:30)
--- NOTE | 2022-05-12 16:36 | CASEMGMT ---
SW dropped off advanced directive booklet however, patient was asleep and did not wake up. Patient has been provided with handout on advanced directive information. Cesilia FRIAS
[2022-05-12 16:50] LABS: Bedside Glucose 125 mg/dL (74-106)
[2022-05-12 22:16] LABS: Bedside Glucose 97 mg/dL (74-106)
[2022-05-13] VITALS (15 sets, daily range): BP systolic 99–145; BP diastolic 42–60; PULSE 56–70; RESP 12–19; TEMP 36.2–36.9; O2SAT 96–99
[2022-05-13 04:58] LABS: Absolute Lymphocyte Count 1.01 X10^3/uL (0.83-4.51); Absolute Neutrophil Count 4.5 X10^3/uL (2.0-7.7); Basophil# 0.01 X10^3/uL; Basophil% 0.2 % (0-1); Eosinophil# 0.13 X10^3/uL; Hematocrit 34.3 % (40-54); Hemoglobin 11.2 g/dL (13.0-16.5); Lymphocyte # 1.01 X10^3/ul (0.83-4.51); Lymphocyte % 15.8 % (19-41); Mean Corp Hgb Conc 32.7 g/dL (32-36); Mean Corpuscular Hgb 30.4 pg (27.0-32.0); Mean Corpuscular Volume 93.2 fL (80-94); Mean Platelet Vol. 9.5 fl (6.2-12.0); Monocyte# 0.77 X10^3/uL; NRBC Flagged by Analyzer 0 % (0-5); Neutrophil # 4.46 X10^3/uL (2.7-7.7); Neutrophil % 69.5 % (47-70); Platelet Count 160 K/mm3 (150-450); RBC Distribution Width CV 14.8 % (11.6-14.6); RBC Distribution Width SD 51.1 fl (35.1-43.9); Red Blood Count 3.68 M/mm3 (4.6-6.2); White Blood Count 6.4 K/mm3 (4.4-11.0)
[2022-05-13 05:32] LABS: Anion Gap 3 (5-15); BUN 35 mg/dL (7-18); BUN/Creat Ratio 32.4 RATIO (10-20); Calcium,Total 8.5 mg/dL (8.5-10.1); Chloride 112 mmol/L (98-107); Creatinine, Serum 1.08 mg/dL (0.70-1.30); EST Glomerular Filtration Rate 73 mL/min (>60); Est Glom Filt Rate - Afr Amer 88 mL/min (>60); Estimated Creatinine Clearance 56.34 ml/min; Glucose 43 mg/dL (74-106); Potassium 3.7 mmol/L (3.5-5.1); Sodium Level 145 mmol/L (136-145)
[2022-05-13] MEDS: Vancomycin IV 1,000 MG/200 ML BAG 200 MG IV ×2 (05:39→18:36)
[2022-05-13] MEDS: Gabapentin 100 MG Capsule 200 MG PO ×3 (05:41→21:24)
[2022-05-13 06:06] LABS: Bedside Glucose 38 mg/dL (74-106)
[2022-05-13 06:30] LABS: Bedside Glucose 67 mg/dL (74-106)
[2022-05-13 06:55] LABS: Bedside Glucose 103 mg/dL (74-106)
--- NOTE | 2022-05-13 07:25 | PCM.PN.HOSP ---
Subjective Subjective Patient seen much more interactive compared to previous day. Patient did experience episode of hypoglycemia with blood glucose dropping to the 40s. Subsequent adjustment made to patient insulin regimen Objective Data Objective Data Vital Signs: Vital Signs Temp Pulse Resp BP Pulse Ox O2 Del Method O2 Flow Rate 97.2 F L 65 19 H 113/60 97 Room Air 2 05/13/22 06:00 05/13/22 06:00 05/13/22 06:00 05/13/22 06:00 05/13/22 06:00 05/13/22 06:00 05/12/22 12:00 FiO2 25 05/13/22 05:11 Oxygen Flow Rate (L/min) 2 Oxygen Delivery Method Room Air Weight: 148.778 kg Body Mass Index (BMI) 54.6 Intake & Output: Intake and Output for Last 24 Hours 05/11/22 05/12/22 05/13/22 23:59 23:59 23:59 Intake Total 945 / 945 2470 / 2470 530 / 530 Output Total 2100 / 2100 1250 / 1250 200 / 200 Balance -1155 / -1155 1220 / 1220 330 / 330 Lab / Micro Data Result Diagrams: 05/13/22 04:40 05/13/22 04:40 Labs: Laboratory Results - last 24 hr 05/12/22 08:04: POC Glucose 241 H 05/12/22 12:00: POC Glucose 288 H 05/12/22 16:28: POC Glucose 125 H 05/12/22 21:34: POC Glucose 97 05/13/22 04:40: WBC 6.4, RBC 3.68 L, Hgb 11.2 L, Hct 34.3 L, MCV 93.2, MCH 30.4, MCHC 32.7, RDW Std Deviation 51.1 H, RDW Coeff of Neo 14.8 H, Plt Count 160, MPV 9.5, Immature Gran % (Auto) 0.500, Neut % (Auto) 69.5, Lymph % (Auto) 15.8 L, [place] % (Auto) 12.0 H, Eos % (Auto) 2.0, Baso % (Auto) 0.2, Absolute Neuts (auto) 4.5, Absolute Lymphs (auto) 1.01, Nucleated RBC % 0 05/13/22 04:40: Sodium 145, Potassium 3.7, Chloride 112 H, Carbon Dioxide 30.0, Anion Gap 3 L, BUN 35 H, Creatinine 1.08, Estim Creat Clear Calc 56.34, Est GFR (MDRD) Af Amer 88, Est GFR (MDRD) Non-Af 73, BUN/Creatinine Ratio 32.4 H, Glucose 43 L*, Calcium 8.5 05/13/22 05:33: POC Glucose 38 L* 05/13/22 06:12: POC Glucose 67 L 05/13/22 06:37: POC Glucose 103 Micro: Microbiology 05/09/22 18:30 Blood Culture (Wb) - Pic Blood Culture - Preliminary No growth in 48 hours. 05/09/22 18:30 Blood Culture (Wb) - Pic Blood Culture - Preliminary No growth in 48 hours. 05/09/22 16:20 Sputum, Tracheal Aspirate Gram Stain - Final 05/09/22 16:20 Sputum, Tracheal Aspirate Respiratory Culture - Final Meth. resistant Staph. aureus 05/09/22 15:28 Mucosa - Nasopharyngeal Respiratory Panel (PCR) - Final Rhinovirus 05/09/22 11:55 Urine Catheter - Catheter Legionella Antigen - Final 05/09/22 11:55 Urine Catheter - Catheter Streptococcus pneumoniae Antigen (M - Final Rhythm Strip Rhythm Strip: Sinus Rhythm Physical Exam Narrative GENERAL: Awake awake and cooperative HEENT: Atraumatic; normocephalic EYES; Anicteric, Normal Conjunctiva NECK; supple, normal thyroid, RESPIRATORY: Diminished to auscultation CARDIOVASCULAR: Regular S1 S2, GI: soft, normoactive bowel sounds, : No Renal angle tenderness; EXTREMITIES: No edema, no clubbing, MUSCULOSKELETAL: no muscle wasting NEURO: no lateralizing signs. SKIN: No Rash PSYCH; Flat affect Assessment & Plan Assessment/Plan (1) Altered mental status: (2) Respiratory failure: PLAN: Plan Patient is a 66-year-old male admitted with altered mental status 1. Diabetic ketoacidosis ? Patient has been admitted to intensive care unit currently being managed with aggressive IV fluid resuscitation IV insulin, serial monitoring with every 4 BMP and subsequent correction of electrolyte abnormalities ? 05/10/2022; patient DKA resolved plan is to switch patient from insulin drip to scheduled long-acting as well as Premeal Insulin -05/11/2022 Blood glucose control still not optimal, subsequent adjustment to patient insulin regimen made ? 05/12/2022 patient hypoglycemia improved with adjustment of his insulin regimen -05/13/2022;Patient did experience episode of hypoglycemia with blood glucose dropping to the 40s. Subsequent adjustment made to patient insulin regimen 2. Acute hypoxic respiratory failure ? Patient was intubated in the ED subsequently placed on the vent consult placed to pulmonary medicine/intensive care for vent management -05/10/2022 patient has been weaned off the vent ? 05/11/2022; patient remains on supplemental oxygen 3. Septic shock (not evident on admission) ?This was evident by persistent hypotension, evidence of endorgan damage(Respiratory failure and acute kidney injury) as well as leukocytosis and tachycardia with suspected evidence of infection Patient had to be started on broad-spectrum antibiotic therapyVancomycin, Levaquin and Zosyn. Cultures sent. Patient started on Levophed titrated to keep MAP greater than 60 following patient failure to respond to aggressive IV fluid resuscitation ? 05/11/2022; patient blood pressure stabilized ? 05/12/2022 patient sputum cultures came back positive for MRSA patient is on vancomycin. Respiratory panel was also positive for rhinovirus 4. Acute metabolic encephalopathy ? 05/11/2022 due to combination of patient acute hypoxic respiratory failure as well as ERIC plan is to treat underlying condition. Also ordered CT of the head for further evaluation ? 05/12/[address] was unremarkable 5. Acute kidney injury ? Possibly ATN from patient DKA and sepsis on IV fluids consult placed to nephrology ? 05/11/2022 patient was seen in consultation by Dr. Roblero Case discussed with him. Plan is to continue with IV fluid with daily monitoring of electrolyte 6. Elevated troponin ?? NSTEMI Versus demand ischemia. Ordered 2D echo as well as serial cardiac enzymes and cardiology consultation ? 05/11/2022; patient was seen in consultation by cardiology with plans for further evaluation of his coronary arteries invasively versus noninvasively, to be determined by cardiology ? 05/12/2022; 2D echo; Left ventricular systolic function is normal. The estimated ejection fraction is 65 %. The left atrium is mildly enlarged. Trivial mitral valve insufficiency. Trivial tricuspid valve insufficiency. Trivial pericardial effusion. 7. Essential hypertension ? Patient antihypertensives placed on hold in view of relatively low blood pressure ? 05/11/2022; patient hypotension resolved patient blood pressure markedly elevated restarted patient antihypertensives 8. Dyslipidemia ? Patient is on rosuvastatin plan is to restart once patient is weaned off the vent 9. GERD ? Patient is on PPI 10. GI prophylaxis ? Patient placed on Protonix 11. Class III obesity with BMI of 49.6 ? 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 Multiple sclerosis ? Per history 13. DVT prophylaxis Bilateral SCDs plus SC Lovenox Charges/Coding Visit Charges Inpatient E&M: 50797 Init Hosp L2
[2022-05-13] MEDS: Aspirin 81 MG TAB.CHEW PO (08:36)
[2022-05-13] MEDS: Multivitamins,Therapeutic Tablet 1 TABLET PO (08:36)
[2022-05-13] MEDS: Ramipril 10 MG Capsule PO (10:13)
[2022-05-13] MEDS: Pantoprazole Sodium 40 MG Tablet PO (10:15)
[2022-05-13] MEDS: Atorvastatin Calcium 20 MG Tablet PO (10:15)
[2022-05-13] MEDS: Tamsulosin HCl 0.4 MG Capsule PO (10:15)
[2022-05-13] MEDS: Metoprolol(XL)Succ 50 MG Tablet PO (10:15)
[2022-05-13] MEDS: DULoxetine Hcl 60 MG Capsule PO (10:15)
[2022-05-13] MEDS: Cholecalciferol (VIT D3) 25 MCG TABLET (1,000 UNITS) PO (10:16)
--- NOTE | 2022-05-13 11:32 | PN.CC_ITS ---
Assessment & Plan Assessment/Plan (1) Diabetic ketoacidosis: QUALIFIERS: Diabetes mellitus type: type 1 Diabetes mellitus complication detail: without coma Qualified Code(s): E10.10 - Type 1 diabetes mellitus with ketoacidosis without coma PLAN: Primary care is adjusting his insulin regimen with goal glucose of 1 80-2 20 in the critical care unit Now sugars are resaonably well controlled (2) Rhinovirus infection: PLAN: May have precipitated the patient's initial deterioration, we need it for now. (3) Acute respiratory failure with hypoxemia: PLAN: The patient has been extubated May 10, maintaining good saturations, is using BiPAP 07/11 with 2 to 3 L of oxygen and a rate of 12. At night and with sleep. We will continue current support He will need treatment for sleep apnea most likely as an outpatient. He is on 2 L of home O2, which is now his baseline. Ready to move out of bed to chair physical therapy and progress as he awakens Can consider transfer to RNF when bed is available (4) Altered mental status: PLAN: Likely a metabolic encephalopathy. He is gradually clearing although slowly. Head CT scan was negative 05/11. Anion gap is resolved, glucose is improving. (5) NSTEMI (non-ST elevated myocardial infarction): PLAN: This patient is likely had a stress related NSTEMI, his troponins are not trending downward from a peak of over 6000, today 2295. Echocardiogram showed ejection fraction of 65% with no focal wall motion abnormalities although it was a technically difficult study. Unable to see right-sided pressures Medications reviewed, he is on enoxaparin, he is off norepinephrine drip Cardiology has been consulted and appreciate their input in his care (6) Obesity: QUALIFIERS: Obesity type: due to excess calories Body mass index: BMI 45.0-49.9 PLAN: Extreme obesity with BMI 56. Some of the patient's abnormal mental status may be chronic hypoxic encephalopathy in addition to his diabetic metabolic encephalopathy He may need skilled unit placement at discharge He will continue empiric BiPAP at night and as needed, titrate O2 to keep saturation greater than 92% Bronchopulmonary hygiene Mobilize Calorie restriction diabetic diet once he is able to start eating. Transition to basal and sliding scale done 05/11. (7) CAD (coronary artery disease): PLAN: Supportive care with adequate oxygenation and stable vital signs Cardiology has been consulted for further management. He remains on enoxaparin. PLAN: Plan Other problems including hypertension GERD Recommend getting a TSH if not obtained within the past few months. Subjective Subjective Almost back to baseline today Objective Data Objective Data Vital Signs: Vital Signs Temp Pulse Resp BP Pulse Ox O2 Del Method O2 Flow Rate 36.2 C L 69 19 H 129/56 H 97 Room Air 2 05/13/22 06:00 05/13/22 10:15 05/13/22 06:00 05/13/22 10:15 05/13/22 06:00 05/13/22 08:40 05/12/22 12:00 FiO2 25 05/13/22 05:11 Oxygen Flow Rate (L/min) 2 Oxygen Delivery Method Room Air Weight: 148.778 kg Body Mass Index (BMI) 54.6 Intake & Output: Intake and Output for Last 24 Hours 05/11/22 05/12/22 05/13/22 23:59 23:59 23:59 Intake Total 945 / 945 2470 / 2470 780 / 780 Output Total 2100 / 2100 1250 / 1250 200 / 200 Balance -1155 / -1155 1220 / 1220 580 / 580 Lab / Micro Data Result Diagrams: 05/13/22 04:40 05/13/22 04:40 Labs: Laboratory Results - last 24 hr 05/12/22 12:00: POC Glucose 288 H 05/12/22 16:28: POC Glucose 125 H 05/12/22 21:34: POC Glucose 97 05/13/22 04:40: WBC 6.4, RBC 3.68 L, Hgb 11.2 L, Hct 34.3 L, MCV 93.2, MCH 30.4, MCHC 32.7, RDW Std Deviation 51.1 H, RDW Coeff of Neo 14.8 H, Plt Count 160, MPV 9.5, Immature Gran % (Auto) 0.500, Neut % (Auto) 69.5, Lymph % (Auto) 15.8 L, [place] % (Auto) 12.0 H, Eos % (Auto) 2.0, Baso % (Auto) 0.2, Absolute Neuts (auto) 4.5, Absolute Lymphs (auto) 1.01, Nucleated RBC % 0 05/13/22 04:40: Sodium 145, Potassium 3.7, Chloride 112 H, Carbon Dioxide 30.0, Anion Gap 3 L, BUN 35 H, Creatinine 1.08, Estim Creat Clear Calc 56.34, Est GFR (MDRD) Af Amer 88, Est GFR (MDRD) Non-Af 73, BUN/Creatinine Ratio 32.4 H, Glucose 43 L*, Calcium 8.5 05/13/22 05:33: POC Glucose 38 L* 05/13/22 06:12: POC Glucose 67 L 05/13/22 06:37: POC Glucose 103 Micro: Microbiology 05/09/22 18:30 Blood Culture (Wb) - Pic Blood Culture - Preliminary No growth in 48 hours. 05/09/22 18:30 Blood Culture (Wb) - Pic Blood Culture - Preliminary No growth in 48 hours. 05/09/22 16:20 Sputum, Tracheal Aspirate Gram Stain - Final 05/09/22 16:20 Sputum, Tracheal Aspirate Respiratory Culture - Final Meth. resistant Staph. aureus 05/09/22 15:28 Mucosa - Nasopharyngeal Respiratory Panel (PCR) - Final Rhinovirus 05/09/22 11:55 Urine Catheter - Catheter Legionella Antigen - Final 05/09/22 11:55 Urine Catheter - Catheter Streptococcus pneumoniae Antigen (M - Final Rhythm Strip Rhythm Strip: Sinus Rhythm Physical Exam Narrative Well-developed obese man who is quite lethargic but opens eyes moves his head tracks partially and denies acute distress. HEENT: Normocephalic atraumatic eyes extraocular's are intact pupils are equal sclera anicteric Chest has rhonchi bilaterally with no consolidation wheezes rales or crackles. Fair cough, no secretions expectorated. Not able to comprehend doing incentive spirometry at this time Heart normal S1-S2 with no murmurs rubs or gallops Abdomen is obese nontender no rebound good bowel sounds. Last bowel movement was today. Chan catheter is yellow and clear Extremities have no clubbing cyanosis or edema Skin is warm and dry Charges/Coding Visit Charges Inpatient E&M: 46334 Init Hosp L3
[2022-05-13] MEDS: Insulin Glargine-YFGN 100 UNIT/ML Pen 30 UNIT SC ×2 (11:44→21:05)
[2022-05-13] MEDS: Insulin Lispro 100 UNIT/ML INSULN.PEN SC ×5 (11:45→21:03)
[2022-05-13 12:10] LABS: Bedside Glucose 308 mg/dL (74-106)
[2022-05-13] MEDS: Enoxaparin 40 MG/0.4 ML Syringe SC (13:20)
[2022-05-13] MEDS: CHLORHEXIDINE GLUC 2% CLOTH 1 EACH TOWELETTE TOPICAL (13:20)
--- NOTE | 2022-05-13 16:13 | PCM.PN.REN ---
Subjective Subjective no new events Objective Data Objective Data Vital Signs: Vital Signs Temp Pulse Resp BP Pulse Ox O2 Del Method O2 Flow Rate 97.8 F 61 14 123/54 H 98 Room Air 2 05/13/22 16:00 05/13/22 16:00 05/13/22 16:00 05/13/22 16:00 05/13/22 16:00 05/13/22 16:00 05/12/22 12:00 FiO2 25 05/13/22 05:11 Oxygen Flow Rate (L/min) 2 Oxygen Delivery Method Room Air Weight: 148.778 kg Body Mass Index (BMI) 54.6 Intake & Output: Intake and Output for Last 24 Hours 05/11/22 05/12/22 05/13/22 23:59 23:59 23:59 Intake Total 945 / 945 2470 / 2470 1380 / 1380 Output Total 2100 / 2100 1250 / 1250 475 / 475 Balance -1155 / -1155 1220 / 1220 905 / 905 Lab / Micro Data Result Diagrams: 05/13/22 04:40 05/13/22 04:40 Labs: Laboratory Results - last 24 hr 05/12/22 16:28: POC Glucose 125 H 05/12/22 21:34: POC Glucose 97 05/13/22 04:40: WBC 6.4, RBC 3.68 L, Hgb 11.2 L, Hct 34.3 L, MCV 93.2, MCH 30.4, MCHC 32.7, RDW Std Deviation 51.1 H, RDW Coeff of Neo 14.8 H, Plt Count 160, MPV 9.5, Immature Gran % (Auto) 0.500, Neut % (Auto) 69.5, Lymph % (Auto) 15.8 L, [place] % (Auto) 12.0 H, Eos % (Auto) 2.0, Baso % (Auto) 0.2, Absolute Neuts (auto) 4.5, Absolute Lymphs (auto) 1.01, Nucleated RBC % 0 05/13/22 04:40: Sodium 145, Potassium 3.7, Chloride 112 H, Carbon Dioxide 30.0, Anion Gap 3 L, BUN 35 H, Creatinine 1.08, Estim Creat Clear Calc 56.34, Est GFR (MDRD) Af Amer 88, Est GFR (MDRD) Non-Af 73, BUN/Creatinine Ratio 32.4 H, Glucose 43 L*, Calcium 8.5 05/13/22 05:33: POC Glucose 38 L* 05/13/22 06:12: POC Glucose 67 L 05/13/22 06:37: POC Glucose 103 05/13/22 11:42: POC Glucose 308 H Micro: Microbiology 05/09/22 18:30 Blood Culture (Wb) - Pic Blood Culture - Preliminary No growth in 48 hours. 05/09/22 18:30 Blood Culture (Wb) - Pic Blood Culture - Preliminary No growth in 48 hours. 05/09/22 16:20 Sputum, Tracheal Aspirate Gram Stain - Final 05/09/22 16:20 Sputum, Tracheal Aspirate Respiratory Culture - Final Meth. resistant Staph. aureus 05/09/22 15:28 Mucosa - Nasopharyngeal Respiratory Panel (PCR) - Final Rhinovirus 05/09/22 11:55 Urine Catheter - Catheter Legionella Antigen - Final 05/09/22 11:55 Urine Catheter - Catheter Streptococcus pneumoniae Antigen (M - Final Rhythm Strip Rhythm Strip: Sinus Rhythm Physical Exam Narrative Resting quietly, no apparent distress. Opens eyes to voice and touch but quickly falls back to sleep S1, S2, RRR Lung sounds diminished. No rales or rhonchi. On nasal cannula Abdomen soft, rounded, positive bowel sounds Trace nonpitting edema noted bilateral lower legs Indwelling Chan with clear yellow in bag Assessment & Plan Assessment/Plan (1) ERIC (acute kidney injury): (2) Diabetic ketoacidosis: QUALIFIERS: Diabetes mellitus type: type 1 Diabetes mellitus complication detail: without coma Qualified Code(s): E10.10 - Type 1 diabetes mellitus with ketoacidosis without coma (3) Altered mental status: (4) Diabetes type 1, controlled: QUALIFIERS: Diabetes mellitus complication status: with unspecified complications Qualified Code(s): E10.8 - Type 1 diabetes mellitus with unspecified complications PLAN: Plan Acute kidney injury. Baseline renal function is unclear.? Last available creatinine level before this admission was from 02/12/2021 at 1.13 mg/dL. The patient does have risk factors for CKD with longstanding type 1 diabetes mellitus. I suspect ERIC is secondary to prerenal azotemia due to shock and volume depletion from polyuria secondary to severe hyperglycemia on presentation.? Prerenal ERIC may have progressed to ischemic ATN as well. Urinalysis did not suggest other causes of ERIC such as interstitial nephritis, vasculitis or acute glomerulonephritis. Renal ultrasound was negative for obstruction. cr is better Metabolic acidosis with high anion gap. Serum bicarbonate was as low as 10 mmol/L on 05/09/2022.? Serum bicarbonate level is now 26 mmol/L this morning. I suspect that there is coexisting metabolic alkalosis from volume depletion in this case as well. Metabolic acidosis has resolved with treatment of DKA with insulin infusion. creatinine is now normal. We will follow peripherally.
[2022-05-13 17:21] LABS: Bedside Glucose 256 mg/dL (74-106)
[2022-05-13] MEDS: 0.9% Saline Lock 10 ML Syringe IV (18:48)
[2022-05-13 18:56] LABS: Vancomycin, Trough Level 15.7 ug/mL (5.0-15.0)
--- NOTE | 2022-05-13 20:09 | PCM.RX.CS ---
Consult Pharmacy has been consulted to manage selected antiobiotic: Vancomycin Type of Consult: Follow-up Suspected Infection: Pneumonia Labs: Sodium 145 mmol/L (136-145) 05/13/22 04:40 Potassium 3.7 mmol/L (3.5-5.1) 05/13/22 04:40 Chloride 112 mmol/L (98-107) H 05/13/22 04:40 Carbon Dioxide 30.0 mmol/L (21.0-32.0) 05/13/22 04:40 Anion Gap 3 (5-15) L 05/13/22 04:40 BUN 35 mg/dL (7-18) H 05/13/22 04:40 Creatinine 1.08 mg/dL (0.70-1.30) 05/13/22 04:40 Est GFR (MDRD) Af Amer 88 mL/min (>60) 05/13/22 04:40 Est GFR (MDRD) Non-Af 73 mL/min (>60) 05/13/22 04:40 BUN/Creatinine Ratio 32.4 RATIO (10-20) H 05/13/22 04:40 Glucose 43 mg/dL (74-106) L* 05/13/22 04:40 Vancomycin Trough 15.7 ug/mL (5.0-15.0) H 05/13/22 18:20 Microbiology: Microbiology 05/09/22 18:30 Blood Culture (Wb) - Pic Blood Culture - Preliminary No growth in 48 hours. 05/09/22 18:30 Blood Culture (Wb) - Pic Blood Culture - Preliminary No growth in 48 hours. 05/09/22 16:20 Sputum, Tracheal Aspirate Gram Stain - Final 05/09/22 16:20 Sputum, Tracheal Aspirate Respiratory Culture - Final Meth. resistant Staph. aureus 05/09/22 15:28 Mucosa - Nasopharyngeal Respiratory Panel (PCR) - Final Rhinovirus 05/09/22 11:55 Urine Catheter - Catheter Legionella Antigen - Final 05/09/22 11:55 Urine Catheter - Catheter Streptococcus pneumoniae Antigen (M - Final Goal Trough: 15-20 mcg/mL Pharmacy Plan for Drug Dosing: Pharmacy Service will continue to monitor and adjust dosing as required. TROUGH 15.7 @ 12 HRS. NO CHANGES FOLLOW UP TROUGH IN 2 DAYS Follow-Up Labs: Trough Vancomycin Labs to be done on [date and time ordered]: 05/15 @ 1800
[2022-05-13 22:21] LABS: Bedside Glucose 195 mg/dL (74-106)
[2022-05-14] VITALS (14 sets, daily range): BP systolic 121–150; BP diastolic 48–64; PULSE 53–87; RESP 17–18; TEMP 36.4–36.8; O2SAT 96–99
[2022-05-14 05:46] LABS: Absolute Lymphocyte Count 1.49 X10^3/uL (0.83-4.51); Absolute Neutrophil Count 4.1 X10^3/uL (2.0-7.7); Basophil# 0.02 X10^3/uL; Basophil% 0.3 % (0-1); Eosinophil# 0.33 X10^3/uL; Eosinophils% 4.8 % (0-5); Hematocrit 35.7 % (40-54); Hemoglobin 11.5 g/dL (13.0-16.5); Lymphocyte # 1.49 X10^3/ul (0.83-4.51); Lymphocyte % 21.7 % (19-41); Mean Corp Hgb Conc 32.2 g/dL (32-36); Mean Corpuscular Hgb 29.9 pg (27.0-32.0); Mean Corpuscular Volume 92.7 fL (80-94); Monocyte# 0.92 X10^3/uL; Monocyte% 13.4 % (0-10); NRBC Flagged by Analyzer 0 % (0-5); Neutrophil # 4.05 X10^3/uL (2.7-7.7); Neutrophil % 58.9 % (47-70); Platelet Count 157 K/mm3 (150-450); RBC Distribution Width CV 14.6 % (11.6-14.6); RBC Distribution Width SD 49.1 fl (35.1-43.9); Red Blood Count 3.85 M/mm3 (4.6-6.2); White Blood Count 6.9 K/mm3 (4.4-11.0)
[2022-05-14 06:02] LABS: Anion Gap 3 (5-15); BUN 28 mg/dL (7-18); BUN/Creat Ratio 23.1 RATIO (10-20); Calcium,Total 8.5 mg/dL (8.5-10.1); Chloride 108 mmol/L (98-107); Creatinine, Serum 1.21 mg/dL (0.70-1.30); EST Glomerular Filtration Rate 64 mL/min (>60); Est Glom Filt Rate - Afr Amer 77 mL/min (>60); Estimated Creatinine Clearance 50.28 ml/min; Glucose 57 mg/dL (74-106); Potassium 3.8 mmol/L (3.5-5.1); Sodium Level 142 mmol/L (136-145)
[2022-05-14] MEDS: Gabapentin 100 MG Capsule 200 MG PO ×3 (06:36→22:34)
--- NOTE | 2022-05-14 07:52 | PN.RENAL_ITS ---
Subjective Subjective Sitting in chair air, denies any complaints. No overnight events Objective Data Objective Data Vital Signs: Vital Signs Temp Pulse Resp BP Pulse Ox O2 Del Method O2 Flow Rate 97.9 F 82 18 125/62 H 98 Room Air 2 05/14/22 06:45 05/14/22 06:45 05/14/22 06:45 05/14/22 06:45 05/14/22 06:45 05/14/22 06:45 05/14/22 06:00 FiO2 25 05/14/22 06:00 Oxygen Flow Rate (L/min) 2 Oxygen Delivery Method Room Air Weight: 148.7 kg Body Mass Index (BMI) 54.6 Intake & Output: Intake and Output for Last 24 Hours 05/12/22 05/13/22 05/14/22 23:59 23:59 23:59 Intake Total 2470 / 2470 1870 / 1870 50 / 50 Output Total 1250 / 1250 475 / 575 300 / 300 Balance 1220 / 1220 1395 / 1295 -250 / -250 Lab / Micro Data Result Diagrams: 05/14/22 04:27 05/14/22 04:27 Labs: Laboratory Results - last 24 hr 05/13/22 11:42: POC Glucose 308 H 05/13/22 16:57: POC Glucose 256 H 05/13/22 18:05: Vancomycin Trough Cancelled 05/13/22 18:20: Vancomycin Trough 15.7 H 05/13/22 21:01: POC Glucose 195 H 05/14/22 04:27: WBC 6.9, RBC 3.85 L, Hgb 11.5 L, Hct 35.7 L, MCV 92.7, MCH 29.9, MCHC 32.2, RDW Std Deviation 49.1 H, RDW Coeff of Neo 14.6, Plt Count 157, MPV 10.0, Immature Gran % (Auto) 0.900, Neut % (Auto) 58.9, Lymph % (Auto) 21.7, [place] % (Auto) 13.4 H, Eos % (Auto) 4.8, Baso % (Auto) 0.3, Absolute Neuts (auto) 4.1, Absolute Lymphs (auto) 1.49, Nucleated RBC % 0 05/14/22 04:27: Sodium 142, Potassium 3.8, Chloride 108 H, Carbon Dioxide 31.0, Anion Gap 3 L, BUN 28 H, Creatinine 1.21, Estim Creat Clear Calc 50.28, Est GFR (MDRD) Af Amer 77, Est GFR (MDRD) Non-Af 64, BUN/Creatinine Ratio 23.1 H, Glucose 57 L, Calcium 8.5 Micro: Microbiology 05/09/22 18:30 Blood Culture (Wb) - Pic Blood Culture - Preliminary No growth in 48 hours. 05/09/22 18:30 Blood Culture (Wb) - Pic Blood Culture - Preliminary No growth in 48 hours. 05/09/22 16:20 Sputum, Tracheal Aspirate Gram Stain - Final 05/09/22 16:20 Sputum, Tracheal Aspirate Respiratory Culture - Final Meth. resistant Staph. aureus 05/09/22 15:28 Mucosa - Nasopharyngeal Respiratory Panel (PCR) - Final Rhinovirus 05/09/22 11:55 Urine Catheter - Catheter Legionella Antigen - Final 05/09/22 11:55 Urine Catheter - Catheter Streptococcus pneumoniae Antigen (M - Final Rhythm Strip Rhythm Strip: Sinus Rhythm Physical Exam Narrative Alert and oriented x3, no apparent distress. S1, S2, RRR Lung sounds clear. No rales or rhonchi. Abdomen soft, rounded, positive bowel sounds edema noted bilateral lower legs Assessment & Plan Assessment/Plan (1) ERIC (acute kidney injury): (2) Diabetic ketoacidosis: QUALIFIERS: Diabetes mellitus complication detail: without coma Diabetes mellitus type: type 1 Qualified Code(s): E10.10 - Type 1 diabetes mellitus with ketoacidosis without coma (3) Altered mental status: (4) Diabetes type 1, controlled: QUALIFIERS: Diabetes mellitus complication status: with unspecified complications Qualified Code(s): E10.8 - Type 1 diabetes mellitus with unspecified complications PLAN: Plan -Baseline renal function is unclear.? Last available creatinine level before this admission was from 02/12/2021 at 1.13 mg/dL. The patient does have risk factors for CKD with longstanding type 1 diabetes mellitus. -Suspect ERIC is secondary to prerenal azotemia due to shock and volume depletion from polyuria secondary to severe hyperglycemia on presentation.? Prerenal ERIC may have progressed to ischemic ATN as well. Urinalysis did not suggest other causes of ERIC such as interstitial nephritis, vasculitis or acute glomerulonephritis. Renal ultrasound was negative for obstruction. Creatinine peaked 4.08 mg/dL and today is 1.21 mg/dL. Patient is nonoliguric. It appears patient has had a few ERIC episodes since 2016; possible baseline creatinine ~1.1 to 1.3 mg/dL.?? He does not follow with nephrology in outpatient setting. -Blood pressures improved, on ramipril -We will arrange for hospital follow-up
[2022-05-14] MEDS: Dextrose 50%-Water 25 GM/50 ML DISP.SYRIN IV (08:18)
[2022-05-14] MEDS: 0.9% Saline Lock 10 ML Syringe IV ×2 (08:19→22:37)
[2022-05-14] MEDS: Vancomycin IV 1,000 MG/200 ML BAG 200 MG IV ×2 (08:40→18:00)
[2022-05-14] MEDS: Multivitamins,Therapeutic Tablet 1 TABLET PO (08:42)
[2022-05-14] MEDS: Aspirin 81 MG TAB.CHEW PO (08:44)
[2022-05-14 09:05] LABS: Bedside Glucose 31 mg/dL (74-106)
[2022-05-14 09:05] LABS: Bedside Glucose 83 mg/dL (74-106)
--- NOTE | 2022-05-14 09:30 | PN.CARD_ITS ---
Subjective Subjective The patient is now in the PCU. He is much more awake and alert and interactive. He denies any report of ongoing chest discomfort at home prior to his admission to the hospital. There is been no acute respiratory related events at home. He states at home he remembers his glucose levels being problematic, attempting to adjust his insulin pump, having emesis, and then subsequently apparently losing consciousness and then being found by his family members. Objective Data Vital Signs: Vital Signs Temp Pulse Resp BP Pulse Ox O2 Del Method O2 Flow Rate 97.9 F 82 18 125/62 H 98 CPAP 2 05/14/22 06:45 05/14/22 06:45 05/14/22 06:45 05/14/22 06:45 05/14/22 08:01 05/14/22 08:01 05/14/22 08:01 FiO2 25 05/14/22 06:00 Oxygen Flow Rate (L/min) 2 Oxygen Delivery Method CPAP Weight: 327 lb 13.238 oz Body Mass Index (BMI) 54.6 Intake & Output: Intake and Output for Last 24 Hours 05/12/22 05/13/22 05/14/22 23:59 23:59 23:59 Intake Total 2470 / 2470 1870 / 1870 50 / 50 Output Total 1250 / 1250 475 / 575 300 / 300 Balance 1220 / 1220 1395 / 1295 -250 / -250 Lab / Micro Data Result Diagrams: 05/14/22 04:27 05/14/22 04:27 Labs: Laboratory Results - last 24 hr 05/13/22 11:42: POC Glucose 308 H 05/13/22 16:57: POC Glucose 256 H 05/13/22 18:05: Vancomycin Trough Cancelled 05/13/22 18:20: Vancomycin Trough 15.7 H 05/13/22 21:01: POC Glucose 195 H 05/14/22 04:27: WBC 6.9, RBC 3.85 L, Hgb 11.5 L, Hct 35.7 L, MCV 92.7, MCH 29.9, MCHC 32.2, RDW Std Deviation 49.1 H, RDW Coeff of Neo 14.6, Plt Count 157, MPV 10.0, Immature Gran % (Auto) 0.900, Neut % (Auto) 58.9, Lymph % (Auto) 21.7, [place] % (Auto) 13.4 H, Eos % (Auto) 4.8, Baso % (Auto) 0.3, Absolute Neuts (auto) 4.1, Absolute Lymphs (auto) 1.49, Nucleated RBC % 0 05/14/22 04:27: Sodium 142, Potassium 3.8, Chloride 108 H, Carbon Dioxide 31.0, Anion Gap 3 L, BUN 28 H, Creatinine 1.21, Estim Creat Clear Calc 50.28, Est GFR (MDRD) Af Amer 77, Est GFR (MDRD) Non-Af 64, BUN/Creatinine Ratio 23.1 H, Glucose 57 L, Calcium 8.5 05/14/22 08:12: POC Glucose 31 L* 05/14/22 08:48: POC Glucose 83 Rhythm Strip Rhythm Strip: Sinus Rhythm Cardiology Labs/Tests 05/14/22 04:27: WBC 6.9, RBC 3.85 L, Hgb 11.5 L, Hct 35.7 L, MCV 92.7, MCH 29.9, MCHC 32.2, Plt Count 157, MPV 10.0, Immature Gran % (Auto) 0.900, Neut % (Auto) 58.9, Lymph % (Auto) 21.7, [place] % (Auto) 13.4 H, Eos % (Auto) 4.8, Baso % (Auto) 0.3, Absolute Neuts (auto) 4.1, Nucleated RBC % 0 05/14/22 04:27: Sodium 142, Potassium 3.8, Chloride 108 H, Carbon Dioxide 31.0, Anion Gap 3 L, BUN 28 H, Creatinine 1.21, Est GFR (MDRD) Af Amer 77, Est GFR (MDRD) Non-Af 64, BUN/Creatinine Ratio 23.1 H, Glucose 57 L, Calcium 8.5 Rhythm: Sinus rhythm Physical Exam Const alert, oriented x3 and no apparent distress General Appearance: other Orientation / Consciousness: awake HEENT normocephalic, head/scalp atraumatic and hearing grossly normal bilaterally Eyes PERRL, EOMs intact bilaterally, conjunctivae normal and no scleral icterus Neck full ROM, supple and no JVD Carotids: normal carotid upstroke Resp clear to auscultation bilaterally Cardio regular rate, regular rhythm, S1 normal heart sound and S2 normal heart sound Cardio Narrative: Distant heart tones GI normal to inspection, nondistended, normoactive bowel sounds Extremity General Extremity: edema bilateral lower extremity Details: moderate Skin no rashes or lesions noted Psych mental status grossly normal Assessment & Plan Assessment/Plan (1) NSTEMI (non-ST elevated myocardial infarction): PLAN: The patient has abnormal cardiac enzymes/high-sensitivity troponin I levels. At the moment the working diagnosis is this may very well be a type II event brought out by his DKA, hypotension, hypoxia, subsequent supply demand mismatch/poor perfusion. His ECG initially demonstrated ST and T wave changes, which again could be secondary to his hypotension and hypoxia and poor perfusion, appear to be returning to baseline. His echocardiogram is as noted. He will continue medical management. It may be reasonable to proceed with a pharmacologic stress nuclear imaging study to reassess his coronary physiology to assist in whether or not he needs further evaluation in the cardiac catheterization laboratory. (2) CAD (coronary artery disease): PLAN: The patient's history of CAD has been minor luminal regularities in the past as noted. At the moment he should continue risk factor evaluation and care as deemed appropriate. He should continue medical support as deemed appropriate when he is able to with respect to his vital signs and other objective changes. He will continue noninvasive valuation at this time. (3) HLD (hyperlipidemia): QUALIFIERS: Hyperlipidemia type: unspecified Qualified Code(s): E78.5 - Hyperlipidemia, unspecified PLAN: He should continue risk factor modification medical therapy as best as possible. (4) Essential hypertension: PLAN: He has a history of hypertension. His blood pressures are being followed. (5) Diabetic ketoacidosis: QUALIFIERS: Diabetes mellitus type: type 1 Diabetes mellitus complication detail: without coma Qualified Code(s): E10.10 - Type 1 diabetes mellitus with ketoacidosis without coma PLAN: He is being evaluated and cared for by internal medicine and pulmonology/critical care medicine. Again this may be the etiology for his hypotension, hypoxia, acute renal insufficiency, and poor perfusion to his myocardium leading to his abnormal cardiac enzymes, etc. (6) Respiratory failure: PLAN: He did require temporary mechanical intubation/ventilation. He will continue evaluation care per pulmonology/critical care medicine. (7) ERIC (acute kidney injury): PLAN: He does appear to have a history of chronic renal insufficiency. At the moment he has acute on chronic renal insufficiency which may be secondary to his hypotension and poor perfusion. He may also have a component of decreased intravascular volume secondary to his DKA. His creatinine level has improved. His renal function does need to be followed as it may impact medications as well as further evaluation and care. Addt'l Comments The above was discussed with the patient. He was agreeable to proceeding on noninvasive valuation at this time. Depending upon his findings he knows he may need repeat evaluation in the cardiac catheterization laboratory if he is otherwise stable, his renal function is stable, etc. This note was generated using a voice recognition system and there may be incorrect words, spelling or punctuation that were not noted when reviewing the office note prior to saving. Procedure Criteria Type of Procedure Procedure Type: Elective Elective Risks - COVID COVID Risk Discussion: The surgeon/proceduralist and patient have discussed in detail the risk of exposure to and/or potential harm posed by the COVID-19 virus with having a surgery/procedure at this time versus the risk of delaying the surgery/procedure. It is not possible to know either the risk of delaying the surgery or procedure or chance of getting an infection with perfect accuracy, but a joint decision was made between the patient and the surgeon/proceduralist to proceed at this time with the scheduled surgery/procedure as indicated on the consent form.
[2022-05-14] MEDS: DULoxetine Hcl 60 MG Capsule PO (09:35)
[2022-05-14] MEDS: Enoxaparin 40 MG/0.4 ML Syringe SC (09:35)
[2022-05-14] MEDS: Ramipril 10 MG Capsule PO (09:35)
[2022-05-14] MEDS: Tamsulosin HCl 0.4 MG Capsule PO (09:36)
[2022-05-14] MEDS: Atorvastatin Calcium 20 MG Tablet PO (09:36)
[2022-05-14] MEDS: Cholecalciferol (VIT D3) 25 MCG TABLET (1,000 UNITS) PO (09:36)
[2022-05-14] MEDS: Pantoprazole Sodium 40 MG Tablet PO (09:36)
[2022-05-14] MEDS: Metoprolol(XL)Succ 50 MG Tablet PO (09:40)
--- NOTE | 2022-05-14 11:30 | CASEMGMT ---
SW spoke with therapy and they are recommending patient go somewhere short term for rehab. SW met with patient. His daughter was also present and patient was okay with SW talking in front of her. SW let patient know that therapy is recommending he go to a shelter facility short term for rehab. Patient was agreeable. SW provided patient with a list of shelter facility providers including quality and resource use data and consistent with patient?s preferred geographic region, medical needs, and insurance network were provided from the [facility]. SW asked patient to pick at least 3 facilities and SW will work on referrals. SW will check back. Plan: SNF pending patient choices and accepting facility. Monserrat DUENAS
[2022-05-14 11:55] LABS: Bedside Glucose 279 mg/dL (74-106)
--- NOTE | 2022-05-14 12:15 | PCM.PN.HOSP ---
Subjective Subjective Follow-up on debility/acute DKA: Patient was seen and examined. Patient had an episode of hypoglycemia blood sugars in the 30s. He was completely asymptomatic. He was treated with D50 and orange juice. He had not received any insulin in the morning. He generally feels improved but feels relatively weak. Objective Data Objective Data Vital Signs: Vital Signs Temp Pulse Resp BP Pulse Ox O2 Del Method O2 Flow Rate 97.8 F 87 18 123/48 H 96 Room Air 2 05/14/22 09:58 05/14/22 11:17 05/14/22 09:58 05/14/22 09:58 05/14/22 09:58 05/14/22 09:58 05/14/22 08:01 FiO2 25 05/14/22 06:00 Oxygen Flow Rate (L/min) 2 Oxygen Delivery Method Room Air Weight: 148.7 kg Body Mass Index (BMI) 54.6 Intake & Output: Intake and Output for Last 24 Hours 05/12/22 05/13/22 05/14/22 23:59 23:59 23:59 Intake Total 2470 / 2470 1870 / 1870 800 / 800 Output Total 1250 / 1250 475 / 575 300 / 300 Balance 1220 / 1220 1395 / 1295 500 / 500 Lab / Micro Data Result Diagrams: 05/14/22 04:27 05/14/22 04:27 Labs: Laboratory Results - last 24 hr 05/13/22 16:57: POC Glucose 256 H 05/13/22 18:05: Vancomycin Trough Cancelled 05/13/22 18:20: Vancomycin Trough 15.7 H 05/13/22 21:01: POC Glucose 195 H 05/14/22 04:27: WBC 6.9, RBC 3.85 L, Hgb 11.5 L, Hct 35.7 L, MCV 92.7, MCH 29.9, MCHC 32.2, RDW Std Deviation 49.1 H, RDW Coeff of Neo 14.6, Plt Count 157, MPV 10.0, Immature Gran % (Auto) 0.900, Neut % (Auto) 58.9, Lymph % (Auto) 21.7, [place] % (Auto) 13.4 H, Eos % (Auto) 4.8, Baso % (Auto) 0.3, Absolute Neuts (auto) 4.1, Absolute Lymphs (auto) 1.49, Nucleated RBC % 0 05/14/22 04:27: Sodium 142, Potassium 3.8, Chloride 108 H, Carbon Dioxide 31.0, Anion Gap 3 L, BUN 28 H, Creatinine 1.21, Estim Creat Clear Calc 50.28, Est GFR (MDRD) Af Amer 77, Est GFR (MDRD) Non-Af 64, BUN/Creatinine Ratio 23.1 H, Glucose 57 L, Calcium 8.5 05/14/22 08:12: POC Glucose 31 L* 05/14/22 08:48: POC Glucose 83 05/14/22 11:36: POC Glucose 279 H Micro: Microbiology 05/09/22 18:30 Blood Culture (Wb) - Pic Blood Culture - Preliminary No growth in 48 hours. 05/09/22 18:30 Blood Culture (Wb) - Pic Blood Culture - Preliminary No growth in 48 hours. 05/09/22 16:20 Sputum, Tracheal Aspirate Gram Stain - Final 05/09/22 16:20 Sputum, Tracheal Aspirate Respiratory Culture - Final Meth. resistant Staph. aureus 05/09/22 15:28 Mucosa - Nasopharyngeal Respiratory Panel (PCR) - Final Rhinovirus 05/09/22 11:55 Urine Catheter - Catheter Legionella Antigen - Final 05/09/22 11:55 Urine Catheter - Catheter Streptococcus pneumoniae Antigen (M - Final Rhythm Strip Rhythm Strip: Sinus Rhythm Physical Exam Narrative Physical exam: General: Alert, Oriented x3, Cooperative, morbidly obese HEENT: Atraumatic Oral: Moist Mucosa Neck: Supple Lungs: Diminished to auscultation Cardiovascular: HS I+II, regular, no murmurs Abdomen: Bowel Sounds Present, Soft, Non Tender Extremities: No edema Skin: No rashes, No breakdown Neurological: Grossly intact Psych/Mental Status: Appropriate Assessment & Plan Assessment/Plan (1) Altered mental status: (2) Respiratory failure: PLAN: Plan 1. Acute hypoglycemia, in a known diabetic with recent acute DKA, HbA1c 7.6 Patient's long-acting insulin have been decreased to 10 units twice daily Premeal insulins have been discontinued We will continue to monitor blood glucose checks with insulin sliding scale 2. Acute hypoxic respiratory failure, resolved 3. Septic shock (not evident on admission), resolved Probable Acute MRSA pneumonia; sputum positive for MRSA Respiratory panel shows rhinovirus We will continue on IV vancomycin (aim for total of 7 days), Discontinue IV Zosyn 4. Acute metabolic encephalopathy, secondary to #2 and 3, resolved CT of the brain has been unremarkable 5. Acute kidney injury on CKD stage III, prerenal secondary to #1, and #3, back to baseline Patient was admitted with creatinine of 3.72, creatinine is 1.21 which is at baseline 6. Noncardiac elevation of troponin, 2D echo shows EF of 65%, trivial valvular disease 7. Hypertension/hyperlipidemia, continue statin, ramipril 8. GERD, continue on PPI 9. Morbid obesity, BMI 56.3, lifestyle modification recommended 10. Multiple sclerosis, Diroximel on hols 11. DVT prophylaxis?on Lovenox subcu Charges/Coding Visit Charges Inpatient E&M: 55634 Subs Hosp L3
[2022-05-14] MEDS: Insulin Lispro 100 UNIT/ML INSULN.PEN SC ×3 (12:39→22:34)
--- NOTE | 2022-05-14 14:27 | PCM.PN.INT ---
Assessment & Plan Assessment/Plan (1) Diabetic ketoacidosis: QUALIFIERS: Diabetes mellitus type: type 1 Diabetes mellitus complication detail: without coma Qualified Code(s): E10.10 - Type 1 diabetes mellitus with ketoacidosis without coma PLAN: Gap remains closed. Continue to struggle with finding the right dose of basal insulin given his p.o. intake. Patient has remained hemodynamically stable since leaving the intensive care unit. Will sign off from a critical care perspective. (2) Rhinovirus infection: PLAN: Patient appears to be improving. (3) Acute respiratory failure with hypoxemia: PLAN: Patient currently on room air. Patient would benefit from using BiPAP overnight with sleep per his baseline. Patient should have a walking oximetry prior to discharge home. Patient can follow-up in our office 2 to 4 weeks after discharge. (4) Altered mental status: PLAN: Significantly improved. Likely secondary to hyperglycemia. Patient appears to be at baseline at this time. (5) NSTEMI (non-ST elevated myocardial infarction): PLAN: Patient is no longer on pressors. Patient is being followed by cardiology. Defer to them moving forward. (6) Obesity: QUALIFIERS: Obesity type: due to excess calories Body mass index: BMI 45.0-49.9 PLAN: Jarrell discussion with the patient about the role of weight loss and the overall disease plan of care. Patient voiced understanding. (7) CAD (coronary artery disease): PLAN: See problem #5 Subjective Subjective Patient transferred from the intensive care unit yesterday. Patient did well overnight. Patient states he continues to have difficulty with finding the right dose of insulin. Patient is not reporting any nausea or vomiting. No respiratory symptoms are reported. Patient does feel somewhat improved compared to yesterday. Objective Data Objective Data Patient was on room air during my assessment. Vital Signs: Vital Signs Temp Pulse Resp BP Pulse Ox O2 Del Method O2 Flow Rate 36.6 C 87 18 123/48 H 96 Room Air 2 05/14/22 09:58 05/14/22 11:17 05/14/22 09:58 05/14/22 09:58 05/14/22 09:58 05/14/22 09:58 05/14/22 08:01 FiO2 25 05/14/22 06:00 Oxygen Flow Rate (L/min) 2 Oxygen Delivery Method Room Air Weight: 148.7 kg Body Mass Index (BMI) 54.6 Intake & Output: Intake and Output for Last 24 Hours 05/12/22 05/13/22 05/14/22 23:59 23:59 23:59 Intake Total 2470 / 2470 1870 / 1870 800 / 800 Output Total 1250 / 1250 475 / 575 300 / 300 Balance 1220 / 1220 1395 / 1295 500 / 500 Lab / Micro Data Attestation: I reviewed the patient's lab results. Result Diagrams: 05/14/22 04:27 05/14/22 04:27 Labs: Laboratory Results - last 24 hr 05/13/22 16:57: POC Glucose 256 H 05/13/22 18:05: Vancomycin Trough Cancelled 05/13/22 18:20: Vancomycin Trough 15.7 H 05/13/22 21:01: POC Glucose 195 H 05/14/22 04:27: WBC 6.9, RBC 3.85 L, Hgb 11.5 L, Hct 35.7 L, MCV 92.7, MCH 29.9, MCHC 32.2, RDW Std Deviation 49.1 H, RDW Coeff of Neo 14.6, Plt Count 157, MPV 10.0, Immature Gran % (Auto) 0.900, Neut % (Auto) 58.9, Lymph % (Auto) 21.7, [place] % (Auto) 13.4 H, Eos % (Auto) 4.8, Baso % (Auto) 0.3, Absolute Neuts (auto) 4.1, Absolute Lymphs (auto) 1.49, Nucleated RBC % 0 05/14/22 04:27: Sodium 142, Potassium 3.8, Chloride 108 H, Carbon Dioxide 31.0, Anion Gap 3 L, BUN 28 H, Creatinine 1.21, Estim Creat Clear Calc 50.28, Est GFR (MDRD) Af Amer 77, Est GFR (MDRD) Non-Af 64, BUN/Creatinine Ratio 23.1 H, Glucose 57 L, Calcium 8.5 05/14/22 08:12: POC Glucose 31 L* 05/14/22 08:48: POC Glucose 83 05/14/22 11:36: POC Glucose 279 H Micro: Microbiology 05/09/22 18:30 Blood Culture (Wb) - Pic Blood Culture - Preliminary No growth in 48 hours. 05/09/22 18:30 Blood Culture (Wb) - Pic Blood Culture - Preliminary No growth in 48 hours. 05/09/22 16:20 Sputum, Tracheal Aspirate Gram Stain - Final 05/09/22 16:20 Sputum, Tracheal Aspirate Respiratory Culture - Final Meth. resistant Staph. aureus 05/09/22 15:28 Mucosa - Nasopharyngeal Respiratory Panel (PCR) - Final Rhinovirus 05/09/22 11:55 Urine Catheter - Catheter Legionella Antigen - Final 05/09/22 11:55 Urine Catheter - Catheter Streptococcus pneumoniae Antigen (M - Final Rhythm Strip Rhythm Strip: Sinus Rhythm Rate: 53 Physical Exam Const alert, oriented x3 and no apparent distress Constitutional Narrative: Obese. HEENT normocephalic, head/scalp atraumatic and hearing grossly normal bilaterally Eyes PERRL, EOMs intact bilaterally, conjunctivae normal and no scleral icterus Neck full ROM, supple and no JVD Resp clear to auscultation bilaterally Auscultation: Negative for rales, rhonchi or wheezes Cardio regular rate, regular rhythm, S1 normal heart sound, S2 normal heart sound, no murmurs, no rub and no gallops Cardio Narrative: Distant heart tones GI normal to inspection, nondistended, normoactive bowel sounds Extremity General Extremity: edema bilateral lower extremity Details: moderate Skin General Skin Exam: venous stasis Neuro oriented x3 and CN's II-XII intact bilaterally Psych mental status grossly normal Charges/Coding Visit Charges Inpatient E&M: 44165 Subs Hosp L2
--- NOTE | 2022-05-14 15:17 | CASEMGMT ---
TCU can take patient. SW notified patient that [facility] can accept him when he is ready. Plan: [facility] under skilled level of care Monserrat DUENAS
[2022-05-14 16:50] LABS: Bedside Glucose 206 mg/dL (74-106)
--- NOTE | 2022-05-14 19:00 | PCA ---
EMERGENCY DOCUMENTATION
--- NOTE | 2022-05-14 19:00 | NURSING ---
emergency documentation
[2022-05-14] MEDS: Insulin Glargine-YFGN 100 UNIT/ML Pen 10 UNIT SC (22:35)
[2022-05-15] VITALS (7 sets, daily range): BP systolic 108–135; BP diastolic 65–95; PULSE 62–82; RESP 14–18; TEMP 36.6–36.9; O2SAT 94–96
[2022-05-15 00:26] LABS: Bedside Glucose 266 mg/dL (74-106)
--- NOTE | 2022-05-15 05:55 | EKG12_ITS ---
Test Reason : AM EKG Blood Pressure : / mmHG Vent. Rate : 061 BPM Atrial Rate : 061 BPM P-R Int : 194 ms QRS Dur : 104 ms QT Int : 430 ms P-R-T Axes : 085 078 024 degrees QTc Int : 432 ms Normal sinus rhythm Normal ECG Confirmed by DIPTI KAMARA, CARLOS ([id number]), marketing editor PRATIK CASTLE ([id number]) on 05/16/2022 10:49:26 AM Referred By: Mynor Confirmed By:CARLOS RESENDEZ MD
[2022-05-15] MEDS: Vancomycin IV 1,000 MG/200 ML BAG 200 MG IV (06:29)
[2022-05-15] MEDS: Dextrose 50%-Water 25 GM/50 ML DISP.SYRIN IV (06:37)
[2022-05-15 07:55] LABS: Bedside Glucose 59 mg/dL (74-106)
[2022-05-15 07:56] LABS: ALB/GLOB Ratio 0.9 RATIO (0.9-2.4); AST(SGOT) 30 U/L (15-37); Alanine Aminotransfer ALT/SGPT 41 U/L (16-61); Albumin, Serum 2.7 g/dL (3.2-5.0); Alkaline Phosphatase 79 U/L (45-117); Anion Gap 6 (5-15); BUN 20 mg/dL (7-18); Calcium,Total 8.7 mg/dL (8.5-10.1); Chloride 110 mmol/L (98-107); EST Glomerular Filtration Rate 79 mL/min (>60); Est Glom Filt Rate - Afr Amer 96 mL/min (>60); Estimated Creatinine Clearance 60.84 ml/min; Glucose 52 mg/dL (74-106); Potassium 4.2 mmol/L (3.5-5.1); Protein, Total 5.7 g/dL (6.4-8.2); Sodium Level 144 mmol/L (136-145)
[2022-05-15 08:00] LABS: Bedside Glucose 177 mg/dL (74-106)
[2022-05-15 08:17] LABS: Absolute Neutrophil Count 5.5 X10^3/uL (2.0-7.7); Basophil# 0.07 X10^3/uL; Basophil% 0.8 % (0-1); Eosinophil# 0.31 X10^3/uL; Eosinophils% 3.7 % (0-5); Hematocrit 38.9 % (40-54); Hemoglobin 12.5 g/dL (13.0-16.5); Lymphocyte % 14.4 % (19-41); Mean Corp Hgb Conc 32.1 g/dL (32-36); Mean Corpuscular Hgb 30.2 pg (27.0-32.0); Mean Platelet Vol. 9.8 fl (6.2-12.0); Monocyte# 0.98 X10^3/uL; Monocyte% 11.7 % (0-10); NRBC Flagged by Analyzer 0 % (0-5); Neutrophil % 65.9 % (47-70); Platelet Count 168 K/mm3 (150-450); RBC Distribution Width SD 48.2 fl (35.1-43.9); Red Blood Count 4.14 M/mm3 (4.6-6.2); White Blood Count 8.4 K/mm3 (4.4-11.0)
--- NOTE | 2022-05-15 08:58 | PN.CARD_ITS ---
Subjective Subjective The patient appears to be resting comfortably in a supine position with no new acute cardiovascular complaints. Objective Data Vital Signs: Vital Signs Temp Pulse Resp BP Pulse Ox O2 Del Method O2 Flow Rate 97.8 F 64 18 135/65 H 94 Room Air 2 05/15/22 04:34 05/15/22 04:34 05/15/22 04:34 05/15/22 04:34 05/15/22 07:40 05/15/22 07:40 05/15/22 04:34 FiO2 25 05/14/22 06:00 Oxygen Flow Rate (L/min) 2 Oxygen Delivery Method Room Air Weight: 327 lb 6.183 oz Body Mass Index (BMI) 54.6 Intake & Output: Intake and Output for Last 24 Hours 05/13/22 05/14/22 05/15/22 23:59 23:59 23:59 Intake Total 1870 / 1870 1050 / 1050 Output Total 475 / 575 300 / 300 Balance 1395 / 1295 750 / 750 Lab / Micro Data Result Diagrams: 05/15/22 07:46 05/15/22 06:20 Labs: Laboratory Results - last 24 hr 05/14/22 08:12: POC Glucose 31 L* 05/14/22 08:48: POC Glucose 83 05/14/22 11:36: POC Glucose 279 H 05/14/22 16:24: POC Glucose 206 H 05/14/22 22:27: POC Glucose 266 H 05/15/22 06:20: WBC Cancelled, Corrected WBC Cancelled, RBC Cancelled, Hgb Cancelled, Hct Cancelled, MCV Cancelled, MCH Cancelled, MCHC Cancelled, RDW Std Deviation Cancelled, RDW Coeff of Neo Cancelled, Plt Count Cancelled, MPV C ancelled, Immature Gran % (Auto) Cancelled, Neut % (Auto) Cancelled, Lymph % (Auto) Cancelled, [place] % (Auto) Cancelled, Eos % (Auto) Cancelled, Baso % (Auto) Cancelled, Absolute Neuts (auto) Cancelled, Absolute Lymphs (auto) Cancelled, Total Counted Cancelled, Neutrophils % (Manual) Cancelled, Band Neutrophils % Cancelled, Lymphocytes % (Manual) Cancelled, Monocytes % (Manual) Cancelled, Eosinophils % (Manual) Cancelled, Basophils % (Manual) Cancelled, Metamyelocytes % Cancelled, Myelocytes % Cancelled, Promyelocytes % Cancelled, Blast Cells % Cancelled, Plasma Cell % (Manual) Cancelled, Other Cells % Cancelled, Nucleated RBC % Cancelled, Nucleated RBCs/100 WBC Cancelled, Differential Comment Cancelled, Diff Path Review Cancelled, Hypersegmented Neuts Cancelled, Atypical Lymphocytes Cancelled, Reactive Lymphocytes Cancelled, Smudge Cells Cancelled, Toxic Granulation Cancelled, Toxic Vacuolation Cancelled, Dohle Bodies Cancelled, Danita Rods Cancelled, Platelet Estimate Cancelled, Plt Morphology Comment Cancelled, RBC Morphology Cancelled, Polychromasia Cancelled, Hypochromasia Cancelled, Poikilocytosis Cancelled, Basophilic Stippling Cancelled, Anisocytosis Cancelled, Microcytosis Cancelled, Macrocytosis Cancelled, Spherocytes Cancelled, Sickle Cells Cancelled, Target Cells Cancell ed, Tear Drop Cells Cancelled, Ovalocytes Cancelled, Stomatocytes Cancelled, [place] Bodies Cancelled, [place] Cells Cancelled, Bite Cells Cancelled, Crenated Cell Cancelled, Acanthocytes (Spur) Cancelled, Rouleaux Cancelled, Schistocytes Cancelled 05/15/22 06:20: Sodium 144, Potassium 4.2, Chloride 110 H, Carbon Dioxide 28.0, Anion Gap 6, BUN 20 H, Creatinine 1.00, Estim Creat Clear Calc 60.84, Est GFR (MDRD) Af Amer 96, Est GFR (MDRD) Non-Af 79, BUN/Creatinine Ratio 20.0, Glucose 52 L, Calcium 8.7, Total Bilirubin 0.60, AST 30, ALT 41, Alkaline Phosphatase 79, Total Protein 5.7 L, Albumin 2.7 L, Globulin 3.0, Albumin/Globulin Ratio 0.9 05/15/22 06:32: POC Glucose 59 L 05/15/22 07:38: POC Glucose 177 H 05/15/22 07:46: WBC 8.4, RBC 4.14 L, Hgb 12.5 L, Hct 38.9 L, MCV 94.0, MCH 30.2, MCHC 32.1, RDW Std Deviation 48.2 H, RDW Coeff of Neo 14.0, Plt Count 168, MPV 9.8, Immature Gran % (Auto) 3.500 H, Neut % (Auto) 65.9, Lymph % (Auto) 14.4 L, [place] % (Auto) 11.7 H, Eos % (Auto) 3.7, Baso % (Auto) 0.8, Absolute Neuts (auto) 5.5, Absolute Lymphs (auto) 1.20, Nucleated RBC % 0 Micro: Microbiology 05/09/22 18:30 Blood Culture (Wb) - Pic Blood Culture - Final No growth in 5 days. 05/09/22 18:30 Blood Culture (Wb) - Pic Blood Culture - Final No growth in 5 days. Rhythm Strip Rhythm Strip: Sinus Rhythm Rate: 53 Cardiology Labs/Tests 05/15/22 06:20: WBC Cancelled, Corrected WBC Cancelled, RBC Cancelled, Hgb Cancelled, Hct Cancelled, MCV Cancelled, MCH Cancelled, MCHC Cancelled, Plt Count Cancelled, MPV Cancelled, Immature Gran % (Auto) Cancelled, Neut % (Auto) Cancelled, Lymph % (Auto) Cancelled, [place] % (Auto) Cancelled, Eos % (Auto) Cancelled, Baso % (Auto) Cancelled, Absolute Neuts (auto) Cancelled, Total Counted Cancelled, Neutrophils % (Manual) Cancelled, Band Neutrophils % Cancelled, Lymphocytes % (Manual) Cancelled, Monocytes % (Manual) Cancelled, Eosinophils % (Manual) Cancelled, Basophils % (Manual) Cancelled, Metamyelocytes % Cancelled, Myelocytes % Cancelled, Promyelocytes % Cancelled, Blast Cells % Cancelled, Plasma Cell % (Manual) Cancelled, Other Cells % Cancelled, Nucleated RBC % Cancelled 05/15/22 06:20: Sodium 144, Potassium 4.2, Chloride 110 H, Carbon Dioxide 28.0, Anion Gap 6, BUN 20 H, Creatinine 1.00, Est GFR (MDRD) Af Amer 96, Est GFR (MDRD) Non-Af 79, BUN/Creatinine Ratio 20.0, Glucose 52 L, Calcium 8.7, Total Bilirubin 0.60 05/15/22 07:46: WBC 8.4, RBC 4.14 L, Hgb 12.5 L, Hct 38.9 L, MCV 94.0, MCH 30.2, MCHC 32.1, Plt Count 168, MPV 9.8, Immature Gran % (Auto) 3.500 H, Neut % (Auto) 65.9, Lymph % (Auto) 14.4 L, [place] % (Auto) 11.7 H, Eos % (Auto) 3.7, Baso % (Auto) 0.8, Absolute Neuts (auto) 5.5, Nucleated RBC % 0 Rhythm: Sinus rhythm Physical Exam Const alert, oriented x3 and no apparent distress General Appearance: other Orientation / Consciousness: awake HEENT normocephalic, head/scalp atraumatic and hearing grossly normal bilaterally Eyes PERRL, EOMs intact bilaterally, conjunctivae normal and no scleral icterus Neck full ROM, supple and no JVD Carotids: normal carotid upstroke Resp clear to auscultation bilaterally Cardio regular rate, regular rhythm, S1 normal heart sound and S2 normal heart sound Cardio Narrative: Distant heart tones GI normal to inspection, nondistended, normoactive bowel sounds Extremity General Extremity: edema bilateral lower extremity Details: moderate Skin no rashes or lesions noted Psych mental status grossly normal Assessment & Plan Assessment/Plan (1) NSTEMI (non-ST elevated myocardial infarction): PLAN: The patient has abnormal cardiac enzymes/high-sensitivity troponin I levels. At the moment the working diagnosis is this may very well be a type II event brought out by his DKA, hypotension, hypoxia, subsequent supply demand mismatch/poor perfusion. His ECG initially demonstrated ST and T wave changes, which again could be secondary to his hypotension and hypoxia and poor perfusion, appear to be returning to baseline. His echocardiogram is as noted. He is proceeding with further noninvasive valuation this day with a pharmacologic stress nuclear imaging study. Depending upon the results he may or may not need additional evaluation in the cardiac catheterization laboratory. (2) CAD (coronary artery disease): PLAN: The patient's history of CAD has been minor luminal regularities in the past as noted. At the moment he should continue risk factor evaluation and care as deemed appr opriate. He should continue medical support as deemed appropriate when he is able to with respect to his vital signs and other objective changes. He will continue noninvasive valuation at this time. (3) HLD (hyperlipidemia): QUALIFIERS: Hyperlipidemia type: unspecified Qualified Code(s): E78.5 - Hyperlipidemia, unspecified PLAN: He should continue risk factor modification medical therapy as best as possible. (4) Essential hypertension: PLAN: He has a history of hypertension. His blood pressures are being followed. (5) Diabetic ketoacidosis: QUALIFIERS: Diabetes mellitus type: type 1 Diabetes mellitus complication detail: without coma Qualified Code(s): E10.10 - Type 1 diabetes mellitus with ketoacidosis without coma PLAN: He is being evaluated and cared for by internal medicine and pulmonology/critical care medicine. Again this may be the etiology for his hypotension, hypoxia, acute renal insufficiency, and poor perfusion to his myocardium leading to his abnormal cardiac enzymes, etc. (6) Respiratory failure: PLAN: He did require temporary mechanical intubation/ventilation. He will continue evaluation care per pulmonology/critical care medicine. (7) ERIC (acute kidney injury): PLAN: He does appear to have a history of chronic renal insufficiency. At the moment he has acute on chronic renal insufficiency which may be secondary to his hypotension and poor perfusion. He may also have a component of decreased intravascular volume secondary to his DKA. His creatinine level has improved. His renal function does need to be followed as it may impact medications as well as further evaluation and care. Addt'l Comments This note was generated using a voice recognition system and there may be inco rrect words, spelling or punctuation that were not noted when reviewing the office note prior to saving. Procedure Criteria Type of Procedure Procedure Type: Elective Elective Risks - COVID COVID Risk Discussion: The surgeon/proceduralist and patient have discussed in detail the risk of exposure to and/or potential harm posed by the COVID-19 virus with having a surgery/procedure at this time versus the risk of delaying the surgery/procedure. It is not possible to know either the risk of delaying the surgery or procedure or chance of getting an infection with perfect accuracy, but a joint decision was made between the patient and the surgeon/proceduralist to proceed at this time with the scheduled surgery/procedure as indicated on the consent form.
--- NOTE | 2022-05-15 11:38 | TREXTCAR_ITS ---
Diet Diet Order/Speech Therapy: 05/15/22; Cardiac, calorie controlled diet Routine Orders/Code Status Suppository Type: Dulcolax 10mg Suppository Frequency: Daily PRN Keep PO Greater than or Equal to (%): 94 Routine Lab Work: CBC (within 3 days) and - (CMP within 3 days) Code Status: Full Code Therapies Weight Bearing: Weight bearing as tolerated Extremity Affected:: Bilateral Lower Physical Therapy: Eval and Treat Occupational Therapy: Eval and Treat Problem/Diagnosis (1) NSTEMI (non-ST elevated myocardial infarction): Status: Inactive Code(s): I21.4 - Non-ST elevation (NSTEMI) myocardial infarction (2) CAD (coronary artery disease): Status: Acute Code(s): I25.10 - Atherosclerotic heart disease of [place] coronary artery without angina pectoris (3) HLD (hyperlipidemia): Status: Chronic Code(s): E78.5 - Hyperlipidemia, unspecified (4) Essential hypertension: Status: Chronic Code(s): I10 - Essential (primary) hypertension (5) Diabetic ketoacidosis: Status: Acute Code(s): E11.10 - Type 2 diabetes mellitus with ketoacidosis without coma (6) Respiratory failure: Status: Acute Code(s): J96.90 - Respiratory failure, unspecified, unspecified whether with hypoxia or hypercapnia (7) ERIC (acute kidney injury): Status: Acute Code(s): N17.9 - Acute kidney failure, unspecified Plan 1. Acute hypoglycemia 2. Acute DKA 3. Acute hypoxic respiratory failure 4. Septic shock (not evident on admission), resolved 5. Acute metabolic encephalopathy 6. Acute kidney injury on CKD stage III, prerenal secondary to #1, and #3seline 7. Noncardiac elevation of troponin 8. Hypertension 9. Hyperlipidemia 8. GERD 9. Morbid obesity 10. Multiple sclerosis Allergies/Procedures Done in Hospital Allergies adhesive tape Adverse Reaction (Verified 02/19/22 10:37) Rash Sulfa (Sulfonamide Antibiotics) Adverse Reaction (Verified 02/19/22 10:37) Other Procedures: 2-D Echocardiogram and Nuclear Stress Test Type of Care/Length of Stay Estimated LOS: Convalescent Care Less Than 30 days Type of Care Needed: Skilled Rehab Potential: Good Prognosis: Good Additional Orders/Day of Discharge Day of Discharge: 05/15/22 Dietary and Speech Recommendations Dietitian Recommendations/Changes: Continue 2000 calorie/consistent carbohydrate; cardiac with consistency/texture as per [employer], currently thin liquids with [id number] foods. Diet education, plans for likely SNF at d/c. Defer ONS unless PO is compromised at meals. Discharge Plan Admission Admit Date/Time: 05/09/22 14:07 Primary Reason for Your Visit: Acute DKA Attending Provider: Ave Lopez Primary Care Provider: Lucas Yap Consulting Providers: Tito Wilson ; Willy Kerns ; Nsétor Meadows ; Haseeb Rollins ; Robert Nichols ; Shanna Chávez NP ; Minesh Culver ; Dano Lowe Discharge Orders/Prescriptions Prescriptions: New aspirin 81 mg Tablet,Chewable 81 mg PO DAILY@0800 Qty: 0 0RF insulin glargine-yfgn 100 unit/mL (3 mL) Insulin Pen 10 unit subcut BID 30 Days Qty: 0 0RF pantoprazole 40 mg Tablet,Delayed Release (Dr/Ec) 40 mg PO DAILY Qty: 0 0RF doxycycline monohydrate 100 mg capsule 100 mg PO BID 3 Days Qty: 6 0RF Continued metoprolol succinate 50 mg tablet extended release 24 hr 50 mg PO QDAY pediatric multivit no.17-ferrous fumarate 15 mg iron chewable tablet 15 mg iron tablet,chewable 15 mg PO QDAY gabapentin 100 mg capsule 200 mg PO TID Label Comments: FAMILY STATES THINKS RECENTLY INCREASED TO 3 CAPSULES (300 MG) TID. Vumerity 231 mg capsule,delayed release(DR/EC) 462 mg PO BID cholecalciferol (vitamin D3) 1,000 UNIT tablet 1,000 unit PO DAILY omeprazole 40 MG capsule 40 mg PO QDAY tamsulosin 0.4 mg capsule 1 tab PO DAILY ramipril 10 MG capsule 10 mg PO DAILY Qty: 0 0RF Rx Instructions: Hold for 1 days, rsume on 07/26/2019 duloxetine [Cymbalta] 60 mg Capsule,Delayed Release(Dr/Ec) 60 mg PO DAILY rosuvastatin 10 mg tablet 10 mg PO DAILY furosemide 40 mg tablet 40 mg PO DAILY Qty: 180 4RF Hold Instructions: Resume on 10/22/20. Discontinued Lantus Solostar U-100 Insulin 100 unit/mL (3 mL) insulin pen 40 unit subcut DAILY PRN (Reason: DM) Label Comments: FAMILY STATES BELIEVES ITS ONLY A BACK UP IF INSULIN IS NOT WORKING. potassium chloride 10 mEq tablet,ER particles/crystals 10 meq PO BID insulin lispro [Humalog U-100 Insulin] 100 unit/mL solution See Rx Instructions SC QDAY Qty: 90 4RF Hold Instructions: Resume on 10/18/20. Restart upon direction of endocrinology Dose Instruction: uses 90 U qd via pump SC QDAY Label Comments: FAMILY STATES THEY HAVE INSULIN PUMP IT WAS FOUND AWAY FROM HIM. Rx Instructions: uses 90 U qd via pump SC QDAY Referrals / Follow Up: Lucas Yap MD [Primary Care Provider] - Disposition Disposition (needs filled in before D/C Order can be placed): Senior Living Facility (1) Diabetic ketoacidosis Qualifiers: Diabetes mellitus complication detail: without coma Diabetes mellitus type: type 1 Qualified Code(s): E10.10 - Type 1 diabetes mellitus with ketoacidosis without coma (2) HLD (hyperlipidemia) Qualifiers: Hyperlipidemia type: unspecified Qualified Code(s): E78.5 - Hyperlipidemia, unspecified
[2022-05-15] MEDS: DULoxetine Hcl 60 MG Capsule PO (11:48)
[2022-05-15] MEDS: Metoprolol(XL)Succ 50 MG Tablet PO (11:48)
[2022-05-15] MEDS: Multivitamins,Therapeutic Tablet 1 TABLET PO (11:48)
[2022-05-15] MEDS: Cholecalciferol (VIT D3) 25 MCG TABLET (1,000 UNITS) PO (11:48)
[2022-05-15] MEDS: Atorvastatin Calcium 20 MG Tablet PO (11:48)
[2022-05-15] MEDS: Pantoprazole Sodium 40 MG Tablet PO (11:48)
[2022-05-15] MEDS: Aspirin 81 MG TAB.CHEW PO (11:48)
[2022-05-15] MEDS: Tamsulosin HCl 0.4 MG Capsule PO (11:49)
[2022-05-15] MEDS: Insulin Glargine-YFGN 100 UNIT/ML Pen 10 UNIT SC (11:49)
[2022-05-15] MEDS: Ramipril 10 MG Capsule PO (11:51)
[2022-05-15] MEDS: Enoxaparin 40 MG/0.4 ML Syringe SC (11:51)
--- NOTE | 2022-05-15 12:13 | PCM.PN.REN ---
Subjective Subjective Following for ERIC Resting in bed, no complaints. No overnight events. Possible transfer to TCU today Objective Data Objective Data Vital Signs: Vital Signs Temp Pulse Resp BP Pulse Ox O2 Del Method O2 Flow Rate 98.5 F 82 14 108/95 H 96 Room Air 2 05/15/22 12:00 05/15/22 12:00 05/15/22 12:00 05/15/22 12:00 05/15/22 12:00 05/15/22 12:00 05/15/22 12:00 FiO2 25 05/15/22 12:00 Oxygen Flow Rate (L/min) 2 Oxygen Delivery Method Room Air Weight: 148.5 kg Body Mass Index (BMI) 54.6 Intake & Output: Intake and Output for Last 24 Hours 05/13/22 05/14/22 05/15/22 23:59 23:59 23:59 Intake Total 1870 / 1870 1050 / 1050 200 / 200 Output Total 475 / 575 300 / 300 Balance 1395 / 1295 750 / 750 200 / 200 Lab / Micro Data Result Diagrams: 05/15/22 07:46 05/15/22 06:20 Labs: Laboratory Results - last 24 hr 05/14/22 16:24: POC Glucose 206 H 05/14/22 22:27: POC Glucose 266 H 05/15/22 06:20: WBC Cancelled, Corrected WBC Cancelled, RBC Cancelled, Hgb Cancelled, Hct Cancelled, MCV Cancelled, MCH Cancelled, MCHC Cancelled, RDW Std Deviation Cancelled, RDW Coeff of Neo Cancelled, Plt Count Cancelled, MPV Cancelled, Immature Gran % (Auto) Cancelled, Neut % (Auto) Cancelled, Lymph % (Auto) Cancelled, [place] % (Auto) Cancelled, Eos % (Auto) Cancelled, Baso % (Auto) Cancelled, Absolute Neuts (auto) Cancelled, Absolute Lymphs (auto) Cancelled, Total Counted Cancelled, Neutrophils % (Manual) Cancelled, Band Neutrophils % Cancelled, Lymphocytes % (Manual) Cancelled, Monocytes % (Manual) Cancelled, Eosinophils % (Manual) Cancelled, Basophils % (Manual) Cancelled, Metamyelocytes % Cancelled, Myelocytes % Cancelled, Promyelocytes % Cancelled, Blast Cells % Cancelled, Plasma Cell % (Manual) Cancelled, Other Cells % Cancelled, Nucleated RBC % Cancelled, Nucleated RBCs/100 WBC Cancelled, Differential Comment Cancelled, Diff Path Review Cancelled, Hypersegmented Neuts Cancelled, Atypical Lymphocytes Cancelled, Reactive Lymphocytes Cancelled, Smudge Cells Cancelled, Toxic Granulation Cancelled, Toxic Vacuolation Cancelled, Dohle Bodies Cancelled, Danita Rods Cancelled, Platelet Estimate Cancelled, Plt Morphology Comment Cancelled, RBC Morphology Cancelled, Polychromasia Cancelled, Hypochromasia Cancelled, Poikilocytosis Cancelled, Basophilic Stippling Cancelled, Anisocytosis Cancelled, Microcytosis Cancelled, Macrocytosis Cancelled, Spherocytes Cancelled, Sickle Cells Cancelled, Target Cells Cancelled, Tear Drop Cells Cancelled, Ovalocytes Cancelled, Stomatocytes Cancelled, [place] Bodies Cancelled, [place] Cells Cancelled, Bite Cells Cancelled, Crenated Cell Cancelled, Acanthocytes (Spur) Cancelled, Rouleaux Cancelled, Schistocytes Cancelled 05/15/22 06:20: Sodium 144, Potassium 4.2, Chloride 110 H, Carbon Dioxide 28.0, Anion Gap 6, BUN 20 H, Creatinine 1.00, Estim Creat Clear Calc 60.84, Est GFR (MDRD) Af Amer 96, Est GFR (MDRD) Non-Af 79, BUN/Creatinine Ratio 20.0, Glucose 52 L, Calcium 8.7, Total Bilirubin 0.60, AST 30, ALT 41, Alkaline Phosphatase 79, Total Protein 5.7 L, Albumin 2.7 L, Globulin 3.0, Albumin/Globulin Ratio 0.9 05/15/22 06:32: POC Glucose 59 L 05/15/22 07:38: POC Glucose 177 H 05/15/22 07:46: WBC 8.4, RBC 4.14 L, Hgb 12.5 L, Hct 38.9 L, MCV 94.0, MCH 30.2, MCHC 32.1, RDW Std Deviation 48.2 H, RDW Coeff of Neo 14.0, Plt Count 168, MPV 9.8, Immature Gran % (Auto) 3.500 H, Neut % (Auto) 65.9, Lymph % (Auto) 14.4 L, [place] % (Auto) 11.7 H, Eos % (Auto) 3.7, Baso % (Auto) 0.8, Absolute Neuts (auto) 5.5, Absolute Lymphs (auto) 1.20, Nucleated RBC % 0 Micro: Microbiology 05/09/22 18:30 Blood Culture (Wb) - Pic Blood Culture - Final No growth in 5 days. 05/09/22 18:30 Blood Culture (Wb) - Pic Blood Culture - Final No growth in 5 days. 05/09/22 16:20 Sputum, Tracheal Aspirate Gram Stain - Final 05/09/22 16:20 Sputum, Tracheal Aspirate Respiratory Culture - Final Meth. resistant Staph. aureus 05/09/22 15:28 Mucosa - Nasopharyngeal Respiratory Panel (PCR) - Final Rhinovirus 05/09/22 11:55 Urine Catheter - Catheter Legionella Antigen - Final 05/09/22 11:55 Urine Catheter - Catheter Streptococcus pneumoniae Antigen (M - Final Rhythm Strip Rhythm Strip: Sinus Rhythm Rate: 53 Physical Exam Narrative Alert and oriented x3, no apparent distress. S1, S2, RRR Lung sounds clear. No rales or rhonchi. Abdomen soft, rounded, positive bowel sounds edema noted bilateral lower legs Assessment & Plan Assessment/Plan (1) ERIC (acute kidney injury): (2) Diabetic ketoacidosis: QUALIFIERS: Diabetes mellitus type: type 1 Diabetes mellitus complication detail: without coma Qualified Code(s): E10.10 - Type 1 diabetes mellitus with ketoacidosis without coma (3) Altered mental status: (4) Diabetes type 1, controlled: QUALIFIERS: Diabetes mellitus complication status: with unspecified complications Qualified Code(s): E10.8 - Type 1 diabetes mellitus with unspecified complications PLAN: Plan -Suspect ERIC is secondary to prerenal azotemia due to shock and volume depletion from polyuria secondary to severe hyperglycemia on presentation.? Prerenal ERIC may have progressed to ischemic ATN as well. Urinalysis did not suggest other causes of ERIC such as interstitial nephritis, vasculitis or acute glomerulonephritis. Renal ultrasound was negative for obstruction. Creatinine peaked 4.08 mg/dL and today is 1.00 mg/dL. Patient is nonoliguric. It appears patient has had a few ERIC episodes since 2016; possible baseline creatinine ~1.1 to 1.3 mg/dL.?? He does not follow with nephrology in outpatient setting. -Baseline renal function is unclear.? Last available creatinine level before this admission was from 02/12/2021 at 1.13 mg/dL. The patient does have risk factors for CKD with longstanding type 1 diabetes mellitus. -Patient has lower extremity edema. Lasix has been on hold since admission. He takes Lasix 40 mg daily. We will restart and monitor renal function closely. -Blood pressures improved, on ramipril. -We will arrange for hospital follow-up
[2022-05-15 12:21] LABS: Bedside Glucose 195 mg/dL (74-106)
--- NOTE | 2022-05-15 12:26 | STRESSREP ---
Stress Test Report Date: Procedure: Pharmacologic stress nuclear imaging study Indications: Non-ST segment elevation [place]; CAD; non-CAD related cardiomyopathy Consent: Per the patient Procedure: The patient underwent pharmacologic (Regadenoson 0.4mg ) evaluation with a peak heart rate of 104 beats per minute (67%predicted maximal heart rate) and a resting blood pressure of 145/73 mmHg and a peak blood pressure of 145/73 mmHg. The baseline ECG demonstrated normal sinus rhythm. The peak pharmacologic ECG demonstrated no obvious ECG changes. There were no cardiac dysrhythmias pretest, during pharmacologic infusion, or recovery. There was no complaint of chest discomfort during pharmacologic infusion or recovery. The examination was discontinued secondary to completion of protocol. Impression: 1. Pharmacologic (Regadenoson) evaluation 2. Peak pharmacologic ECG with no obvious ECG changes. 3. There were no cardiac dysrhythmias pretest, during pharmacologic infusion, or recovery. 4. Nuclear images pending Myocardial perfusion imaging study: Technique: The patient was injected with 15.0 millicuries of technetium 99m Cardiolite and subsequently rest SPECT Cardiolite nuclear imaging was obtained in the horizontal long, vertical long, and short axis views. The patient underwent pharmacologic (Regadenoson) evaluation with a peak heart rate of 104 beats per minute (67% percent predicted maximal heart rate) and a resting blood pressure of 145/73 mmHg and a peak blood pressure of 145/73 mmHg. The patient was injected with 45.0 millicuries of technetium 99m Cardiolite and subsequently stress SPECT Cardiolite nuclear imaging was obtained in the horizontal long, vertical long, and short axis views. A gated Cardiolite study at peak stress was obtained. Interpretation: Rest and stress SPECT Cardiolite nuclear imaging status post realignment, normalization, and attenuation correction demonstrate relative uniform tracer uptake and myocardial perfusion appearing within normal limits. There is end systolic thickening and brightening. The gated Cardiolite study demonstrates myocardial thickening and inward wall motion. The reported LVEF is 71%. Impression: 1. Rest and stress SPECT Cardiolite nuclear imaging demonstrate relative uniform tracer uptake and myocardial perfusion appearing within normal limits. 2. The gated Cardiolite study reports an LVEF of 71%. This note was generated with [employer] [place] software. It may contain incorrect words, spelling, and punctuation that were not noted in checking the note before signing.
--- NOTE | 2022-05-15 13:53 | CASEMGMT ---
Patient is ready for discharge to [facility]. Orders copied. Patience in TCU was notified that patient will be coming today. Plan: d/c to [facility] under skilled level of care Monserrat DUENAS
--- NOTE | 2022-05-28 08:34 | PCM.DC.SUM ---
Providers Date of Admission: 05/09/22 Date of Discharge: 05/15/22 Primary Care Physician: Dr. Lucas Yap MD Consultations 05/10/22 04:08 Consult: Tube And Rod Straightener / Pulmonary Medicine Routine Consulting Provider: Pulmonary Medicine [facility] [place] Reason for Consult: pt on ventilator EMERGENT Consult: No MD Notified: Yes Date Notified: 05/10/22 Time Notified: 04:08 Method of Notification: Verbal 05/10/22 07:50 Consult: Cardiology Routine Consulting Provider: Tito Wilson Reason for Consult: elevated Trop EMERGENT Consult: No Notified: Yes Date Notified: 05/10/22 Time Notified: 07:50 Method of Notification: Verbal 05/10/22 07:52 Consult: Nephrology Routine Consulting Provider: Minesh Culver Reason for Consult: ERIC EMERGENT Consult: No Notified: Yes Date Notified: 05/10/22 Time Notified: 07:52 Method of Notification: Verbal Reason For Visit: KIABETIC KETOACIDOUS Diagnosis Discharge Diagnosis (1) NSTEMI (non-ST elevated myocardial infarction): Status: Resolved Code(s): I21.4 - Non-ST elevation (NSTEMI) myocardial infarction (2) CAD (coronary artery disease): Status: Acute Code(s): I25.10 - Atherosclerotic heart disease of [place] coronary artery without angina pectoris (3) HLD (hyperlipidemia): Status: Chronic Code(s): E78.5 - Hyperlipidemia, unspecified Qualifiers: Hyperlipidemia type: unspecified Qualified Code(s): E78.5 - Hyperlipidemia, unspecified (4) Essential hypertension: Status: Chronic Code(s): I10 - Essential (primary) hypertension (5) Diabetic ketoacidosis: Status: Resolved Code(s): E11.10 - Type 2 diabetes mellitus with ketoacidosis without coma Qualifiers: Diabetes mellitus type: type 1 Diabetes mellitus complication detail: without coma Qualified Code(s): E10.10 - Type 1 diabetes mellitus with ketoacidosis without coma (6) Respiratory failure: Status: Acute Code(s): J96.90 - Respiratory failure, unspecified, unspecified whether with hypoxia or hypercapnia (7) ERIC (acute kidney injury): Status: Resolved Code(s): N17.9 - Acute kidney failure, unspecified Plan 1. Acute hypoglycemia 2. Acute DKA 3. Acute hypoxic respiratory failure 4. Septic shock (not evident on admission), resolved 5. Acute metabolic encephalopathy 6. Acute kidney injury on CKD stage III, prerenal secondary to #1, and #3seline 7. Noncardiac elevation of troponin 8. Hypertension 9. Hyperlipidemia 8. GERD 9. Morbid obesity 10. Multiple sclerosis Medications at Discharge Home Medications cholecalciferol (vitamin D3) 25 mcg (1,000 unit) tablet 1,000 unit PO DAILY Supplement 09/28/15 metoprolol succinate 50 mg tablet,extended release 24 hr 50 mg PO QDAY Check with primary doctor 07/04/17 omeprazole 40 mg capsule,delayed release 40 mg PO QDAY GERD 07/04/17 pediatric multivit no.17-ferrous fumarate 15 mg iron chewable tablet 15 mg PO QDAY Supplement 07/26/17 gabapentin 100 mg capsule 200 mg PO TID Pain 12/08/18 tamsulosin 0.4 mg capsule 1 tab PO DAILY Urinary retention 07/22/19 duloxetine 60 mg capsule,delayed release (Cymbalta) 60 mg PO DAILY Mood 10/17/20 diroximel fumarate 231 mg capsule,delayed release (Vumerity) 462 mg PO BID Check with primary doctor 02/19/22 rosuvastatin 10 mg tablet 10 mg PO DAILY CHOLESTEROL 05/09/22 aspirin 81 mg chewable tablet 81 mg PO DAILY@0800 Heart Health 05/15/22 furosemide 40 mg tablet 40 mg PO DAILY Heart 05/15/22 ramipril 10 mg capsule 10 mg PO DAILY BP 05/15/22 insulin glargine 100 unit/mL (3 mL) subcutaneous pen (Lantus Solostar U-100 Insulin) 20 unit (0.2 mL) subcut BID #15 mL 05/25/22 insulin glargine-yfgn 100 unit/mL (3 mL) subcutaneous pen 20 unit (0.2 mL) subcut BID 30 days #12 mL 05/25/22 insulin lispro 100 unit/mL subcutaneous pen (Humalog KwikPen (U-100) Insulin) 7 unit (0.07 mL) subcut 1145 30 days #3 mL 05/25/22 insulin lispro 100 unit/mL subcutaneous pen (Humalog KwikPen (U-100) Insulin) 10 unit (0.1 mL) subcut 0745 30 days #3 mL 05/25/22 Hospital Course Operations None Procedures Stress test Summary of Care Provided Minutes Spent on Discharge: 35 Hospital Course: 66-year-old male with past medical history of type I DM, hypertension, [place], morbid obesity who was found unresponsive at home. Patient was found to have per surrounded by vomitus. In the emergency room, he was found to be in acute DKA. He was intubated as a primary airway protection measure. He was subsequently managed in the ICU. Tube And Rod Straightener consulted. Patient did have Hypertension, and managed for septic shock with broad-spectrum antibiotics. He was on Levophed. Cardiology was consulted for elevated troponin. 2D echo showed EF of 65%, trivial valvular disease. Patient also did have evidence of acute kidney injury on CKD stage III believed to be prerenal. Patient sputum cultures were positive for MRSA. Respiratory panel also showed rhinovirus. Patient was extubated on 05/10/22 and maintained on BiPAP with improvement. He was transferred to the progressive care unit. He did have episodes of hypoglycemia and adjustments to his insulin regimen was made. Patient underwent stress test on 04/2022 that was unremarkable. He was seen by PT and OT and skilled for discharge to senior living facility. Physical Exam Narrative Physical exam: General: Alert, Oriented x3, Cooperative, morbidly obese HEENT: Atraumatic Oral: Moist Mucosa Neck: Supple Lungs: Diminished to auscultation Cardiovascular: HS I+II, regular, no murmurs Abdomen: Bowel Sounds Present, Soft, Non Tender Extremities: No edema Skin: No rashes, No breakdown Neurological: Grossly intact Psych/Mental Status: Appropriate Weight / BMI Weight Weight: 148.5 kg Body Mass Index (BMI) 54.6 ABG / Lab / Microbiology Data Result Diagrams: 05/15/22 07:46 05/15/22 06:20 Microbiology: Microbiology 05/15/22 12:40 Nasal Secretion SARS-CoV-2 Antigen (Rapid) - Final 05/09/22 18:30 Blood Culture (Wb) - Pic Blood Culture - Final No growth in 5 days. 05/09/22 18:30 Blood Culture (Wb) - Pic Blood Culture - Final No growth in 5 days. 05/09/22 16:20 Sputum, Tracheal Aspirate Gram Stain - Final 05/09/22 16:20 Sputum, Tracheal Aspirate Respiratory Culture - Final Meth. resistant Staph. aureus 05/09/22 15:28 Mucosa - Nasopharyngeal Respiratory Panel (PCR) - Final Rhinovirus 05/09/22 11:55 Urine Catheter - Catheter Legionella Antigen - Final 05/09/22 11:55 Urine Catheter - Catheter Streptococcus pneumoniae Antigen (M - Final D/C Instructions Discharge Diet: 2000 Calorie Control Diet and 2000 mg Sodium Diet Meaningful Use Info Meaningful Use Diagnoses (Choose all that apply): None applicable Discharge Plan Admission Admit Date/Time: 05/09/22 14:07 Primary Reason for Your Visit: Acute DKA Attending Provider: Ave Lopez Primary Care Provider: Lucas Yap Consulting Providers: Ttio Wilson ; Willy Kerns ; Néstor Meadows ; Haseeb Rollins ; Robert Nichols ; Shanna Chávez NP ; Minesh Culver ; aDno Lowe Discharge Orders/Prescriptions Prescriptions: Continued metoprolol succinate 50 mg tablet extended release 24 hr 50 mg PO QDAY pediatric multivit no.17-ferrous fumarate 15 mg iron chewable tablet 15 mg iron tablet,chewable 15 mg PO QDAY gabapentin 100 mg capsule 200 mg PO TID Label Comments: FAMILY STATES THINKS RECENTLY INCREASED TO 3 CAPSULES (300 MG) TID. Vumerity 231 mg capsule,delayed release(DR/EC) 462 mg PO BID cholecalciferol (vitamin D3) 1,000 UNIT tablet 1,000 unit PO DAILY omeprazole 40 MG capsule 40 mg PO QDAY tamsulosin 0.4 mg capsule 1 tab PO DAILY duloxetine [Cymbalta] 60 mg Capsule,Delayed Release(Dr/Ec) 60 mg PO DAILY rosuvastatin 10 mg tablet 10 mg PO DAILY Discontinued Lantus Solostar U-100 Insulin 100 unit/mL (3 mL) insulin pen 40 unit subcut DAILY PRN (Reason: DM) Label Comments: FAMILY STATES BELIEVES ITS ONLY A BACK UP IF INSULIN IS NOT WORKING. potassium chloride 10 mEq tablet,ER particles/crystals 10 meq PO BID insulin lispro [Humalog U-100 Insulin] 100 unit/mL solution See Rx Instructions SC QDAY Qty: 90 4RF Hold Instructions: Resume on 10/18/20. Restart upon direction of endocrinology Dose Instruction: uses 90 U qd via pump SC QDAY Label Comments: FAMILY STATES THEY HAVE INSULIN PUMP IT WAS FOUND AWAY FROM HIM. Rx Instructions: uses 90 U qd via pump SC QDAY No Action furosemide 40 mg tablet 40 mg PO DAILY aspirin 81 mg tablet,chewable 81 mg PO DAILY@0800 ramipril 10 MG capsule 10 mg PO DAILY Rx Instructions: Hold for 1 days, rsume on 07/26/2019 insulin glargine-yfgn 100 unit/mL (3 mL) Insulin Pen 20 unit subcut BID 30 Days Qty: 12 0RF insulin lispro [Humalog KwikPen Insulin] 100 unit/mL Insulin Pen 10 unit subcut 0745 30 Days Qty: 3 0RF insulin lispro [Humalog KwikPen Insulin] 100 unit/mL Insulin Pen 7 unit subcut 1145 30 Days Qty: 3 0RF insulin glargine [Lantus Solostar U-100 Insulin] 100 unit/mL (3 mL) insulin pen 20 unit subcut BID Qty: 15 0RF Referrals / Follow Up: Lucas Yap MD [Primary Care Provider] - Disposition Disposition (needs filled in before D/C Order can be placed): [facility] Facility Charges/Coding Visit Charges Inpatient E&M: 51171 Disch Hosp >30min
== END 2022-05-15 14:37 | DRG 637 ==
LOC: ED 13:34 → ICU 14:08 → PCU 05-14 07:30 → ICU 05-14 11:31
PROVIDERS: Internal Medicine; Internal Medicine Cardiovascular Disease; Internal Medicine Nephrology; Nurse Practitioner Adult Health; Admitting Provider Internal Medicine; Emergency Provider Emergency Medicine; PCP Family Medicine; Visit Provider Internal Medicine
DX: E10.10 Type 1 diabetes mellitus with ketoacidosis without coma (principal); J96.01 Acute respiratory failure with hypoxia; N17.0 Acute kidney failure with tubular necrosis; R65.21 Severe sepsis with septic shock; A41.9 Sepsis, unspecified organism; G93.41 Metabolic encephalopathy; I21.4 Non-ST elevation (NSTEMI) myocardial infarction; J15.212 Pneumonia due to Methicillin resistant Staphylococcus aureus; Z68.43 Body mass index [BMI] 50.0-59.9, adult; I95.9 Hypotension, unspecified; Z79.4 Long term (current) use of insulin; G35 Multiple sclerosis; E66.01 Morbid (severe) obesity due to excess calories; E10.649 Type 1 diabetes mellitus with hypoglycemia without coma; N18.30 Chronic kidney disease, stage 3 unspecified; E10.22 Type 1 diabetes mellitus with diabetic chronic kidney disease; M06.9 Rheumatoid arthritis, unspecified; S09.90XA Unspecified injury of head, initial encounter; E78.5 Hyperlipidemia, unspecified; K21.9 Gastro-esophageal reflux disease without esophagitis; F41.9 Anxiety disorder, unspecified; I25.10 Atherosclerotic heart disease of native coronary artery without angina pectoris; E86.9 Volume depletion, unspecified; J06.9 Acute upper respiratory infection, unspecified; G47.33 Obstructive sleep apnea (adult) (pediatric); I12.9 Hypertensive chronic kidney disease with stage 1 through stage 4 chronic kidney disease, or unspecified chronic kidney disease; I25.2 Old myocardial infarction; F32.A Depression, unspecified; B97.89 Other viral agents as the cause of diseases classified elsewhere; Z87.891 Personal history of nicotine dependence
CPT/HCPCS: 31500; 36415; 36569; 36600; 51702; 70450; 71045; 76770; 78452; 80048; 80053; 80076; 80202; 81001; 82009; 82550; 82570; 82803; 82947; 82962; 83036; 83605; 83735; 84100; 84300; 84443; 84484; 85025; 87040; 87070; 87077; 87186; 87205; 87426; 87449; 87633; 87641; 92526; 92610; 93005; 93017; 93306; 94002; 94003; 94660; 97110; 97162; 97163; 97166; 97530; 97535; 97802; 97803; 99251; 99285; A9500; J7030; J7040; J7050; J7120; Q9957; A4216; G0463; J2785; J3010; J7799

== ENCOUNTER 2022-05-15 15:08 | Inpatient (IN) | payer MEDICARE, BC, SELFPAY ==
[2022-05-15 15:54] VITALS: BP 129/63; PULSE 74; RESP 18; TEMP 36.6; O2SAT 95; BMI 49.8
--- NOTE | 2022-05-15 16:12 | NURSING ---
SALINE LOCK REMOVED FROM RT HAND, D/T KINKED, HALF OUT. POST SITE INACT, CATHETHER TIP INTACT.
[2022-05-15 16:19] VITALS: PULSE 84; RESP 16; O2SAT 95
[2022-05-15 17:00] LABS: Bedside Glucose 255 mg/dL (74-106)
[2022-05-15] MEDS: Doxycycline 100 MG CAPSULE PO (17:40)
[2022-05-15] MEDS: Insulin Lispro 100 UNIT/ML INSULN.PEN 7 UNIT SC (17:40)
[2022-05-15] MEDS: Insulin Glargine-YFGN 100 UNIT/ML Pen 10 UNIT SC (17:41)
[2022-05-15] MEDS: Gabapentin 100 MG Capsule 200 MG PO (20:16)
[2022-05-15] MEDS: Nystatin Powder 15gm Bottle 1 APPLIC TOPICAL (20:18)
--- NOTE | 2022-05-15 20:38 | HP.PCM_ITS ---
HPI - General General Date of Admission: 05/15/22 Date of Service: 05/15/22 Chief Complaint: Here for rehabilitation. HPI Narrative 05/09/2022 BYRON SHANNON, is a 66 Male who presents to [facility] Emergency Department with hypoglycemia. 05/09/2022 EKG sinus tachycardia, rightward axis, Nonspecific intraventricular conduction block, inferior infarct, age undetermined, T wave abnormality, consider lateral ischemia. Found on floor, surrounded by vomit, confused. Insulin pump fell off, Multiple DKA in the past, intubated in the past. DKA quickly when he has respiratory infection. Intubated. WBC 20.5, pH 7.0, PCO2 42, PO2 60. Sodium 127, K 5.7, BUN 50, Creatinine 4.05, Glucose 1334. UA negative, CT head okay. Lispro 14 units bolus, then drip, Normal Saline 3 liters IV bolus. 05/09/2022 Admit to ICU. Insulin IV, aggressive IV fluids for DKA. Consult pulmonary for ventilator management. 05/10/2022 Echo LVSF normal. EF 65%. 05/10/2022 Weaned off ventilator. Vancomycin, Levaquin, Zosyn, Levophed for septic shock after panculture. Insulin drip changed to subcutaneous insulin. Elevated troponin secondary to NSTEMI versus demand ischemia. 05/11/2022 Confused, blood pressure elevated. Adjust insulin, on oxygen. Blood pressure stabilized, restart blood pressure medications. 05/12/2022 Sputum growing MRSA, respiratory panel positive rhinovirus. Sugars improved. Vancomycin for MRSA in sputum. CT head negative. 05/13/2022 More alert, adjust insulin for hypoglycemia. 05/14/2022 Stop Zosyn, continue Vancomycin IV x 7 days for MRSA in sputum. Creatinine 1.21 with IV fluids, back to baseline. 05/15/2022 Nuclear cardiac stress test negative. 05/15/2022 Admit to TCU with debility, here for rehabilitation, strengthening, prior to discharge home alone. [facility] Medical History Acute respiratory failure with hypoxemia Anxiety Arthritis Cataracts, bilateral CPAP (continuous positive airway pressure) dependence Depression Diabetes type 1, controlled DVT (deep venous thrombosis) Essential hypertension GERD (gastroesophageal reflux disease) GI bleed History of MRSA infection of lungs HLD (hyperlipidemia) Hypoglycemia Multiple sclerosis Myocardial infarct NSTEMI (non-ST elevated myocardial infarction) (05/10/22) Obesity Renal failure Rheumatoid arthritis Rhinovirus infection Sepsis Home Medications cholecalciferol (vitamin D3) 25 mcg (1,000 unit) tablet 1,000 unit PO DAILY Supplement 09/28/15 [History Last Taken 05/08/22] metoprolol succinate 50 mg tablet,extended release 24 hr 50 mg PO QDAY Check with primary doctor 07/04/17 [History Last Taken 05/08/22] omeprazole 40 mg capsule,delayed release 40 mg PO QDAY GERD 07/04/17 [History Last Taken 05/08/22] pediatric multivit no.17-ferrous fumarate 15 mg iron chewable tablet 15 mg PO QDAY Supplement 07/26/17 [History Last Taken 05/08/22] gabapentin 100 mg capsule 200 mg PO TID Pain 12/08/18 [History Last Taken 05/08/22] tamsulosin 0.4 mg capsule 1 tab PO DAILY Urinary retention 07/22/19 [History Last Taken 05/08/22] duloxetine 60 mg capsule,delayed release (Cymbalta) 60 mg PO DAILY Mood 10/17/20 [History Last Taken 05/08/22] diroximel fumarate 231 mg capsule,delayed release (Vumerity) 462 mg PO BID Check with primary doctor 02/19/22 [History Last Taken 05/08/22] rosuvastatin 10 mg tablet 10 mg PO DAILY CHOLESTEROL 05/09/22 [History Last Taken 05/08/22] aspirin 81 mg chewable tablet 81 mg PO DAILY@0800 Heart Health 05/15/22 [History Last Taken Unknown] doxycycline monohydrate 100 mg capsule 100 mg PO BID Antibiotic 05/15/22 [History Last Taken Unknown] furosemide 40 mg tablet 40 mg PO DAILY Heart 05/15/22 [History Last Taken Unknown] insulin glargine-yfgn 100 unit/mL (3 mL) subcutaneous pen 10 unit subcut BID Diabetes 05/15/22 [History Last Taken Unknown] pantoprazole 40 mg tablet,delayed release 40 mg PO DAILY GERD 05/15/22 [History Last Taken Unknown] ramipril 10 mg capsule 10 mg PO DAILY BP 05/15/22 [History Last Taken Unknown] Allergy/AdvReac Type Severity Reaction Status Date / Time adhesive tape AdvReac Rash Verified 02/19/22 10:37 Sulfa (Sulfonamide AdvReac Other Verified 02/19/22 10:37 Antibiotics) Family History Sister Diabetes Surgical History History of carpal tunnel surgery Hx of tonsillectomy insulin pump implant and removal Social History (Updated 05/15/22 @ 20:[address] Saurabh Downs MD) household members: none Smoking Status: Former smoker second hand exposure: No alcohol intake: current alcohol intake frequency: a few times a month substance use type: does not use ROS Constitutional Constitutional: Denies chills, fever(s) or weight gain ENT HEENT: Denies headache(s), nasal congestion or nasal discharge Cardiovascular Cardiovascular: Denies chest pain or palpitations Respiratory/Chest Respiratory/Chest: Denies cough, excessive phlegm production or shortness of breath with exertion Gastrointestinal Gastrointestinal: Denies abdominal pain, nausea or vomiting Genitourinary Genitourinary: Denies dysuria Musculoskeletal Musculoskeletal: Denies joint pain or joint swelling Integumentary Integumentary: Denies rash or wounds Neurologic Neurologic: Denies focal weakness, numbness or tingling Psychiatric Psychiatric: Denies anxiety, auditory hallucinations, depression, homicidal ideation or suicidal ideation Vital Signs Vital Signs Vital Signs: 05/15/22 15:54 05/15/22 16:19 Temperature 97.8 F Temperature Source Temporal Pulse Rate 74 84 Pulse Rhythm Regular Pulse Strength Normal (2+) Respiratory Rate 18 16 Respiratory Effort Normal Non-Labored Respiratory Depth Normal Respiratory Pattern Normal Blood Pressure 129/63 H Blood Pressure Mean 85 Blood Pressure Source Monitor Blood Pressure Position Semi-Fowlers Blood Pressure Location Left Arm Pulse Ox 95 95 Oxygen Delivery Method Room Air Room Air Weight Weight: 148.5 kg Body Mass Index (BMI) 49.8 Physical Exam Const alert General Appearance: cooperative HEENT normocephalic Eyes PERRL and EOMs intact bilaterally Neck supple, no JVD and no carotid bruits Resp normal respiratory effort, normal air movement and clear to auscultation bilaterally Cardio regular rate and regular rhythm GI normal to inspection, nondistended, normoactive bowel sounds, non-tender and non-distended Extremity normal capillary refill Extremity Narrative: Right upper extremity PICC line. General Extremity: Negative for edema Skin no rashes or lesions noted General Skin Exam: no breakdown Psych affect normal Appearance: appropriate Results Lab / Micro Data Labs: Laboratory Results - last 24 hr 05/15/22 16:10: POC Glucose 255 H Assessment & Plan Assessment/Plan (1) Debility: (2) Acute respiratory failure with hypoxemia: (3) Diabetic ketoacidosis: (4) Acute kidney injury: (5) Dehydration: (6) Rhinovirus infection: (7) MRSA (methicillin resistant staph aureus) culture positive: (8) Altered mental status: (9) CAD (coronary artery disease): (10) Diabetes type 1, uncontrolled: (11) Vitamin D deficiency: (12) GERD (gastroesophageal reflux disease): (13) Neuropathic pain: (14) Hypokalemia: (15) BPH (benign prostatic hyperplasia): (16) Depression: (17) Hyperlipidemia: (18) Sleep apnea: (19) Multiple sclerosis: PLAN: Plan 66 year old male with below past medical history hospitalized for diabetic ketoacidosis, acute respiratory failure with hypoxia, rhinovirus, MRSA in sputum, acute kidney injury, dehydration, encephalopathy, admitted to TCU with debility, here for rehabilitation, strengthening, prior to discharge home alone. * Debility - PT/OT. * Pain - Tylenol 1000mg q6h prn pain (1-10). * Bowel - senna/colace 2 tablets bid, Dulcolax 10mg daily prn, MOM 30ml daily prn. * Adult immunization - Administer pneumonia vaccine, covid19 vaccine, flu vaccine as appropriate. * DVT prophylaxis - HAS-BLED score 1 intermediate risk of bleeding, Lexis score 6 high risk of blood clots, overall intermediate risk, Rx Xarelto 10mg daily x 10 days. * Coronary artery disease - Metoprolol succinate 50mg daily, Ramipril 10mg daily, Aspirin 81mg daily, hold while on Xarelto. * Hyperlipidemia - Atorvastatin 20mg qhs. * Multiple sclerosis - Vumerity 462mg bid. * MRSA sputum - Doxycycline 100mg bid thru 05/18/2022. * Depression - Duloxetine 60mg daily, stable chronic fpc use, GDR not recommended. * Edema - Furosemide 40mg daily. * Neuropathic pain - Gabapentin 200mg tid. * Diabetes Mellitus Type 1 - Glargine 10 units bid, monitor closely, resident brittle. * Tinea Corporis - Nystatin powder topical bid. * GERD - Pantoprazole 40mg daily. * BPH - Tamsulosin 0.4mg daily. * Vitamin D deficiency - D3 25mcg daily.
[2022-05-15 21:41] LABS: Bedside Glucose 190 mg/dL (74-106)
[2022-05-16 05:38] LABS: Absolute Lymphocyte Count 1.42 X10^3/uL (0.83-4.51); Absolute Neutrophil Count 5.1 X10^3/uL (2.0-7.7); Basophil# 0.04 X10^3/uL; Basophil% 0.5 % (0-1); Eosinophil# 0.28 X10^3/uL; Eosinophils% 3.5 % (0-5); Hematocrit 36.1 % (40-54); Hemoglobin 12.2 g/dL (13.0-16.5); Lymphocyte # 1.42 X10^3/ul (0.83-4.51); Lymphocyte % 17.6 % (19-41); Mean Corp Hgb Conc 33.8 g/dL (32-36); Mean Corpuscular Hgb 30.3 pg (27.0-32.0); Mean Corpuscular Volume 89.8 fL (80-94); Mean Platelet Vol. 9.6 fl (6.2-12.0); Monocyte# 0.97 X10^3/uL; NRBC Flagged by Analyzer 0 % (0-5); Neutrophil # 5.13 X10^3/uL (2.7-7.7); Neutrophil % 63.3 % (47-70); Platelet Count 216 K/mm3 (150-450); RBC Distribution Width CV 13.7 % (11.6-14.6); RBC Distribution Width SD 44.5 fl (35.1-43.9); Red Blood Count 4.02 M/mm3 (4.6-6.2); White Blood Count 8.1 K/mm3 (4.4-11.0)
[2022-05-16 06:06] LABS: Anion Gap 3 (5-15); BUN 17 mg/dL (7-18); BUN/Creat Ratio 18.4 RATIO (10-20); Chloride 108 mmol/L (98-107); Creatinine, Serum 0.93 mg/dL (0.70-1.30); EST Glomerular Filtration Rate 87 mL/min (>60); Est Glom Filt Rate - Afr Amer 105 mL/min (>60); Estimated Creatinine Clearance 75.59 ml/min; Glucose 109 mg/dL (74-106); Potassium 3.9 mmol/L (3.5-5.1); Sodium Level 140 mmol/L (136-145)
[2022-05-16] MEDS: Furosemide 40 MG Tablet PO (06:12)
[2022-05-16] MEDS: Doxycycline 100 MG CAPSULE PO ×2 (06:12→16:59)
[2022-05-16] MEDS: Pantoprazole Sodium 40 MG Tablet PO (06:12)
[2022-05-16] MEDS: DULoxetine Hcl 60 MG Capsule PO (06:12)
[2022-05-16] MEDS: Cholecalciferol (VIT D3) 25 MCG TABLET (1,000 UNITS) PO (06:12)
[2022-05-16 06:13] VITALS: BP 143/65; PULSE 64
[2022-05-16] MEDS: Gabapentin 100 MG Capsule 200 MG PO ×3 (06:13→21:41)
[2022-05-16] MEDS: Nystatin Powder 15gm Bottle 1 APPLIC TOPICAL ×2 (06:13→22:02)
[2022-05-16] MEDS: Ramipril 10 MG Capsule PO (06:13)
[2022-05-16] MEDS: Metoprolol(XL)Succ 50 MG Tablet PO (06:13)
[2022-05-16] MEDS: Senna/Docusate Sodium 1 Tablet 2 TABLET PO ×2 (06:16→16:59)
[2022-05-16 06:35] LABS: Bedside Glucose 91 mg/dL (74-106)
[2022-05-16] MEDS: Insulin Glargine-YFGN 100 UNIT/ML Pen 10 UNIT SC ×2 (08:16→17:05)
[2022-05-16] MEDS: Tuberculin,Purif.prot.deriv. 50 TU/ML Vial 0.1 ML ID (09:12)
[2022-05-16] MEDS: 0.9% Saline Lock 10 ML Syringe IV (09:17)
[2022-05-16 12:20] LABS: Bedside Glucose 371 mg/dL (74-106)
--- NOTE | 2022-05-16 12:39 | NURSING ---
Dr. woods updated on pt's BS 371 N.O. Humalog 5 units x1 Order read back.
--- NOTE | 2022-05-16 12:47 | NURSING ---
PER THERAPY PT CAN BE AB KERI IN ROOM.
--- NOTE | 2022-05-16 12:54 | NURSING ---
Straddle Bug Note; Activity Asset: Bhavna Marshall is independent for his daily activities. He stated he is good w/tv, his phone, word puzzles and the paper. Rolando was admitted on Isolation and will do all activities in roommate this time.
[2022-05-16] MEDS: Insulin Lispro 100 UNIT/ML INSULN.PEN SC (13:07)
[2022-05-16 16:00] VITALS: BP 140/65; PULSE 71; RESP 16; TEMP 36.3; O2SAT 98
[2022-05-16] MEDS: Tamsulosin HCl 0.4 MG Capsule PO (17:00)
[2022-05-16] MEDS: Rivaroxaban 10 MG Tablet PO (17:01)
[2022-05-16 17:05] LABS: Bedside Glucose 318 mg/dL (74-106)
[2022-05-16 21:50] LABS: Bedside Glucose 385 mg/dL (74-106)
[2022-05-16] MEDS: Atorvastatin Calcium 20 MG Tablet PO (22:04)
[2022-05-16] MEDS: Insulin Lispro 100 UNIT/ML INSULN.PEN 7 UNIT SC (22:04)
[2022-05-17] VITALS (7 sets, daily range): BP systolic 108–128; BP diastolic 43–54; PULSE 74–87; RESP 18; TEMP 36.6; O2SAT 94–99
[2022-05-17] MEDS: Doxycycline 100 MG CAPSULE PO ×2 (06:30→17:31)
[2022-05-17] MEDS: DULoxetine Hcl 60 MG Capsule PO (06:30)
[2022-05-17] MEDS: Nystatin Powder 15gm Bottle 1 APPLIC TOPICAL ×2 (06:31→20:57)
[2022-05-17] MEDS: Pantoprazole Sodium 40 MG Tablet PO (06:31)
[2022-05-17] MEDS: Insulin Glargine-YFGN 100 UNIT/ML Pen 15 UNIT SC (06:32)
[2022-05-17 06:40] LABS: Bedside Glucose 210 mg/dL (74-106)
--- NOTE | 2022-05-17 07:40 | NURSING ---
Blood pressure medications held at this time d/t BP at 117/43. Pt is asymptomatic. Neurontin not available on unit and communication sent to pharmacy. Updated ESTEBAN Alejandro.
[2022-05-17] MEDS: Gabapentin 100 MG Capsule 200 MG PO ×3 (08:41→20:54)
[2022-05-17] MEDS: Cholecalciferol (VIT D3) 25 MCG TABLET (1,000 UNITS) PO (08:42)
--- NOTE | 2022-05-17 10:11 | NURSING ---
PT STATED TO THIS NURSE THAT HE THREW UP EARLIER AND IT WAS CLEAR. STATED TO PT THAT STAFF NEEDS TO SEE EMESES. TEMP 97.8. PT STATED OK. RN AWARE
[2022-05-17 10:56] LABS: Bedside Glucose 420 mg/dL (74-106)
--- NOTE | 2022-05-17 11:02 | NURSING ---
dr Ryan updated on blood sugar 420. She will look at his blood sugar history and place order.
[2022-05-17] MEDS: Insulin Lispro 100 UNIT/ML INSULN.PEN 10 UNIT SC (11:33)
[2022-05-17] MEDS: Insulin Lispro 100 UNIT/ML INSULN.PEN SC ×2 (11:34→17:36)
[2022-05-17] MEDS: Insulin Lispro 100 UNIT/ML INSULN.PEN 7 UNIT SC ×2 (11:34→17:35)
--- NOTE | 2022-05-17 11:46 | NURSING ---
PT BS WAS 420 AT [facility],REPORTED TO RN AND CALLED WITH NEW ORDERS. WILL CONTINUE TO MONITOR.
--- NOTE | 2022-05-17 12:07 | CASEMGMT ---
Social Work Met with patient to complete initial assessment. Introduced self and role. Verified/updated contacts. Discussed code status and MOLST form. Pt confirms full code. MOLST placed in folder. Pt wishes to complete advanced directives naming both sisters as HCPOA. SW to complete prior to DC as time allows. Educated to Medicare benefit. Encouraged to contact secondary insurance to ensure copay coverage. Pts goal is to return home alone at [facility]. Two sisters can assist as needed but are of similar age. SW to continue to follow for DC planning. Margie Rendon, MOLD BUILDER BULL DRIVER
--- NOTE | 2022-05-17 14:08 | NURSING ---
PT ORDERED HIS HOME MED VUMERITY TODAY, DUE TO RUNNING LOW AND STATED HE SHOULD HAVE IT DELIVERED TO HIS HOUSE TOMORROW AND JUST NEEDS TO FIND SOME ONE TO BRING IT IN.
--- NOTE | 2022-05-17 15:20 | PCM.PN.DRR ---
TCU RX Drug Regimen Review Subjective: 66 YOM admitted to TCU after a hospitalization for MRSA pneumonia and DKA. Admitted to TCU for rehabilitation prior to discharge home where he resides alone. Objective: Allergies adhesive tape Adverse Reaction (Verified 02/19/22 10:37) Rash Sulfa (Sulfonamide Antibiotics) Adverse Reaction (Verified 02/19/22 10:37) Other Current Medications Generic Name Dose Route Start Last Admin Trade Name Freq PRN Reason Stop Dose Admin Acetaminophen 1,000 mg 05/15/22 16:52 Acetaminophen 500 Mg Tablet PO Q6H PRN PRN Pain Score 1-10 Aspirin 81 mg 05/16/22 08:00 Aspirin 81 Mg Tab.Chew PO DAILY@0800 MONICA Atorvastatin Calcium 20 mg 05/16/22 22:00 05/16/22 22:04 Atorvastatin Calcium 20 Mg Tablet PO 20 mg QHS MONICA Administration Bisacodyl 10 mg 05/15/22 21:01 Bisacodyl 5 Mg Tablet PO X1 PRN Constipation Cholecalciferol 25 mcg 05/16/22 06:00 05/17/22 08:42 Cholecalciferol (Vit D3) 25 Mcg Tablet (1,000 Units) PO 25 mcg DAILY MONICA Administration Doxycycline Monohydrate 100 mg 05/15/22 18:00 05/17/22 06:30 Doxycycline 100 Mg Capsule PO 05/18/22 06:01 100 mg BID MONICA Administration Duloxetine HCl 60 mg 05/16/22 06:00 05/17/22 06:30 Duloxetine Hcl 60 Mg Capsule PO 60 mg DAILY MONICA Administration Furosemide 40 mg 05/16/22 06:00 05/17/22 08:44 Furosemide 40 Mg Tablet PO Not Given DAILY MONICA Gabapentin 200 mg 05/15/22 22:00 05/17/22 14:02 Gabapentin 100 Mg Capsule PO 200 mg TID MONICA Administration Glucagon 1 mg 05/16/22 07:45 Glucagon 1 Mg/Ml Syringe SC X1 PRN HYPOGLYCEMIA Heparin Sodium (Beef Lung) 50 units 05/15/22 16:48 Heparin Pf Lock 10 Units/Ml 50 Units/5 Ml Syringe IV UD PRN PICC Line Heparin Flush Sodium Chloride 250 mls @ 15 mls/hr 05/15/22 16:15 IV .[id number] PRN Saline Flush Sodium Chloride 250 mls @ 15 mls/hr 05/15/22 16:15 IV .[id number] PRN Additional IVPB Infusion Sodium Chloride 250 mls @ 15 mls/hr 05/15/22 16:48 IV .[id number] PRN Saline Flush Sodium Chloride 250 mls @ 15 mls/hr 05/15/22 16:48 IV .[id number] PRN Additional IVPB Infusion Insulin Glargine 10 unit 05/17/22 18:00 Insulin Glargine-Yfgn 100 Unit/Ml Pen SC 1800 [facility] Insulin Glargine 20 unit 05/18/22 06:00 Insulin Glargine-Yfgn 100 Unit/Ml Pen SC 0600 MONICA Insulin Human Lispro 7 unit 05/17/22 11:45 05/17/22 11:34 Insulin Lispro 100 Unit/Ml Insuln.Pen SC 7 u TIDAC [facility] Administration Insulin Human Lispro 0 unit 05/17/22 11:45 05/17/22 11:34 Insulin Lispro 100 Unit/Ml Insuln.Pen SC 7 u TIDAC [facility] Administration Protocol Magnesium Hydroxide 30 ml 05/15/22 21:01 Magnesium Hydroxide 30 Ml Udc PO X1 PRN Constipation Metoprolol Succinate 50 mg 05/16/22 06:00 05/17/22 08:44 Metoprolol(Xl)Succ 50 Mg Tablet PO Not Given DAILY [facility] Nystatin 1 applic 05/15/22 22:00 05/17/22 06:31 Nystatin Powder 15gm Bottle TOPICAL 1 applic 0600,2200 [facility] Administration Protocol Pantoprazole Sodium 40 mg 05/16/22 06:00 05/17/22 06:31 Pantoprazole Sodium 40 Mg Tablet PO 40 mg DAILY [facility] Administration Polyethylene Glycol 17 gm 05/16/22 06:00 05/17/22 06:29 Polyethylene Glycol 3350 17 Gm Packet PO Not Given DAILY [facility] Ramipril 10 mg 05/16/22 06:00 05/17/22 08:44 Ramipril 10 Mg Capsule PO Not Given DAILY [facility] Rivaroxaban 10 mg 05/16/22 17:00 05/16/22 17:01 Rivaroxaban 10 Mg Tablet PO 05/26/22 17:01 10 mg DINNER [facility] Administration Senna/Docusate Sodium 2 tablet 05/15/22 21:15 05/17/22 06:29 Senna/Docusate Sodium 1 Tablet PO Not Given BID [facility] Sodium Chloride 10 - 40 ml 05/15/22 16:15 05/16/22 09:17 0.9% Saline Lock 10 Ml Syringe IV 10 ml UD PRN Administration SALINE FLUSH Sodium Chloride 10 - 40 ml 05/15/22 16:48 0.9% Saline Lock 10 Ml Syringe IV UD PRN Open End PICC Flush Sodium Chloride 10 - 40 ml 05/15/22 16:48 0.9 % Nacl (Sterile) Posiflush 10 Ml IV UD PRN Port access or dressing change Tamsulosin HCl 0.4 mg 05/16/22 17:30 05/16/22 17:00 Tamsulosin Hcl 0.4 Mg Capsule PO 0.4 mg DAILY@1730 MONICA Administration Tuberculin PPD 0.1 ml 05/23/22 10:00 Tuberculin,Purif.Prot.Deriv. 50 Tu/Ml Vial ID 05/23/22 10:01 X1 ONE Problem List (Last Reviewed 05/15/22 @ 20:[address] Saurabh Downs MD) Multiple sclerosis (Acute) Sleep apnea (Acute) Hyperlipidemia (Acute) Depression (Acute) BPH (benign prostatic hyperplasia) (Acute) Hypokalemia (Acute) Neuropathic pain (Acute) GERD (gastroesophageal reflux disease) (Acute) Vitamin D deficiency (Acute) Diabetes type 1, uncontrolled (Acute) MRSA (methicillin resistant staph aureus) culture positive (Acute) Dehydration (Acute) Acute kidney injury (Acute) Diabetic ketoacidosis (Acute) Debility (Acute) Acute respiratory failure with hypoxemia (Acute) Rhinovirus infection (Acute) Altered mental status (Acute) CAD (coronary artery disease) (Acute) Vital Signs Temp Pulse Resp BP Pulse Ox O2 Del Method O2 Flow Rate 97.9 F 87 18 128/54 H 99 Room Air 2 05/17/22 14:02 05/17/22 14:02 05/17/22 14:02 05/17/22 14:02 05/17/22 14:02 05/17/22 14:02 05/17/22 06:59 FiO2 98 05/16/22 07:36 Oxygen Flow Rate (L/min) 2 Oxygen Delivery Method Room Air Weight: 148.5 kg Body Mass Index (BMI) 49.8 Sodium 140 mmol/L (136-145) 05/16/22 04:49 Potassium 3.9 mmol/L (3.5-5.1) 05/16/22 04:49 Chloride 108 mmol/L (98-107) H 05/16/22 04:49 Carbon Dioxide 29.0 mmol/L (21.0-32.0) 05/16/22 04:49 Anion Gap 3 (5-15) L 05/16/22 04:49 BUN 17 mg/dL (7-18) 05/16/22 04:49 Creatinine 0.93 mg/dL (0.70-1.30) 05/16/22 04:49 Est GFR (MDRD) Af Amer 105 mL/min (>60) 05/16/22 04:49 Est GFR (MDRD) Non-Af 87 mL/min (>60) 05/16/22 04:49 BUN/Creatinine Ratio 18.4 RATIO (10-20) 05/16/22 04:49 Glucose 109 mg/dL (74-106) H 05/16/22 04:49 Assessment/Plan: 1. Pain: Acetaminophen 1000mg PO Q6h PRN Pain 1-10. Please continue to monitor for increased/decreased S/S pain, PRN medication usage. - The patient has used zero doses of PRN Tylenol. It appears the patient's pain is managed at this time. 2. MRSA Pneumonia: Doxycycline 100mg PO BID thru 05/18/22 (to complete 7 days of treatment). Please continue to monitor for S/S N/V/D, resolution of infection. Doxycycline is an adequate antibiotic selection based on sputum culture data from hospitalization. 3. CAD: Lipitor 20mg PO QHS, Toprol XL 50mg PO Daily, Ramipril 10mg PO daily, Aspirin 81mg PO Daily (currently on hold while taking Xarelto). Please continue to monitor blood pressure (range 108-143/51-65), pulse (range 64-87), electrolytes, S/s bleeding/bruising once aspirin resumed, lipid panel annually or sooner if clinically indicated. 4. Type I Diabetes: Insulin Glargine 20 unit SC QAM and 10 unit SC QPM, Humalog 7 units SC TIDAC and sliding scale Humalog TIDAC as well. Please continue to monitor blood glucose levels (last 420 mg/dL), A1c (last 7.6% 05/17). Of note; patient's insulin was increased today d/t elevated blood glucose levels. Please continue to monitor blood glucose levels very closely, given the patient had a previous admission for DKA. 5. MS: Vumerity 462mg PO BID. Please continue to monitor for infection, dizziness. 6. Edema: Lasix 40mg PO daily. Please continue to monitor renal function, fluid status, potassium levels (last 3.9 on 05/16). 7. Neuropathy: Gabapentin 200mg PO TID. Please continue to monitor for dizziness, drowsiness, renal function (CrCl 76 mL/min). 8. DVT Prophylaxis: Xarelto 10mg PO Daily. Please continue to monitor H/H (last done 05/16), S/S bleeding/bruising, S/S blood clot formation. Patient is high risk for blood clots, on Xarelto until 05/26/22. 9. BPH: Flomax 0.4mg PO Daily. Please continue to monitor for medication effectiveness, urinary retention 10. GERD: Protonix 40mg PO Daily. Please continue to monitor for GI upset, GERD flare-ups. Can also encourage nonpharmacologic treatments to also help minimize GERD exacerbations. 11. General Wellness: Cholecalciferol 25mcg PO Daily. Please continue to monitor. 12. Skin Integrity: Nystatin powder topically BID. Please continue to monitor for skin irritation, redness. 13. Bowel: Miralax 17g PO Daily, Senna/Docusate 2 tab PO BID, Dulcolax 10mg PO x1 PRN, MOM 30mL PO x1 PRN. Please continue to monitor for increased/decreased constipation and/or diarrhea. -Last documented bowel movement is 05/17 Assessment/Plan for indications treated with psychotropic medications: 14. Depression: Cymbalta 60mg PO Daily. Please consider a GDR if clinically indicated, thank you. Medical chart and medication regimen reviewed. The following medication irregularities or issues were identified: 1. Lipitor: No lipid panel on file upon EMR review. Please consider ordering a lipid panel if clinically indicated, thank you. Date of Note:: 05/17/22
[2022-05-17 16:16] LABS: Bedside Glucose 246 mg/dL (74-106)
[2022-05-17] MEDS: Rivaroxaban 10 MG Tablet PO (17:30)
[2022-05-17] MEDS: Senna/Docusate Sodium 1 Tablet 2 TABLET PO (17:31)
[2022-05-17] MEDS: Tamsulosin HCl 0.4 MG Capsule PO (17:31)
[2022-05-17] MEDS: Insulin Glargine-YFGN 100 UNIT/ML Pen 10 UNIT SC (17:37)
[2022-05-17] MEDS: Atorvastatin Calcium 20 MG Tablet PO (20:56)
[2022-05-17 21:41] LABS: Bedside Glucose 148 mg/dL (74-106)
[2022-05-18] MEDS: Gabapentin 100 MG Capsule 200 MG PO ×3 (06:22→21:49)
[2022-05-18] MEDS: Doxycycline 100 MG CAPSULE PO (06:23)
[2022-05-18] MEDS: Senna/Docusate Sodium 1 Tablet 2 TABLET PO (06:23)
[2022-05-18] MEDS: Furosemide 40 MG Tablet PO (06:23)
[2022-05-18] MEDS: DULoxetine Hcl 60 MG Capsule PO (06:23)
[2022-05-18] MEDS: Pantoprazole Sodium 40 MG Tablet PO (06:23)
[2022-05-18] MEDS: Ramipril 10 MG Capsule PO (06:24)
[2022-05-18] MEDS: Cholecalciferol (VIT D3) 25 MCG TABLET (1,000 UNITS) PO (06:24)
[2022-05-18] MEDS: Nystatin Powder 15gm Bottle 1 APPLIC TOPICAL ×2 (06:25→22:15)
[2022-05-18] MEDS: Insulin Glargine-YFGN 100 UNIT/ML Pen 20 UNIT SC (06:30)
[2022-05-18 06:35] LABS: Bedside Glucose 301 mg/dL (74-106)
[2022-05-18] MEDS: Polyethylene Glycol 3350 17 GM PACKET PO (06:35)
--- NOTE | 2022-05-18 06:41 | NURSING ---
Addendum entered by Alisa Giraldo 05/18/22 06:49: Pt denies feeling light-headed. Encouraged pt to ask for assistance with transfers d/t blood pressure being low. Original Note: Metoprolol held at this time. Initial BP was 95/49 and recheck was 102/51. Pt c/o being nauseated earlier but states feeling has passed. Note left for Dr. Ryan.
[2022-05-18 08:10] VITALS: BP 102/42; PULSE 103
[2022-05-18] MEDS: Insulin Lispro 100 UNIT/ML INSULN.PEN SC ×3 (08:14→17:50)
[2022-05-18] MEDS: Insulin Lispro 100 UNIT/ML INSULN.PEN 7 UNIT SC ×3 (08:14→17:49)
[2022-05-18] MEDS: 0.9% Saline Lock 10 ML Syringe IV (10:34)
[2022-05-18 10:50] LABS: Bedside Glucose 313 mg/dL (74-106)
[2022-05-18 12:28] VITALS: BP 114/58; BP 82/52; BP 93/60; PULSE 100; PULSE 89; PULSE 95
[2022-05-18 14:54] VITALS: BP 135/59; PULSE 90; RESP 18; TEMP 35.9
--- NOTE | 2022-05-18 16:02 | NURSING ---
Pt called Police this afternoon regarding his medication being delivered and sitting out in the cold. Pt was concerned d/t medication is very expensive. physics technical officer showed up to floor and went to pt's house to retrieve medication. physics technical officer brought back med to TCU. 3 bottles of Vumerity were placed in medication box pt aware. This nurse then sent one to pharmacy to have relabeled.
[2022-05-18 17:15] LABS: Bedside Glucose 153 mg/dL (74-106)
[2022-05-18] MEDS: Rivaroxaban 10 MG Tablet PO (17:50)
[2022-05-18] MEDS: Tamsulosin HCl 0.4 MG Capsule PO (17:50)
[2022-05-18 21:45] LABS: Bedside Glucose 106 mg/dL (74-106)
[2022-05-18] MEDS: Atorvastatin Calcium 20 MG Tablet PO (21:51)
[2022-05-18 22:54] VITALS: O2SAT 95
[2022-05-19 02:46] LABS: Bedside Glucose 181 mg/dL (74-106)
[2022-05-19] MEDS: Gabapentin 100 MG Capsule 200 MG PO ×3 (06:09→21:07)
[2022-05-19] MEDS: Senna/Docusate Sodium 1 Tablet 2 TABLET PO (06:11)
[2022-05-19 06:12] VITALS: BP 144/58; PULSE 79
[2022-05-19] MEDS: Metoprolol(XL)Succ 50 MG Tablet PO (06:12)
[2022-05-19] MEDS: Pantoprazole Sodium 40 MG Tablet PO (06:12)
[2022-05-19] MEDS: Cholecalciferol (VIT D3) 25 MCG TABLET (1,000 UNITS) PO (06:12)
[2022-05-19] MEDS: Ramipril 10 MG Capsule PO (06:13)
[2022-05-19] MEDS: Furosemide 40 MG Tablet PO (06:13)
[2022-05-19] MEDS: Ipratropium Bromide 0.06% NASAL SPRAY 2 SPRAY NASAL ×2 (06:13→18:08)
[2022-05-19] MEDS: DULoxetine Hcl 60 MG Capsule PO (06:13)
[2022-05-19] MEDS: Insulin Glargine-YFGN 100 UNIT/ML Pen 20 UNIT SC (06:14)
[2022-05-19] MEDS: Nystatin Powder 15gm Bottle 1 APPLIC TOPICAL ×2 (06:20→20:54)
[2022-05-19 06:26] LABS: Bedside Glucose 200 mg/dL (74-106)
[2022-05-19 07:01] LABS: Anion Gap 6 (5-15); BUN 24 mg/dL (7-18); BUN/Creat Ratio 22.2 RATIO (10-20); Calcium,Total 8.6 mg/dL (8.5-10.1); Chloride 104 mmol/L (98-107); Creatinine, Serum 1.08 mg/dL (0.70-1.30); EST Glomerular Filtration Rate 73 mL/min (>60); Est Glom Filt Rate - Afr Amer 88 mL/min (>60); Estimated Creatinine Clearance 65.09 ml/min; Glucose 227 mg/dL (74-106); Potassium 4.2 mmol/L (3.5-5.1); Sodium Level 138 mmol/L (136-145)
[2022-05-19 07:42] VITALS: O2SAT 96
[2022-05-19] MEDS: Metoclopramide 5 MG TABLET PO (08:07)
[2022-05-19] MEDS: Insulin Lispro 100 UNIT/ML INSULN.PEN 7 UNIT SC ×3 (08:07→18:09)
[2022-05-19] MEDS: Insulin Lispro 100 UNIT/ML INSULN.PEN SC ×2 (08:08→12:07)
[2022-05-19 09:10] VITALS: BP 109/39; PULSE 105
[2022-05-19 09:15] VITALS: BP 91/49; PULSE 105
[2022-05-19 11:55] LABS: Bedside Glucose 379 mg/dL (74-106)
[2022-05-19 12:04] VITALS: BP 140/65; PULSE 89; RESP 14; TEMP 36.5
[2022-05-19] MEDS: 0.9% Normal Saline 1,000 ML 100 ML IV ×2 (12:53→22:26)
[2022-05-19] MEDS: 0.9% Saline Lock 10 ML Syringe IV (12:53)
[2022-05-19 16:45] LABS: Bedside Glucose 121 mg/dL (74-106)
[2022-05-19] MEDS: Tamsulosin HCl 0.4 MG Capsule PO (18:07)
[2022-05-19] MEDS: Rivaroxaban 10 MG Tablet PO (18:07)
[2022-05-19 18:09] VITALS: BP 114/45; PULSE 67
[2022-05-19] MEDS: Insulin Glargine-YFGN 100 UNIT/ML Pen 15 UNIT SC (21:02)
[2022-05-19] MEDS: Atorvastatin Calcium 20 MG Tablet PO (21:07)
[2022-05-19 21:25] LABS: Bedside Glucose 151 mg/dL (74-106)
[2022-05-20 03:40] LABS: Bedside Glucose 185 mg/dL (74-106)
[2022-05-20] MEDS: Gabapentin 100 MG Capsule 200 MG PO ×3 (06:31→21:27)
[2022-05-20] MEDS: Pantoprazole Sodium 40 MG Tablet PO (06:33)
[2022-05-20] MEDS: DULoxetine Hcl 60 MG Capsule PO (06:33)
[2022-05-20] MEDS: Cholecalciferol (VIT D3) 25 MCG TABLET (1,000 UNITS) PO (06:33)
[2022-05-20] MEDS: Ramipril 10 MG Capsule PO (06:33)
[2022-05-20 06:35] VITALS: BP 114/42; PULSE 71
[2022-05-20] MEDS: Insulin Glargine-YFGN 100 UNIT/ML Pen 30 UNIT SC (06:37)
[2022-05-20] MEDS: Ipratropium Bromide 0.06% NASAL SPRAY 2 SPRAY NASAL (06:38)
[2022-05-20 06:41] LABS: Bedside Glucose 280 mg/dL (74-106)
[2022-05-20] MEDS: Insulin Lispro 100 UNIT/ML INSULN.PEN 10 UNIT SC (07:59)
[2022-05-20] MEDS: Insulin Lispro 100 UNIT/ML INSULN.PEN SC ×2 (07:59→11:50)
[2022-05-20] MEDS: Metoclopramide 5 MG TABLET PO (08:01)
[2022-05-20 11:21] LABS: Bedside Glucose 233 mg/dL (74-106)
[2022-05-20] MEDS: Insulin Lispro 100 UNIT/ML INSULN.PEN 7 UNIT SC ×2 (11:51→17:08)
[2022-05-20 16:00] VITALS: BP 124/68; PULSE 74; RESP 16; TEMP 36.3; O2SAT 98
[2022-05-20 16:45] LABS: Bedside Glucose 132 mg/dL (74-106)
[2022-05-20 17:07] VITALS: PULSE 74
[2022-05-20] MEDS: Rivaroxaban 10 MG Tablet PO (17:07)
[2022-05-20] MEDS: Metoprolol(XL)Succ 50 MG Tablet 25 MG PO (17:07)
[2022-05-20] MEDS: Tamsulosin HCl 0.4 MG Capsule PO (17:08)
[2022-05-20 21:26] LABS: Bedside Glucose 107 mg/dL (74-106)
[2022-05-20] MEDS: Insulin Glargine-YFGN 100 UNIT/ML Pen 15 UNIT SC (21:26)
[2022-05-20] MEDS: Atorvastatin Calcium 20 MG Tablet PO (21:27)
--- NOTE | 2022-05-20 21:43 | NURSING ---
HS blood glucose was 107. Administered scheduled insulin glargine as ordered as well as a bedtime snack. Pt very pleasant and states he is feeling much better than he has in a while.
[2022-05-20 21:57] VITALS: O2SAT 96
[2022-05-21 03:31] LABS: Bedside Glucose 162 mg/dL (74-106)
[2022-05-21] MEDS: Ramipril 10 MG Capsule PO (06:12)
[2022-05-21] MEDS: DULoxetine Hcl 60 MG Capsule PO (06:12)
[2022-05-21] MEDS: Pantoprazole Sodium 40 MG Tablet PO (06:12)
[2022-05-21 06:13] VITALS: BP 154/55; PULSE 62
[2022-05-21] MEDS: Senna/Docusate Sodium 1 Tablet 2 TABLET PO (06:13)
[2022-05-21] MEDS: Metoprolol(XL)Succ 50 MG Tablet 25 MG PO ×2 (06:13→17:12)
[2022-05-21] MEDS: Cholecalciferol (VIT D3) 25 MCG TABLET (1,000 UNITS) PO (06:14)
[2022-05-21] MEDS: Gabapentin 100 MG Capsule 200 MG PO ×3 (06:15→21:50)
[2022-05-21] MEDS: Insulin Glargine-YFGN 100 UNIT/ML Pen 30 UNIT SC (06:16)
[2022-05-21] MEDS: Ipratropium Bromide 0.06% NASAL SPRAY 2 SPRAY NASAL (06:16)
[2022-05-21 06:26] LABS: Bedside Glucose 190 mg/dL (74-106)
[2022-05-21] MEDS: Insulin Lispro 100 UNIT/ML INSULN.PEN SC ×2 (08:06→11:49)
[2022-05-21] MEDS: Insulin Lispro 100 UNIT/ML INSULN.PEN 10 UNIT SC (08:07)
[2022-05-21] MEDS: Metoclopramide 5 MG TABLET PO (08:07)
[2022-05-21 09:45] VITALS: PULSE 70; RESP 18; O2SAT 96
[2022-05-21 11:25] LABS: Bedside Glucose 180 mg/dL (74-106)
[2022-05-21] MEDS: Insulin Lispro 100 UNIT/ML INSULN.PEN 7 UNIT SC (11:49)
[2022-05-21 13:48] VITALS: BP 129/67; PULSE 69; RESP 18; TEMP 36.4; O2SAT 99
--- NOTE | 2022-05-21 14:59 | PCM.PROGNOTE ---
Subjective Subjective Afebrile Blood pressure is well controlled Heart rate is within normal limits Maintaining appropriate oxygen saturation on room air while awake Good oral intake Blood sugars are coming under much better control. 3 AM blood sugar is not low but the blood sugar does progressively increase through the night. At bedtime glargine was increased today. He denies nausea since the Reglan was started every morning. Denies shortness of breath, chest pain, palpitations, dysuria, abdominal pain. He does get some lightheadedness at times. Objective Data Objective Data Vital Signs: Vital Signs Temp Pulse Resp BP Pulse Ox O2 Del Method O2 Flow Rate 97.6 F L 69 18 129/67 H 99 Room Air 2 05/21/22 13:48 05/21/22 13:48 05/21/22 13:48 05/21/22 13:48 05/21/22 13:48 05/21/22 13:48 05/17/22 06:59 FiO2 98 05/16/22 07:36 Oxygen Flow Rate (L/min) 2 Oxygen Delivery Method Room Air Weight: 327 lb 6.183 oz Body Mass Index (BMI) 49.8 Intake & Output: Intake and Output for Last 24 Hours 05/19/22 05/20/22 05/21/22 23:59 23:59 23:59 Intake Total 1655 / 1655 1760 / 1760 240 / 240 Balance 1655 / 1655 1760 / 1760 240 / 240 Lab / Micro Data Result Diagrams: 05/16/22 04:49 05/19/22 06:03 Labs: Laboratory Results - last 24 hr 05/20/22 16:10: POC Glucose 132 H 05/20/22 21:01: POC Glucose 107 H 05/21/22 03:09: POC Glucose 162 H 05/21/22 06:07: POC Glucose 190 H 05/21/22 10:49: POC Glucose 180 H Micro: Microbiology 05/19/22 06:30 Nasal Secretion SARS-CoV-2 Antigen (Rapid) - Final 05/17/22 08:30 Nasal Secretion SARS-CoV-2 Antigen (Rapid) - Final Physical Exam Const alert, oriented x3 and no apparent distress Resp normal air movement and clear to auscultation bilaterally Resp Narrative: Not tachypneic, no conversational dyspnea, symmetrical chest movement. Cardio regular rate and regular rhythm GI normal to inspection, nondistended, normoactive bowel sounds, soft to palpation and non-tender Extremity no calf tenderness Extremity Narrative: pitting edema of both LE's. Legs are dependent and he has no compression stockings on. General Extremity: edema Skin Rashes: no rashes Neuro CN's II-XII intact bilaterally and no focal motor deficits Assessment & Plan Assessment/Plan (1) Debility: PLAN: Continue therapy (2) Multiple sclerosis: (3) Diabetes type 1, uncontrolled: PLAN: Blood sugars are coming under much better control. We will discontinue the 3 AM blood sugar and glargine was increased at bedtime to better control the fasting blood sugar. (4) Depression: (5) Neuropathic pain: (6) Venous insufficiency of both lower extremities: PLAN: Restart Lasix in the a.m. since the blood sugars are better and polyuria has improved. I suspect the peripheral edema is not secondary to volume overload but rather secondary to chronic venous insufficiency related to morbid obesity. I advised him to elevate his legs while sitting in the recliner chair. We will apply Miguel wraps from the toes to the knees every morning and remove at bedtime. He may benefit from an appointment with Dr. Claire in the wound care center for aq venous study going forward. Getting him to dehydrated with Lasix just to control the periperal edema likely contributes to the lightheadedness with standing. (7) Nausea: PLAN: Suspect fue to gastroparesis. Resolved with Reglan 5 mg with breakfast. Will continue. Charges/Coding Visit Charges Inpatient E&M: 36336 SNF Subs L2
--- NOTE | 2022-05-21 16:32 | NURSING ---
Addendum entered by Javon Akhtar 05/21/22 17:14: BLOOD SUGAR 66. PEANUT BUTTER AND GRAM CRACKERS GIVEN. SUPPER INSULIN HELD,OK PER RN. WILL CONTINUE TO MONITOR. Original Note: PT BLOOD SUGAR 63. OJ GIVEN,WILL CONTINUE TO MONITOR. RN AWARE
[2022-05-21 17:05] LABS: Bedside Glucose 63 mg/dL (74-106)
[2022-05-21] MEDS: Rivaroxaban 10 MG Tablet PO (17:11)
[2022-05-21 17:12] VITALS: BP 129/67; PULSE 69
[2022-05-21] MEDS: Tamsulosin HCl 0.4 MG Capsule PO (17:12)
[2022-05-21 17:25] LABS: Bedside Glucose 66 mg/dL (74-106)
[2022-05-21 21:45] LABS: Bedside Glucose 314 mg/dL (74-106)
[2022-05-21] MEDS: Atorvastatin Calcium 20 MG Tablet PO (21:52)
[2022-05-21] MEDS: Insulin Glargine-YFGN 100 UNIT/ML Pen 20 UNIT SC (21:53)
[2022-05-21] MEDS: Nystatin Powder 15gm Bottle 1 APPLIC TOPICAL (22:02)
[2022-05-22] MEDS: Gabapentin 100 MG Capsule 200 MG PO ×3 (06:19→21:42)
[2022-05-22] MEDS: Senna/Docusate Sodium 1 Tablet 2 TABLET PO (06:20)
[2022-05-22] MEDS: Ramipril 10 MG Capsule PO (06:20)
[2022-05-22] MEDS: DULoxetine Hcl 60 MG Capsule PO (06:20)
[2022-05-22 06:21] VITALS: BP 122/54; PULSE 62
[2022-05-22] MEDS: Metoprolol(XL)Succ 50 MG Tablet 25 MG PO ×2 (06:21→17:43)
[2022-05-22] MEDS: Cholecalciferol (VIT D3) 25 MCG TABLET (1,000 UNITS) PO (06:21)
[2022-05-22] MEDS: Pantoprazole Sodium 40 MG Tablet PO (06:22)
[2022-05-22] MEDS: Ipratropium Bromide 0.06% NASAL SPRAY 2 SPRAY NASAL (06:23)
[2022-05-22] MEDS: Insulin Glargine-YFGN 100 UNIT/ML Pen 30 UNIT SC (06:24)
[2022-05-22 06:40] LABS: Bedside Glucose 189 mg/dL (74-106)
[2022-05-22] MEDS: Insulin Lispro 100 UNIT/ML INSULN.PEN SC ×2 (07:51→11:47)
[2022-05-22] MEDS: Metoclopramide 5 MG TABLET PO (07:52)
[2022-05-22] MEDS: Insulin Lispro 100 UNIT/ML INSULN.PEN 10 UNIT SC (07:52)
[2022-05-22] MEDS: Furosemide 40 MG Tablet PO (08:28)
[2022-05-22 10:55] LABS: Bedside Glucose 198 mg/dL (74-106)
[2022-05-22] MEDS: Insulin Lispro 100 UNIT/ML INSULN.PEN 7 UNIT SC ×2 (11:47→18:16)
[2022-05-22 14:20] VITALS: BP 129/58; PULSE 68; RESP 16; TEMP 36.5; O2SAT 99
[2022-05-22 17:05] LABS: Bedside Glucose 73 mg/dL (74-106)
--- NOTE | 2022-05-22 17:34 | NURSING ---
BLOOD SUGAR 73,PEANUT BUTTER AND GRAM CRACKERS GIVEN. BLOOD SUGAR WENT TO 89. SUPPER TRAY AT THIS TIME. RN AWARE
[2022-05-22 17:35] LABS: Bedside Glucose 89 mg/dL (74-106)
[2022-05-22] MEDS: Rivaroxaban 10 MG Tablet PO (17:42)
[2022-05-22] MEDS: Tamsulosin HCl 0.4 MG Capsule PO (17:42)
[2022-05-22 17:43] VITALS: BP 129/58; PULSE 68
--- NOTE | 2022-05-22 17:56 | CASEMGMT ---
Social Work Brief interview for mental status (BIMS) and resident mood assessment (PHQ-9) completed on this day. Jacinto ENCARNACION, CHARUS
[2022-05-22 18:36] LABS: Bedside Glucose 183 mg/dL (74-106)
[2022-05-22] MEDS: Insulin Glargine-YFGN 100 UNIT/ML Pen 20 UNIT SC (21:41)
[2022-05-22] MEDS: Atorvastatin Calcium 20 MG Tablet PO (21:43)
[2022-05-22] MEDS: Nystatin Powder 15gm Bottle 1 APPLIC TOPICAL (21:45)
[2022-05-22 22:15] LABS: Bedside Glucose 327 mg/dL (74-106)
[2022-05-22 22:35] VITALS: O2SAT 97
[2022-05-23 06:09] LABS: Absolute Lymphocyte Count 1.01 X10^3/uL (0.83-4.51); Absolute Neutrophil Count 4.8 X10^3/uL (2.0-7.7); Basophil# 0.04 X10^3/uL; Basophil% 0.6 % (0-1); Eosinophil# 0.09 X10^3/uL; Eosinophils% 1.3 % (0-5); Hematocrit 33.1 % (40-54); Hemoglobin 10.8 g/dL (13.0-16.5); Lymphocyte # 1.01 X10^3/ul (0.83-4.51); Lymphocyte % 15.1 % (19-41); Mean Corp Hgb Conc 32.6 g/dL (32-36); Mean Corpuscular Hgb 29.8 pg (27.0-32.0); Mean Corpuscular Volume 91.2 fL (80-94); Mean Platelet Vol. 9.7 fl (6.2-12.0); Monocyte# 0.68 X10^3/uL; Monocyte% 10.2 % (0-10); NRBC Flagged by Analyzer 0 % (0-5); Neutrophil # 4.81 X10^3/uL (2.7-7.7); Neutrophil % 72.2 % (47-70); Platelet Count 285 K/mm3 (150-450); RBC Distribution Width CV 14.2 % (11.6-14.6); RBC Distribution Width SD 46.1 fl (35.1-43.9); Red Blood Count 3.63 M/mm3 (4.6-6.2); White Blood Count 6.7 K/mm3 (4.4-11.0)
[2022-05-23 06:29] LABS: Anion Gap 5 (5-15); BUN 20 mg/dL (7-18); BUN/Creat Ratio 18.7 RATIO (10-20); Calcium,Total 8.9 mg/dL (8.5-10.1); Chloride 103 mmol/L (98-107); Creatinine, Serum 1.07 mg/dL (0.70-1.30); EST Glomerular Filtration Rate 73 mL/min (>60); Est Glom Filt Rate - Afr Amer 89 mL/min (>60); Glucose 208 mg/dL (74-106); Potassium 3.8 mmol/L (3.5-5.1); Sodium Level 138 mmol/L (136-145)
[2022-05-23] MEDS: Gabapentin 100 MG Capsule 200 MG PO ×3 (06:38→19:51)
[2022-05-23 06:39] VITALS: BP 130/60; PULSE 65
[2022-05-23] MEDS: Cholecalciferol (VIT D3) 25 MCG TABLET (1,000 UNITS) PO (06:39)
[2022-05-23] MEDS: Metoprolol(XL)Succ 50 MG Tablet 25 MG PO (06:39)
[2022-05-23] MEDS: Metoclopramide 5 MG TABLET PO (06:39)
[2022-05-23] MEDS: Pantoprazole Sodium 40 MG Tablet PO (06:39)
[2022-05-23] MEDS: Insulin Glargine-YFGN 100 UNIT/ML Pen 30 UNIT SC (06:40)
[2022-05-23] MEDS: DULoxetine Hcl 60 MG Capsule PO (06:40)
[2022-05-23] MEDS: Ramipril 10 MG Capsule PO (06:40)
[2022-05-23] MEDS: Furosemide 40 MG Tablet PO (06:40)
[2022-05-23 06:55] LABS: Bedside Glucose 181 mg/dL (74-106)
[2022-05-23] MEDS: Insulin Lispro 100 UNIT/ML INSULN.PEN SC ×2 (07:59→12:04)
[2022-05-23] MEDS: Insulin Lispro 100 UNIT/ML INSULN.PEN 10 UNIT SC (08:00)
--- NOTE | 2022-05-23 08:25 | NURSING ---
Human Relations Teacher Note; MDS for 05/22/2021 complete
[2022-05-23] MEDS: Acetaminophen 500 MG Tablet 1000 MG PO (08:39)
--- NOTE | 2022-05-23 10:48 | CASEMGMT ---
Social Work IDT met with patient and sister for care plan meeting. Discussed patient's progress in PT/OT/SN. Educated to Medicare benefit. Pt's goal is to return home alone. Pt is adlib in room and currently receiving IV fluids. Offered to set DC date. Pt would like about another week of therapy and will notify this worker to set DC date. Discussed medical alert and home delivered meals. Pt interested. SW provided resources to pt. SW to continue to follow. Margie Rendon, SOFTWARE APPLICATIONS DESIGNER SURVEILLANCE SYSTEMS ENGINEER
[2022-05-23 11:10] LABS: Bedside Glucose 231 mg/dL (74-106)
[2022-05-23] MEDS: Insulin Lispro 100 UNIT/ML INSULN.PEN 7 UNIT SC (12:05)
[2022-05-23] MEDS: Tuberculin,Purif.prot.deriv. 50 TU/ML Vial 0.1 ML ID (13:51)
[2022-05-23] MEDS: 0.9% Saline Lock 10 ML Syringe IV (13:52)
[2022-05-23 13:55] VITALS: BP 124/54; PULSE 69; RESP 16; TEMP 36.2; O2SAT 98
[2022-05-23 15:09] VITALS: O2SAT 98
[2022-05-23 17:25] LABS: Bedside Glucose 75 mg/dL (74-106)
[2022-05-23] MEDS: Ipratropium Bromide 0.06% NASAL SPRAY 2 SPRAY NASAL (18:38)
[2022-05-23] MEDS: Insulin Glargine-YFGN 100 UNIT/ML Pen 20 UNIT SC (18:43)
--- NOTE | 2022-05-23 19:31 | NURSING ---
Pt had BS of 34 before dinner today. Showed symptoms of paleness and some diaphoresis. Alert, upright and talking. Gave orange juice and peanut butter crackers. Recheck 39. Gave cup of milk and chocolate and recheck 75. Dr. Ha made aware and altered insulin orders. Pt made aware. Pt request to hold short acting insulin after dinner but would take long acting.
[2022-05-23] MEDS: Rivaroxaban 10 MG Tablet PO (19:40)
[2022-05-23] MEDS: Senna/Docusate Sodium 1 Tablet 2 TABLET PO (19:41)
[2022-05-23] MEDS: Tamsulosin HCl 0.4 MG Capsule PO (19:41)
[2022-05-23] MEDS: Atorvastatin Calcium 20 MG Tablet PO (19:45)
[2022-05-23 19:52] VITALS: BP 138/45; PULSE 72
[2022-05-23] MEDS: Metoprolol(XL)Succ 25 MG Tablet PO (19:52)
[2022-05-23 21:40] LABS: Bedside Glucose 280 mg/dL (74-106)
[2022-05-24 02:35] LABS: Bedside Glucose 124 mg/dL (74-106)
--- NOTE | 2022-05-24 06:14 | NURSING ---
Per INSPECTOR CANNED FOOD RECONDITIONING blood sugar is 64, pt states he feels fine, asymptomatic, orange juice with sugar given, will recheck.
[2022-05-24 06:15] VITALS: BP 146/63; PULSE 69
[2022-05-24] MEDS: Metoprolol(XL)Succ 25 MG Tablet PO ×2 (06:15→17:41)
[2022-05-24] MEDS: Furosemide 40 MG Tablet PO (06:16)
[2022-05-24] MEDS: Metoclopramide 5 MG TABLET PO (06:16)
[2022-05-24] MEDS: Loratadine 10 MG Tablet PO (06:16)
[2022-05-24] MEDS: DULoxetine Hcl 60 MG Capsule PO (06:16)
[2022-05-24] MEDS: Ramipril 10 MG Capsule PO (06:16)
[2022-05-24] MEDS: Pantoprazole Sodium 40 MG Tablet PO (06:16)
[2022-05-24] MEDS: Cholecalciferol (VIT D3) 25 MCG TABLET (1,000 UNITS) PO (06:16)
[2022-05-24] MEDS: Gabapentin 100 MG Capsule 200 MG PO ×3 (06:24→20:58)
[2022-05-24 06:36] LABS: Bedside Glucose 64 mg/dL (74-106)
[2022-05-24] MEDS: Insulin Glargine-YFGN 100 UNIT/ML Pen 20 UNIT SC ×2 (06:38→17:42)
[2022-05-24 07:00] LABS: Bedside Glucose 109 mg/dL (74-106)
[2022-05-24] MEDS: Insulin Lispro 100 UNIT/ML INSULN.PEN 10 UNIT SC (08:34)
[2022-05-24 08:42] VITALS: O2SAT 98
[2022-05-24] MEDS: 0.9% Saline Lock 10 ML Syringe IV (09:23)
[2022-05-24 11:45] LABS: Bedside Glucose 243 mg/dL (74-106)
[2022-05-24] MEDS: Insulin Lispro 100 UNIT/ML INSULN.PEN 7 UNIT SC (11:46)
[2022-05-24 14:51] VITALS: BP 135/58; PULSE 87; RESP 16; TEMP 36.3
[2022-05-24 15:30] LABS: Bedside Glucose 34 mg/dL (74-106)
[2022-05-24 15:30] LABS: Bedside Glucose 39 mg/dL (74-106)
[2022-05-24 16:40] LABS: Bedside Glucose 133 mg/dL (74-106)
[2022-05-24 17:41] VITALS: BP 135/58; PULSE 87
[2022-05-24] MEDS: Tamsulosin HCl 0.4 MG Capsule PO (17:42)
[2022-05-24] MEDS: Rivaroxaban 10 MG Tablet PO (17:42)
[2022-05-24] MEDS: Atorvastatin Calcium 20 MG Tablet PO (20:16)
[2022-05-24 21:35] LABS: Bedside Glucose 385 mg/dL (74-106)
[2022-05-25 06:20] LABS: Bedside Glucose 201 mg/dL (74-106)
[2022-05-25] MEDS: Gabapentin 100 MG Capsule 200 MG PO ×3 (06:32→21:10)
[2022-05-25 06:33] VITALS: BP 128/48; PULSE 68
[2022-05-25] MEDS: Pantoprazole Sodium 40 MG Tablet PO (06:33)
[2022-05-25] MEDS: DULoxetine Hcl 60 MG Capsule PO (06:33)
[2022-05-25] MEDS: Senna/Docusate Sodium 1 Tablet 2 TABLET PO ×2 (06:33→18:09)
[2022-05-25] MEDS: Loratadine 10 MG Tablet PO (06:33)
[2022-05-25] MEDS: Ramipril 10 MG Capsule PO (06:33)
[2022-05-25] MEDS: Cholecalciferol (VIT D3) 25 MCG TABLET (1,000 UNITS) PO (06:33)
[2022-05-25] MEDS: Metoprolol(XL)Succ 25 MG Tablet PO ×2 (06:33→18:09)
[2022-05-25] MEDS: Metoclopramide 5 MG TABLET PO (06:33)
[2022-05-25] MEDS: Furosemide 40 MG Tablet PO (06:33)
[2022-05-25] MEDS: Ipratropium Bromide 0.06% NASAL SPRAY 2 SPRAY NASAL ×2 (06:35→18:13)
[2022-05-25] MEDS: Insulin Glargine-YFGN 100 UNIT/ML Pen 20 UNIT SC ×2 (06:35→18:08)
[2022-05-25] MEDS: Nystatin Powder 15gm Bottle 1 APPLIC TOPICAL (06:37)
[2022-05-25 07:30] VITALS: O2SAT 97
[2022-05-25] MEDS: Insulin Lispro 100 UNIT/ML INSULN.PEN 10 UNIT SC (08:17)
[2022-05-25 10:00] VITALS: PULSE 81; RESP 16; O2SAT 92
[2022-05-25] MEDS: Insulin Lispro 100 UNIT/ML INSULN.PEN 7 UNIT SC (12:05)
[2022-05-25 12:06] LABS: Bedside Glucose 304 mg/dL (74-106)
--- NOTE | 2022-05-25 12:50 | CASEMGMT ---
Social Work Spoke with pt about request to DC home 05/28. IDT agreeable. Offered skilled HHC vs OP. Pt requesting [facility]. No DME needs. Pt requesting assistance in setting up insulin pump prior to DC. SW provided verbal communication to RN to assist with pump and DC date. Referral faxed to [facility]. Plan: DC home alone 05/28, [facility] Margie Rendon, TRAFFIC COORDINATOR EVENT MANAGER
--- NOTE | 2022-05-25 12:54 | CASEMGMT ---
Social Work BIMS () and PHQ-9 (10/20) completed for MDS assessment. Margie Rendon MSW PROGRAM MANAGEMENT ANALYST
--- NOTE | 2022-05-25 14:11 | DS.PCM_ITS ---
Providers Date of Admission: 05/15/22 Primary Care Physician: Dr. Lucas Yap MD Reason For Visit: DIABETIC KETOACIDOSIS Diagnosis Discharge Diagnosis (1) Debility: Status: Acute Code(s): R53.81 - Other malaise (2) Multiple sclerosis: Status: Acute Code(s): G35 - Multiple sclerosis (3) Diabetes type 1, uncontrolled: Status: Acute (4) Depression: Status: Acute Code(s): F32.A - Depression, unspecified (5) Neuropathic pain: Status: Acute Code(s): M79.2 - Neuralgia and neuritis, unspecified (6) Venous insufficiency of both lower extremities: Status: Acute Code(s): I87.2 - Venous insufficiency (chronic) (peripheral) (7) Nausea: Status: Acute Code(s): R11.0 - Nausea Plan 66 year old male with below past medical history hospitalized for diabetic ke toacidosis, acute respiratory failure with hypoxia, rhinovirus, MRSA in sputum, acute kidney injury, dehydration, encephalopathy, admitted to TCU with debility, here for rehabilitation, strengthening, prior to discharge home alone. * Debility - PT/OT. * Pain - Tylenol 1000mg q6h prn pain (1-10). * Bowel - senna/colace 2 tablets bid, Dulcolax 10mg daily prn, MOM 30ml daily prn. * Adult immunization - Administer pneumonia vaccine, covid19 vaccine, flu vaccine as appropriate. * DVT prophylaxis - HAS-BLED score 1 intermediate risk of bleeding, Lexis score 6 high risk of blood clots, overall intermediate risk, Rx Xarelto 10mg daily x 10 days. * Coronary artery disease - Metoprolol succinate 50mg daily, Ramipril 10mg daily, Aspirin 81mg daily, hold while on Xarelto. * Hyperlipidemia - Atorvastatin 20mg qhs. * Multiple sclerosis - Vumerity 462mg bid. * MRSA sputum - Doxycycline 100mg bid thru 05/18/2022. * Depression - Duloxetine 60mg daily, stable chronic retirement use, GDR not recommended. * Edema - Furosemide 40mg daily. * Neuropathic pain - Gabapentin 200mg tid. * Diabetes Mellitus Type 1 - Glargine 10 units bid, monitor closely, resident brittle. * Tinea Corporis - Nystatin powder topical bid. * GERD - Pantoprazole 40mg daily. * BPH - Tamsulosin 0.4mg daily. * Vitamin D deficiency - D3 25mcg daily. Medications at Discharge Home Medications cholecalciferol (vitamin D3) 25 mcg (1,000 unit) tablet 1,000 unit PO DAILY Supplement 09/28/15 metoprolol succinate 50 mg tablet,extended release 24 hr 50 mg PO QDAY Check with primary doctor 07/04/17 omeprazole 40 mg capsule,delayed release 40 mg PO QDAY GERD 07/04/17 pediatric multivit no.17-ferrous fumarate 15 mg iron chewable tablet 15 mg PO QDAY Supplement 07/26/17 gabapentin 100 mg capsule 200 mg PO TID Pain 12/08/18 tamsulosin 0.4 mg capsule 1 tab PO DAILY Urinary retention 07/22/19 duloxetine 60 mg capsule,delayed release (Cymbalta) 60 mg PO DAILY Mood 10/17/20 diroximel fumarate 231 mg capsule,delayed release (Vumerity) 462 mg PO BID Check with primary doctor 02/19/22 rosuvastatin 10 mg tablet 10 mg PO DAILY CHOLESTEROL 05/09/22 aspirin 81 mg chewable tablet 81 mg PO DAILY@0800 Heart Health 05/15/22 furosemide 40 mg tablet 40 mg PO DAILY Heart 05/15/22 ramipril 10 mg capsule 10 mg PO DAILY BP 05/15/22 insulin glargine-yfgn 100 unit/mL (3 mL) subcutaneous pen 20 unit (0.2 mL) subcut BID 30 days #12 mL 05/25/22 insulin lispro 100 unit/mL subcutaneous pen (Humalog KwikPen (U-100) Insulin) 7 unit (0.07 mL) subcut 1145 30 days #3 mL 05/25/22 insulin lispro 100 unit/mL subcutaneous pen (Humalog KwikPen (U-100) Insulin) 10 unit (0.1 mL) subcut 0745 30 days #3 mL 05/25/22 Hospital Course Operations None Procedures None Summary of Care Provided Minutes Spent on Discharge: 35 Hospital Course: 66 year old male with below past medical history hospitalized for diabetic ketoacidosis, acute respiratory failure with hypoxia, rhinovirus, MRSA in sputum, acute kidney injury, dehydration, encephalopathy, admitted to TCU with debility, here for rehabilitation, strengthening, prior to discharge home alone. Discharge home alone 05/28/2021, [facility]. Physical Exam Const alert General Appearance: cooperative HEENT normocephalic Eyes PERRL and EOMs intact bilaterally Neck supple, no JVD and no carotid bruits Resp normal respiratory effort, normal air movement and clear to auscultation bilaterally Cardio regular rate and regular rhythm GI normal to inspection, nondistended, normoactive bowel sounds, non-tender and non-distended Extremity normal capillary refill General Extremity: Negative for edema Skin no rashes or lesions noted General Skin Exam: no breakdown Psych affect normal Appearance: appropriate Weight / BMI Weight Weight: 142.292 kg Body Mass Index (BMI) 49.8 ABG / Lab / Microbiology Data Result Diagrams: 05/23/22 05:15 05/23/22 05:15 Laboratory: Laboratory Results - last 24 hr 05/23/22 16:23: POC Glucose 34 L* 05/23/22 16:34: POC Glucose 39 L* 05/24/22 16:05: POC Glucose 133 H 05/24/22 21:09: POC Glucose 385 H 05/25/22 05:53: POC Glucose 201 H 05/25/22 11:27: POC Glucose 304 H Microbiology: Microbiology 05/19/22 06:30 Nasal Secretion SARS-CoV-2 Antigen (Rapid) - Final 05/17/22 08:30 Nasal Secretion SARS-CoV-2 Antigen (Rapid) - Final D/C Instructions Discharge Diet: No restrictions Discharge Activity: Return to Normal Activity, May Shower and Use Walker Weight Bearing Status: Weight bearing as tolerated Call your doctor if you observe: Fever of 101 or Higher, Inability to urinate, Inability to have a bowel movement, Shortness of breath, Dizziness, Fainting spells, Swelling in the ankles, Chest pain and Uncontrolled pain Additional Instructions: Discharge home alone 05/28/2021, [facility]. Meaningful Use Info Meaningful Use Diagnoses (Choose all that apply): None applicable Discharge Plan Admission Admit Date/Time: 05/15/22 15:08 Primary Reason for Your Visit: Debility. Attending Provider: Saurabh Downs Chi Primary Care Provider: Lucas Yap Instructions Additional Instructions / Restrictions: Discharge home alone 05/28/2021, [facility]. Discharge Orders/Prescriptions Prescriptions: New insulin glargine-yfgn 100 unit/mL (3 mL) Insulin Pen 20 unit subcut BID 30 Days Qty: 12 0RF insulin lispro [Humalog KwikPen Insulin] 100 unit/mL Insulin Pen 10 unit subcut 0745 30 Days Qty: 3 0RF insulin lispro [Humalog KwikPen Insulin] 100 unit/mL Insulin Pen 7 unit subcut 1145 30 Days Qty: 3 0RF Continued metoprolol succinate 50 mg tablet extended release 24 hr 50 mg PO QDAY gabapentin 100 mg capsule 200 mg PO TID Label Comments: FAMILY STATES THINKS RECENTLY INCREASED TO 3 CAPSULES (300 MG) TID. Vumerity 231 mg capsule,delayed release(DR/EC) 462 mg PO BID cholecalciferol (vitamin D3) 1,000 UNIT tablet 1,000 unit PO DAILY omeprazole 40 MG capsule 40 mg PO QDAY tamsulosin 0.4 mg capsule 1 tab PO DAILY duloxetine [Cymbalta] 60 mg Capsule,Delayed Release(Dr/Ec) 60 mg PO DAILY rosuvastatin 10 mg tablet 10 mg PO DAILY furosemide 40 mg tablet 40 mg PO DAILY aspirin 81 mg tablet,chewable 81 mg PO DAILY@0800 ramipril 10 MG capsule 10 mg PO DAILY Rx Instructions: Hold for 1 days, rsume on 07/26/2019 Discontinued doxycycline monohydrate 100 mg capsule 100 mg PO BID pantoprazole 40 mg tablet,delayed release (DR/EC) 40 mg PO DAILY insulin glargine-yfgn 100 unit/mL (3 mL) insulin pen 10 unit subcut BID No Action pediatric multivit no.17-ferrous fumarate 15 mg iron chewable tablet 15 mg iron tablet,chewable 15 mg PO QDAY Referrals / Follow Up: Lucas Yap MD [Primary Care Provider] - Disposition Disposition (needs filled in before D/C Order can be placed): Home, Self Care
[2022-05-25 15:58] VITALS: BP 112/62; PULSE 70; RESP 16; TEMP 36.8; O2SAT 95
--- NOTE | 2022-05-25 16:01 | NURSING ---
PICC line removed at this time. Pt tolerated well. 45cm removed and tip intact. Petroleum jelly and CDD applied. No swelling or drainage noted to site. Small amount of pinkness noted to insertion site.
[2022-05-25 17:35] LABS: Bedside Glucose 167 mg/dL (74-106)
[2022-05-25] MEDS: Tamsulosin HCl 0.4 MG Capsule PO (18:07)
[2022-05-25] MEDS: Rivaroxaban 10 MG Tablet PO (18:07)
[2022-05-25 18:09] VITALS: BP 138/63; PULSE 67
[2022-05-25] MEDS: Atorvastatin Calcium 20 MG Tablet PO (21:10)
[2022-05-25] MEDS: Acetaminophen 500 MG Tablet 1000 MG PO (21:16)
[2022-05-25 22:10] LABS: Bedside Glucose 425 mg/dL (74-106)
[2022-05-26] MEDS: Metoclopramide 5 MG TABLET PO (06:09)
[2022-05-26] MEDS: Ramipril 10 MG Capsule PO (06:09)
[2022-05-26] MEDS: Cholecalciferol (VIT D3) 25 MCG TABLET (1,000 UNITS) PO (06:09)
[2022-05-26] MEDS: Gabapentin 100 MG Capsule 200 MG PO ×3 (06:10→21:26)
[2022-05-26] MEDS: Loratadine 10 MG Tablet PO (06:11)
[2022-05-26] MEDS: Pantoprazole Sodium 40 MG Tablet PO (06:11)
[2022-05-26 06:12] VITALS: BP 142/64; PULSE 89
[2022-05-26] MEDS: DULoxetine Hcl 60 MG Capsule PO (06:12)
[2022-05-26] MEDS: Metoprolol(XL)Succ 25 MG Tablet PO ×2 (06:12→17:55)
[2022-05-26] MEDS: Furosemide 40 MG Tablet PO (06:12)
[2022-05-26] MEDS: Insulin Glargine-YFGN 100 UNIT/ML Pen 20 UNIT SC ×2 (06:13→17:53)
[2022-05-26 06:31] LABS: Bedside Glucose 252 mg/dL (74-106)
[2022-05-26] MEDS: Insulin Lispro 100 UNIT/ML INSULN.PEN 10 UNIT SC ×2 (08:22→22:07)
[2022-05-26 11:10] LABS: Bedside Glucose 468 mg/dL (74-106)
[2022-05-26] MEDS: Insulin Lispro 100 UNIT/ML INSULN.PEN 7 UNIT SC (12:09)
[2022-05-26 12:27] LABS: Glucose 383 mg/dL (74-106)
--- NOTE | 2022-05-26 12:31 | NURSING ---
BS 468 at lunch time. Denies s/s. Lab in to draw STAT glucose level. Recheck 383.
[2022-05-26 14:34] VITALS: BP 108/54; PULSE 72; RESP 18; TEMP 36.4; O2SAT 96
[2022-05-26 16:46] LABS: Bedside Glucose 279 mg/dL (74-106)
[2022-05-26] MEDS: Rivaroxaban 10 MG Tablet PO (17:52)
[2022-05-26] MEDS: Ipratropium Bromide 0.06% NASAL SPRAY 2 SPRAY NASAL (17:52)
[2022-05-26] MEDS: Tamsulosin HCl 0.4 MG Capsule PO (17:52)
[2022-05-26] MEDS: Senna/Docusate Sodium 1 Tablet 2 TABLET PO (17:54)
[2022-05-26 17:55] VITALS: BP 149/61; PULSE 68
[2022-05-26] MEDS: Atorvastatin Calcium 20 MG Tablet PO (21:29)
[2022-05-26] MEDS: Nystatin Powder 15gm Bottle 1 APPLIC TOPICAL (21:31)
[2022-05-26 21:35] LABS: Bedside Glucose 423 mg/dL (74-106)
--- NOTE | 2022-05-26 21:57 | NURSING ---
Paged Dr. Downs w/ immediate return phone call. Blood glucose 423- confirmed w/ lab prior to call that serum glucose to be drawn for levels greater than 450. new orders received for Lispro 10 units now and 7 units before supper starting tomorrow. Orders read back.
--- NOTE | 2022-05-26 22:10 | NURSING ---
Pt to consume one packet a peanut butter and package of nahun crackers after insulin administered for elevated blood sugar this hs. Will continue to monitor.
[2022-05-27] MEDS: DULoxetine Hcl 60 MG Capsule PO (06:35)
[2022-05-27] MEDS: Metoclopramide 5 MG TABLET PO (06:35)
[2022-05-27] MEDS: Pantoprazole Sodium 40 MG Tablet PO (06:35)
[2022-05-27] MEDS: Gabapentin 100 MG Capsule 200 MG PO ×3 (06:35→21:16)
[2022-05-27] MEDS: Senna/Docusate Sodium 1 Tablet 2 TABLET PO ×2 (06:35→17:32)
[2022-05-27 06:36] VITALS: BP 120/55; PULSE 67
[2022-05-27] MEDS: Metoprolol(XL)Succ 25 MG Tablet PO ×2 (06:36→17:32)
[2022-05-27] MEDS: Cholecalciferol (VIT D3) 25 MCG TABLET (1,000 UNITS) PO (06:36)
[2022-05-27] MEDS: Loratadine 10 MG Tablet PO (06:36)
[2022-05-27] MEDS: Ramipril 10 MG Capsule PO (06:36)
[2022-05-27] MEDS: Furosemide 40 MG Tablet PO (06:36)
[2022-05-27] MEDS: Nystatin Powder 15gm Bottle 1 APPLIC TOPICAL (06:37)
[2022-05-27 06:41] LABS: Bedside Glucose 128 mg/dL (74-106)
[2022-05-27] MEDS: Insulin Glargine-YFGN 100 UNIT/ML Pen 20 UNIT SC ×2 (06:44→17:31)
--- NOTE | 2022-05-27 06:50 | NURSING ---
Questioned pt if he has an endocrinology appt after dc. Notes he is unsure if an appt is scheduled and will need to follow-up with the provider's office. Asked pt if he plans to resume using his insulin pump upon dc or if he will use insulin pens. Reports he has pens at home but is unsure of the dates on the pens. He will take home the pens he has used in the hospital. Has additional pens available in the retail pharmacy but does not want to purchase them at this time. Verbalizes if he does not have enough insulin at home for the pens then either he or someone will potato picker the pens at the pharmacy and notes his cost will be $108. He does not have a designated person at [facility] [employer] [employer] for his insulin pump, or the bead filler's office to engage in direct trouble shooting and/or set up with the pump. he notes another pump is to be sent to him since his current pump malfunctioned.
[2022-05-27] MEDS: Aspirin 81 MG TAB.CHEW PO (08:04)
[2022-05-27] MEDS: Insulin Lispro 100 UNIT/ML INSULN.PEN 10 UNIT SC (08:05)
[2022-05-27 08:59] VITALS: O2SAT 95
[2022-05-27 10:00] VITALS: PULSE 76; RESP 16; O2SAT 95
[2022-05-27 11:40] LABS: Bedside Glucose 309 mg/dL (74-106)
[2022-05-27] MEDS: Insulin Lispro 100 UNIT/ML INSULN.PEN 7 UNIT SC ×2 (11:57→17:31)
[2022-05-27 15:27] VITALS: BP 131/70; PULSE 70; RESP 16; TEMP 36.4; O2SAT 95
[2022-05-27 17:16] LABS: Bedside Glucose 270 mg/dL (74-106)
[2022-05-27] MEDS: Tamsulosin HCl 0.4 MG Capsule PO (17:30)
[2022-05-27] MEDS: Ipratropium Bromide 0.06% NASAL SPRAY 2 SPRAY NASAL (17:31)
[2022-05-27 17:32] VITALS: PULSE 70
[2022-05-27 21:00] LABS: Bedside Glucose 180 mg/dL (74-106)
[2022-05-27] MEDS: Atorvastatin Calcium 20 MG Tablet PO (21:17)
[2022-05-27 23:45] VITALS: RESP 18; O2SAT 98
[2022-05-28] MEDS: Metoclopramide 5 MG TABLET PO (06:25)
[2022-05-28] MEDS: Pantoprazole Sodium 40 MG Tablet PO (06:25)
[2022-05-28] MEDS: Furosemide 40 MG Tablet PO (06:25)
[2022-05-28] MEDS: DULoxetine Hcl 60 MG Capsule PO (06:25)
[2022-05-28] MEDS: Ramipril 10 MG Capsule PO (06:25)
[2022-05-28] MEDS: Cholecalciferol (VIT D3) 25 MCG TABLET (1,000 UNITS) PO (06:25)
[2022-05-28] MEDS: Loratadine 10 MG Tablet PO (06:25)
[2022-05-28 06:26] VITALS: BP 130/62; PULSE 61
[2022-05-28] MEDS: Metoprolol(XL)Succ 25 MG Tablet PO (06:26)
[2022-05-28] MEDS: Insulin Glargine-YFGN 100 UNIT/ML Pen 20 UNIT SC (06:27)
[2022-05-28 06:30] LABS: Bedside Glucose 177 mg/dL (74-106)
[2022-05-28] MEDS: Gabapentin 100 MG Capsule 200 MG PO (06:32)
[2022-05-28 07:30] VITALS: PULSE 72; RESP 16; O2SAT 93
[2022-05-28 07:35] VITALS: BP 130/62; PULSE 61; RESP 18; TEMP 36.8; O2SAT 93
--- NOTE | 2022-05-28 07:50 | CPS ---
2lpm through patient's PAP unit at night
[2022-05-28] MEDS: Insulin Lispro 100 UNIT/ML INSULN.PEN 10 UNIT SC (08:35)
[2022-05-28] MEDS: Aspirin 81 MG TAB.CHEW PO (08:36)
[2022-05-28 10:53] VITALS: BP 113/41; PULSE 77; RESP 18; TEMP 36.9; O2SAT 95
== END 2022-05-28 11:05 | disposition home or self-care (01) | DRG 638 ==
PROVIDERS: Internal Medicine; Admitting Provider Family Medicine Geriatric Medicine; PCP Family Medicine; Visit Provider Family Medicine Geriatric Medicine
DX: E10.10 Type 1 diabetes mellitus with ketoacidosis without coma (principal); Z68.42 Body mass index [BMI] 45.0-49.9, adult; B95.62 Methicillin resistant Staphylococcus aureus infection as the cause of diseases classified elsewhere; E10.59 Type 1 diabetes mellitus with other circulatory complications; E10.40 Type 1 diabetes mellitus with diabetic neuropathy, unspecified; G35 Multiple sclerosis; B35.4 Tinea corporis; Z79.4 Long term (current) use of insulin; M06.9 Rheumatoid arthritis, unspecified; K21.9 Gastro-esophageal reflux disease without esophagitis; G47.30 Sleep apnea, unspecified; I25.10 Atherosclerotic heart disease of native coronary artery without angina pectoris; E78.5 Hyperlipidemia, unspecified; E55.9 Vitamin D deficiency, unspecified; I10 Essential (primary) hypertension; I25.2 Old myocardial infarction; B34.8 Other viral infections of unspecified site; N40.0 Benign prostatic hyperplasia without lower urinary tract symptoms; Z79.82 Long term (current) use of aspirin; F32.A Depression, unspecified; Z87.891 Personal history of nicotine dependence; Z79.899 Other long term (current) drug therapy; Z86.718 Personal history of other venous thrombosis and embolism; E66.9 Obesity, unspecified
CPT/HCPCS: 36415; 80048; 82947; 82962; 85025; 87426; 87811; 92610; 97110; 97116; 97162; 97166; 97530; 97535; 97802; J7030; A4216

== ENCOUNTER 2022-08-15 13:30 | Outpatient (RCR) | payer MEDICARE, BC, SELFPAY ==
--- NOTE | 2022-06-25 12:49 | HP.PTEVAL_ITS ---
Patient's Visit Information BYRON SHANNON is a 66 year old M referred to Physical Therapy by Dr. Saurabh Downs MD with a diagnosis of debility, MS. Date of Evaluation: 06/25/22 Physical Therapist: Bjorn Rivas DPT, OCS, CSCS - Visit Plan Frequency: 2-3x /Week Duration: 4-6 Weeks Plan: 3x/week for 4-6 weeks. 1. Strength gym LE postural and general strength and work to I. 2. Include balance exercises for VOR and foam - Subjective Was in hospital with high blood sugar and moved to TCU. Started vomitting at home was the indicator. Was in TCU for another week(two weeks in hospital). Has been through this a number of times. Got out of TCU 05/29/22. Has been hanging around house since then. Did not do exercises. Wants to get his strength back. Lives alone one story with one step to get in which is OK. Basic ADLs are getting done. Retired. Typically spends day visiting friends. Just enjoying [facility]. Hobbies include: TV, computer. 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 Neuropathy in LE/UE from Diabetes. No falls lately, has to be careful with turning too fast. Close to baseline. Moves slowly and cautiously. - Objective Walks with cane in R UE mod I, Walks without cane to take FGA, hesitant but safe on firm flat surface. Transfers bed adn chair I. Steps with R only unless cued. needs rail. HS mod tight B, AROM hips and knees and ankles WFL. Strength hip is 3+, knees 4/5 adn ankles 4-. reflexes 2/3 patella and achilles. Sensation at deficit in distal LE. - Balance/Special Test Scores Functional Gait Assessment Score: 24 % Disability: 20.0000 Lower Extremity Functional Score: 50 30 Second Chair Rise Test Seconds: 12 - Goals Goal 1:: LEFS 60 Goal Time Frame: 4-6 Weeks Goal 2:: Pt i in gym ex program for management of balance and postural/LE. Goal Time Frame: 4-6 Weeks Goal 3:: 14 sit to stand 30 seconds. Goal Time Frame: 4-6 Weeks - Rehabilitation Potential Physical Therapy Diagnosis: balance deficits, debility due to hosptial stay and mismanagement. Rehabilitation Potential: Fair - Anticipated Interventions Patient/Client Instruction: Educate patient on: Condition, Plan of Care For the Purpose of:: To improve balance, To improve safety with gait Therapeutic Exercise to Include: Strength training, Balance training, Flexibilty training For the Purpose of:: To decrease pain, To increase ROM, To improve nutrient delivery to tissue, To improve muscle performance and motor function, To increase tolerance to activity/condition/position, To improve ability of physi rachele actions for home/community/work/leisure Thank you for the opportunity to evaluate your patient. For Medicare and Medicare HMO plans, please review the plan of care and approve it. It will need to be FAXED BACK to us at [phone] for Medicare purposes. For Medicare only, by signing this I certify the plan of care. Please let me know if there are questions or concerns regarding this plan of care. Physician Signature: Date:
--- NOTE | 2022-08-15 14:22 | HP.PTDCSUM_ITS ---
It has been my pleasure to treat BYRON SHANNON referred by Dr. Lucas Yap MD, with the diagnosis of debility, MS for a total of 19 visit(s). Discharge Date: 08/15/22 Please see the following information for a summary of their discharge status. Subjective: A little better. Still feels off balance at times.Has it most of time. has been there since 2016 with sugar problem. That feeling is not improved. Balance feels better. Standing up is easier. Still using cane most of time. Has to turn slowly. No falls. Doing HEP 2x/week. To Dr. Mainor borrero in 6 months LB and right arm Pain Intensity (Out of 10): Unrated % Improvement: 20 Objective/Function: +4 on 30 sec STS. no change to FGA. [id number] mobility and confident that he can continue on his own in gym and will contact doctor if problems Goal 1:: LEFS 60 Goal Progress: Not Progressing Goal 2:: Pt i in gym ex program for management of balance and postural/LE. Goal Progress: Goal Met Goal 3:: 14 sit to stand 30 seconds. Goal Progress: Goal Met Plan: d/c If there are questions or concerns regarding this patient's physical therapy, please feel free to call me at [phone]. Thank you for the referral of this patient. Sincerely, Bjorn Rivas, DPT, OCS, CSCS Balance/Gait/Functional tests - Balance/Special Test Scores Functional Gait Assessment Score: 24 % Disability: 20.0000 Lower Extremity Functional Score: 35 30 Second Chair Rise Test Seconds: 16
== END 2022-08-15 14:49 | disposition home or self-care (01) ==
LOC: PT 13:30
PROVIDERS: PCP Family Medicine; Referring Provider Family Medicine Geriatric Medicine; Visit Provider Family Medicine
DX: G35 Multiple sclerosis (principal); R53.81 Other malaise
CPT/HCPCS: 97110; 97162; 97164; 97530

== ENCOUNTER → 2022-10-01 | Outpatient (CLI) | payer MEDICARE, BC, SELFPAY ==
--- NOTE | 2022-10-01 10:25 | RAD_ITS ---
STUDY: X-RAY - LEFT KNEE REASON FOR EXAM: Male, 66 years old. Left knee pain. TECHNIQUE: 2 view(s) of the knee. COMPARISON: Left knee x-rays dated July 2017. FINDINGS: Stable osteopenia. Progression of medial compartmental arthrosis with small osteophytes. Mild arthrosis of the lateral compartment. Moderate arthrosis of the patellofemoral compartment slightly progressed. Normal soft tissues. RAD/Knee 1 or 2 Views IMPRESSION: Osteopenia with slight progression of medial and patellofemoral compartment arthrosis. No acute abnormality, chondrocalcinosis or erosive changes. Electronically Signed: Mateo Hale, at 11:35 EDT ,
== END | disposition home or self-care (01) ==
LOC: RAD 10:19
PROVIDERS: PCP Family Medicine; Referring Provider Nurse Practitioner Acute Care; Visit Provider Nurse Practitioner Acute Care
DX: M13.862 Other specified arthritis, left knee (principal)
CPT/HCPCS: 73560

== ENCOUNTER → 2023-01-01 | Outpatient (CLI) | payer MEDICARE, BC, SELFPAY ==
[2023-01-01 15:23] LABS: Partial Thromboplast Time 31.2 Seconds (24.1-36.2); Prothrombin Time (Protime)PT. 13.3 SECONDS (11.7-14.9)
[2023-01-01 15:26] LABS: AST(SGOT) 18 U/L (15-37); Alanine Aminotransfer ALT/SGPT 23 U/L (16-61); Albumin, Serum 3.9 g/dL (3.2-5.0); Alkaline Phosphatase 77 U/L (45-117); Bilirubin, Direct 0.18 mg/dL (0.00-0.30); Globulin 3.7 g/dL (2.2-4.2); Magnesium 2.4 mg/dL (1.6-2.6); Protein, Total 7.6 g/dL (6.4-8.2)
[2023-01-01 18:48] LABS: Anion Gap 7 (5-15); BUN 17 mg/dL (7-18); BUN/Creat Ratio 13.6 RATIO (10-20); Calcium,Total 9.3 mg/dL (8.5-10.1); Chloride 102 mmol/L (98-107); Creatinine, Serum 1.25 mg/dL (0.70-1.30); EST Glomerular Filtration Rate 61 mL/min (>60); Est Glom Filt Rate - Afr Amer 74 mL/min (>60); Glucose 133 mg/dL (74-106); Potassium 4.3 mmol/L (3.5-5.1); Sodium Level 138 mmol/L (136-145)
[2023-01-21 10:34] VITALS: BP 117/41; PULSE 83; RESP 16; TEMP 36.8; O2SAT 96; BMI 45.6
[2023-01-21 10:36] LABS: Bedside Glucose 210 mg/dL (74-106)
--- NOTE | 2023-01-21 11:15 | NURSING ---
Dr. Salvador spoke with patient. Surgery to be cancelled due to blood sugars not being well controlled
== END | disposition home or self-care (01) ==
LOC: SDC 01-21 10:02 → AC 01-21 10:06 → PAT 02-14 15:22
PROVIDERS: Anesthesiology; PCP Family Medicine; Referring Provider Orthopaedic Surgery; Visit Provider Orthopaedic Surgery
DX: Z01.818 Encounter for other preprocedural examination (principal)
CPT/HCPCS: 36415; 80048; 80076; 82962; 83735; 85610; 85730; 87077; 87081; J3475

== ENCOUNTER → 2023-01-08 | Outpatient (CLI) | payer MEDICARE, BC, SELFPAY ==
--- NOTE | 2023-01-08 07:25 | CT_ITS ---
PROCEDURE: CT LEFT KNEE WITHOUT CONTRAST REASON FOR EXAM: Male, 67 years old. Preoperative planning for the [employer] Robotic knee surgery. Knee pain. TECHNIQUE: Transaxial CT of the hip, knee and ankle were obtained. Coronal and sagittal reconstruction images of the knee were provided. Individualized dose optimization techniques were used for this CT. COMPARISON: None. FINDINGS: Standard protocol for the preoperative planning for the [employer] robotic knee surgery was performed. Osteopenia with mild osteoarthrosis of the hip, knee and ankle. CT/Extremity Lower without Contra IMPRESSION: Preoperative [employer] Robotic knee surgical CT evaluation with findings as described above. Electronically Signed: Mateo Hale MD at 9:35 EDT ,
== END | disposition home or self-care (01) ==
LOC: CT 07:24
PROVIDERS: PCP Family Medicine; Referring Provider Orthopaedic Surgery; Visit Provider Orthopaedic Surgery
DX: M17.12 Unilateral primary osteoarthritis, left knee (principal)
CPT/HCPCS: 73700

== ENCOUNTER 2023-09-18 10:30 | Outpatient (RCR) | payer MEDICARE, BC, SELFPAY ==
--- NOTE | 2023-08-09 15:24 | HP.PTEVAL ---
Patient's Visit Information Visit Information Visit Information: BYRON SHANNON is a 67 year old M referred to Physical Therapy by BRITTANY LUCERO with a diagnosis of L TKA. Date of Evaluation: 08/09/23 Physical Therapist: Bjorn Rivas, SUNT, OCS, CSCS Visit Plan Frequency: 3x /Week Duration: 4-6 Weeks Plan: 3x/week for 4-6 weeks for 1 Patellar mobs and L knee ROM, rollout to quad and HS 2. strength progression L knee 3. gait to cane when able and steps ice as needed. Subjective Subjective: L TKA 07/18/23. It was very painful and OA and torn meniscus. Pain better overall. Pain this past week 6/10 at times sitting adn walking and worse with bending. Hurts to get up out of chair. Got into shower today and has to step over tub used. Lives alone. in one story house with 2 steps to enter with rail and using R leg. Been home for a week after time in [facility].HEP: AP, HS pulling with other legs. Sleep is not great, wakes up a couple times with pain. Wants to walk without walker. Is retired [employer] office. Hobbies: none, Watches TV. Wants to get out and walk. Used cane prior to knee hurting Pain L knee: Pain Intensity (Out of 10): 6 Pain Intensity Range: 0 and 6 Objective Objective: Walks with wh walker back to PT slow but mod I with good heel strike and knee flexion at swing, slightly limited ext at heel strike. Trasnfers chair and bed slow but I. Walks without AD slow and short steps 10 feet SBA today. L knee aROM -3 to 70, PROM to 75 today, R knee is 0-110 Patella stiff on L vs R Mild swelling L knee reflexes R knee 2/3 patella and achilles Sensation LE at deficit distally B LE Strenght hips 3+ B, knees 4- R and 3+ L flex/ext, ankles 4/5 Balance/Special Test Scores WOMAC Total Score: 66 WOMAC Percentatge: 31.2500 Goals Goal 1:: 0-110 AROM L knee to aid with mobility Goal Time Frame: 4-6 Weeks Goal 2:: Patient ambulate community with cane safe and I Goal Time Frame: 4-6 Weeks Goal 3:: Pt feel 90% back to normal activity safely Goal Time Frame: 4-6 Weeks Goal 4:: tolerate FGA and 24 score Goal Time Frame: 4-6 Weeks Goal 5:: WOMAC 15 or less Goal Time Frame: 4-6 Weeks Rehabilitation Potential Physical Therapy Diagnosis: stiffness and pain limtiing function and walking mobility Rehabilitation Potential: Fair Anticipated Interventions Patient/Client Instruction: Educate patient on: Condition and Plan of Care For the Purpose of:: To decrease pain, To increase ROM, To improve nutrient delivery to tissue, To improve muscle performance and motor function and To increase tolerance to activity/condition/position Therapeutic Exercise to Include: Strength training, Flexibilty training, Gait and locomotor training, Passive ROM and Active ROM For the Purpose of:: To decrease pain, To increase ROM, To improve nutrient delivery to tissue, To improve muscle performance and motor function and To increase tolerance to activity/condition/position Functional Training to Include: Gait training For the Purpose of:: To increase tolerance to activity/condition/position Manual Therapy Techniques to Include: Mobilization, Passive ROM and Soft tissue mobilization For the Purpose of:: To decrease pain, To increase ROM, To improve nutrient delivery to tissue, To improve muscle performance and motor function and To increase tolerance to activity/condition/position Cryotherapy (ice pack, ice massage): Yes For the Purpose of:: To decrease pain and To decrease swelling/inflammation Text: Thank you for the opportunity to evaluate your patient. For Medicare and Medicare HMO plans, please review the plan of care and approve it. It will need to be FAXED BACK to us at [phone] for Medicare purposes. For Medicare only, by signing this I certify the plan of care. Please let me know if there are questions or concerns regarding this plan of care. Physician Signature: Date:
--- NOTE | 2023-09-18 11:27 | HP.PTDCSUM ---
Discharge Summary D/C summary: It has been my pleasure to treat BYRON SHANNON referred by BRITTANY LUCERO, with the diagnosis of L TKA for a total of 12 visit(s). Discharge Date: 09/18/23 Please see the following information for a summary of their discharge status. Subjective Subjective: Doing OK.I am going up and down steps normal now but harder at home without the confidence. Pain level is not bad at all. Is off of pain meds. ROM is improving. Wakes up at night still quite a bit. Activities: Watches a lot of nTV but does get up as he needs to. Will continue to wrok out on own in gym. To doctor surgeon in a year Pain L knee: Pain Intensity (Out of 10): 3 Overall Improvement % Improvement: 75 Objective Objective/Function: Walks with and without cane I without antalgia. steps reciprocal with one rail, slightly weaker L but funcitonal. chair and bed trasnfers I without hesitation or problems. Good balance today. 0-108 AROM Goals Goal 1:: 0-110 AROM L knee to aid with mobility Goal Progress: 0-108 Goal 2:: Patient ambulate community with cane safe and I Goal Progress: Goal Met Goal 3:: Pt feel 90% back to normal activity safely Goal Progress: 75% Goal 4:: tolerate FGA and 24 score Goal 5:: WOMAC 15 or less Goal Progress: Progressing Plan Plan: d/c D/C Information d/c sentence: If there are questions or concerns regarding this patient's physical therapy, please feel free to call me at [phone]. Thank you for the referral of this patient. Sincerely, Bjorn Rivas, DPT, OCS, CSCS Balance/Gait/Functional tests Balance/Special Test Scores Functional Gait Assessment Score: 24 % Disability: 20.0000 TUG Test Time Seconds: 12 Tug Test: <20 sec.=mostly independent WOMAC Total Score: 26 WOMAC Percentage: 72.9200 Improvement % Improvement: 75
== END 2023-09-18 14:09 | disposition home or self-care (01) ==
LOC: PT 10:30
PROVIDERS: PCP Family Medicine
DX: Z47.1 Aftercare following joint replacement surgery (principal)
CPT/HCPCS: 97110; 97140; 97162; 97164

== ENCOUNTER 2025-02-04 15:30 | Outpatient (RCR) | payer MEDICARE, BC, SELFPAY ==
--- NOTE | 2024-11-16 18:48 | HP.PTEVAL ---
Patient's Visit Information Visit Information Visit Information: BYRON SHANNON is a 68 year old M referred to Physical Therapy by ALYSHA GILBERT with a diagnosis of Gait Disturbance. Date of Evaluation: 11/16/24 Physical Therapist: Kathi Salas DPT Visit Plan Frequency: 2x /Week Duration: 6 Weeks Plan: Focus on gym HEP- balance and functional mobility HEP Given IE: HR/TR, sit to stand, hip abd, hip ext, marching Subjective Subjective: Intermittent drop foot on the left side>right side and it makes him catch his foot and makes him a fall risk. 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 He has been on the machines here before for strengthening but he had COVID in 2020 and has not been able to regain his strength. He is not very active at this point- he tries to get out and walk the neighborhood- its a real struggle- he uses the cane all the time for balance outside but not always in the house. He attempted to mow the lawn last week but it was too much and his family helps. He does his own housework, laundry, cooking, grocery shopping. He is able to perform his ADL's and lives alone. He has stairs to the basement but does not use them often and a few stairs to enter. He does steps one at a time. Does not have continual N/T in the feet. PMHX/Meds: no changes Objective Objective: Posture: forward head, rounded shoulders- can correct but does not maintain Gait: antalgic- decreased stance on the left LE- poor heel/toe gait pattern- increased demand on right LE HR/TR: able with UE A SLS: weight shift only- Tandem Stance: Left LE Forward: 5 seconds without LOB and much more stable than right foot forwards ROM: WFL in all planes Sensation: WNL to gross touch bilateral Strength: Core: fair minus, Hip: 4/5 throughout, Knee: 5/5 Ankle: Left: 4/5 Right: 4+/5 Flex: HS: severe, Gastroc: severe, Soleus: mild Balance/Special Test Scores Functional Gait Assessment Score: 14 % Disability: 53.3400 Lower Extremity Functional Score: 43 Goals Goal 1:: Patient will be I with HEP and progression Goal 2:: Patient will ambulate >150 feet with a normalized gait pattern with LRD Goal Time Frame: 4-6 Weeks Goal 3:: Patient will improve FGA by 5 points Goal Time Frame: 4-6 Weeks Goal 4:: Patient will report 80% improvement Goal Time Frame: 4-6 Weeks Rehabilitation Potential Physical Therapy Diagnosis: Patient presents with decreased LE and core strength/stabilization, proprioception and endurance leading to abnormal gait pattern and poor balance Rehabilitation Potential: Fair Anticipated Interventions Patient/Client Instruction: Educate patient on: Benefits of Fitness Program Therapeutic Exercise to Include: Strength training, Endurance training, Balance training, Coordination, Agility training, Body mechanics, Postural training, Flexibilty training, Gait and locomotor training, Neuromotor development, Dynamic Lumbar Stabilization and Scapular Strength/Stabilization For the Purpose of:: To improve ability to perform ADL's TENS: Yes Cryotherapy (ice pack, ice massage): Yes Thermo therapy (hot pack): Yes Text: Thank you for the opportunity to evaluate your patient. For Medicare and Medicare HMO plans, please review the plan of care and approve it. It will need to be FAXED BACK to us at [phone] for Medicare purposes. For Medicare only, by signing this I certify the plan of care. Please let me know if there are questions or concerns regarding this plan of care. Physician Signature: Date:
--- NOTE | 2024-12-10 14:52 | HP.PTREVAL ---
Re-Evaluation Intro: ALYSHA GILBERT, It has been my pleasure to treat BYRON SHANNON over the last 9 visits for Gait Disturbance. Please see the progress note below for an update on the physical therapy plan of care! Subjective Subjective: Patient reports that he feels that he is doing good. The dizziness has improved a little bit and is not as often. He is using the cane intermittently. Decreased toe catching on both sides. He feels that he can perform the machines independently. Objective Objective/Function: Posture: forward head, rounded shoulders- can correct but does not maintain Gait: antalgic- decreased stance on the left LE- poor heel/toe gait pattern- increased demand on right LE HR/TR: able with UE A SLS: weight shift only- Tandem Stance: Left LE Forward: 5 seconds without LOB and much more stable than right foot forwards ROM: WFL in all planes Sensation: WNL to gross touch bilateral Strength: Core: fair minus, Hip: 4+/5 throughout, Knee: 5/5 Ankle: Left: 4+/5 Right: 4+/5 Flex: HS: severe, Gastroc: severe, Soleus: mild Plan Plan Plan: 12/10/2024: Pt is fully I with HEP in gym- focus this next 2x a week for 4 weeks on balance exercises IE:Focus on gym HEP- balance and functional mobility HEP Given IE: HR/TR, sit to stand, hip abd, hip ext, marching Balance/Gait/Functional tests Balance/Special Test Scores Functional Gait Assessment Score: 14 % Disability: 53.3400 Lower Extremity Functional Score: 43 Goals Goals Goal 1:: Patient will be I with HEP and progression Goal Progress: Progressing Goal 2:: Patient will ambulate >150 feet with a normalized gait pattern with LRD Goal Time Frame: 4-6 Weeks Goal Progress: Progressing Goal 3:: Patient will improve FGA by 5 points Goal Time Frame: 4-6 Weeks Goal 4:: Patient will report 80% improvement Goal Time Frame: 4-6 Weeks Goal Progress: Progressing Anticipated Interventions Anticipated Interventions Patient/Client Instruction: Educate patient on: Benefits of Fitness Program Therapeutic Exercise to Include: Strength training, Endurance training, Balance training, Coordination, Agility training, Body mechanics, Postural training, Flexibilty training, Gait and locomotor training, Neuromotor development, Dynamic Lumbar Stabilization and Scapular Strength/Stabilization For the Purpose of:: To improve ability to perform ADL's TENS: Yes Cryotherapy (ice pack, ice massage): Yes Thermo therapy (hot pack): Yes Re-Evaluation Ending Re-evaluation ending: Please do not hesitate to contact me at [phone] by phone or if you have questions or concerns regarding this new plan of care! Sincerely, SUN RosarioT
--- NOTE | 2025-01-07 14:29 | HP.PTREVAL ---
Re-Evaluation Intro: ALYSHA GILBERT, It has been my pleasure to treat BYRON SHANNON over the last 17 visits for Gait Disturbance. Please see the progress note below for an update on the physical therapy plan of care! Subjective Subjective: Balance slowly improving No falls -c/o fatigue Objective Objective/Function: POSTURE: mild forward posture NEURO: denies paresthesia/tingling ,light touch intact Gait: antalgic- using 2 point gait ,decreased stance on the left LE- poor heel/toe gait pattern- increased demand on right LE using cane HR/TR: able with UE support SLS: weight shift only- Tandem Stance: Left LE Forward: 5 seconds without LOB and much more stable than right foot forwards ROM: WFL in all planes Flex: HS: severe, Gastroc: severe, Soleus: mild Plan Plan Plan: PT INTERVENTIONS PROGRESSIVE BALANCE TRAINING ,ENDURANCE PROGRAM ,FUNCTIONAL STRENGTHENING AND BLE STRENGTHENING Balance/Gait/Functional tests Balance/Special Test Scores Functional Gait Assessment Score: 14 % Disability: 53.3400 Lower Extremity Functional Score: 43 Goals Goals Goal 1:: Patient will be I with HEP and progression Goal Progress: Progressing Goal 2:: Patient will ambulate >150 feet with a normalized gait pattern with LRD Goal Time Frame: 4-6 Weeks Goal Progress: Progressing Goal 3:: Patient will improve FGA by 5 points Goal Time Frame: 4-6 Weeks Goal Progress: Progressing Goal 4:: Patient will report 80% improvement Goal Time Frame: 4-6 Weeks Goal Progress: Progressing Anticipated Interventions Anticipated Interventions Patient/Client Instruction: Educate patient on: Benefits of Fitness Program Therapeutic Exercise to Include: Strength training, Endurance training, Balance training, Coordination, Agility training, Body mechanics, Postural training, Flexibilty training, Gait and locomotor training, Neuromotor development, Dynamic Lumbar Stabilization and Scapular Strength/Stabilization For the Purpose of:: To improve ability to perform ADL's TENS: Yes Cryotherapy (ice pack, ice massage): Yes Thermo therapy (hot pack): Yes Re-Evaluation Ending Re-evaluation ending: Please do not hesitate to contact me at [phone] by phone or if you have questions or concerns regarding this new plan of care! Sincerely, Kong Pike, PT, Cert MDT, OCS
--- NOTE | 2025-02-04 16:10 | HP.PTDCSUM_ITS ---
Discharge Summary D/C summary: It has been my pleasure to treat BYRON SHANNON referred by ALYSHA GILBERT, with the diagnosis of Gait Disturbance for a total of 25 visit(s). Discharge Date: 02/04/25 Please see the following information for a summary of their discharge status. Subjective Subjective: Feeling better overall Balance is the main concern no falls recently Overall Improvement % Improvement: 50 Objective Objective/Function: POSTURE: mild forward posture NEURO: denies paresthesia/tingling ,light touch intact Gait: antalgic- using 2 point gait ,decreased stance on the left LE- poor heel/toe gait pattern- increased demand on right LE using cane HR/TR: able with UE support SLS: weight shift only- Tandem Stance: Left LE Forward: 5 seconds without LOB a nd much more stable than right foot forwards ROM: WFL in all planes MMT: QUADS/HAMAS 4/5 Flex: HS: severe, Gastroc: severe, Soleus: mild Goals Goal 1:: Patient will be I with HEP and progression Goal Progress: Progressing Goal 2:: Patient will ambulate >150 feet with a normalized gait pattern with LRD Goal Progress: Goal Met Goal 3:: Patient will improve FGA by 5 points Goal Progress: Goal Met Goal 4:: Patient will report 80% improvement Goal Progress: Progressing Plan Plan: D/C TO HEP AND GYM D/C Information Discharge Comments: HEP AND GYM d/c sentence: If there are questions or concerns regarding this patient's physical therapy, please feel free to call me at [phone]. Thank you for the referral of this patient. Sincerely, Kong Pike, PT, Cert MDT, OCS Balance/Gait/Functional tests Balance/Special Test Scores Functional Gait Assessment Score: 16 % Disability: 46.6700 Lower Extremity Functional Score: 43 TUG Test Time Seconds: 11.87 Tug Test: <20 sec.=mostly independent 30 Second Chair Rise Test Seconds: 16 Improvement % Improvement: 50
== END 2025-02-04 19:00 | disposition home or self-care (01) ==
LOC: PT 15:30
PROVIDERS: PCP Family Medicine
DX: G35 Multiple sclerosis (principal)
CPT/HCPCS: 97110; 97162; 97530

== ENCOUNTER 2025-03-06 14:28 | Emergency (ER) | payer MEDICARE, BC, SELFPAY ==
[2025-03-06 14:30] VITALS: BP 132/112; PULSE 69; RESP 20; TEMP 36; O2SAT 96; BMI 51.0
--- NOTE | 2025-03-06 15:35 | EX.ED.DYSGE1 ---
HPI History of Present Illness Chief Complaint: Head Injury Narrative Narrative: Patient is a 69-year-old male with a history of MS presenting with concerns about miosis following a fall yesterday. - Patient reports falling on a patio at a wedding yesterday around 1630 while talking to a friend. - Denies LOC, emesis, or nausea at the time of the fall. - Noted by others to have small pupils that are non-reactive to light since the fall. - Able to eat dinner last night and breakfast and lunch today; slept with head elevated. - Able to stand up after the fall with assistance and rested in a chair. - Denies chest pain, dyspnea, headaches, diplopia, dizziness, or current nausea. - Reports mild pain in the lower back and neck area since the fall. - Takes 81 mg aspirin daily; denies use of other anticoagulants. [facility] Medical History Wears glasses Wears partial dentures History of diabetic ketoacidosis Cancer Alcohol use Ambulates with cane Prostate disease Easy bruising Back pain Former smoker History of pulmonary embolus (PE) Shortness of breath on exertion History of edema Hypertension Cardiology follow-up encounter History of echocardiogram History of heart attack History of stress test Acute respiratory failure with hypoxemia Rhinovirus infection Anxiety GI bleed Depression Rheumatoid arthritis CPAP (continuous positive airway pressure) dependence Myocardial infarct Multiple sclerosis Essential hypertension Obesity GERD (gastroesophageal reflux disease) Arthritis Cataracts, bilateral Hypoglycemia History of MRSA infection of lungs Renal failure Sepsis DVT (deep venous thrombosis) NSTEMI (non-ST elevated myocardial infarction) (05/10/22) HLD (hyperlipidemia) Diabetes type 1, controlled Home Medications ?Medication ?Instructions ?Recorded ?Last Taken ?Type cholecalciferol (vitamin D3) 25 1,000 unit PO DAILY Supplement 09/28/15 05/08/22 History mcg (1,000 unit) tablet metoprolol succinate 50 mg 50 mg PO QDAY Check with primary 07/04/17 05/08/22 History tablet,extended release 24 hr doctor omeprazole 40 mg capsule,delayed 40 mg PO QDAY GERD 07/04/17 01/21/23 06:00 History release pediatric multivit no.17-ferrous 15 mg PO QDAY Supplement 07/26/17 05/08/22 History fumarate 15 mg iron chewable tablet tamsulosin 0.4 mg capsule 1 tab PO DAILY Urinary retention 07/22/19 05/08/22 History duloxetine 60 mg capsule,delayed 60 mg PO DAILY Mood 10/17/20 05/08/22 History release (Cymbalta) diroximel fumarate 231 mg 462 mg PO BID Check with primary 02/19/22 05/08/22 History capsule,delayed release (Vumerity) doctor rosuvastatin 10 mg tablet 10 mg PO QHS CHOLESTEROL 05/09/22 05/08/22 History aspirin 81 mg chewable tablet 81 mg PO DAILY@0800 Heart Health 05/15/22 Unknown History furosemide 40 mg tablet 40 mg PO DAILY Heart 05/15/22 Unknown History ramipril 10 mg capsule 10 mg PO DAILY BP 05/15/22 Unknown History insulin glargine 100 unit/mL (3 25 unit subcut DAILY PRN WHEN 12/31/22 Unknown History mL) subcutaneous pen (Lantus INSULIN PUMP NOT WORKING Solostar U-100 Insulin) insulin lispro 100 unit/mL 1 sliding scale dose subcut 0745 12/31/22 Unknown History subcutaneous pen (Humalog KwikPen INSULIN PUMP (U-100) Insulin) potassium chloride 10 mEq 10 meq PO DAILY 03/27/23 Unknown History tablet,extended release gabapentin 100 mg capsule 300 mg PO 5X/DAY Pain 03/31/24 Unknown History Allergy/AdvReac Type Severity Reaction Status Date / Time adhesive tape AdvReac Rash Verified 03/06/25 14:30 Sulfa (Sulfonamide AdvReac Other Verified 03/06/25 14:30 Antibiotics) Family History Sister Diabetes Surgical History History of selective injection of anesthetic agent around lumbar nerve root History of colonoscopy History of carpal tunnel surgery insulin pump implant and removal Hx of tonsillectomy Social History household members: none Smoking Status: Former smoker second hand exposure: No alcohol intake: current alcohol intake frequency: a few times a month substance use type: does not use ROS ROS ED ROS Narrative Constitutional: (+) fatigue Head: (-) headache Eyes: (-) diplopia Cardiovascular: (-) chest pain Respiratory: (-) shortness of breath Gastrointestinal: (-) nausea, (-) vomiting Musculoskeletal: (+) neck pain, (+) back pain Neurological: (-) dizziness, (-) syncope EXAM Physical Exam Narrative Exam Narrative: General: No acute distress. HEENT: Head atraumatic, normocephalic; pupils miotic, reactive to light bilaterally. CV: Regular rhythm; radial pulses 2+ bilaterally. Resp: Clear to auscultation bilaterally. MSK/Ext: No pain with range of motion of wrists, elbows, shoulders bilaterally; no midline cervical tenderness; no tenderness to palpation in midline thoracic spine; no pain to palpation in lower lumbar spine in the midline. Neuro: Strength 5/5 in bilateral upper and lower extremities. NIH of 0 GCS 15 Const Vital Signs: 03/06/25 14:28 03/06/25 14:30 Temperature 96.8 F L Temperature Source Temporal Pulse Rate 69 Respiratory Rate 20 H Respiratory Effort Normal Non-Labored Respiratory Depth Normal Respiratory Pattern Normal Blood Pressure 132/112 H Blood Pressure Mean 118 Pulse Ox 96 Oxygen Delivery Method Room Air Room Air MDM MDM MDM Narrative Medical decision making narrative: Assessment: The patient is a 69-year-old male presenting for evaluation after a fall yesterday on a patio. Differential considered includes intracranial hemorrhage and cervical spine fracture; both are felt unlikely given intact neurological exam, full painless cervical range of motion, absence of midline spinal tenderness, and lack of worrisome symptoms such as headache, vomiting, or loss of consciousness. Pupils are clinically reactive, alleviating his concern for abnormal pupillary response. No further imaging is warranted at this time. Plan: - Discharged home in stable condition with reassurance that intracranial hemorrhage and cervical fracture are low likelihood. - Advised strict return precautions for any new headache, vomiting, neurological changes, neck pain, or other concerning symptoms. - Instructed to follow up with primary care physician as needed; all questions answered and patient agrees with plan. Discharge Plan Triage Chief Complaint: Head Injury ED Provider: Rafy Caro Dx/Rx/DC Orders Clinical Impression: Fall, Diabetes type 1, controlled, Essential hypertension, Multiple sclerosis Prescriptions: No Action metoprolol succinate 50 mg tablet extended release 24 hr 50 mg PO QDAY pedi multivit 17-iron fumarate 15 mg iron tablet,chewable 15 mg PO QDAY gabapentin 100 mg capsule 300 mg PO 5X/DAY Patient Comments: FAMILY STATES THINKS RECENTLY INCREASED TO 3 CAPSULES (300 MG) TID. Vumerity 231 mg capsule,delayed release(DR/EC) 462 mg PO BID Patient Comments: potassium chloride 10 mEq tablet extended release 10 meq PO DAILY cholecalciferol (vitamin D3) 1,000 UNIT tablet 1,000 unit PO DAILY omeprazole 40 MG capsule 40 mg PO QDAY tamsulosin 0.4 mg capsule 1 tab PO DAILY duloxetine [Cymbalta] 60 mg Capsule,Delayed Release(Dr/Ec) 60 mg PO DAILY rosuvastatin 10 mg tablet 10 mg PO QHS furosemide 40 mg tablet 40 mg PO DAILY aspirin 81 mg tablet,chewable 81 mg PO DAILY@0800 ramipril 10 MG capsule 10 mg PO DAILY insulin lispro [Humalog KwikPen Insulin] 100 unit/mL Insulin Pen 1 sliding scale dose subcut 0745 insulin glargine [Lantus Solostar U-100 Insulin] 100 unit/mL (3 mL) insulin pen 25 unit subcut DAILY PRN (Reason: WHEN INSULIN PUMP NOT WORKING) Primary Care Provider: Lucas Yap Referrals: Lucas Yap MD [Primary Care Provider, Family Practice] Activity Restrictions/Additional Instructions: Follow-up with your doctor in outpatient setting return with worsening symptoms or concerns. Your pupils are reactive to light bilaterally. If you start to develop severe headaches, intractable vomiting not keeping down or any other concerns return to the emergency department immediately Print Language: Palauan Disposition Disposition: Home, Self Care
[2025-03-06 15:46] VITALS: BP 135/99; PULSE 64; RESP 20; TEMP 36.5; O2SAT 98
== END 2025-03-06 15:46 | disposition home or self-care (01) ==
PROVIDERS: Emergency Provider Emergency Medicine; PCP Family Medicine; Visit Provider Emergency Medicine
DX: M54.2 Cervicalgia (principal); E10.9 Type 1 diabetes mellitus without complications; Z79.4 Long term (current) use of insulin; I10 Essential (primary) hypertension; Z86.711 Personal history of pulmonary embolism; G35.D Multiple sclerosis, unspecified; E78.5 Hyperlipidemia, unspecified; Z87.891 Personal history of nicotine dependence; Z83.3 Family history of diabetes mellitus; Z86.718 Personal history of other venous thrombosis and embolism; I25.2 Old myocardial infarction; Z99.89 Dependence on other enabling machines and devices; R53.83 Other fatigue; W01.0XXA Fall on same level from slipping, tripping and stumbling without subsequent striking against object, initial encounter
CPT/HCPCS: 99282

== ENCOUNTER → 2025-05-06 | Outpatient (CLI) | payer MEDICARE, BC, SELFPAY ==
[2025-05-06 15:25] LABS: AST(SGOT) 28 U/L (<=37); Alanine Aminotransfer ALT/SGPT 21 U/L (<=46); Albumin, Serum 4.2 g/dL (3.4-4.8); Alkaline Phosphatase 68 U/L (40-129); Anion Gap 10 (5-15); BUN 19 mg/dL (4-19); BUN/Creat Ratio 16.0 RATIO (10-20); Calcium,Total 9.3 mg/dL (7.6-11.0); Carbon Dioxide 29.0 mmol/L (21.0-32.0); Chloride 101 mmol/L (98-108); Globulin 2.5 g/dL (2.2-4.2); Glucose 186 mg/dL (70-99); Potassium 5.0 mmol/L (3.3-5.1); Pro- Brain NATRIURETIC PEPTIDE 91 pg/mL (<=900)
== END | disposition home or self-care (01) ==
LOC: LAB 13:53
PROVIDERS: PCP Family Medicine; Referring Provider Internal Medicine Cardiovascular Disease; Visit Provider Internal Medicine Cardiovascular Disease
DX: R06.09 Other forms of dyspnea (principal); I10 Essential (primary) hypertension
CPT/HCPCS: 36415; 80053; 83880